=== PATIENT | female | born 1975 | race African-American/Black ===

== ENCOUNTER 2018-05-27 15:37 | Inpatient (IN) | payer SELFPAY ==
--- NOTE | 2018-05-27 16:07 | ER Document Report ---
ED General - General Chief Complaint: Hand Pain Stated Complaint: LEG/HAND PAIN, FEVER Time Seen by Provider: 05/27/18 15:57 Mode of Arrival: Ambulatory Information source: Patient Notes: Patient is a 42-year-old female who is morbidly obese with a BMI of 65.1.she presents to the ED today primarily complaining of bilateral hand pain located along her 5th and 4th fingers for the past few months. It worsened as she used the computer more often and while she slept on a chair at the hospital during her 's hospitalization, and is associated with numbness and tingling. She has no history of trauma to either hand. Additionally, she has a history of DVTs and now has pain in her right calf. The pain in her right calf is similar to the pain that she experienced previously with DVTs. It is associated with feelings of muscle tightness and cramping. She takes warfarin 6 mg every day, and has a stent in her right lower extremity. She has not had her INR checked since early March, as she is hoping to establish care with a new doctor in the area. She reports no dietary changes. She denies feeling short of breath. As noted, she has an extensive surgical and past medical history. Of note, she had a hysterectomy around 6 months ago for endometrial cancer. She is not on hormone replacement therapy. Patient is in no acute distress, she is breathing unlabored and is saturating 100% on room air, she ambulates per her normal for her body habitus. TRAVEL OUTSIDE OF THE [place] IN LAST 30 DAYS: No - HPI Onset: This morning - calf pain since this morning, hand pain for a few months Onset/Duration: Gradual - hand pain and calf pain Quality of pain: Achy - hand pain is achy with numbness/tingling, calf pain is crampy Severity: Mild Pain Level: 1 - both calf and hand pain are mild Associated symptoms: None Exacerbated by: Other - as noted in HPI Similar symptoms previously: No - as noted in HPI Recently seen / treated by doctor: No - as noted in HPI - Related Data Allergies/Adverse Reactions: doxycycline Allergy (Verified 05/27/18 21:33) sumatriptan [From Imitrex] Allergy (Verified 05/27/18 21:33) Past Medical History - General Information source: Patient - Social History Smoking Status: Never Smoker Frequency of alcohol use: Rare Drug Abuse: None Lives with: Family Family History: Reviewed & Not Pertinent - Medical History Medical History: Other - Past Medical History Cardiac Medical History: Reports: Hx DVT Neurological Medical History: Reports: Hx Migraine Other: pseudotumor cerebrii Endocrine Medical History: Reports: Hx Hypothyroidism - s/p partial thyroidectomy Renal/ Medical History: Reports: Other - endometrial cancer s/p total hysterectomy Malignancy Medical History: Reports: Other - as noted in history GI Medical History: Reports: Other - s/p partial colectomy and sleeve gastrectomy Past Surgical History: Reports: Hx Bowel Surgery, Hx Gastric Bypass Surgery, Hx Gynecologic Surgery, Hx Thyroid Surgery Review of Systems - Review of Systems Notes: Physical Exam: General: Alert, appears well. HEENT: Normocephalic. Atraumatic. PERRLA. Extraocular movements intact. Oropharynx clear. Neck: Supple. Non-tender. Respiratory: No respiratory distress. Clear and equal breath sounds bilaterally. Cardiovascular: Regular rate and rhythm. Abdominal: Normal Inspection. Soft, non-tender. No distension. Normal Bowel Sounds. Back: Non-tender. No deformity or step off. Extremities: Moves all four extremities. Upper extremities: Normal inspection. Non-tender. Normal color. Normal ROM. Normal temperature. Lower extremities: Normal inspection. Tenderness to R calf upon palpation. No edema. Normal color. Normal ROM. Normal temperature. Two approximately 2cm bruises noted on L inner thigh and R superior calf. Neurological: Cranial nerves II-XII grossly intact bilaterally. Strength 5/5 throughout. Sensation intact to light touch. Normal cognition. AAOx4. Normal speech. Psychological: Normal affect. Normal Mood. Skin: Warm. Dry. Normal color. Constitutional: Fever EENT: No symptoms reported Cardiovascular: No symptoms reported Respiratory: No symptoms reported Gastrointestinal: No symptoms reported Genitourinary: No symptoms reported Female Genitourinary: No symptoms reported Musculoskeletal: Muscle pain - R calf Skin: No symptoms reported Hematologic/Lymphatic: No symptoms reported Neurological/Psychological: No symptoms reported Physical Exam - Vital signs Vitals: Temp Pulse Resp BP Pulse Ox 100.0 F 120 H 26 H 145/86 H 100 05/27/18 15:44 05/27/18 15:44 05/27/18 15:44 05/27/18 15:44 05/27/18 15:44 Course - Re-evaluation Re-evalutation: 05/27/18 23:07 Patient presented to the ED for complaint of chronic pain to bilateral legs with a history of DVT, she also complained of some numbness to the fourth and fifth finger on both sides that is been present for several months. She states she also had a fever earlier today but no other symptoms. She states she became concerned because of the fever. Due to her symptoms a Doppler was studied as she had had a previous deep PT which was negative. She also had blood work drawn as she is on Coumadin CBC chemistry and UA were completed. I was evaluating her for any problems with her glucose for the numbness to the fingers. When the blood work and urine came back it was obvious she had a UTI. As her stay continued she developed a fever of 102. When she first arrived the pulse was 110 and by the time she had a fever over 102 her pulse was up to 120. IV fluids were started and she was given Tylenol. Lactic acid is CRP and sed rate were also ordered. I discussed the patient with Dr. Feliz Rocephin 2 g IV was ordered while we awaited the results of the labs. When the patient started becoming more short of breath and her pulse went up to 130 Dr. Feliz came and examined the patient and the patient was placed on a monitor and vancomycin was ordered IV. Dr. Griffin was consulted for a admission and the patient was admitted for UTI sepsis. He stated she should go to [facility]. - Vital Signs Vital signs: Temp Pulse Resp BP Pulse Ox 102.8 F H 122 H 38 H 159/99 H 98 05/27/18 22:05 05/27/18 22:05 05/27/18 22:05 05/27/18 22:05 05/27/18 22:05 - Laboratory Result Diagrams: 05/27/18 16:55 05/27/18 16:55 Laboratory results interpreted by me: 05/27/18 05/27/18 05/27/18 16:55 16:55 16:55 WBC 14.6 H Hgb 11.0 L Hct 34.8 L MCV 78 L MCH 24.4 L MCHC 31.5 L RDW 15.4 H Seg Neutrophils % 84.9 H Lymphocytes % 8.6 L Absolute Neutrophils 12.4 H ESR PT 23.3 H APTT 51.5 H Chloride 110 H Est GFR (Non-Af Amer) 57 L Glucose 116 H C-Reactive Protein Urine Protein Urine Blood Urine Urobilinogen Ur Leukocyte Esterase 05/27/18 05/27/18 05/27/18 16:55 16:55 17:15 WBC Hgb Hct MCV MCH MCHC RDW Seg Neutrophils % Lymphocytes % Absolute Neutrophils ESR 48 H PT APTT Chloride Est GFR (Non-Af Amer) Glucose C-Reactive Protein 155.5 H Urine Protein 100 H Urine Blood SMALL H Urine Urobilinogen 2.0 H Ur Leukocyte Esterase MODERATE H - Diagnostic Test Radiology reviewed: Image reviewed, Reports reviewed Discharge - Discharge Clinical Impression: Sepsis Qualifiers: Sepsis type: sepsis due to unspecified organism Qualified Code(s): A41.9 - Sepsis, unspecified organism UTI (urinary tract infection) Qualifiers: Urinary tract infection type: site unspecified Hematuria presence: without hematuria Qualified Code(s): N39.0 - Urinary tract infection, site not specified Disposition: ADMITTED INPATIENT Admitting Provider: [facility] Unit Admitted: [facility]
[2018-05-27] MEDS ORDERED: ACETAMINOPHEN 325 MG TABLET PO ONE ×2 (17:01→20:32)
[2018-05-27 17:10] LABS: ABSOLUTE EOSINOPHILS # (AUTO) 0.1 10^3/uL (0.0-0.6); ABSOLUTE LYMPHOCYTES (AUTO) 1.3 10^3/uL (0.5-4.7); ABSOLUTE MONOCYTES (AUTO) 0.9 10^3/uL (0.1-1.4); ABSOLUTE NEUT (AUTO) 12.4 10^3/uL (1.7-8.2); BASOPHILS % (AUTO) 0.2 % (0-2); EOSINOPHILS % (AUTO) 0.3 % (0-6); HEMATOCRIT 34.8 % (36.0-47.0); LYMPHOCYTES % (AUTO) 8.6 % (13-45); MEAN CORPUSCULAR HEMOGLOBIN 24.4 pg (27.0-33.4); MEAN CORPUSCULAR HGB CONC 31.5 g/dL (32.0-36.0); MEAN CORPUSCULAR VOLUME 78 fl (80-97); PLATELET COUNT 271 10^3/uL (150-450); RED BLOOD COUNT 4.49 10^6/uL (3.72-5.28); RED CELL DISTRIBUTION WIDTH 15.4 % (11.5-14.0); SEGMENTED NEUTROPHILS % (AUTO) 84.9 % (42-78); TOTAL CELLS COUNTED % (AUTO) 100 %; WHITE BLOOD COUNT 14.6 10^3/uL (4.0-10.5)
[2018-05-27 17:15] LABS: INTERNATIONAL RATION (INR) 1.96; PARTIAL THROMBOPLASTIN TIME 51.5 SEC (23.5-35.8); PROTHROMBIN TIME 23.3 SEC (11.4-15.4)
[2018-05-27 17:24] LABS: ALANINE AMINOTRANSFERASE 28 U/L (9-52); ALBUMIN 3.6 g/dL (3.5-5.0); ALKALINE PHOSPHATASE 76 U/L (38-126); ANION GAP 10 (5-19); ASPARTATE AMINO TRANSFERASE 26 U/L (14-36); BILIRUBIN,DIRECT 0.1 mg/dL (0.0-0.4); BILIRUBIN,TOTAL 0.5 mg/dL (0.2-1.3); BLOOD UREA NITROGEN 11 mg/dL (7-20); CALCIUM 9.2 mg/dL (8.4-10.2); CARBON DIOXIDE 23 mmol/L (22-30); CHLORIDE 110 mmol/L (98-107); GLUCOSE 116 mg/dL (75-110); POTASSIUM 4.3 mmol/L (3.6-5.0); SODIUM 143.4 mmol/L (137-145)
[2018-05-27 17:40] LABS: APPEARANCE,URINE CLOUDY; BILIRUBIN,URINE NEGATIVE (NEGATIVE); COLOR,URINE YELLOW; GLUCOSE, URINE NEGATIVE (NEGATIVE); KETONES,URINE NEGATIVE (NEGATIVE); LEUKOCYTE ESTERASE,URINE MODERATE (NEGATIVE); NITRITE,URINE NEGATIVE (NEGATIVE); PROTEIN,URINE 100 mg/dL (NEGATIVE); URINE SPECIFIC GRAVITY 1.033
[2018-05-27] MEDS ORDERED: CEFTRIAXONE 2 GM/D5W RTU 2 GM/50 ML RTUPB IV SCH (19:00)
[2018-05-27] MEDS: RINGERS SOLUTION,LACTATED 1,000 ML IV PRN ×2 (19:02→19:03)
[2018-05-27] MEDS ORDERED: CEFTRIAXONE SODIUM 2,000 MG in DEXTROSE 5%-WATER 100 ML IV SCH (19:30)
[2018-05-27] MEDS ORDERED: VANCOMYCIN HCL INJ 1000 MG VIAL IV ONE (20:52)
[2018-05-27] MEDS ORDERED: NORMAL SALINE 500 ML IV ONE (21:00)
[2018-05-27] MEDS ORDERED: NORMAL SALINE 1000 ML 1,000 ML IV ONE (21:06)
[2018-05-27] MEDS ORDERED: MAG HYDROX/AL HYDROX/SIMETH SUSP 30 ML UDCUP PO PRN (21:08)
[2018-05-27] MEDS ORDERED: VANCOMYCIN HCL 0 MG in DEXTROSE 5%-WATER 250 ML IV NR (21:15)
[2018-05-27] MEDS ORDERED: NORMAL SALINE 1000 ML 1,000 ML IV SCH (21:15)
[2018-05-27] MEDS ORDERED: MORPHINE SULFATE 10 MG/ML INJ IV ONE (21:23)
[2018-05-27] MEDS ORDERED: ONDANSETRON HCL INJ/PF 4 MG/2 ML SDV IV ONE (21:23)
--- NOTE | 2018-05-27 21:50 | RADIOLOGY REPORT (SQ) ---
PROCEDURE: XR CHEST 1 VIEW HISTORY: SEPSIS COMPARISON: None TECHNIQUE: The study was done on 05/27/2018 at 9:32 PM Single projection of the chest was done. FINDINGS: The lung larson are well inflated . There are no discrete airspace infiltrates, pneumothoraces or pleural effusions. The pulmonary vascularity is normal. The cardiomediastinal silhouette is unremarkable for patient's age and sex. IMPRESSION: There is no acute pleural-parenchymal process seen in the imaged lung larson. Location of Interpretation: Teleradiology
--- NOTE | 2018-05-27 21:53 | RADIOLOGY REPORT (SQ) ---
PROCEDURE: Ultrasound of the right lower extremity deep venous system CLINICAL HISTORY and INDICATION: Pain in the right leg COMPARISON: None. TECHNIQUE: Maldonado scale imaging with duplex interrogation of the right lower extremity venous system was performed and multiple static images were obtained. FINDINGS: Utilizing compression and augmentation, there is no deep venous thrombus in the right common femoral, superficial femoral or popliteal veins. The study is somewhat limited due to patient's body habitus The right profunda femoris, posterior tibial veins are patent and compressible. . The bilateral greater saphenous vein at the saphenofemoral junction is patent and compressible. There is no visualization of any subcutaneous fluid collections in either lower extremity. There is no visualization of any fluid collections in the right and left popliteal fossa. There is no evidence of reactive or pathological lymphadenopathy in the evaluated bilateral lower extremities. IMPRESSION: No deep venous thrombosis of the right lower extremity. Location of Interpretation: [id number]
[2018-05-27] MEDS: HEPARIN SOD (PORCINE) 5,000 UNIT/ML 1 ML SYRINGE SUBCUT SCH (23:08)
[2018-05-28] MEDS: ACETAMINOPHEN 325 MG TABLET PO PRN ×4 (00:39→21:46)
[2018-05-28 01:49] LABS: ARTERIAL BLOOD BASE EXCESS -5.7 mmol/L; ARTERIAL BLOOD H2CO3 0.84 mmol/L (1.05-1.35); ARTERIAL BLOOD HCO3 17.6 mmol/L (20-24); ARTERIAL BLOOD O2 SATURATION 94.1 % (94-98); ARTERIAL BLOOD PCO2 27.8 mmHg (35-45); ARTERIAL BLOOD PH 7.42 (7.35-7.45); ARTERIAL BLOOD PO2 67.2 mmHg (80-100); ARTERIAL BLOOD TOTAL CO2 18.5 mmol/L (21-25)
[2018-05-28 01:51] LABS: ARTERIAL BLOOD FIO2 ROOM AIR
[2018-05-28] MEDS ORDERED: KETOROLAC TROMETHAMINE INJ/PF 30 MG/1 ML SDV ONE (02:04)
[2018-05-28] MEDS ORDERED: KETOROLAC TROMETHAMINE INJ/PF 30 MG/1 ML SDV IV ONE (02:15)
--- NOTE | 2018-05-28 04:58 | RADIOLOGY REPORT (SQ) ---
CLINICAL HISTORY: sepsis c L pelvic pain HX recent hysterectomy(6 MONTHS AGO) COMPARISON: None. TECHNIQUE: CT ABDOMEN PELVIS WITH IV CONTRAST on 05/28/2018 12:00 AM [employer] This exam was performed according to our departmental dose-optimization program, which includes automated exposure control, adjustment of the mA and/or kV according to patient size and/or use of iterative reconstruction technique. FINDINGS: Lower lungs are clear. Abdomen: Liver is fatty in attenuation. There is no biliary dilatation. Cholecystectomy was performed. Gastric bypass was performed. The pancreas and spleen are normal in appearance. Adrenal glands and left kidney are unremarkable. There is a 7 mm mid pole right renal calculus. There is mild right perinephric stranding. Abdominal aorta is normal in course and caliber without aneurysm. There is no free air. There is no retroperitoneal adenopathy. Pelvis: There is no bowel obstruction. Urinary bladder is unremarkable. There is no free fluid. Hysterectomy was performed. Appendix is not well seen. IVC filter is in place. Skeleton: There are no acute osseous findings. No suspicious bony lesions. IMPRESSION: No definite acute osseous abnormalities. Right perinephric stranding with a central renal collecting system. Underlying pyelonephritis is not completely excluded. No obstructing ureteral lesion or stone.
[2018-05-28 05:23] LABS: ABSOLUTE BASOPHILS # (AUTO) 0.1 10^3/uL (0.0-0.2); ABSOLUTE MONOCYTES (AUTO) 1.3 10^3/uL (0.1-1.4); ABSOLUTE NEUT (AUTO) 11.4 10^3/uL (1.7-8.2); BASOPHILS % (AUTO) 0.8 % (0-2); HEMATOCRIT 33.2 % (36.0-47.0); HEMOGLOBIN 10.6 g/dL (12.0-15.5); LYMPHOCYTES % (AUTO) 7.2 % (13-45); MEAN CORPUSCULAR HEMOGLOBIN 24.5 pg (27.0-33.4); MEAN CORPUSCULAR HGB CONC 31.9 g/dL (32.0-36.0); MEAN CORPUSCULAR VOLUME 77 fl (80-97); MONOCYTES % (AUTO) 9.6 % (3-13); PLATELET COUNT 259 10^3/uL (150-450); RED BLOOD COUNT 4.32 10^6/uL (3.72-5.28); RED CELL DISTRIBUTION WIDTH 15.7 % (11.5-14.0); SEGMENTED NEUTROPHILS % (AUTO) 82.4 % (42-78); TOTAL CELLS COUNTED % (AUTO) 100 %; WHITE BLOOD COUNT 13.8 10^3/uL (4.0-10.5)
--- NOTE | 2018-05-28 05:27 | PDOC H&P ---
History of Present Illness Admission Date/PCP: 05/27/18 21:11 Patient complains of: Fever and right pelvic pain History of Present Illness: KOBE VELAZQUEZ is a 42 year old female with an extensive past medical history of super morbid obesity, cervical cancer status post total hysterectomy February 2018, gastric sleeve 2014, cholecystectomy, DVT with IVC filter, presenting with 2 days of right-sided pelvic pain. In the emergency room she is found to have pyuria, leukocytosis and sepsis. She started on empiric antibiotics and referred to the hospitalist for admission. Patient admits previous urinary tract infection 4 months ago, denies recent antibiotics. Patient is found with exceptional pelvic pain given recent history hysterectomy CT scan abdomen and pelvis was obtained revealing right-sided perinephric creatinine consistent with pyelonephritis without evidence of obstruction or hydronephrosis. Past Medical History Cardiac Medical History: Reports: DVT Pulmonary Medical History: Reports: Asthma Neurological Medical History: Reports: Migraine Endocrine Medical History: Reports: Hypothyroidism - s/p partial thyroidectomy Renal/ Medical History: Reports: Other - endometrial cancer s/p total hysterectomy Malignancy Medical History: Reports: Other - as noted in history GI Medical History: Reports: Gastroesophageal Reflux Disease, Other - s/p partial colectomy and sleeve gastrectomy Past Surgical History Past Surgical History: Reports: Cholecystectomy, Gastric Bypass Surgery, Hysterectomy Social History Information Source: Patient Lives with: Family Smoking Status: Never Smoker Frequency of Alcohol Use: Rare Hx Recreational Drug Use: No Drugs: None Hx Prescription Drug Abuse: No - Advance Directive Resuscitation Status: Full Code Family History Family History: Hypertension Parental Family History Reviewed: Yes Children Family History Reviewed: Yes Sibling(s) Family History Reviewed.: Yes Medication/Allergy Home Medications: Esomeprazole Mag Trihydrate [Nexium] 40 mg PO QAM 05/27/18 Ranitidine HCl [Zantac] 150 mg PO QHS 05/27/18 Topiramate [Topamax 100 Mg Tablet] 100 mg PO Q12 05/27/18 Warfarin Sodium [Coumadin] 6 mg PO DAILY 05/27/18 Allergies/Adverse Reactions: doxycycline Allergy (Verified 05/27/18 21:33) sumatriptan [From Imitrex] Allergy (Verified 05/27/18 21:33) Review of Systems Constitutional: ABSENT: chills, fever(s), headache(s), weight gain, weight loss Eyes: ABSENT: visual disturbances Ears: ABSENT: hearing changes Cardiovascular: ABSENT: chest pain, dyspnea on exertion, edema, orthropnea, palpitations Respiratory: ABSENT: cough, hemoptysis Gastrointestinal: ABSENT: abdominal pain, constipation, diarrhea, hematemesis, hematochezia, nausea, vomiting Genitourinary: ABSENT: dysuria, hematuria Musculoskeletal: ABSENT: joint swelling Integumentary: ABSENT: rash, wounds Neurological: ABSENT: abnormal gait, abnormal speech, confusion, dizziness, focal weakness, syncope Psychiatric: ABSENT: anxiety, depression, homidical ideation, suicidal ideation Endocrine: ABSENT: cold intolerance, heat intolerance, polydipsia, polyuria Hematologic/Lymphatic: ABSENT: easy bleeding, easy bruising Physical Exam Vital Signs: Temp Pulse Resp BP Pulse Ox 102.9 F H 139 H 52 H 129/95 H 96 05/28/18 03:08 05/28/18 03:08 05/28/18 03:08 05/28/18 03:08 05/28/18 03:08 Intake & Output 05/26/18 05/27/18 05/28/18 11:59 11:59 11:59 Intake Total 1999 Balance 1999 General appearance: PRESENT: cooperative, mild distress, morbidly obese, well- developed, well-nourished Head exam: PRESENT: atraumatic, normocephalic Eye exam: PRESENT: conjunctiva pink, EOMI, PERRLA. ABSENT: scleral icterus Ear exam: PRESENT: normal external ear exam Mouth exam: PRESENT: moist, tongue midline Neck exam: ABSENT: carotid bruit, JVD, lymphadenopathy, thyromegaly Respiratory exam: PRESENT: clear to auscultation rajeev. ABSENT: rales, rhonchi, wheezes Cardiovascular exam: PRESENT: RRR. ABSENT: diastolic murmur, rubs, systolic murmur Pulses: PRESENT: normal dorsalis pedis pul Vascular exam: PRESENT: normal capillary refill GI/Abdominal exam: PRESENT: normal bowel sounds, soft, tenderness - Pelvic pain on the right side. ABSENT: distended, guarding, mass, organolmegaly, rebound Rectal exam: PRESENT: deferred Extremities exam: PRESENT: full ROM. ABSENT: calf tenderness, clubbing, pedal edema Neurological exam: PRESENT: alert, awake, oriented to person, oriented to place , oriented to time, oriented to situation, CN II-XII grossly intact. ABSENT: motor sensory deficit Psychiatric exam: PRESENT: appropriate affect, normal mood. ABSENT: homicidal ideation, suicidal ideation Skin exam: PRESENT: dry, intact, warm. ABSENT: cyanosis, rash Results Laboratory Results: 05/28/18 01:40 Carbonic Acid 0.84 L HCO3/H2CO3 Ratio 20:1 ABG pH 7.42 ABG pCO2 27.8 L ABG pO2 67.2 L ABG HCO3 17.6 L ABG O2 Saturation 94.1 ABG Base Excess -5.7 FiO2 ROOM AIR Impressions: Venous Doppler Study 05/27/18 15:59 IMPRESSION: No deep venous thrombosis of the right lower extremity. Location of Interpretation: [id number] Chest X-Ray 05/27/18 21:18 IMPRESSION: There is no acute pleural-parenchymal process seen in the imaged lung larson. Location of Interpretation: Teleradiology Abdomen/Pelvis CT 05/28/18 00:00 IMPRESSION: No definite acute osseous abnormalities. Right perinephric stranding with a central renal collecting system. Underlying pyelonephritis is not completely excluded. No obstructing ureteral lesion or stone. Assessment & Plan - Diagnosis (1) Pyelonephritis Is this a current diagnosis for this admission?: Yes Plan: Without obstruction, empiric antibiotics, follow-up CBC blood and urine culture (2) Sepsis Qualifiers: Sepsis type: sepsis due to unspecified organism Qualified Code(s): A41.9 - Sepsis, unspecified organism Is this a current diagnosis for this admission?: Yes Plan: IV fluid challenge, pressors as needed (3) UTI (urinary tract infection) Qualifiers: Urinary tract infection type: site unspecified Hematuria presence: without hematuria Qualified Code(s): N39.0 - Urinary tract infection, site not specified Is this a current diagnosis for this admission?: Yes Plan: Secondary to #1, follow-up CBC, blood and urine culture - Time Time Spent: 50 to 70 Minutes - Inpatient Certification Medical Necessity: Need Close Monitoring Due to Risk of Patient Decompensation
[2018-05-28] MEDS: HEPARIN SOD (PORCINE) 5,000 UNIT/ML 1 ML SYRINGE SUBCUT SCH (05:33)
[2018-05-28 05:42] LABS: ANION GAP 10 (5-19); BLOOD UREA NITROGEN 9 mg/dL (7-20); CALCIUM 8.2 mg/dL (8.4-10.2); CARBON DIOXIDE 20 mmol/L (22-30); CHLORIDE 111 mmol/L (98-107); GLUCOSE 111 mg/dL (75-110); POTASSIUM 3.4 mmol/L (3.6-5.0); SODIUM 141.4 mmol/L (137-145)
[2018-05-28] MEDS: NORMAL SALINE 1000 ML 1,000 ML IV PRN ×3 (06:34→14:16)
[2018-05-28] MEDS: MORPHINE SULFATE 10 MG/ML INJ IV PRN ×4 (08:06→21:55)
[2018-05-28] MEDS ORDERED: POTASSIUM CHLORIDE 10 MEQ CAPSULE.ER PO ONE (08:45)
[2018-05-28] MEDS: DOCUSATE SODIUM 100 MG CAPSULE PO SCH ×2 (09:29→17:17)
[2018-05-28] MEDS ORDERED: VANCOMYCIN HCL 1,500 MG in DEXTROSE 5%-WATER 250 ML IV SCH (10:00)
[2018-05-28] MEDS ORDERED: CEFTRIAXONE 1 GM/D5W RTU 1 GM/50 ML RTUPB IV SCH (10:00)
[2018-05-28] MEDS ORDERED: (PENDING PHARMACY ID) (Warfarin Sodium [Coumadin] 6 MG) PO SCH (10:00)
[2018-05-28] MEDS: TOPIRAMATE 100 MG TABLET PO SCH ×2 (10:44→21:54)
[2018-05-28] MEDS ORDERED: LANSOPRAZOLE 30 MG TAB.RAP.DR PO ONE (11:15)
[2018-05-28] MEDS: PIPERACILLIN SODIUM/TAZOBACTAM 3.375 GM in NORMAL SALINE 100 ML IV SCH ×2 (11:18→17:23)
--- NOTE | 2018-05-28 13:34 | PDOC PROGRESS REPORT ---
Subjective Progress Note for:: 05/28/18 Subjective:: Ms. Snyder is a 42-year-old female with a past medical history of morbid obesity , history of cervical cancer with prior hysterectomy, prior cholecystectomy and gastric sleeve surgery, history of DVT with IVC filter and anticoagulated on Coumadin who presented with 2-day history of a right sided flank pain. Patient was noted to have acute pyelonephritis upon presentation. No acute event overnight. Patient does complain of right-sided flank pain but says this is slightly improved with the morphine. She does continue to have a fever with a temperature of 101.4 this morning. She denies nausea or vomiting. Reason For Visit: UTI,SEPSIS MORBID OBESITY Physical Exam Vital Signs: Temp Pulse Resp BP Pulse Ox 99.8 F 113 H 16 131/65 H 100 05/28/18 12:23 05/28/18 12:23 05/28/18 12:23 05/28/18 12:23 05/28/18 12:23 Intake & Output 05/27/18 05/28/18 05/29/18 06:59 06:59 06:59 Intake Total 3025 1329 Balance 3025 1329 Weight 409 lb 9.902 oz General appearance: PRESENT: mild distress - mild distress from right flank pain , well-developed, well-nourished Head exam: PRESENT: atraumatic, normocephalic Eye exam: PRESENT: conjunctiva pink, EOMI, PERRLA. ABSENT: scleral icterus Ear exam: PRESENT: normal external ear exam Mouth exam: PRESENT: moist, tongue midline Neck exam: ABSENT: carotid bruit, JVD, lymphadenopathy, thyromegaly Respiratory exam: PRESENT: clear to auscultation rajeev. ABSENT: rales, rhonchi, wheezes Cardiovascular exam: PRESENT: RRR. ABSENT: diastolic murmur, rubs, systolic murmur Vascular exam: PRESENT: normal capillary refill GI/Abdominal exam: PRESENT: normal bowel sounds, soft, tenderness - +CVA tenderness on the right. ABSENT: distended, guarding, mass, organolmegaly, rebound Rectal exam: PRESENT: deferred Neurological exam: PRESENT: alert, awake, oriented to person, oriented to place , oriented to time, oriented to situation, CN II-XII grossly intact. ABSENT: motor sensory deficit Results Laboratory Results: 05/28/18 04:12 05/28/18 04:12 05/28/18 05/28/18 05/28/18 01:40 04:12 04:12 WBC 13.8 H RBC 4.32 Hgb 10.6 L Hct 33.2 L MCV 77 L MCH 24.5 L MCHC 31.9 L RDW 15.7 H Plt Count 259 Seg Neutrophils % 82.4 H Lymphocytes % 7.2 L Monocytes % 9.6 Eosinophils % 0.0 Basophils % 0.8 Absolute Neutrophils 11.4 H Absolute Lymphocytes 1.0 Absolute Monocytes 1.3 Absolute Eosinophils 0.0 Absolute Basophils 0.1 Carbonic Acid 0.84 L HCO3/H2CO3 Ratio 20:1 ABG pH 7.42 ABG pCO2 27.8 L ABG pO2 67.2 L ABG HCO3 17.6 L ABG O2 Saturation 94.1 ABG Base Excess -5.7 FiO2 ROOM AIR Sodium 141.4 Potassium 3.4 L Chloride 111 H Carbon Dioxide 20 L Anion Gap 10 BUN 9 Creatinine 1.06 Est GFR ( Amer) > 60 Est GFR (Non-Af Amer) 57 L Glucose 111 H Calcium 8.2 L Impressions: Venous Doppler Study 05/27/18 15:59 IMPRESSION: No deep venous thrombosis of the right lower extremity. Location of Interpretation: [id number] Chest X-Ray 05/27/18 21:18 IMPRESSION: There is no acute pleural-parenchymal process seen in the imaged lung larson. Location of Interpretation: Teleradiology Abdomen/Pelvis CT 05/28/18 00:00 IMPRESSION: No definite acute osseous abnormalities. Right perinephric stranding with a central renal collecting system. Underlying pyelonephritis is not completely excluded. No obstructing ureteral lesion or stone. Assessment & Plan - Diagnosis (1) Sepsis Qualifiers: Sepsis type: sepsis due to unspecified organism Qualified Code(s): A41.9 - Sepsis, unspecified organism Is this a current diagnosis for this admission?: Yes Plan: Sepsis secondary to acute pyelonephritis. Patient did present with high fever, tachycardia and tachypnea. PT and APTT are also elevated. UA is consistent with UTI. CT result is suggestive of right sided pyelonephritis. Continue IV fluids. Switch vancomycin and rocephin to Zosyn for now. Urine and blood cultures pending. (2) Pyelonephritis Is this a current diagnosis for this admission?: Yes Plan: As per #1. (3) History of DVT (deep vein thrombosis) Is this a current diagnosis for this admission?: Yes Plan: Resume coumadin. History of IVC filter placement. - Time Time Spent with patient: 15-24 minutes
[2018-05-28] MEDS: KETOROLAC TROMETHAMINE INJ/PF 30 MG/1 ML SDV IV PRN (17:11)
[2018-05-28] MEDS ORDERED: CEFTRIAXONE SODIUM 1,000 MG in NORMAL SALINE 100 ML IV SCH (18:00)
[2018-05-28] MEDS ORDERED: RINGERS SOLUTION,LACTATED 1,000 ML IV ONE (18:45)
[2018-05-28] MEDS: FAMOTIDINE 20 MG TABLET PO SCH (21:46)
[2018-05-28] MEDS: WARFARIN SODIUM 3 MG TABLET PO SCH (21:54)
[2018-05-28] MEDS ORDERED: (PENDING PHARMACY ID) (Ranitidine Hcl [Zantac 150 Mg Tablet] 150 MG) PO SCH (22:00)
[2018-05-29] MEDS: PIPERACILLIN SODIUM/TAZOBACTAM 3.375 GM in NORMAL SALINE 100 ML IV SCH ×4 (00:52→18:19)
[2018-05-29] MEDS: NORMAL SALINE 1000 ML 1,000 ML IV PRN ×2 (01:45→10:46)
[2018-05-29] MEDS ORDERED: VANCOMYCIN HCL INJ 1000 MG VIAL IV PRN (04:13)
[2018-05-29] MEDS: MORPHINE SULFATE 10 MG/ML INJ IV PRN ×5 (04:25→22:06)
[2018-05-29] MEDS ORDERED: VANCOMYCIN HCL INJ 1000 MG VIAL ONE (04:27)
[2018-05-29 04:51] LABS: HEMATOCRIT 30.2 % (36.0-47.0); HEMOGLOBIN 9.7 g/dL (12.0-15.5); MEAN CORPUSCULAR HEMOGLOBIN 24.7 pg (27.0-33.4); MEAN CORPUSCULAR HGB CONC 32.2 g/dL (32.0-36.0); MEAN CORPUSCULAR VOLUME 77 fl (80-97); PLATELET COUNT 256 10^3/uL (150-450); RED BLOOD COUNT 3.93 10^6/uL (3.72-5.28); RED CELL DISTRIBUTION WIDTH 15.3 % (11.5-14.0); WHITE BLOOD COUNT 11.9 10^3/uL (4.0-10.5)
[2018-05-29 05:00] LABS: INTERNATIONAL RATION (INR) 1.88; PROTHROMBIN TIME 22.5 SEC (11.4-15.4)
[2018-05-29] MEDS ORDERED: VANCOMYCIN HCL 2,000 MG in DEXTROSE 5%-WATER 500 ML IV ONE (05:00)
[2018-05-29 05:06] LABS: ANION GAP 11 (5-19); BLOOD UREA NITROGEN 11 mg/dL (7-20); CALCIUM 8.2 mg/dL (8.4-10.2); CARBON DIOXIDE 22 mmol/L (22-30); CHLORIDE 111 mmol/L (98-107); GLUCOSE 118 mg/dL (75-110); SODIUM 143.7 mmol/L (137-145)
[2018-05-29 05:08] LABS: ABSOLUTE MONOCYTES # (MANUAL) 1.4 10^3/uL (0.1-1.4); ABSOLUTE NEUTROPHILS# (MANUAL) 9.5 10^3/uL (1.7-8.2); BAND NEUTROPHILS % (MANUAL) 1 % (3-5); BASOPHILS % (MANUAL) 0 % (0-2); EOSINOPHILS % (MANUAL) 0 % (0-6); LYMPHOCYTES % (MANUAL) 8 % (13-45); MONOCYTES % (MANUAL) 12 % (3-13); SEGMENTED NEUTROPHILS % (MAN) 79 % (42-78); TOTAL CELLS COUNTED 100
[2018-05-29 05:09] LABS: ANISOCYTOSIS SLIGHT; OVALOCYTES SLIGHT; PLATELET CLUMPS PRESENT; PLATELET COMMENT ADEQUATE; POIKILOCYTOSIS SLIGHT; TOXIC VACUOLATION PRESENT
[2018-05-29] MEDS: LANSOPRAZOLE 30 MG TAB.RAP.DR PO SCH (05:48)
[2018-05-29] MEDS: KETOROLAC TROMETHAMINE INJ/PF 30 MG/1 ML SDV IV PRN ×3 (05:55→19:48)
[2018-05-29] MEDS ORDERED: (PENDING PHARMACY ID) (Esomeprazole Mag Trihydrate [Nexium] 40 MG) PO SCH (08:00)
[2018-05-29] MEDS ORDERED: VANCOMYCIN HCL 0 MG in DEXTROSE 5%-WATER 250 ML IV NR (08:00)
[2018-05-29] MEDS: DOCUSATE SODIUM 100 MG CAPSULE PO SCH ×2 (09:31→18:07)
[2018-05-29] MEDS: TOPIRAMATE 100 MG TABLET PO SCH ×2 (09:32→22:03)
--- NOTE | 2018-05-29 12:09 | PDOC PROGRESS REPORT ---
Subjective Progress Note for:: 05/29/18 Subjective:: Ms. Snyder is a 42-year-old female with a past medical history of morbid obesity , history of cervical cancer with prior hysterectomy, prior cholecystectomy and gastric sleeve surgery, history of DVT with IVC filter and anticoagulated on Coumadin who presented with 2-day history of a right sided flank pain. Patient was noted to have acute pyelonephritis upon presentation. No acute event overnight. Her fever has improved but she remains febrile from 102-103 to 101 F this morning. She continues to have right sided flank pain but says this has significantly improved from yesterday. She denies nausea or vomiting. No chest pain or SOB. Reason For Visit: UTI,SEPSIS MORBID OBESITY Physical Exam Vital Signs: Temp Pulse Resp BP Pulse Ox 100.1 F 123 H 20 141/92 H 98 05/29/18 07:40 05/29/18 07:40 05/29/18 07:40 05/29/18 07:40 05/29/18 07:40 Pulse Oximeter Nocturnal Start: 05/28/18 16: 39 Freq: RTQ4 Status: Complete Document 05/29/18 04:00 SFL (Rec: 05/29/18 04:53 SFL [id number]) Nocturnal Pulse Oximetry Equipment Usage Equipment in Use Oxygen Delivery Method (includes room Room Air air) O2 Sat by Pulse Oximetry (92-100) 94 Continuous SpO2 Discontinued Yes Continuous SpO2 Machine # 8 Intake & Output 05/28/18 05/29/18 05/30/18 06:59 06:59 06:59 Intake Total 3025 4148 1000 Balance 3025 4148 1000 Weight 409 lb 9.902 oz 417 lb 12.415 oz General appearance: PRESENT: no acute distress, well-developed, well-nourished Head exam: PRESENT: atraumatic, normocephalic Eye exam: PRESENT: conjunctiva pink, EOMI, PERRLA. ABSENT: scleral icterus Ear exam: PRESENT: normal external ear exam Mouth exam: PRESENT: moist, tongue midline Neck exam: ABSENT: carotid bruit, JVD, lymphadenopathy, thyromegaly Respiratory exam: PRESENT: clear to auscultation rajeev. ABSENT: rales, rhonchi, wheezes Cardiovascular exam: PRESENT: RRR. ABSENT: diastolic murmur, rubs, systolic murmur Pulses: PRESENT: normal dorsalis pedis pul GI/Abdominal exam: PRESENT: normal bowel sounds, soft, tenderness - minimal right CVA tenderness, improved from yesterday. ABSENT: distended, guarding, mass, organolmegaly, rebound Rectal exam: PRESENT: deferred Neurological exam: PRESENT: alert, awake, oriented to person, oriented to place , oriented to time, oriented to situation, CN II-XII grossly intact. ABSENT: motor sensory deficit Results Laboratory Results: 05/29/18 04:04 05/29/18 04:04 05/28/18 05/29/18 05/29/18 17:00 04:04 04:04 WBC 11.9 H RBC 3.93 Hgb 9.7 L Hct 30.2 L MCV 77 L MCH 24.7 L MCHC 32.2 RDW 15.3 H Plt Count 256 Seg Neutrophils % Not Reportable Lymphocytes % Not Reportable Monocytes % Not Reportable Eosinophils % Not Reportable Basophils % Not Reportable Absolute Neutrophils Not Reportable Absolute Lymphocytes Not Reportable Absolute Monocytes Not Reportable Absolute Eosinophils Not Reportable Absolute Basophils Not Reportable Sodium 143.7 Potassium 4.0 Chloride 111 H Carbon Dioxide 22 Anion Gap 11 BUN 11 Creatinine 1.02 Est GFR ( Amer) > 60 Est GFR (Non-Af Amer) > 60 Glucose 118 H Lactic Acid 0.9 Calcium 8.2 L Impressions: Venous Doppler Study 05/27/18 15:59 IMPRESSION: No deep venous thrombosis of the right lower extremity. Location of Interpretation: [id number] Chest X-Ray 05/27/18 21:18 IMPRESSION: There is no acute pleural-parenchymal process seen in the imaged lung larson. Location of Interpretation: Teleradiology Abdomen/Pelvis CT 05/28/18 00:00 IMPRESSION: No definite acute osseous abnormalities. Right perinephric stranding with a central renal collecting system. Underlying pyelonephritis is not completely excluded. No obstructing ureteral lesion or stone. Assessment & Plan - Diagnosis (1) Sepsis Qualifiers: Sepsis type: sepsis due to unspecified organism Qualified Code(s): A41.9 - Sepsis, unspecified organism Is this a current diagnosis for this admission?: Yes Plan: Sepsis secondary to acute pyelonephritis. Patient did present with high fever, tachycardia and tachypnea. PT and APTT are also elevated. UA is consistent with UTI. CT result is suggestive of right sided pyelonephritis. Continue IV fluids. One bottle of blood culture is initially growing gram negative rods while the other is growing gram positive cocci. Vancomycin added on top of Zosyn. (2) Pyelonephritis Is this a current diagnosis for this admission?: Yes Plan: As per #1. (3) History of DVT (deep vein thrombosis) Is this a current diagnosis for this admission?: Yes Plan: Continue coumadin. History of IVC filter placement. - Time Time Spent with patient: 15-24 minutes
[2018-05-29] MEDS: VANCOMYCIN HCL 1,500 MG in DEXTROSE 5%-WATER 250 ML IV SCH ×2 (12:55→20:55)
[2018-05-29] MEDS: IPRATROPIUM/ALBUTEROL 0.5-2.5 MG/3 ML AMPUL NEB PRN (15:50)
[2018-05-29] MEDS: ACETAMINOPHEN 325 MG TABLET PO PRN ×2 (18:18→22:04)
[2018-05-29] MEDS: WARFARIN SODIUM 3 MG TABLET PO SCH (22:02)
[2018-05-29] MEDS: FAMOTIDINE 20 MG TABLET PO SCH (22:04)
[2018-05-30] MEDS: PIPERACILLIN SODIUM/TAZOBACTAM 3.375 GM in NORMAL SALINE 100 ML IV SCH ×4 (00:30→17:07)
[2018-05-30] MEDS: VANCOMYCIN HCL 1,500 MG in DEXTROSE 5%-WATER 250 ML IV SCH ×2 (03:19→12:05)
[2018-05-30] MEDS: MORPHINE SULFATE 10 MG/ML INJ IV PRN ×5 (03:19→20:50)
[2018-05-30] MEDS: KETOROLAC TROMETHAMINE INJ/PF 30 MG/1 ML SDV IV PRN ×3 (03:20→21:53)
[2018-05-30 04:48] LABS: ABSOLUTE EOSINOPHILS # (AUTO) 0.1 10^3/uL (0.0-0.6); ABSOLUTE LYMPHOCYTES (AUTO) 0.7 10^3/uL (0.5-4.7); ABSOLUTE MONOCYTES (AUTO) 1.2 10^3/uL (0.1-1.4); ABSOLUTE NEUT (AUTO) 4.4 10^3/uL (1.7-8.2); BASOPHILS % (AUTO) 0.4 % (0-2); EOSINOPHILS % (AUTO) 2.3 % (0-6); HEMOGLOBIN 8.5 g/dL (12.0-15.5); LYMPHOCYTES % (AUTO) 10.6 % (13-45); MEAN CORPUSCULAR HEMOGLOBIN 24.1 pg (27.0-33.4); MEAN CORPUSCULAR HGB CONC 31.5 g/dL (32.0-36.0); MEAN CORPUSCULAR VOLUME 77 fl (80-97); MONOCYTES % (AUTO) 19.2 % (3-13); PLATELET COUNT 246 10^3/uL (150-450); RED BLOOD COUNT 3.53 10^6/uL (3.72-5.28); RED CELL DISTRIBUTION WIDTH 15.7 % (11.5-14.0); SEGMENTED NEUTROPHILS % (AUTO) 67.5 % (42-78); TOTAL CELLS COUNTED % (AUTO) 100 %; WHITE BLOOD COUNT 6.5 10^3/uL (4.0-10.5)
[2018-05-30 05:26] LABS: ANION GAP 11 (5-19); BLOOD UREA NITROGEN 15 mg/dL (7-20); CALCIUM 7.8 mg/dL (8.4-10.2); CARBON DIOXIDE 19 mmol/L (22-30); CHLORIDE 112 mmol/L (98-107); GLUCOSE 119 mg/dL (75-110); POTASSIUM 3.7 mmol/L (3.6-5.0); SODIUM 142.1 mmol/L (137-145)
[2018-05-30] MEDS: LANSOPRAZOLE 30 MG TAB.RAP.DR PO SCH (05:45)
[2018-05-30] MEDS: ACETAMINOPHEN 325 MG TABLET PO PRN ×4 (06:16→21:53)
[2018-05-30] MEDS: NORMAL SALINE 1000 ML 1,000 ML IV PRN ×2 (08:44→21:57)
[2018-05-30] MEDS: DOCUSATE SODIUM 100 MG CAPSULE PO SCH ×2 (09:22→17:06)
[2018-05-30] MEDS: TOPIRAMATE 100 MG TABLET PO SCH ×2 (09:23→21:52)
[2018-05-30 09:29] LABS: PROTHROMBIN TIME 20.8 SEC (11.4-15.4)
--- NOTE | 2018-05-30 11:16 | PDOC PROGRESS REPORT ---
Subjective Progress Note for:: 05/30/18 Subjective:: Ms. Snyder is a 42-year-old female with a past medical history of morbid obesity , history of cervical cancer with prior hysterectomy, prior cholecystectomy and gastric sleeve surgery, history of DVT with IVC filter and anticoagulated on Coumadin who presented with 2-day history of a right sided flank pain. Patient was noted to have acute pyelonephritis upon presentation. No acute event overnight. She has been afebrile overnight. Her right flank pain continues to improve. She denies nausea or vomiting. No chest pain or SOB. Reason For Visit: UTI,SEPSIS MORBID OBESITY Physical Exam Vital Signs: Temp Pulse Resp BP Pulse Ox 98.7 F 94 16 141/95 H 95 05/30/18 07:53 05/30/18 08:42 05/30/18 08:42 05/30/18 07:53 05/30/18 08:42 Pulse Oximeter Nocturnal Start: 05/28/18 16: 39 Freq: RTQ4 Status: Complete Document 05/29/18 04:00 SFL (Rec: 05/29/18 04:53 SFL [id number]) Nocturnal Pulse Oximetry Equipment Usage Equipment in Use Oxygen Delivery Method (includes room Room Air air) O2 Sat by Pulse Oximetry (92-100) 94 Continuous SpO2 Discontinued Yes Continuous SpO2 Machine # 8 Intake & Output 05/29/18 05/30/18 05/31/18 06:59 06:59 06:59 Intake Total 4148 4388 Balance 4148 4388 Weight 417 lb 12.415 oz 426 lb 2.456 oz General appearance: PRESENT: no acute distress, well-developed, well-nourished Head exam: PRESENT: atraumatic, normocephalic Eye exam: PRESENT: conjunctiva pink, EOMI, PERRLA. ABSENT: scleral icterus Ear exam: PRESENT: normal external ear exam Mouth exam: PRESENT: moist, tongue midline Neck exam: ABSENT: carotid bruit, JVD, lymphadenopathy, thyromegaly Respiratory exam: PRESENT: clear to auscultation rajeev. ABSENT: rales, rhonchi, wheezes Cardiovascular exam: PRESENT: RRR. ABSENT: diastolic murmur, rubs, systolic murmur Pulses: PRESENT: normal dorsalis pedis pul GI/Abdominal exam: PRESENT: normal bowel sounds, soft. ABSENT: distended, guarding, mass, organolmegaly, rebound, tenderness Rectal exam: PRESENT: deferred Neurological exam: PRESENT: alert, awake, oriented to person, oriented to place , oriented to time, oriented to situation, CN II-XII grossly intact. ABSENT: motor sensory deficit Results Laboratory Results: 05/30/18 04:41 05/30/18 04:41 05/30/18 05/30/18 04:41 04:41 WBC 6.5 RBC 3.53 L Hgb 8.5 L Hct 27.0 L MCV 77 L MCH 24.1 L MCHC 31.5 L RDW 15.7 H Plt Count 246 Seg Neutrophils % 67.5 Lymphocytes % 10.6 L Monocytes % 19.2 H Eosinophils % 2.3 Basophils % 0.4 Absolute Neutrophils 4.4 Absolute Lymphocytes 0.7 Absolute Monocytes 1.2 Absolute Eosinophils 0.1 Absolute Basophils 0.0 Sodium 142.1 Potassium 3.7 Chloride 112 H Carbon Dioxide 19 L Anion Gap 11 BUN 15 Creatinine 1.30 H Est GFR ( Amer) 55 L Est GFR (Non-Af Amer) 45 L Glucose 119 H Calcium 7.8 L Impressions: Venous Doppler Study 05/27/18 15:59 IMPRESSION: No deep venous thrombosis of the right lower extremity. Location of Interpretation: [id number] Chest X-Ray 05/27/18 21:18 IMPRESSION: There is no acute pleural-parenchymal process seen in the imaged lung larson. Location of Interpretation: Teleradiology Abdomen/Pelvis CT 05/28/18 00:00 IMPRESSION: No definite acute osseous abnormalities. Right perinephric stranding with a central renal collecting system. Underlying pyelonephritis is not completely excluded. No obstructing ureteral lesion or stone. Assessment & Plan - Diagnosis (1) Sepsis Qualifiers: Sepsis type: sepsis due to unspecified organism Qualified Code(s): A41.9 - Sepsis, unspecified organism Is this a current diagnosis for this admission?: Yes Plan: Sepsis secondary to acute pyelonephritis. Patient did present with high fever, tachycardia and tachypnea. PT and APTT are also elevated. UA is consistent with UTI. CT result is suggestive of right sided pyelonephritis but no obstruction or stone. Continue IV fluids. One bottle of blood culture is growing gram negative rods while the other is growing gram positive cocci. Urine culture grew klebsiella and Proteus. Continue Vancomycin and Zosyn for now until final blood cultures are resulted. (2) Acute kidney injury Is this a current diagnosis for this admission?: Yes Plan: Likely from septic ATN. Creatinine went up to 1.3 from 1.02. Continue IV fluids and antibiotics for sepsis. (3) Pyelonephritis Is this a current diagnosis for this admission?: Yes Plan: As per #1. (4) History of DVT (deep vein thrombosis) Is this a current diagnosis for this admission?: Yes Plan: Continue coumadin. History of IVC filter placement. INR at 1.7. Increase coumadin to 7 mg. - Time Time Spent with patient: 15-24 minutes
[2018-05-30] MEDS ORDERED: WARFARIN SODIUM 3 MG TABLET PO SCH (12:00)
[2018-05-30 12:42] LABS: VANCOMYCIN,TROUGH 26.3 ug/mL (5.0-20.0)
[2018-05-30] MEDS: IPRATROPIUM/ALBUTEROL 0.5-2.5 MG/3 ML AMPUL NEB PRN (14:52)
[2018-05-30] MEDS: FAMOTIDINE 20 MG TABLET PO SCH (21:52)
[2018-05-30] MEDS ORDERED: WARFARIN SODIUM 2 MG TABLET PO SCH (22:00)
[2018-05-31] MEDS ORDERED: VANCOMYCIN HCL 1,500 MG in DEXTROSE 5%-WATER 250 ML IV SCH ×2
[2018-05-31] MEDS: PIPERACILLIN SODIUM/TAZOBACTAM 3.375 GM in NORMAL SALINE 100 ML IV SCH ×2 (00:07→06:05)
[2018-05-31] MEDS: MORPHINE SULFATE 10 MG/ML INJ IV PRN ×3 (01:00→10:18)
[2018-05-31] MEDS: ACETAMINOPHEN 325 MG TABLET PO PRN ×2 (03:55→10:18)
[2018-05-31] MEDS: KETOROLAC TROMETHAMINE INJ/PF 30 MG/1 ML SDV IV PRN (03:57)
[2018-05-31 05:23] LABS: PROTHROMBIN TIME 21.8 SEC (11.4-15.4)
[2018-05-31 05:39] LABS: ANION GAP 10 (5-19); BLOOD UREA NITROGEN 17 mg/dL (7-20); CALCIUM 8.1 mg/dL (8.4-10.2); CARBON DIOXIDE 19 mmol/L (22-30); CHLORIDE 114 mmol/L (98-107); GLUCOSE 98 mg/dL (75-110); SODIUM 143.1 mmol/L (137-145)
[2018-05-31] MEDS: LANSOPRAZOLE 30 MG TAB.RAP.DR PO SCH (06:04)
[2018-05-31 08:08] VITALS: BP 139/92
[2018-05-31] MEDS ORDERED: NORMAL SALINE 1000 ML 1,000 ML IV PRN (08:40)
[2018-05-31] MEDS: DOCUSATE SODIUM 100 MG CAPSULE PO SCH (09:03)
[2018-05-31] MEDS: TOPIRAMATE 100 MG TABLET PO SCH (09:03)
--- NOTE | 2018-05-31 12:08 | PDOC DISCHARGE SUMMARY ---
General - Admit/Disc Date/PCP Admission Date/Primary Care Provider: 05/27/18 21:11 Discharge Date: 05/31/18 - Discharge Diagnosis (1) Sepsis Is this a current diagnosis for this admission?: Yes (2) Acute kidney injury Is this a current diagnosis for this admission?: Yes (3) Pyelonephritis Is this a current diagnosis for this admission?: Yes (4) History of DVT (deep vein thrombosis) Is this a current diagnosis for this admission?: Yes - Additional Information Resuscitation Status: Full Code Discharge Diet: Cardiac Discharge Activity: Activity As Tolerated, Balance Activity w/Rest Prescriptions: Amox Tr/Potassium Clavulanate [Augmentin 875-125 mg Tablet] 1 tab PO BID 5 Days #10 tablet Hydrocodone/Acetaminophen [Hermon 5-325 mg Tablet] 1 tab PO Q6H PRN #14 tablet PRN Reason: For Pain Warfarin Sodium 7.5 mg PO DAILY #30 tablet Home Medications: Esomeprazole Mag Trihydrate [Nexium] 40 mg PO QAM 05/27/18 Ranitidine HCl [Zantac 150 mg Tablet] 150 mg PO QHS 05/27/18 Topiramate [Topamax 100 mg Tablet] 100 mg PO Q12 05/27/18 Acetaminophen [Tylenol 325 mg Tablet] 650 mg PO Q4HP PRN tablet 05/31/18 Amox Tr/Potassium Clavulanate [Augmentin 875-125 mg Tablet] 1 tab PO BID 5 Days #10 tablet 05/31/18 Hydrocodone/Acetaminophen [Hermon 5-325 mg Tablet] 1 tab PO Q6H PRN #14 tablet Warfarin Sodium 7.5 mg PO DAILY #30 tablet 05/31/18 History of Present Illness History of Present Illness: KOBE SNYDER is a 42 year old female with an extensive past medical history of super morbid obesity, cervical cancer status post total hysterectomy February 2018, gastric sleeve 2014, cholecystectomy, DVT with IVC filter, presenting with 2 days of right-sided pelvic pain. In the emergency room she is found to have pyuria, leukocytosis and sepsis. She started on empiric antibiotics and referred to the hospitalist for admission. Patient admits previous urinary tract infection 4 months ago, denies recent antibiotics. Patient is found with exceptional pelvic pain given recent history hysterectomy CT scan abdomen and pelvis was obtained revealing right-sided perinephric creatinine consistent with pyelonephritis without evidence of obstruction or hydronephrosis. Hospital Course Hospital Course: Ms. Snyder is a 42-year-old female with a past medical history of morbid obesity , history of cervical cancer with prior hysterectomy, prior cholecystectomy and gastric sleeve surgery, history of DVT with IVC filter and anticoagulated on Coumadin who presented with 2-day history of a right sided flank pain. Patient admitted for sepsis from acute pyelonephritis upon presentation with no obstruction, hydronephrosis or stone on CT. Patient was started on vancomycin and zosyn and was also given IV fluids. Her blood cultures grew Klebsiella and S. epidermidis, the latter likely a contmainant. Urine culture grew klebsiella and Proteus. She developed PEDRO likely from septic ATN. Her coumadin was increased from 6 mg to 7.5 mg daily as her INR was just close to being therapeutic with 6 mg. She will see her new PCP next week for a repeat INR and BMP. She clinically improved and her fever resolved. She says she still had mild flank pain but this has significantly improved. Pathogens were sensitive to Augmentin hence patient will be sent on Augmentin for 5 more days. Physical Exam Vital Signs: Temp Pulse Resp BP Pulse Ox 98.2 F 81 20 139/92 H 100 05/31/18 10:24 05/31/18 10:24 05/31/18 10:24 05/31/18 10:24 05/31/18 10:24 Pulse Oximeter Nocturnal Start: 05/28/18 16: 39 Freq: RTQ4 Status: Complete Document 05/29/18 04:00 [facility] (Rec: 05/29/18 04:53 [facility] [id number]) Nocturnal Pulse Oximetry Equipment Usage Equipment in Use Oxygen Delivery Method (includes room Room Air air) O2 Sat by Pulse Oximetry (92-100) 94 Continuous SpO2 Discontinued Yes Continuous SpO2 Machine # 8 Intake & Output 05/30/18 05/31/18 06/01/18 06:59 06:59 06:59 Intake Total 4388 2540 1000 Output Total 550 Balance 4388 1990 1000 Weight 426 lb 2.456 oz 431 lb 7.114 oz General appearance: PRESENT: no acute distress, well-developed, well-nourished Head exam: PRESENT: atraumatic, normocephalic Eye exam: PRESENT: conjunctiva pink, EOMI, PERRLA. ABSENT: scleral icterus Ear exam: PRESENT: normal external ear exam Mouth exam: PRESENT: moist, tongue midline Neck exam: ABSENT: carotid bruit, JVD, lymphadenopathy, thyromegaly Respiratory exam: PRESENT: clear to auscultation rajeev. ABSENT: rales, rhonchi, wheezes Cardiovascular exam: PRESENT: RRR. ABSENT: diastolic murmur, rubs, systolic murmur Pulses: PRESENT: normal dorsalis pedis pul GI/Abdominal exam: PRESENT: normal bowel sounds, soft. ABSENT: distended, guarding, mass, organolmegaly, rebound, tenderness Rectal exam: PRESENT: deferred Neurological exam: PRESENT: alert, awake, oriented to person, oriented to place , oriented to time, oriented to situation, CN II-XII grossly intact. ABSENT: motor sensory deficit Results Laboratory Results: 05/30/18 04:41 05/31/18 04:31 05/31/18 04:31 Sodium 143.1 Potassium 4.0 Chloride 114 H Carbon Dioxide 19 L Anion Gap 10 BUN 17 Creatinine 1.87 H Est GFR ( Amer) 36 L Est GFR (Non-Af Amer) 30 L Glucose 98 Calcium 8.1 L Impressions: Venous Doppler Study 05/27/18 15:59 IMPRESSION: No deep venous thrombosis of the right lower extremity. Location of Interpretation: [id number] Chest X-Ray 05/27/18 21:18 IMPRESSION: There is no acute pleural-parenchymal process seen in the imaged lung larson. Location of Interpretation: Teleradiology Abdomen/Pelvis CT 05/28/18 00:00 IMPRESSION: No definite acute osseous abnormalities. Right perinephric stranding with a central renal collecting system. Underlying pyelonephritis is not completely excluded. No obstructing ureteral lesion or stone. Qualifiers - * PATIENT BEING DISCHARGED WITH ANY OF THE FOLLOWING DIAGNOSIS: No
== END 2018-05-31 12:04 | disposition home or self-care (01) | DRG 871 ==
LOC: ER 15:37 → EH 21:11 → 3N 22:49 → 3W 05-30 04:15
PROVIDERS: ADMIT Internal Medicine; ATTEND Internal Medicine
DX: A41.9 Sepsis, unspecified organism (principal); N17.0 Acute kidney failure with tubular necrosis; Z68.44 Body mass index [BMI] 60.0-69.9, adult; N10 Acute pyelonephritis; J45.909 Unspecified asthma, uncomplicated; E89.0 Postprocedural hypothyroidism; B96.1 Klebsiella pneumoniae [K. pneumoniae] as the cause of diseases classified elsewhere; B96.4 Proteus (mirabilis) (morganii) as the cause of diseases classified elsewhere; Z86.718 Personal history of other venous thrombosis and embolism; E66.01 Morbid (severe) obesity due to excess calories; Z85.41 Personal history of malignant neoplasm of cervix uteri; Z98.84 Bariatric surgery status; Z90.710 Acquired absence of both cervix and uterus; Z95.828 Presence of other vascular implants and grafts; Z90.49 Acquired absence of other specified parts of digestive tract; Z79.01 Long term (current) use of anticoagulants; Z88.8 Allergy status to other drugs, medicaments and biological substances; Z82.49 Family history of ischemic heart disease and other diseases of the circulatory system; Z23 Encounter for immunization
CPT/HCPCS: 36415; 36600; 71045; 74177; 80048; 80053; 80202; 81001; 82803; 83605; 85025; 85610; 85652; 85730; 86140; 87040; 87045; 87077; 87086; 87088; 87186; 87205; 87493; 90686; 93971; 94640; 94762; 94799; 96361; 96365; 99285; J0696; J1644; J1885; J2270; J2405; J2543; J3370; J3490; J7030; J7060; J7120; J7620

== ENCOUNTER 2018-06-03 10:53 | Emergency (ER) | payer SELFPAY ==
--- NOTE | 2018-06-03 11:09 | ER Document Report ---
ED Medical Screen (RME) - General Chief Complaint: Abdominal Pain Stated Complaint: ABDOMINAL PAIN Time Seen by Provider: 06/03/18 11:06 Notes: 42 years old female who was admitted last week for urosepsis return back with abdominal discomfort right flank pain dysuria and swelling of both lower extremity. And also having on and off difficulty in breathing but no wheezing. Last night had fever. On examination morbidly obese. Lungs distant breath sounds, bilateral lower leg has 1+ pitting edema. TRAVEL OUTSIDE OF THE [place] IN LAST 30 DAYS: No - Related Data Allergies/Adverse Reactions: doxycycline Allergy (Verified 06/03/18 11:08) sumatriptan [From Imitrex] Allergy (Verified 06/03/18 11:08) Past Medical History - Social History Chew tobacco use (# tins/day): No Frequency of alcohol use: Occasional Drug Abuse: None - Past Medical History Cardiac Medical History: Reports: Hx DVT Pulmonary Medical History: Reports: Hx Asthma Neurological Medical History: Reports: Hx Migraine Endocrine Medical History: Reports: Hx Hypothyroidism - s/p partial thyroidectomy Renal/ Medical History: Denies: Hx Peritoneal Dialysis GI Medical History: Reports: Hx Gastroesophageal Reflux Disease Past Surgical History: Reports: Hx Bowel Surgery, Hx Cholecystectomy, Hx Gastric Bypass Surgery, Hx Gynecologic Surgery, Hx Hysterectomy, Hx Thyroid Surgery Physical Exam - Vital signs Vitals: Temp Pulse Resp BP Pulse Ox 98.2 F 82 20 170/98 H 99 06/03/18 10:57 06/03/18 10:57 06/03/18 10:57 06/03/18 10:57 06/03/18 10:57 Course - Vital Signs Vital signs: Temp Pulse Resp BP Pulse Ox 98.2 F 82 20 170/98 H 99 06/03/18 10:57 06/03/18 10:57 06/03/18 10:57 06/03/18 10:57 06/03/18 10:57
[2018-06-03 11:44] LABS: ABSOLUTE BASOPHILS # (AUTO) 0.1 10^3/uL (0.0-0.2); ABSOLUTE EOSINOPHILS # (AUTO) 0.1 10^3/uL (0.0-0.6); ABSOLUTE LYMPHOCYTES (AUTO) 1.4 10^3/uL (0.5-4.7); ABSOLUTE MONOCYTES (AUTO) 0.9 10^3/uL (0.1-1.4); ABSOLUTE NEUT (AUTO) 8.6 10^3/uL (1.7-8.2); BASOPHILS % (AUTO) 0.5 % (0-2); EOSINOPHILS % (AUTO) 0.7 % (0-6); HEMATOCRIT 27.9 % (36.0-47.0); HEMOGLOBIN 8.8 g/dL (12.0-15.5); LYMPHOCYTES % (AUTO) 12.6 % (13-45); MEAN CORPUSCULAR HGB CONC 31.4 g/dL (32.0-36.0); MEAN CORPUSCULAR VOLUME 77 fl (80-97); MONOCYTES % (AUTO) 7.9 % (3-13); PLATELET COUNT 445 10^3/uL (150-450); RED BLOOD COUNT 3.65 10^6/uL (3.72-5.28); RED CELL DISTRIBUTION WIDTH 16.1 % (11.5-14.0); SEGMENTED NEUTROPHILS % (AUTO) 78.3 % (42-78); TOTAL CELLS COUNTED % (AUTO) 100 %; WHITE BLOOD COUNT 10.9 10^3/uL (4.0-10.5)
[2018-06-03 11:52] LABS: APPEARANCE,URINE SLIGHTLY-CLOUDY; BILIRUBIN,URINE NEGATIVE (NEGATIVE); COLOR,URINE YELLOW; GLUCOSE, URINE NEGATIVE (NEGATIVE); KETONES,URINE NEGATIVE (NEGATIVE); LEUKOCYTE ESTERASE,URINE SMALL (NEGATIVE); NITRITE,URINE NEGATIVE (NEGATIVE); PROTEIN,URINE NEGATIVE (NEGATIVE); UROBILINOGEN,URINE NEGATIVE mg/dL (<2.0)
[2018-06-03 11:55] LABS: ALBUMIN 3.2 g/dL (3.5-5.0); ANION GAP 9 (5-19); CARBON DIOXIDE 25 mmol/L (22-30); CHLORIDE 113 mmol/L (98-107); GLUCOSE 94 mg/dL (75-110); POTASSIUM 3.5 mmol/L (3.6-5.0); SODIUM 147.4 mmol/L (137-145); TOTAL PROTEIN 6.4 g/dL (6.3-8.2)
[2018-06-03 11:56] LABS: ALANINE AMINOTRANSFERASE 17 U/L (9-52); ALKALINE PHOSPHATASE 67 U/L (38-126); ASPARTATE AMINO TRANSFERASE 15 U/L (14-36); BILIRUBIN,DIRECT 0.2 mg/dL (0.0-0.4); BILIRUBIN,TOTAL 0.2 mg/dL (0.2-1.3); BLOOD UREA NITROGEN 8 mg/dL (7-20); CALCIUM 8.5 mg/dL (8.4-10.2); CREATINE KINASE 35 U/L (30-135); LIPASE 42.3 U/L (23-300)
[2018-06-03 12:07] LABS: CREATINE KINASE MB 0.29 ng/mL (<4.55)
[2018-06-03 12:08] LABS: TROPONIN I < 0.012 ng/mL
[2018-06-03 12:10] LABS: INTERNATIONAL RATION (INR) 2.57; PROTHROMBIN TIME 28.8 SEC (11.4-15.4)
--- NOTE | 2018-06-03 12:36 | RADIOLOGY REPORT (SQ) ---
EXAM DESCRIPTION: CHEST 2 VIEWS COMPLETED DATE/TIME: 06/03/2018 12:20 pm REASON FOR STUDY: Shortness of breath, Hx DVT COMPARISON: 05/27/2018 EXAM PARAMETERS: NUMBER OF VIEWS: two views TECHNIQUE: Digital Frontal and Lateral radiographic views of the chest acquired. RADIATION DOSE: NA LIMITATIONS: none FINDINGS: LUNGS AND PLEURA: No opacities, masses or pneumothorax. No pleural effusion. MEDIASTINUM AND HILAR STRUCTURES: No masses or contour abnormalities. HEART AND VASCULAR STRUCTURES: Heart normal size. No evidence for failure. BONES: No acute findings. HARDWARE: None in the chest. OTHER: No other significant finding. IMPRESSION: NO ACUTE RADIOGRAPHIC FINDING IN THE CHEST. TECHNICAL DOCUMENTATION: JOB ID: [id number] [employer]- All Rights Reserved Reading location - IP/workstation name: [email or web address]
--- NOTE | 2018-06-03 12:42 | RADIOLOGY REPORT (SQ) ---
EXAM DESCRIPTION: ABDOMEN 2 VIEWS COMPLETED DATE/TIME: 06/03/2018 12:20 pm REASON FOR STUDY: Abdominal pain COMPARISON: None. NUMBER OF VIEWS: Two views. TECHNIQUE: Supine and erect/decubitus radiographic images of the abdomen acquired. LIMITATIONS: Study is limited due to the patient's body habitus. FINDINGS: FREE AIR: None. No abnormal gas collections. LUNG BASES: Clear. BOWEL GAS PATTERN: Nonobstructive pattern. No dilated loops or air fluid levels. CALCIFICATIONS: No suspicious calcifications. SOFT TISSUES: No gross mass or suggestion of organomegaly. HARDWARE: None in the abdomen. BONES: No acute fracture. No worrisome bone lesions. OTHER: No other significant finding. IMPRESSION: NO RADIOGRAPHIC EVIDENCE FOR ACUTE ABDOMINAL DISEASE. TECHNICAL DOCUMENTATION: JOB ID: [id number] [employer]- All Rights Reserved Reading location - IP/workstation name: [email or web address]
--- NOTE | 2018-06-03 14:28 | RADIOLOGY REPORT (SQ) ---
EXAM DESCRIPTION: CT ABD/PELVIS WITH IV ONLY COMPLETED DATE/TIME: 06/03/2018 2:13 pm REASON FOR STUDY: Abdominal pain, no BM times 5 days COMPARISON: None. TECHNIQUE: CT scan of the abdomen and pelvis performed using helical scanning technique with dynamic intravenous contrast injection. No oral contrast. Images reviewed with lung, soft tissue, and bone windows. Reconstructed coronal and sagittal MPR images reviewed. Delayed images for evaluation of the urinary system also acquired. All images stored on PACS. All CT scanners at this facility use dose modulation, iterative reconstruction, and/or weight based d osing when appropriate to reduce radiation dose to as low as reasonably achievable (ALARA). [facility]: Dose Right [facility]: CareDose [facility]: Dose Right [facility]: Teradose 4D [facility]: Scene[employer]ot CONTRAST TYPE AND DOSE: See separate report of the same date. RENAL FUNCTION: See separate report of the same date. RADIATION DOSE: . LIMITATIONS: Body habitus. FINDINGS: LOWER CHEST: See separate report of the CT of the chest. LIVER: Normal size. No masses. No dilated ducts. SPLEEN: Normal size. No focal lesions. PANCREAS: No masses. No significant calcifications. No adjacent inflammation or peripancreatic fluid collections. Pancreatic duct not dilated. GALLBLADDER: Surgically absent. ADRENAL GLANDS: No significant masses or asymmetry. RIGHT KIDNEY AND URETER: No solid masses. 5 mm stone in the UPJ. Stone measures 758 HU. Mild hyd ronephrosis. LEFT KIDNEY AND URETER: No solid masses. No significant calcifications. No hydronephrosis or hydr oureter. AORTA AND VESSELS: IVC filter. RETROPERITONEUM: No retroperitoneal adenopathy, hemorrhage or masses. BOWEL AND PERITONEAL CAVITY: No masses or inflammatory changes. No free fluid or peritoneal masses. APPENDIX: Not visualized. PELVIS: No mass. No free fluid. Normal bladder. ABDOMINAL WALL: Anterior abdominal wall hernia containing fat. BONES: No acute findings. OTHER: No other significant finding. IMPRESSION: 5 mm stone right UPJ. Mild hydronephrosis. TECHNICAL DOCUMENTATION: JOB ID: [id number] Quality ID # [id number]: Final reports with documentation of one or more dose reduction techniques (e.g., Au tomated exposure control, adjustment of the mA and/or kV according to patient size, use of iterative reconstruction technique) 2010 [employer]- All Rights Reserved Reading location - IP/workstation name: [email or web address]
--- NOTE | 2018-06-03 14:28 | RADIOLOGY REPORT (SQ) ---
EXAM DESCRIPTION: CTA CHEST COMPLETED DATE/TIME: 06/03/2018 2:13 pm REASON FOR STUDY: Hx DVT, on Coumadin, SOB COMPARISON: None. TECHNIQUE: CT scan of the chest performed using helical scanning technique with dynamic intravenous contrast injection. Images reviewed with lung, soft tissue and bone windows. Reconstructed coronal and sagittal MPR images reviewed. Additional 3 dimensional post-processing performed to develop Maximal Intensity Projection images ([place] P). All images stored on PACS. All CT scanners at this facility use dose modulation, iterative reconstruction, and/or weight based d osing when appropriate to reduce radiation dose to as low as reasonably achievable (ALARA). [facility]: Dose Right [facility]: CareDose [facility]: Dose Right [facility]: Teradose 4D [facility]: [employer] CONTRAST TYPE AND DOSE: Not recorded. Omnipaque 300- low osmolar. Contrast bolus optimized for the pulmonary arteries. Not diagnostic for the aorta. RENAL FUNCTION: BUN 8 creatinine 1.7 GFR 39 RADIATION DOSE: CT Rad equipment meets quality standard of care and radiation dose reduction techniq ues were employed. CTDIvol: 29.4 - 49.6 mGy. DLP: 5389 mGy-cm. . LIMITATIONS: None. FINDINGS: LUNGS AND PLEURA: No masses, infiltrates, or pneumothorax. No pleural effusions or pleura l calcifications. AORTA AND GREAT VESSELS: No aneurysm. Contrast bolus not optimized for the aorta. HEART: No pericardial effusion. No significant coronary artery calcifications. PULMONARY ARTERIES: No emboli visualized in the main pulmonary arteries or the segmental branches. HILAR AND MEDIASTINAL STRUCTURES: No identified masses or abnormal nodes. HARDWARE: None in the chest. UPPER ABDOMEN: See separate report of the CT of the abdomen. THYROID AND OTHER SOFT TISSUES: No masses. No adenopathy. BONES: No acute or significant finding. 3D MIPS: Confirm above findings. OTHER: No other significant finding. IMPRESSION: NORMAL CTA OF THE CHEST. NO PULMONARY EMBOLI. COMMENT: Quality ID # 436: Final reports with documentation of one or more dose reduction techniques (e.g., Automated exposure control, adjustment of the mA and/or kV according to patient size, use of iterative reconstruction technique) TECHNICAL DOCUMENTATION: JOB ID: [id number] [employer]- All Rights Reserved Reading location - IP/workstation name: [email or web address]
--- NOTE | 2018-06-03 15:53 | RADIOLOGY REPORT (SQ) ---
EXAM DESCRIPTION: VENOUS BILATERAL LOWER COMPLETED DATE/TIME: 06/03/2018 3:46 pm REASON FOR STUDY: Swelling both legs, on Coumadin, Hx of DVT, S OB COMPARISON: None. TECHNIQUE: Dynamic and static tadeo scale and color images acquired of both lower extremity venous sy stems. Selected spectral images acquired with additional compression and augmentation maneuvers. Imag es stored on PACS. LIMITATIONS: Study is limited secondary to body habitus. FINDINGS: RIGHT LEG COMMON FEMORAL AND FEMORAL: Normal phasicity, compression and augmentation. No visualized echogenic m aterial on tadeo scale. No defects on color images. POPLITEAL: Normal compression and augmentation. No visualized echogenic material on tadeo scale. No de fects on color images. CALF VESSELS: Normal compression and augmentation. No visualized echogenic material on tadeo scale. No defects on color image. GSV AND SSV: Normal compression. No visualized echogenic material on tadeo scale. No defects on color images. ANY DEEP VENOUS INSUFFICIENCY: Not evaluated. ANY EVIDENCE OF POPLITEAL CYST: No. OTHER: No other significant finding. LEFT LEG COMMON FEMORAL AND FEMORAL: Normal phasicity, compression and augmentation. No visualized echogenic m aterial on tadeo scale. No defects on color images. POPLITEAL: Normal compression and augmentation. No visualized echogenic material on tadeo scale. No de fects on color images. CALF VESSELS: Normal compression and augmentation. No visualized echogenic material on tadeo scale. No defects on color images. GSV AND SSV: Normal compression. No visualized echogenic material on tadeo scale. No defects on color images. ANY DEEP VENOUS INSUFFICIENCY: Not evaluated. ANY EVIDENCE POPLITEAL CYST: No. OTHER: No other significant finding. IMPRESSION: NO EVIDENCE DVT OR SVT IN EITHER LEG. TECHNICAL DOCUMENTATION: JOB ID: [id number] [employer]- All Rights Reserved Reading location - IP/workstation name: [email or web address]
[2018-06-03] MEDS ORDERED: CEFTRIAXONE INJ 1000 MG VIAL IV ONE (16:57)
[2018-06-03] MEDS ORDERED: HYDROMORPHONE HCL INJ/PF 2 MG/ML AMPULE IV ONE ×3 (17:04→21:04)
--- NOTE | 2018-06-03 17:16 | ER Document Report ---
ED General - General Chief Complaint: Abdominal Pain Stated Complaint: ABDOMINAL PAIN Time Seen by Provider: 06/03/18 11:06 Notes: Patient says that she has been experiencing pain in her lower abdomen, more on the right side, but also across the midline into the left lower quadrant for a couple of days. She is also having swelling of both of her legs. She feels short of breath. She says that she had a temp between 100 - 101 degrees yesterday. Does not have a cough. Had some chest pain yesterday but not today. Says she has not had a bowel movement for 5-6 days. Patient was admitted to this hospital and stayed for 5 days treating sepsis, UTI, and a kidney infection, being discharged home on Friday. She is currently on amoxicillin which she has been taking. Patient has a history of DVTs and is on Coumadin for anticoagulation. She is also had a gastric sleeve procedure and a partial colectomy for a benign tumor. History of hysterectomy and cholecystectomy. TRAVEL OUTSIDE OF THE [place] IN LAST 30 DAYS: No - Related Data Allergies/Adverse Reactions: doxycycline Allergy (Verified 06/03/18 11:08) sumatriptan [From Imitrex] Allergy (Verified 06/03/18 11:08) Past Medical History - Social History Smoking Status: Never Smoker Chew tobacco use (# tins/day): No Frequency of alcohol use: Occasional Drug Abuse: None Family History: Reviewed & Not Pertinent, Hypertension Patient has suicidal ideation: No Patient has homicidal ideation: No - Past Medical History Cardiac Medical History: Reports: Hx DVT - Currently on warfarin. Pulmonary Medical History: Reports: Hx Asthma EENT Medical History: Reports: Eyes - Disconjugate gaze, has been there most of her life and has normal vision Neurological Medical History: Reports: Hx Migraine Endocrine Medical History: Reports: Hx Hypothyroidism - s/p partial thyroidectomy GI Medical History: Reports: Hx Gastroesophageal Reflux Disease Past Surgical History: Reports: Hx Abdominal Surgery - gastric sleeve, Hx Bowel Surgery, Hx Cholecystectomy, Hx Gastric Bypass Surgery, Hx Gynecologic Surgery, Hx Hysterectomy, Hx Thyroid Surgery Review of Systems - Review of Systems Notes: REVIEW OF SYSTEMS: CONSTITUTIONAL : Fever yesterday.. EENT: Denies eye, ear, nose or mouth or throat pain or other symptoms. CARDIOVASCULAR: Had some chest pain yesterday. Swelling of both lower legs-- see HPI. RESPIRATORY: Denies cough, chest congestion, or shortness of breath. GASTROINTESTINAL: Denies abdominal pain or nausea, vomiting, or diarrhea. GENITOURINARY: Denies difficulty or painful urinating, urinary frequency, blood in urine. MUSCULOSKELETAL: Denies back or neck pain. Denies joint pain or swelling. SKIN: Denies rash or skin lesions. NEUROLOGICAL: Denies LOC or altered mental status. Denies headache. Denies sensory loss or motor deficits. ALL OTHER SYSTEMS REVIEWED AND NEGATIVE. Physical Exam - Vital signs Vitals: Temp Pulse Resp BP Pulse Ox 98.2 F 82 20 170/98 H 99 06/03/18 10:57 06/03/18 10:57 06/03/18 10:57 06/03/18 10:57 06/03/18 10:57 Interpretation: Normal, Hypertensive - Mild Notes: PHYSICAL EXAMINATION: GENERAL: Well-appearing, in no acute distress. Weight 182.7 kg. Slightly hypertensive but otherwise vital signs are normal. O2 sat 99%. HEAD: Atraumatic, normocephalic. EYES: Pupils equal round and reactive to light, extraocular movements intact. Disconjugate gaze. Patient says her vision is normal in both eyes. NECK: Normal range of motion, supple. LUNGS: Breath sounds clear and equal bilaterally. HEART: Regular rate and rhythm without murmurs. ABDOMEN: Soft, minimally tender diffusely without any localized tenderness. Definitely no guarding or rebound. No masses. Exam is difficult because of patient's girth. Rectal exam performed and yellow/brown stool on glove. No stool felt in the rectal vault. Stool Hemoccult negative. BACK: No tenderness throughout entire back. EXTREMITIES: Bilateral chronic appearing edema of both lower extremities with only trace pitting edema of either cabrera. Negative Homans bilaterally. NEUROLOGICAL: Normal speech, limited gait at bedside. Grossly normal sensory, motor, and reflex exams. Awake, alert, and oriented x3. Cranial nerves normal. PSYCH: Normal mood, normal affect. SKIN: Warm, dry, no rashes. Course - Re-evaluation Re-evalutation: 06/03/18 18:36 CT scan shows no evidence of pulmonary emboli. Abdominal CT does show a 5 mm stone in the right UPJ with moderate hydronephrosis. Review of patient's labs show a gradually trending higher creatinine level over the past week. Also, a gradually trending downward hemoglobin during the past week. She has not had any bloody stools or black stools. Rectal exam revealed yellow brown stool. Urine does not look like a significant infection at this time. I am concerned that patient is developing an obstructive uropathy secondary to the stone that is now in her proximal right ureter. Spoke to the hospitalist here who cannot take care of her here because we do not have urology. Spoke with Dr. Eduardo at [facility] who agreed to accept the patient in transfer but felt that her comorbidities merited a medicine admission. I then spoke with Dr. Perez, one of the medicine attendings at [facility] who agreed to accept the patient in transfer. - Vital Signs Vital signs: Temp Pulse Resp BP Pulse Ox 98.2 F 82 18 161/101 H 96 06/03/18 10:57 06/03/18 10:57 06/03/18 18:01 06/03/18 18:01 06/03/18 18:01 - Laboratory Result Diagrams: 06/03/18 11:25 06/03/18 11:25 Laboratory results interpreted by me: 06/03/18 06/03/18 06/03/18 11:25 11:25 11:25 WBC 10.9 H RBC 3.65 L Hgb 8.8 L Hct 27.9 L MCV 77 L MCH 24.0 L MCHC 31.4 L RDW 16.1 H Seg Neutrophils % 78.3 H Lymphocytes % 12.6 L Absolute Neutrophils 8.6 H PT Sodium 147.4 H Potassium 3.5 L Chloride 113 H Creatinine 1.74 H Est GFR ( Amer) 39 L Est GFR (Non-Af Amer) 32 L Albumin 3.2 L Urine Blood LARGE H Ur Leukocyte Esterase SMALL H 06/03/18 11:25 WBC RBC Hgb Hct MCV MCH MCHC RDW Seg Neutrophils % Lymphocytes % Absolute Neutrophils PT 28.8 H Sodium Potassium Chloride Creatinine Est GFR ( Amer) Est GFR (Non-Af Amer) Albumin Urine Blood Ur Leukocyte Esterase - Diagnostic Test Radiology reviewed: Image reviewed, Reports reviewed - 5 mm stone seen at the right UPJ junction with moderate hydronephrosis. Otherwise, CT of the abdomen and pelvis is unremarkable. Additionally, patient's CTA of the chest is negative for pulmonary emboli. - EKG Interpretation by Me EKG shows normal: Sinus rhythm Rate: Normal Rhythm: NSR Discharge - Discharge Clinical Impression: Right ureteral calculus, Hydronephrosis, Renal insufficiency, Anemia, History of DVT (deep vein thrombosis), Acute kidney injury Condition: Stable Disposition: [facility]
[2018-06-03 21:36] VITALS: BP 159/96
--- NOTE | 2018-06-04 08:56 | EKG REPORT ---
SEVERITY:- NORMAL ECG - SINUS RHYTHM : Confirmed by: Isela Flynn 04-Jun-2018 08:54:59
== END 2018-06-03 21:15 | disposition short-term general hospital (02) ==
LOC: ER 10:53
DX: N13.2 Hydronephrosis with renal and ureteral calculous obstruction (principal); N17.9 Acute kidney failure, unspecified; D64.9 Anemia, unspecified; R06.02 Shortness of breath; R10.817 Generalized abdominal tenderness; R19.4 Change in bowel habit; R60.0 Localized edema; J45.909 Unspecified asthma, uncomplicated; N15.9 Renal tubulo-interstitial disease, unspecified; I82.409 Acute embolism and thrombosis of unspecified deep veins of unspecified lower extremity; Z79.01 Long term (current) use of anticoagulants; Z98.84 Bariatric surgery status; Z90.49 Acquired absence of other specified parts of digestive tract; Z90.710 Acquired absence of both cervix and uterus; Z88.1 Allergy status to other antibiotic agents; Z88.6 Allergy status to analgesic agent
CPT/HCPCS: 93005; 96376; 99285; 96375; 96365; 36415; 82553; 82550; 83690; 85025; 85610; 82272; 81025; 80053; 81001; 84484; 93970; 74019; 71046; 71275; 74177; 93010; J1170; J0696

== ENCOUNTER 2018-06-16 18:02 | Emergency (ER) | payer SELFPAY ==
[2018-06-16] MEDS ORDERED: ACETAMINOPHEN 325 MG TABLET PO ONE (19:20)
[2018-06-16 21:36] LABS: AMORPHOUS SEDIMENT,URINE TRACE /HPF; APPEARANCE,URINE CLOUDY; BILIRUBIN,URINE NEGATIVE (NEGATIVE); COLOR,URINE YELLOW; GLUCOSE, URINE NEGATIVE (NEGATIVE); KETONES,URINE NEGATIVE (NEGATIVE); LEUKOCYTE ESTERASE,URINE LARGE (NEGATIVE); NITRITE,URINE NEGATIVE (NEGATIVE); PROTEIN,URINE >=500 mg/dL (NEGATIVE); URINE SPECIFIC GRAVITY 1.015; UROBILINOGEN,URINE NEGATIVE mg/dL (<2.0)
[2018-06-16] MEDS ORDERED: NORMAL SALINE 500 ML IV ONE (22:01)
--- NOTE | 2018-06-16 22:01 | ER Document Report ---
ED Medical Screen (RME) - General Chief Complaint: Flank Pain Stated Complaint: FEVER Time Seen by Provider: 06/16/18 21:58 Mode of Arrival: Wheelchair Information source: Patient Notes: 42-year-old female presents to ED for complaint of severe right flank pain. She has a stent placed about 2 weeks ago for kidney stones. She had a fever of 102 when she came into the emergency room. She was paced on Percocet when she had a stent placed. She states she took one this morning but did not take any after that because she was coming to the emergency room. She is on 04/22/2025 Percocets. She states the pain is severe at this time. Patient is crying while sitting in the wheelchair. Abdomen soft but very tender to palpation on the right bowel sounds are present. Patient was given 650 mg of Tylenol in the emergency room when she first came in. Patient temp is now 98.1 pulse is 125. I have greeted and performed a rapid initial assessment of this patient. A comprehensive ED assessment and evaluation of the patient, analysis of test results and completion of medical decision making process will be conducted by an additional ED providers. TRAVEL OUTSIDE OF THE [place] IN LAST 30 DAYS: No - Related Data Allergies/Adverse Reactions: doxycycline Allergy (Verified 06/03/18 11:08) sumatriptan [From Imitrex] Allergy (Verified 06/03/18 11:08) Past Medical History - Social History Frequency of alcohol use: None Drug Abuse: None - Past Medical History Cardiac Medical History: Reports: Hx DVT - Currently on warfarin. Pulmonary Medical History: Reports: Hx Asthma Neurological Medical History: Reports: Hx Migraine Endocrine Medical History: Reports: Hx Hypothyroidism - s/p partial thyroidectomy Renal/ Medical History: Denies: Hx Peritoneal Dialysis GI Medical History: Reports: Hx Gastroesophageal Reflux Disease Past Surgical History: Reports: Hx Abdominal Surgery - gastric sleeve, Hx Bowel Surgery, Hx Cholecystectomy, Hx Gastric Bypass Surgery, Hx Gynecologic Surgery, Hx Hysterectomy, Hx Thyroid Surgery Physical Exam - Vital signs Vitals: Temp Pulse Resp BP Pulse Ox 102.5 F H 146 H 14 134/99 H 97 06/16/18 18:21 06/16/18 18:21 06/16/18 18:21 06/16/18 18:21 06/16/18 18:21 Course - Vital Signs Vital signs: Temp Pulse Resp BP Pulse Ox 102.5 F H 146 H 14 134/99 H 97 06/16/18 18:21 06/16/18 18:21 06/16/18 18:21 06/16/18 18:21 06/16/18 18:21 - Laboratory Laboratory results interpreted by me: 06/16/18 21:22 Urine Protein >=500 H Urine Blood MODERATE H Ur Leukocyte Esterase LARGE H
[2018-06-16] MEDS ORDERED: MORPHINE SULFATE 10 MG/ML INJ IV ONE (22:02)
[2018-06-16 22:14] LABS: HEMATOCRIT 37.5 % (36.0-47.0); HEMOGLOBIN 11.5 g/dL (12.0-15.5); MEAN CORPUSCULAR HEMOGLOBIN 23.7 pg (27.0-33.4); MEAN CORPUSCULAR HGB CONC 30.8 g/dL (32.0-36.0); MEAN CORPUSCULAR VOLUME 77 fl (80-97); PLATELET COUNT 608 10^3/uL (150-450); RED BLOOD COUNT 4.87 10^6/uL (3.72-5.28); RED CELL DISTRIBUTION WIDTH 16.7 % (11.5-14.0); WHITE BLOOD COUNT 22.6 10^3/uL (4.0-10.5)
[2018-06-16 22:31] LABS: ALANINE AMINOTRANSFERASE 10 U/L (9-52); ALBUMIN 4.3 g/dL (3.5-5.0); ALKALINE PHOSPHATASE 64 U/L (38-126); ANION GAP 14 (5-19); ASPARTATE AMINO TRANSFERASE 43 U/L (14-36); BILIRUBIN,DIRECT 0.4 mg/dL (0.0-0.4); BILIRUBIN,TOTAL 0.7 mg/dL (0.2-1.3); BLOOD UREA NITROGEN 20 mg/dL (7-20); CALCIUM 9.4 mg/dL (8.4-10.2); CARBON DIOXIDE 24 mmol/L (22-30); CHLORIDE 108 mmol/L (98-107); GLUCOSE 148 mg/dL (75-110); LIPASE 39.9 U/L (23-300); POTASSIUM 3.6 mmol/L (3.6-5.0); SODIUM 145.6 mmol/L (137-145); TOTAL PROTEIN 8.7 g/dL (6.3-8.2)
[2018-06-16 22:32] LABS: ABSOLUTE LYMPHOCYTES# (MANUAL) 0.9 10^3/uL (0.5-4.7); ABSOLUTE MONOCYTES # (MANUAL) 1.1 10^3/uL (0.1-1.4); ABSOLUTE NEUTROPHILS# (MANUAL) 20.6 10^3/uL (1.7-8.2); BAND NEUTROPHILS % (MANUAL) 1 % (3-5); BASOPHILS % (MANUAL) 0 % (0-2); EOSINOPHILS % (MANUAL) 0 % (0-6); LYMPHOCYTES % (MANUAL) 4 % (13-45); METAMYELOCYTES % (MANUAL) 1 % (0); MONOCYTES % (MANUAL) 5 % (3-13); SEGMENTED NEUTROPHILS % (MAN) 89 % (42-78); TOTAL CELLS COUNTED 100
[2018-06-16 22:33] LABS: PLATELET COMMENT INCREASED
[2018-06-16 22:34] LABS: ANISOCYTOSIS SLIGHT
[2018-06-16 22:35] LABS: TOXIC VACUOLATION PRESENT
[2018-06-16] MEDS ORDERED: CEFEPIME 2 GM/D5W RTU 2 GM/50 ML RTUPB IV ONE (22:39)
[2018-06-16] MEDS ORDERED: ONDANSETRON HCL INJ/PF 4 MG/2 ML SDV IV ONE (22:40)
[2018-06-16] MEDS ORDERED: NORMAL SALINE 1000 ML 1,000 ML IV ONE (23:31)
--- NOTE | 2018-06-16 23:53 | RADIOLOGY REPORT (SQ) ---
PROCEDURE: CT OF THE ABDOMEN AND PELVIS WITHOUT INTRAVENOUS CONTRAST HISTORY: right flank pain Indication: Same as above Comparison: 06/03/2018 Technique: The study was done on 06/16/2018 at 11:[address] of the abdomen and pelvis was done without intravenous contrast. Images were obtained from the lung base to the level of the pubic symphysis in axial plane, followed by orthogonal sagittal and coronal reconstruction. Oral contrast was not given for the study. This exam was performed according to our departmental dose-optimization program, which includes automated exposure control, adjustment of the mA and/or KV according to the patient's size and/or use of iterative reconstruction technique. FINDINGS: Images through the lung bases do not show any focal infiltrates or pleural effusions. There is a small hiatal hernia and evidence of prior surgery in the proximal stomach The liver, pancreas, spleen and the bilateral adrenal glands appear unremarkable, given the limitation of lack of intravenous contrast. There is prior cholecystectomy. Note is again made of an IVC stent in place There is interval placement of a right-sided nephroureteral vesicle stent in anatomic location. The previously seen 5 mm calculus in the right renal pelvis appears to be pushed back into the lower pole of the right kidney on the current study. Residual right-sided hydroureteronephrosis is still present, most likely a result of prior episode of obstruction or vesicoureteral reflux due to presence of the right-sided stent. The left kidney and the left ureter are unremarkable The small bowel appears unremarkable, without any evidence of small bowel obstruction or bowel wall thickening. There is no CT evidence of pericecal inflammatory change or ileocecal mesenteric adenitis. The ileocecal junction appears unremarkable. The appendix appears to be surgically absent There is no CT evidence of acute colonic diverticulitis or colitis or large bowel obstruction. There is no pathological lymphadenopathy in the retroperitoneum or in the pelvic region. There is no evidence of free fluid or free air in the abdomen or the pelvic region. There is no clinically significant abdominal aortic aneurysm. There is no clinically significant inguinal or ventral hernia. Four surgical scarring is seen in the anterior midline lower abdominal/pelvic wall The visualized lumbar spine is unremarkable. The paravertebral soft tissues are unremarkable. The remainder of the pelvic structures are unremarkable. IMPRESSION: There is interval placement of a right-sided nephroureteral vesicle stent in anatomic location. The previously seen 5 mm calculus in the right renal pelvis appears to be pushed back into the lower pole of the right kidney on the current study. Residual right-sided hydroureteronephrosis is still present, most likely a result of prior episode of obstruction or vesicoureteral reflux due to presence of the right-sided stent.
[2018-06-17] MEDS ORDERED: NORMAL SALINE 1000 ML 1,000 ML IV ONE ×2 (00:32→01:21)
[2018-06-17] MEDS ORDERED: MORPHINE SULFATE 10 MG/ML INJ IV ONE (00:33)
[2018-06-17] MEDS ORDERED: GENTAMICIN SULFATE INJ 80 MG/2 ML VIAL IV ONE ×3 (00:34→07:30)
--- NOTE | 2018-06-17 01:42 | ER Document Report ---
ED General - General Chief Complaint: Flank Pain Stated Complaint: FEVER Time Seen by Provider: 06/16/18 21:58 Mode of Arrival: Wheelchair Information source: Patient Notes: This is a 42-year-old female with a history of morbid obesity (183 kg), asthma, DVT (on Coumadin) and kidney stones., hypothyroidism patient has a recent history of urosepsis which ultimately led to a right nephroureteral stent placement 2 weeks ago at [facility]. The patient states she was usual state of health until this morning when she developed right flank pain, fever, Rigor's. Past medical history: Morbid obesity Asthma DVT (Coumadin 7.5 mg daily) Endometrial cancer (status post hysterectomy) Kidney stones (status post right ureteral stent 2 weeks ago at [facility]) TRAVEL OUTSIDE OF THE [place] IN LAST 30 DAYS: No - HPI Onset: Just prior to arrival Onset/Duration: Sudden Quality of pain: Dull Severity: Moderate Pain Level: 3 Associated symptoms: Chills, Fever, Nausea, Other - Right flank pain Exacerbated by: Movement Relieved by: Denies Similar symptoms previously: Yes Recently seen / treated by doctor: Yes - Related Data Allergies/Adverse Reactions: doxycycline Allergy (Verified 06/03/18 11:08) sumatriptan [From Imitrex] Allergy (Verified 06/03/18 11:08) Past Medical History - General Information source: Patient - Social History Smoking Status: Never Smoker Cigarette use (# per day): No Chew tobacco use (# tins/day): No Frequency of alcohol use: None Drug Abuse: None Lives with: Spouse/Significant other Family History: Reviewed & Not Pertinent, Hypertension Patient has suicidal ideation: No Patient has homicidal ideation: No - Past Medical History Cardiac Medical History: Reports: Hx DVT - Currently on warfarin. Pulmonary Medical History: Reports: Hx Asthma Neurological Medical History: Reports: Hx Migraine Endocrine Medical History: Reports: Hx Hypothyroidism - s/p partial thyroidectomy Renal/ Medical History: Denies: Hx Peritoneal Dialysis GI Medical History: Reports: Hx Gastroesophageal Reflux Disease Past Surgical History: Reports: Hx Abdominal Surgery - gastric sleeve, Hx Bowel Surgery, Hx Cholecystectomy, Hx Gastric Bypass Surgery, Hx Gynecologic Surgery, Hx Hysterectomy, Hx Thyroid Surgery Review of Systems - Review of Systems Constitutional: Chills, Fever EENT: No symptoms reported Cardiovascular: Palpitations, Heart racing Respiratory: No symptoms reported Gastrointestinal: See HPI Genitourinary: See HPI Female Genitourinary: No symptoms reported Musculoskeletal: No symptoms reported Skin: No symptoms reported Hematologic/Lymphatic: No symptoms reported Neurological/Psychological: No symptoms reported Physical Exam - Vital signs Vitals: Temp Pulse Resp BP Pulse Ox 102.5 F H 146 H 14 134/99 H 97 06/16/18 18:21 06/16/18 18:21 06/16/18 18:21 06/16/18 18:21 06/16/18 18:21 Notes: Physical exam: GENERAL: 42-year-old female, she is alert and answering questions, complaining of right flank pain. She is febrile. She appears ill. HEAD: Atraumatic, normocephalic. EYES: Pupils equal round and reactive to light, extraocular movements intact, sclera anicteric, conjunctiva are normal. ENT: TMs normal, nares patent, oropharynx clear without exudates. Moist mucous membranes. NECK: Normal range of motion, supple without obvious mass or JVD. LUNGS: Breath sounds clear to auscultation bilaterally and equal. No wheezes rales or rhonchi. HEART: Tachycardia without murmurs, rubs or gallops. ABDOMEN: Soft, normoactive bowel sounds. Right flank tenderness. No pain over the right upper quadrant or right lower quadrant. No guarding, no rebound. No masses appreciated. EXTREMITIES: Normal range of motion, no pitting or edema. No clubbing or cyanosis. NEUROLOGICAL: Cranial nerves II through XII grossly intact. Normal speech, moving all extremities. PSYCH: Normal mood, normal affect. SKIN: Warm, Dry, normal turgor, no rashes or lesions noted. Course - Re-evaluation Re-evalutation: 06/17/18 02:52 Patient was treated with IV fluids ( on 4th Liter), IV cefepime and IV gentamicin. Patient has 2 peripheral lines. Adams is draining urine Lactic acid is 1.5 Recent cultures were checked which showed Klebsiella pneumonia in the blood and urine: Sensitive to cephalosporins. The urine culture also showed Proteus: Sensitive to cephalosporins. Hospitals Contacted: [facility] was contacted (this is where the patient had a recent stent) but they have no available beds and no wait list because of extreme census. [facility] has no weight beds due to extreme senses. [facility]: wait list 24 hours (spoke with Dr Morales/Dr Carmona). [facility]: On full divert. [facility]: On divert Jon[facility]: Spoke with Dr Neff () who reiterated that the treatment at this time is supportive given that the stent is in anatomic location. I spoke to Dr. Johnson (cow washer) who has accepted patient to the ICU. 06/17/18 03:06 06/17/18 03:16 Note: I have reassessed the patient multiple times in the last few hours. Currently: Blood pressure is 115/89 Pulse is 140 Respiratory rate is 30 (O2 sat 99% on 2L) Temperature is 103.7 (patient does not feel that hot to touch). Lungs show: Clear Heart exam shows: Tachycardia Peripheral Refill: Greater than 2 seconds Peripheral pulses: Good Skin exam: Clear Patient's urine output seems to have dropped: Opening up the fourth liter of fluid. Patient's neck cefepime and Gent is due at 6:30 AM. 06/17/18 04:29 Patient's mental status is actually improved: She is asking for ice chips. Urine output continues to remain low. Attempting to give fluids while avoiding ARDS. S suggest he is on her fifth liter (Ringer's lactate). Switching patient's fluids to Ringer's lactate: On fifth liter at 250 cc an hour IV hydrocortisone 50 mg IV thiamine 100 mg Current blood pressure is 117/90. Temperature 102.6. Heart rate is 134. O2 saturation is 99% on 2 L 06/17/18 04:33 06/17/18 04:55 - Vital Signs Vital signs: Temp Pulse Resp BP Pulse Ox 101.7 F H 125 H 38 H 118/81 99 06/17/18 04:10 06/16/18 22:00 06/17/18 04:15 06/17/18 04:15 06/17/18 04:15 06/17/18 01:47 06/17/18 04:20 - Laboratory Result Diagrams: 06/16/18 21:57 06/16/18 21:57 Laboratory results interpreted by me: 06/16/18 06/16/18 06/16/18 21:22 21:57 21:57 WBC 22.6 H Hgb 11.5 L MCV 77 L MCH 23.7 L MCHC 30.8 L RDW 16.7 H Plt Count 608 H Seg Neuts % (Manual) 89 H Band Neutrophils % 1 L Lymphocytes % (Manual) 4 L Metamyelocytes % 1 H Abs Neuts (Manual) 20.6 H PT Sodium 145.6 H Chloride 108 H Creatinine 1.56 H Est GFR ( Amer) 44 L Est GFR (Non-Af Amer) 37 L Glucose 148 H AST 43 H Total Protein 8.7 H Urine Protein >=500 H Urine Blood MODERATE H Ur Leukocyte Esterase LARGE H 06/16/18 21:57 WBC Hgb MCV MCH MCHC RDW Plt Count Seg Neuts % (Manual) Band Neutrophils % Lymphocytes % (Manual) Metamyelocytes % Abs Neuts (Manual) PT 27.0 H Sodium Chloride Creatinine Est GFR ( Amer) Est GFR (Non-Af Amer) Glucose AST Total Protein Urine Protein Urine Blood Ur Leukocyte Esterase - Diagnostic Test Radiology reviewed: Image reviewed, Reports reviewed - CT of the abdomen shows interval placement of the right-sided nephroureteral vesicular stent and on anatomic location. The 5 mm calculus in the right renal pelvis appears to be pushed back into the lower pole of the kidney. There is residual right-sided hydro-ureteral nephrosis. - EKG Interpretation by Mt Rate: Tachycardia - EKG shows sinus tachycardia with a ventricular rate of 127, no acute ST-T wave changes Critical Care Note - Critical Care Note Total time excluding time spent on procedures (mins): 120 Discharge - Discharge Clinical Impression: Sepsis Condition: Serious Disposition: Tertiary-Other
[2018-06-17 02:09] LABS: INTERNATIONAL RATION (INR) 2.37
[2018-06-17] MEDS ORDERED: HYDROMORPHONE HCL INJ/PF 2 MG/ML AMPULE IV ONE (02:09)
[2018-06-17] MEDS ORDERED: ACETAMINOPHEN 325 MG SUPP.RECT PR ONE (02:18)
[2018-06-17] MEDS ORDERED: KETOROLAC TROMETHAMINE INJ/PF 30 MG/1 ML SDV IV ONE (03:07)
[2018-06-17] MEDS ORDERED: KETOROLAC TROMETHAMINE INJ/PF 30 MG/1 ML SDV ONE (03:07)
[2018-06-17] MEDS ORDERED: THIAMINE HCL 100 MG in NORMAL SALINE 50 ML IV ONE (04:21)
[2018-06-17] MEDS ORDERED: HYDROCORTISONE SOD SUCCINATE INJ/PF 100 MG/2 ML SDV IV ONE (04:21)
[2018-06-17] MEDS ORDERED: RINGERS SOLUTION,LACTATED 1,000 ML IV ONE (04:29)
[2018-06-17] MEDS ORDERED: THIAMINE HCL INJ 200 MG/2 ML VIAL ONE (04:29)
[2018-06-17] MEDS ORDERED: CEFEPIME 2 GM/D5W RTU 2 GM/50 ML RTUPB IV ONE ×2 (06:30→07:30)
--- NOTE | 2018-06-17 07:36 | EKG REPORT ---
SEVERITY:- OTHERWISE NORMAL ECG - SINUS TACHYCARDIA : Confirmed by: Alexei Espinosa MD 17-Jun-2018 07:35:40
[2018-06-17 09:55] VITALS: BP 123/90
--- NOTE | 2018-06-17 10:18 | ER Document Report ---
Doctor's Note Notes: 06/17/18 10:17 Patient evaluated prior to transportation. Her blood pressure and heart rate had been improving. She is stable for transportation.
== END 2018-06-17 10:18 | disposition short-term general hospital (02) ==
LOC: ER 18:02
DX: R10.9 Unspecified abdominal pain (principal); R50.9 Fever, unspecified; E03.9 Hypothyroidism, unspecified; Z87.442 Personal history of urinary calculi; Z88.3 Allergy status to other anti-infective agents; Z86.718 Personal history of other venous thrombosis and embolism; Z79.01 Long term (current) use of anticoagulants; Z98.84 Bariatric surgery status
CPT/HCPCS: 93005; 96376; 99285; 96361; 51702; 96375; 96365; 96367; 36415; 87040; 83690; 84703; 85025; 85610; 87077; 80053; 81001; 87186; 83605; 76380; 93010; J3490; J1580; J1720; J1885; J2270 ×2; J1170; J3411; J2405; J7030 ×2; J7040; J7120; J0692 ×2

== ENCOUNTER 2018-10-18 11:24 | Emergency (ER) | payer SELFPAY ==
[2018-10-18] MEDS ORDERED: KETOROLAC TROMETHAMINE 60 MG/2 ML SDV IM ONE (11:37)
--- NOTE | 2018-10-18 11:39 | ER Document Report ---
ED Medical Screen (RME) - General Chief Complaint: Flank Pain Stated Complaint: BACK PAIN Time Seen by Provider: 10/18/18 11:37 Mode of Arrival: Wheelchair Information source: Patient TRAVEL OUTSIDE OF THE [place] IN LAST 30 DAYS: No - HPI Patient complains to provider of: R flank pain Onset: Other - pt with h/o kidney stones with intermittent R flank pain for the past couple of weeks. Worse today - Related Data Allergies/Adverse Reactions: doxycycline Allergy (Verified 06/17/18 07:37) sumatriptan [From Imitrex] Allergy (Verified 06/17/18 07:37) Past Medical History - Past Medical History Cardiac Medical History: Reports: Hx DVT - Currently on warfarin. Pulmonary Medical History: Reports: Hx Asthma Neurological Medical History: Reports: Hx Migraine Endocrine Medical History: Reports: Hx Hypothyroidism - s/p partial thyroidectomy Renal/ Medical History: Denies: Hx Peritoneal Dialysis GI Medical History: Reports: Hx Gastroesophageal Reflux Disease Past Surgical History: Reports: Hx Abdominal Surgery - gastric sleeve, Hx Bowel Surgery, Hx Cholecystectomy, Hx Gastric Bypass Surgery, Hx Gynecologic Surgery, Hx Hysterectomy, Hx Thyroid Surgery Physical Exam - Vital signs Vitals: Temp Pulse Resp BP Pulse Ox 98.4 F 91 17 155/110 H 98 10/18/18 11:32 10/18/18 11:32 10/18/18 11:32 10/18/18 11:32 10/18/18 11:32 Course - Vital Signs Vital signs: Temp Pulse Resp BP Pulse Ox 98.4 F 91 17 155/110 H 98 10/18/18 11:32 10/18/18 11:32 10/18/18 11:32 10/18/18 11:32 10/18/18 11:32
[2018-10-18 12:00] LABS: ABSOLUTE BASOPHILS # (AUTO) 0.1 10^3/uL (0.0-0.2); ABSOLUTE EOSINOPHILS # (AUTO) 0.2 10^3/uL (0.0-0.6); ABSOLUTE MONOCYTES (AUTO) 0.6 10^3/uL (0.1-1.4); ABSOLUTE NEUT (AUTO) 4.3 10^3/uL (1.7-8.2); BASOPHILS % (AUTO) 0.9 % (0-2); EOSINOPHILS % (AUTO) 3.2 % (0-6); HEMATOCRIT 30.7 % (36.0-47.0); HEMOGLOBIN 9.5 g/dL (12.0-15.5); LYMPHOCYTES % (AUTO) 28.4 % (13-45); MEAN CORPUSCULAR HEMOGLOBIN 22.6 pg (27.0-33.4); MEAN CORPUSCULAR HGB CONC 30.9 g/dL (32.0-36.0); MEAN CORPUSCULAR VOLUME 73 fl (80-97); MONOCYTES % (AUTO) 7.9 % (3-13); PLATELET COUNT 513 10^3/uL (150-450); RED CELL DISTRIBUTION WIDTH 16.4 % (11.5-14.0); SEGMENTED NEUTROPHILS % (AUTO) 59.6 % (42-78); TOTAL CELLS COUNTED % (AUTO) 100 %; WHITE BLOOD COUNT 7.2 10^3/uL (4.0-10.5)
[2018-10-18 12:14] LABS: APPEARANCE,URINE TURBID; BILIRUBIN,URINE NEGATIVE (NEGATIVE); GLUCOSE, URINE NEGATIVE (NEGATIVE); KETONES,URINE NEGATIVE (NEGATIVE); LEUKOCYTE ESTERASE,URINE LARGE (NEGATIVE); NITRITE,URINE POSITIVE (NEGATIVE); PROTEIN,URINE 100 mg/dL (NEGATIVE); UROBILINOGEN,URINE NEGATIVE mg/dL (<2.0)
[2018-10-18 12:15] LABS: ALANINE AMINOTRANSFERASE 23 U/L (9-52); ALBUMIN 3.5 g/dL (3.5-5.0); ALKALINE PHOSPHATASE 81 U/L (38-126); ASPARTATE AMINO TRANSFERASE 17 U/L (14-36); BILIRUBIN,DIRECT 0.2 mg/dL (0.0-0.4); BILIRUBIN,TOTAL 0.2 mg/dL (0.2-1.3); BLOOD UREA NITROGEN 17 mg/dL (7-20); CALCIUM 9.3 mg/dL (8.4-10.2); CARBON DIOXIDE 28 mmol/L (22-30); CHLORIDE 111 mmol/L (98-107); COLOR,URINE DARK YELLOW; GLUCOSE 104 mg/dL (75-110); POTASSIUM 3.7 mmol/L (3.6-5.0); SODIUM 143.4 mmol/L (137-145); TOTAL PROTEIN 7.2 g/dL (6.3-8.2)
[2018-10-18 12:23] LABS: ANION GAP 5 (5-19)
--- NOTE | 2018-10-18 13:18 | RADIOLOGY REPORT (SQ) ---
EXAM DESCRIPTION: CT ABD/PELVIS NO ORAL OR IV COMPLETED DATE/TIME: 10/18/2018 12:53 pm REASON FOR STUDY: R flank pain COMPARISON: CT angio chest 06/03/2018 CT stone survey 06/16/2018, 05/28/2018 TECHNIQUE: CT scan of the abdomen and pelvis performed without intravenous or oral contrast. Images reviewed with lung, soft tissue, and bone windows. Reconstructed coronal and sagittal MPR images revi ewed. All images stored on PACS. All CT scanners at this facility use dose modulation, iterative reconstruction, and/or weight based d osing when appropriate to reduce radiation dose to as low as reasonably achievable (ALARA). [facility]: Dose Right [facility]: CareDose [facility]: Dose Right [facility]: Teradose 4D [facility]: [employer] RADIATION DOSE: CT Rad equipment meets quality standard of care and radiation dose reduction techniq ues were employed. CTDIvol: 19.2 mGy. DLP: 1111 mGy-cm.mGy. LIMITATIONS: None. FINDINGS: There is a right-sided double-J ureteral stent in place, similar in appearance compared to CT exam 06/16/2018. Right-sided renal swelling and perinephric stranding seen on 06/16/2018 has res olved. Unchanged right lower pole intrarenal 6 to 7 mm stone. No right-sided renal cysts or masses. LOWER CHEST: Hiatal hernia. No acute infiltrates. NON-CONTRASTED LIVER, SPLEEN, ADRENALS: Evaluation limited by lack of IV contrast. No identified sign ificant masses. PANCREAS: No masses. No peripancreatic inflammatory changes. GALLBLADDER: Surgically absent RIGHT KIDNEY AND URETER: As above LEFT KIDNEY AND URETER: No suspicious masses. Assessment limited by lack of IV contrast. No signifi cant calcifications. No hydronephrosis or hydroureter. AORTA AND RETROPERITONEUM: No aneurysm. No retroperitoneal masses or adenopathy. IVC filter is in pl sh[place], inferior to the renal veins. BOWEL AND PERITONEAL CAVITY: No obvious masses or inflammatory changes. No free fluid. Old right hem icolectomy. Post gastric sleeve procedure. APPENDIX: Surgically absent PELVIS, BLADDER, AND ABDOMINAL WALL:Post hysterectomy. No pelvic free fluid or adenopathy. Bladder unremarkable aside from a right-sided double-J stent in place. Small midline subxiphoid ventral jahaira ia containing mesenteric fat on sagittal image 68. Old laparoscopic trocar tracts scars are present in the anterior abdominal without hernias in these areas BONES: No significant findings. OTHER: No other significant finding. IMPRESSION: Right-sided double-J ureteral stent in place, similar compared to CT 06/16/2018. Persistent right lower pole intrarenal nonobstructive 6 to 7 mm calculus. Cholecystectomy, hysterectomy, gastric sleeve procedure, inferior vena cava filter present. COMMENT: Quality ID # [id number]: Final reports with documentation of one or more dose reduction techniques (e.g., Automated exposure control, adjustment of the mA and/or kV according to patient size, use of iterative reconstruction technique) TECHNICAL DOCUMENTATION: JOB ID: [id number] [employer]- All Rights Reserved Reading location - IP/workstation name: [email or web address]
[2018-10-18] MEDS ORDERED: PHENAZOPYRIDINE HCL 200 MG TABLET PO ONE (15:36)
[2018-10-18] MEDS ORDERED: SULFAMETHOXAZOLE/TRIMETHOPRIM 800-160 MG TABLET PO ONE (15:47)
[2018-10-18 16:14] LABS: CREATINE KINASE MB < 0.22 ng/mL (<4.55); TROPONIN I < 0.012 ng/mL
--- NOTE | 2018-10-18 16:42 | RADIOLOGY REPORT (SQ) ---
EXAM DESCRIPTION: CHEST 2 VIEWS COMPLETED DATE/TIME: 10/18/2018 4:33 pm REASON FOR STUDY: chest pain COMPARISON: 06/03/2018. EXAM PARAMETERS: NUMBER OF VIEWS: two views TECHNIQUE: Digital Frontal and Lateral radiographic views of the chest acquired. RADIATION DOSE: NA LIMITATIONS: none FINDINGS: LUNGS AND PLEURA: No opacities, masses or pneumothorax. No pleural effusion. MEDIASTINUM AND HILAR STRUCTURES: No masses or contour abnormalities. HEART AND VASCULAR STRUCTURES: Heart normal size. No evidence for failure. BONES: No acute findings. HARDWARE: None in the chest. OTHER: No other significant finding. IMPRESSION: NO ACUTE RADIOGRAPHIC FINDING IN THE CHEST. TECHNICAL DOCUMENTATION: JOB ID: [id number] [employer]- All Rights Reserved Reading location - IP/workstation name: [email or web address]
[2018-10-18 17:37] VITALS: BP 154/107
--- NOTE | 2018-10-18 20:10 | EKG REPORT ---
SEVERITY:- NORMAL ECG - SINUS RHYTHM : Confirmed by: Fabiana Morris MD 18-Oct-2018 20:10:12
--- NOTE | 2018-10-18 22:14 | ER Document Report ---
Entered by RANCHO CORDOBA SCRIBE 10/18/18 1528 Acting as scribe for:TOYA TREVIÑO DO ED General - General Chief Complaint: Flank Pain Stated Complaint: BACK PAIN Time Seen by Provider: 10/18/18 11:37 Mode of Arrival: Wheelchair Notes: 42 year old female with previous septic kidney stones s/p ureteral stent placement >1 year ago that presents to the emergency department today with complaints of right sided flank and right sided abdominal pain with associated dysuria. Patient states that she has called her urologist regarding removing the stent but because she "has no insurance they will not see her". Patient states she has had increasing pain and hematuria for the last x2-3 weeks. Patient states she has had intermittent vomiting with the last time being two days ago. Patient also adds that she has noticed intermittent left sided chest pain for the last x1 week which increases with exertion. Patient denies any diarrhea or fevers. TRAVEL OUTSIDE OF THE [place] IN LAST 30 DAYS: No - Related Data Allergies/Adverse Reactions: doxycycline Allergy (Verified 06/17/18 07:37) sumatriptan [From Imitrex] Allergy (Verified 06/17/18 07:37) Past Medical History - General Information source: Patient - Social History Smoking Status: Never Smoker Cigarette use (# per day): No Frequency of alcohol use: None Drug Abuse: None Lives with: Family Family History: Reviewed & Not Pertinent, Hypertension Patient has suicidal ideation: No Patient has homicidal ideation: No - Past Medical History Cardiac Medical History: Reports: Hx DVT - Currently on warfarin. Pulmonary Medical History: Reports: Hx Asthma Neurological Medical History: Reports: Hx Migraine Endocrine Medical History: Reports: Hx Hypothyroidism - s/p partial thy roidectomy GI Medical History: Reports: Hx Gastroesophageal Reflux Disease Past Surgical History: Reports: Hx Abdominal Surgery - gastric sleeve, Hx Bowel Surgery, Hx Cholecystectomy, Hx Gastric Bypass Surgery, Hx Gynecologic Surgery, Hx Hysterectomy, Hx Thyroid Surgery Review of Systems - Review of Systems Constitutional: denies: Fever EENT: No symptoms reported Cardiovascular: No symptoms reported Respiratory: No symptoms reported Gastrointestinal: See HPI, Abdominal pain, Vomiting. denies: Diarrhea Genitourinary: See HPI, Dysuria, Flank pain, Hematuria, Pain Female Genitourinary: No symptoms reported Musculoskeletal: No symptoms reported Skin: No symptoms reported Hematologic/Lymphatic: No symptoms reported Neurological/Psychological: No symptoms reported -: Yes All other systems reviewed and negative Physical Exam - Vital signs Vitals: Temp Pulse Resp BP Pulse Ox 98.4 F 91 17 155/110 H 98 10/18/18 11:32 10/18/18 11:32 10/18/18 11:32 10/18/18 11:32 10/18/18 11:32 - Notes Notes: PHYSICAL EXAM GENERAL: Alert, interacts well. No acute distress. Morbidly obese. HEAD: Normocephalic, atraumatic. EYES: Pupils equal, round, and reactive to light. Left sided exotropia. ENT: Oral mucosa moist, tongue midline. NECK: Full range of motion. Supple. Trachea midline. LUNGS: Clear to auscultation bilaterally, no wheezes, rales, or rhonchi. No respiratory distress. HEART: Regular rate and rhythm. No murmurs, gallops, or rubs. ABDOMEN: Soft, mild right sided abdominal tenderness with palpation. Non- distended. Bowel sounds present in all 4 quadrants. No guarding, rigidity, or rebound. EXTREMITIES: Moves all 4 extremities spontaneously. BACK: No CVA tenderness to percussion. NEUROLOGICAL: Alert and oriented x3. Normal speech. PSYCH: Normal affect, normal mood. SKIN: Warm, dry, normal turgor. No rashes or lesions noted. Course - Re-evaluation Re-evalutation: 10/18/18 17:03 CBC shows anemia with a hemoglobin 9.5, she has no symptoms of anemia at this time, CMP unremarkable, no leukocytosis, cardiac enzymes negative, urinalysis shows large blood and positive nitrates, large leukocyte esterase, concerning for urinary tract infection, CT scan of the abdomen pelvis was performed looking for obstruction or infected stone, there is no evidence of ureteral stone, there is unchanged right lower pole intrarenal stone, the right sided some renal swelling and perinephric stranding seen in May 2018 it has resolved, no indication for acute surgical intervention from a urology standpoint at this time. Stent is in good position. EKG is nonischemic. Chest x-ray shows no acute process. Cardiac enzymes are negative. Patient will be treated with Bactrim for infection as well and is Pyridium for pain. Recommended to follow-up as an outpatient with primary care physician for her intermittent exertional chest pain has been going on for the past week, currently no evidence of acute coronary syndrome at this time. Discharged home. - Vital Signs Vital signs: Temp Pulse Resp BP Pulse Ox 98.4 F 91 20 159/106 H 100 10/18/18 11:32 10/18/18 11:32 10/18/18 14:13 10/18/18 14:13 10/18/18 14:13 - Laboratory Result Diagrams: 10/18/18 11:40 10/18/18 11:40 Laboratory results interpreted by me: 10/18/18 10/18/18 10/18/18 11:40 11:40 11:40 Hgb 9.5 L Hct 30.7 L MCV 73 L MCH 22.6 L MCHC 30.9 L RDW 16.4 H Plt Count 513 H Chloride 111 H Est GFR (Non-Af Amer) 51 L Urine Protein 100 H Urine Blood LARGE H Urine Nitrite POSITIVE H Ur Leukocyte Esterase LARGE H - EKG Interpretation by Me Additional EKG results interpreted by me: 10/18/18 17:04 EKG shows sinus rhythm rate 76, normal axis, normal intervals, no ST segment depressions, no T wave inversions, there is T wave flattening in V3 per my interpretation. Discharge - Discharge Clinical Impression: UTI (urinary tract infection) Qualifiers: Urinary tract infection type: acute cystitis Hematuria presence: with hematuria Qualified Code(s): N30.01 - Acute cystitis with hematuria Condition: Stable Disposition: HOME, SELF-CARE Additional Instructions: Urinary Tract Infection Your evaluation indicates that you have a urinary tract infection. This is due to germs growing in the bladder. This is a common problem. This infection usually responds quickly to antibiotics. Your antibiotic should be taken exactly as prescribed. Drink plenty of fluids -- three to four quarts a day. Occasionally, a bladder anesthetic will be prescribed to help stop the feeling of urgency until the antibiotic has a chance to clear the infection. This may cause your urine to be dark orange. This is Pyridium, also known as Azo. It is available [id number]. Please take 200 mg every 8 hours as needed Certain urine infections require a culture. If the doctor obtained a culture, the results will be back in two days. You should call to see if a change in treatment is needed. A repeat urinalysis after you finish treatment is often recommended. The physician will let you know if further testing is required. Call the doctor if you develop fever, chills, flank pain, or inability to urinate. You do need to call the urologist to put in your stent to see when and how they would like to have it removed. [facility] to discuss whether or not you are eligible for care there. Please follow-up with your primary care physician or the automation and controls instructor Dr. Fritz with regards to your intermittent exertional chest pain. Prescriptions: Sulfamethoxazole/Trimethoprim [Bactrim Ds Tablet] 1 each PO BID #14 tablet Referrals: REYNA FRITZ MD [ACTIVE STAFF] - Follow up as needed I personally performed the services described in the documentation, reviewed and edited the documentation which was dictated to the scribe in my presence, and it accurately records my words and actions.
== END 2018-10-18 17:38 | disposition home or self-care (01) ==
LOC: ER 11:24
DX: N30.01 Acute cystitis with hematuria (principal); N20.0 Calculus of kidney; Z96.0 Presence of urogenital implants; D64.9 Anemia, unspecified; R10.9 Unspecified abdominal pain; R11.10 Vomiting, unspecified; R07.9 Chest pain, unspecified; J45.909 Unspecified asthma, uncomplicated; E66.01 Morbid (severe) obesity due to excess calories; Z98.84 Bariatric surgery status; Z88.1 Allergy status to other antibiotic agents; Z88.3 Allergy status to other anti-infective agents
CPT/HCPCS: 93005; 99284; 96372; 36415; 87086; 82553; 82550; 85025; 81025; 87088; 80053; 81001; 84484; 87186; 71046; 74176; 93010; J1885; J3490

== ENCOUNTER 2018-10-29 13:38 | Emergency (ER) | payer SELFPAY ==
--- NOTE | 2018-10-29 14:28 | ER Document Report ---
ED Medical Screen (RME) - General Chief Complaint: Abdominal Pain Stated Complaint: ABDOMINAL PAIN Time Seen by Provider: 10/29/18 14:21 Mode of Arrival: Wheelchair Information source: Patient, [facility] Records Notes: Patient is a 42-year-old female who returns to the emergency room with continuing complaints of right-sided abdominal pain and flank pain. Patient was seen here last on October 18, 2018 with same complaint it was discovered that patient has a history of right-sided kidney stones and had a ureteral double-J catheter placement in May 2018 which still remains in place. Patient indicates that she is unable to contact the urologist because she does not have insurance and they have informed her she they cannot remove it. She continues with nausea but no vomiting severe painful dysuria with hesitancy and urgency. She denies any diarrhea or vomiting. She is unaware if she has had a fever or not. She states her pain is increasing especially in the vaginal area. TRAVEL OUTSIDE OF THE [place] IN LAST 30 DAYS: No - HPI Onset: Other - 2 months Onset/Duration: Persistent, Worse Quality of pain: Cramping, Pressure, Sharp, Stabbing Severity: Severe Pain Level: 4 Exacerbated by: Other - Urination - Related Data Allergies/Adverse Reactions: doxycycline Allergy (Verified 06/17/18 07:37) sumatriptan [From Imitrex] Allergy (Verified 06/17/18 07:37) Past Medical History - Past Medical History Cardiac Medical History: Reports: Hx DVT - Currently on warfarin. Pulmonary Medical History: Reports: Hx Asthma Neurological Medical History: Reports: Hx Migraine Endocrine Medical History: Reports: Hx Hypothyroidism - s/p partial thyroidectomy Renal/ Medical History: Denies: Hx Peritoneal Dialysis GI Medical History: Reports: Hx Gastroesophageal Reflux Disease Past Surgical History: Reports: Hx Abdominal Surgery - gastric sleeve, Hx Bowel Surgery, Hx Cholecystectomy, Hx Gastric Bypass Surgery, Hx Gynecologic Surgery, Hx Hysterectomy, Hx Thyroid Surgery Physical Exam - Vital signs Vitals: Temp Pulse Resp BP Pulse Ox 98.3 F 91 22 H 185/115 H 97 10/29/18 13:48 10/29/18 13:48 10/29/18 13:48 10/29/18 13:48 10/29/18 13:48 Interpretation: Hypertensive - Notes Notes: PHYSICAL EXAMINATION: GENERAL: Well-nourished well-developed morbidly obese female who appears uncomfortable on physical exam but no distress HEAD: Atraumatic, normocephalic. ENT: Nares patent, oropharynx clear without exudates. Moist mucous membranes. NECK: Normal range of motion, supple without lymphadenopathy LUNGS: Breath sounds clear to auscultation bilaterally and equal. No wheezes r ales or rhonchi. HEART: Regular rate and rhythm without murmurs ABDOMEN: Abdominal exam shows bowel sounds all 4 quads patient has moderate amount of tenderness in the right lower quadrant and suprapubic area to palpation. Female : deferred Musculoskeletal: Normal range of motion, no pitting or edema. No cyanosis. NEUROLOGICAL Normal speech, normal gait. Normal sensory, motor exams PSYCH: Normal mood, flat affect SKIN: Warm, Dry, normal turgor, no rashes or lesions noted. Course - Re-evaluation Re-evalutation: 10/29/18 14:26 I have greeted and performed a rapid initial assessment of this patient. A comprehensive ED assessment and evaluation of the patient, analysis of test results and completion of the medical decision making process will be conducted by additional ED providers. Dictation of this chart was performed using voice recognition software; therefore, there may be some unintended grammatical erro rs. - Vital Signs Vital signs: Temp Pulse Resp BP Pulse Ox 98.3 F 91 22 H 185/115 H 97 10/29/18 13:48 10/29/18 13:48 10/29/18 13:48 10/29/18 13:48 10/29/18 13:48
[2018-10-29] MEDS ORDERED: KETOROLAC TROMETHAMINE INJ/PF 30 MG/1 ML SDV IV ONE (14:29)
[2018-10-29] MEDS ORDERED: ONDANSETRON HCL INJ/PF 4 MG/2 ML SDV IV ONE (14:29)
[2018-10-29 15:45] LABS: ABSOLUTE EOSINOPHILS # (AUTO) 0.3 10^3/uL (0.0-0.6); ABSOLUTE LYMPHOCYTES (AUTO) 2.7 10^3/uL (0.5-4.7); ABSOLUTE MONOCYTES (AUTO) 0.5 10^3/uL (0.1-1.4); ABSOLUTE NEUT (AUTO) 4.8 10^3/uL (1.7-8.2); BASOPHILS % (AUTO) 0.5 % (0-2); EOSINOPHILS % (AUTO) 3.3 % (0-6); HEMATOCRIT 34.1 % (36.0-47.0); HEMOGLOBIN 10.3 g/dL (12.0-15.5); LYMPHOCYTES % (AUTO) 32.5 % (13-45); MEAN CORPUSCULAR HEMOGLOBIN 22.1 pg (27.0-33.4); MEAN CORPUSCULAR HGB CONC 30.3 g/dL (32.0-36.0); MEAN CORPUSCULAR VOLUME 73 fl (80-97); MONOCYTES % (AUTO) 5.9 % (3-13); PLATELET COUNT 447 10^3/uL (150-450); RED BLOOD COUNT 4.67 10^6/uL (3.72-5.28); RED CELL DISTRIBUTION WIDTH 16.3 % (11.5-14.0); SEGMENTED NEUTROPHILS % (AUTO) 57.8 % (42-78); TOTAL CELLS COUNTED % (AUTO) 100 %; WHITE BLOOD COUNT 8.4 10^3/uL (4.0-10.5)
[2018-10-29 15:47] LABS: APPEARANCE,URINE TURBID; BILIRUBIN,URINE NEGATIVE (NEGATIVE); COLOR,URINE AMBER; GLUCOSE, URINE NEGATIVE (NEGATIVE); KETONES,URINE NEGATIVE (NEGATIVE); LEUKOCYTE ESTERASE,URINE MODERATE (NEGATIVE); NITRITE,URINE NEGATIVE (NEGATIVE); PROTEIN,URINE 100 mg/dL (NEGATIVE); URINE SPECIFIC GRAVITY 1.028; UROBILINOGEN,URINE NEGATIVE mg/dL (<2.0)
[2018-10-29 16:04] LABS: ALANINE AMINOTRANSFERASE 16 U/L (9-52); ALBUMIN 4.2 g/dL (3.5-5.0); ALKALINE PHOSPHATASE 86 U/L (38-126); ANION GAP 9 (5-19); ASPARTATE AMINO TRANSFERASE 21 U/L (14-36); BILIRUBIN,DIRECT 0.3 mg/dL (0.0-0.4); BILIRUBIN,TOTAL 0.3 mg/dL (0.2-1.3); BLOOD UREA NITROGEN 19 mg/dL (7-20); CALCIUM 9.6 mg/dL (8.4-10.2); CARBON DIOXIDE 27 mmol/L (22-30); CHLORIDE 108 mmol/L (98-107); GLUCOSE 98 mg/dL (75-110); POTASSIUM 4.3 mmol/L (3.6-5.0); SODIUM 143.9 mmol/L (137-145); TOTAL PROTEIN 8.4 g/dL (6.3-8.2)
[2018-10-29] MEDS ORDERED: FENTANYL CITRATE INJ/PF 100 MCG/2 ML AMPUL IV ONE ×2 (17:39→20:42)
--- NOTE | 2018-10-29 17:41 | ER Document Report ---
ED General - General Chief Complaint: Abdominal Pain Stated Complaint: ABDOMINAL PAIN Time Seen by Provider: 10/29/18 14:21 Primary Care Provider: [facility] [Provider Group] - 11/02/18 Mode of Arrival: Wheelchair Notes: Patient is a 42-year-old female who presents to the emergency department with a chief complaint of dysuria and right abdominal pain. Her pain has been on and off, and she was seen here about 10 days ago in the emergency department and was given Bactrim. She states that it did get better, but has gotten worse over the past few days. She states that she took all her Bactrim. She admits to seeing some blood in her urine. Past medical history includes DVT, endometrial cancer, and asthma. TRAVEL OUTSIDE OF THE [place] IN LAST 30 DAYS: No - Related Data Allergies/Adverse Reactions: doxycycline Allergy (Verified 06/17/18 07:37) sumatriptan [From Imitrex] Allergy (Verified 06/17/18 07:37) Past Medical History - General Information source: Patient, [facility] Records - Social History Smoking Status: Never Smoker Chew tobacco use (# tins/day): No Frequency of alcohol use: None Drug Abuse: None Family History: Reviewed & Not Pertinent, Hypertension Patient has suicidal ideation: No Patient has homicidal ideation: No - Past Medical History Cardiac Medical History: Reports: Hx DVT - Currently on warfarin. Pulmonary Medical History: Reports: Hx Asthma Neurological Medical History: Reports: Hx Migraine Endocrine Medical History: Reports: Hx Hypothyroidism - s/p partial thyroidectomy Renal/ Medical History: Denies: Hx Peritoneal Dialysis GI Medical History: Reports: Hx Gastroesophageal Reflux Disease Past Surgical History: Reports: Hx Abdominal Surgery - gastric sleeve, Hx Bowel Surgery, Hx Cholecystectomy, Hx Gastric Bypass Surgery, Hx Gynecologic Surgery, Hx Hysterectomy, Hx Thyroid Surgery Review of Systems - Review of Systems Notes: REVIEW OF SYSTEMS: CONSTITUTIONAL : Denies recent illness. Denies recent unintentional weight loss. Denies fever, chills, or sweats. EENT: Denies eye, ear, throat, or mouth pain, discharge, or symptoms. Denies nasal or sinus congestion. CARDIOVASCULAR: Denies chest pain. RESPIRATORY: Denies shortness of breath, cough, congestion, difficulty breathing, or wheezing. GASTROINTESTINAL: Denies nausea, vomiting, and diarrhea. Denies abdominal pain. Denies constipation. GENITOURINARY: See HPI MUSCULOSKELETAL: Denies neck pain. Denies joint pain or swelling. SKIN: Denies rash, itchiness, or lesions HEMATOLOGIC : Denies easy bruising or bleeding. LYMPHATIC: Denies swollen, painful, enlarged glands. NEUROLOGICAL: Denies no numbness or tingling denies weakness. Denies headache. Denies altered mental status. Denies alteration in speech. PSYCHIATRIC: Denies stress, anxiety, alteration in sleep patterns, or depression. All other systems reviewed and negative. Physical Exam - Vital signs Vitals: Temp Pulse Resp BP Pulse Ox 98.0 F 85 16 172/90 H 100 10/29/18 13:46 10/29/18 13:46 10/29/18 13:46 10/29/18 13:46 10/29/18 13:46 - Notes Notes: PHYSICAL EXAMINATION: GENERAL: Obese, no acute distress. HEAD: Normocephalic, atraumatic. EYES: PERRL, conjunctiva normal, all extraocular movements intact, sclera nonicteric ENT: Moist mucous membranes. NECK: Supple, no noticeable swelling, redness, rash. Normal range of motion. LUNGS: Equal breath sounds bilaterally and clear to auscultation. No wheezes rales or rhonchi. CARDIOVASCULAR: S1-S2, regular rate, regular rhythm. Radial pulses 2+, normal. ABDOMEN: Normoactive bowel sounds. Soft, nontender, no guarding, no rebound tenderness, and no masses palpated. EXTREMITIES: Normal strength and range of motion, no pitting or edema. No cyanosis. NEUROLOGICAL: Moves all extremities upon command. Strength 5/5 in all extremities. PSYCH: Normal mood, normal affect. SKIN: Warm, dry. No rash, lesions, ulcerations noted. Normal skin turgor. BACK: CVA tenderness noted to right flank area. Course - Re-evaluation Re-evalutation: 10/29/18 17:43 Patient has a moderate amount of leukocytes in her. She also has a large amount of blood. I will send her for will be sent for a renal ultrasound to rule out any stone. Her chemistries are unremarkable. White blood cell count is normal. She has CVA tenderness noted on the right side. Patient states that she did not have any relief with the Toradol. She will be given fentanyl. 10/29/18 18:50 States that she feels better with the fentanyl. Awaiting renal ultrasound. 10/29/18 20:50 Ultrasound results shows nephrolithiasis. There is no hydronephrosis noted. Patient will be started on Flomax, Bactrim, and Toradol. I will refer the patient out to urology. The patient is in agreement with this plan. Follow-up precautions were given. Verbal discharge instructions were given to the patient. They verbalized understanding. They are stable for discharge. - Vital Signs Vital signs: Temp Pulse Resp BP Pulse Ox 97.9 F 100 16 169/99 H 98 10/29/18 20:30 10/29/18 20:30 10/29/18 20:30 10/29/18 20:30 10/29/18 20:30 - Laboratory Result Diagrams: 10/29/18 13:19 10/29/18 13:19 Laboratory results interpreted by me: 10/29/18 10/29/18 10/29/18 13:19 13:19 15:19 Hgb 10.3 L Hct 34.1 L MCV 73 L MCH 22.1 L MCHC 30.3 L RDW 16.3 H Chloride 108 H Est GFR ( Amer) 57 L Est GFR (Non-Af Amer) 47 L Total Protein 8.4 H Urine Protein 100 H Urine Blood LARGE H Ur Leukocyte Esterase MODERATE H Discharge - Discharge Clinical Impression: Renal stones UTI (urinary tract infection) Qualifiers: Urinary tract infection type: acute cystitis Hematuria presence: with hematuria Qualified Code(s): N30.01 - Acute cystitis with hematuria Condition: Stable Disposition: HOME, SELF-CARE Instructions: Trimethoprim-Sulfa ([facility]), Urinary Tract Infection ([facility]) Additional Instructions: You were seen today in the emergency department for flank pain and painful urination. You have a kidney stone. Please follow-up with urology in regards to this visit. Their information is below. You have been given antibiotics. Please finish all your antibiotics as prescribed. You have also been given Flomax, medication to help pass her kidney stone. You have also been given Toradol, medication to help with your pain. Please do not take ibuprofen when you are on Toradol. If you have worsening symptoms, please follow-up in the emergency department. Follow-up with primary care provider in regards to this visit. Prescriptions: Ketorolac Tromethamine [Toradol 10 mg Tablet] 10 mg PO Q6HP PRN #20 tablet PRN Reason: Sulfamethoxazole/Trimethoprim [Bactrim Ds Tablet] 1 each PO BID 7 Days #14 tablet Tamsulosin HCl [Flomax 0.4 mg Cap.sr] 0.4 mg PO DAILY #7 cap.sr.24h Referrals: [facility] [Provider Group] - 11/02/18
--- NOTE | 2018-10-29 20:33 | RADIOLOGY REPORT (SQ) ---
EXAM DESCRIPTION: US RETROPERITONEUM COMPLETED DATE/TME: 10/29/2018 17:37 CLINICAL HISTORY: 42 years, Female, abdominal/flank pain (right); bladder pain COMPARISON: None. TECHNIQUE: CT performed on 10/18/2018 LIMITATIONS: None. FINDINGS: Right kidney measures 8.6 cm in length. A linear focus of hyperechogenicity is noted about the lower pole of the right kidney measuring 0.8 x 0.8 cm in size. Left kidney measures 10.6 cm in length. There is no evidence of hydronephrosis. A stent is noted about the urinary bladder. IMPRESSION: No evidence of hydronephrosis. Right nephrolithiasis. copyright 2010 [employer]- All Rights Reserved
[2018-10-29] MEDS ORDERED: CEFTRIAXONE 1 GM/D5W RTU 1 GM/50 ML RTUPB IV ONE (22:00)
[2018-10-29 23:15] VITALS: BP 153/100
== END 2018-10-29 22:40 | disposition home or self-care (01) ==
LOC: ER 13:38
DX: N20.0 Calculus of kidney (principal); N30.01 Acute cystitis with hematuria; R10.9 Unspecified abdominal pain; R30.0 Dysuria; J45.909 Unspecified asthma, uncomplicated; Z86.718 Personal history of other venous thrombosis and embolism; Z79.01 Long term (current) use of anticoagulants
CPT/HCPCS: 96376; 99284; 96375; 96365; 36415; 87086; 83605; 85025; 80053; 81001; 76770; J3010; J1885; J2405; J0696

== ENCOUNTER 2018-12-10 12:26 | Emergency (ER) | payer SELFPAY ==
[2018-12-10] MEDS ORDERED: KETOROLAC TROMETHAMINE INJ/PF 30 MG/1 ML SDV IV ONE (12:59)
[2018-12-10] MEDS ORDERED: ONDANSETRON HCL INJ/PF 4 MG/2 ML SDV IV ONE (12:59)
--- NOTE | 2018-12-10 13:01 | ER Document Report ---
ED Medical Screen (RME) - General Chief Complaint: Flank Pain Stated Complaint: RIGHT SIDE PAIN, VAGINAL PAIN Time Seen by Provider: 12/10/18 12:57 Mode of Arrival: Wheelchair Information source: Patient Notes: Patient presents complaining of right lower abdominal pain and right flank pain daily since May of last year. Patient states the pain worsened over the past 3 days. Patient does report nausea and vomiting. Patient denies any fever. Patient states she does have a history of kidney stones and has a stent placed on the right side that she was supposed to have removed in June although the urologist would not see her as she did not have insurance. hx: DVT, anemia, renal stent, hysterectomy, gastric sleeve, IVC filter, cholecystectomy I have greeted and performed a rapid initial assessment of this patient. A comprehensive ED assessment and evaluation of the patient, analysis of test results and completion of the medical decision making process will be conducted by additional ED providers. TRAVEL OUTSIDE OF THE [place] IN LAST 30 DAYS: No - Related Data Allergies/Adverse Reactions: doxycycline Allergy (Verified 12/10/18 12:52) sumatriptan [From Imitrex] Allergy (Verified 12/10/18 12:52) Past Medical History - Past Medical History Cardiac Medical History: Reports: Hx DVT - Currently on warfarin. Pulmonary Medical History: Reports: Hx Asthma Neurological Medical History: Reports: Hx Migraine Endocrine Medical History: Reports: Hx Hypothyroidism - s/p partial thyroidectomy Renal/ Medical History: Denies: Hx Peritoneal Dialysis GI Medical History: Reports: Hx Gastroesophageal Reflux Disease Past Surgical History: Reports: Hx Abdominal Surgery - gastric sleeve, Hx Bowel Surgery, Hx Cholecystectomy, Hx Gastric Bypass Surgery, Hx Gynecologic Surgery, Hx Hysterectomy, Hx Thyroid Surgery Physical Exam - Vital signs Vitals: Temp Pulse Resp BP Pulse Ox 98.1 F 93 20 184/105 H 100 12/10/18 12:32 12/10/18 12:32 12/10/18 12:32 12/10/18 12:32 12/10/18 12:32 - Abdominal Inspection: Morbidly Obese Tenderness: Tender - Right lower quadrant Course - Vital Signs Vital signs: Temp Pulse Resp BP Pulse Ox 98.1 F 93 20 184/105 H 100 12/10/18 12:32 12/10/18 12:32 12/10/18 12:32 12/10/18 12:32 12/10/18 12:32
[2018-12-10 13:38] LABS: ABSOLUTE EOSINOPHILS # (AUTO) 0.3 10^3/uL (0.0-0.6); ABSOLUTE LYMPHOCYTES (AUTO) 2.4 10^3/uL (0.5-4.7); ABSOLUTE MONOCYTES (AUTO) 0.7 10^3/uL (0.1-1.4); BASOPHILS % (AUTO) 0.4 % (0-2); EOSINOPHILS % (AUTO) 3.6 % (0-6); HEMATOCRIT 29.8 % (36.0-47.0); HEMOGLOBIN 8.8 g/dL (12.0-15.5); LYMPHOCYTES % (AUTO) 28.1 % (13-45); MEAN CORPUSCULAR HGB CONC 29.7 g/dL (32.0-36.0); MEAN CORPUSCULAR VOLUME 71 fl (80-97); MONOCYTES % (AUTO) 8.4 % (3-13); PLATELET COUNT 551 10^3/uL (150-450); RED BLOOD COUNT 4.22 10^6/uL (3.72-5.28); RED CELL DISTRIBUTION WIDTH 17.3 % (11.5-14.0); SEGMENTED NEUTROPHILS % (AUTO) 59.5 % (42-78); TOTAL CELLS COUNTED % (AUTO) 100 %; WHITE BLOOD COUNT 8.4 10^3/uL (4.0-10.5)
[2018-12-10 13:56] LABS: AMORPHOUS SEDIMENT,URINE 1+ /HPF; APPEARANCE,URINE CLOUDY; BILIRUBIN,URINE NEGATIVE (NEGATIVE); COLOR,URINE AMBER; GLUCOSE, URINE NEGATIVE (NEGATIVE); KETONES,URINE NEGATIVE (NEGATIVE); LEUKOCYTE ESTERASE,URINE TRACE (NEGATIVE); NITRITE,URINE POSITIVE (NEGATIVE); PROTEIN,URINE 100 mg/dL (NEGATIVE); URINE SPECIFIC GRAVITY 1.026
[2018-12-10 14:08] LABS: ALANINE AMINOTRANSFERASE 14 U/L (9-52); ALKALINE PHOSPHATASE 85 U/L (38-126); ANION GAP 9 (5-19); ASPARTATE AMINO TRANSFERASE 29 U/L (14-36); BILIRUBIN,TOTAL 0.4 mg/dL (0.2-1.3); BLOOD UREA NITROGEN 19 mg/dL (7-20); CALCIUM 9.3 mg/dL (8.4-10.2); CARBON DIOXIDE 29 mmol/L (22-30); CHLORIDE 105 mmol/L (98-107); GLUCOSE 98 mg/dL (75-110); POTASSIUM 4.1 mmol/L (3.6-5.0); SODIUM 143.1 mmol/L (137-145)
--- NOTE | 2018-12-10 16:02 | RADIOLOGY REPORT (SQ) ---
EXAM DESCRIPTION: U/S RETROPERITON (RENAL/AORTA) COMPLETED DATE/TIME: 12/10/2018 3:50 pm REASON FOR STUDY: RLQ, r flank, hx stent/kid stones COMPARISON: 10/29/2018. TECHNIQUE: Dynamic and static grayscale images acquired of the kidneys and bladder and recorded on P ACS. Additional selected color Doppler and spectral images recorded. LIMITATIONS: None. FINDINGS: RIGHT KIDNEY: Normal size. Normal echogenicity. No solid or suspicious masses. No hydronep hrosis. 8 mm stone lower pole. LEFT KIDNEY: Normal size. Normal echogenicity. No solid or suspicious masses. No hydronephrosis. No calcifications. BLADDER: No masses. OTHER FINDINGS: No other significant finding. IMPRESSION: Nonobstructing stone right kidney. TECHNICAL DOCUMENTATION: JOB ID: [id number] [employer]- All Rights Reserved Reading location - IP/workstation name: [email or web address]
[2018-12-10] MEDS ORDERED: MORPHINE SULFATE 10 MG/ML INJ IV ONE (16:35)
[2018-12-10] MEDS ORDERED: CEFTRIAXONE INJ 1000 MG VIAL IV STA (18:36)
[2018-12-10] MEDS ORDERED: HYDROMORPHONE HCL INJ/PF 2 MG/ML AMPULE IV ONE (18:36)
--- NOTE | 2018-12-10 20:11 | ER Document Report ---
ED GI/ - General Chief Complaint: Flank Pain Stated Complaint: RIGHT SIDE PAIN, VAGINAL PAIN Time Seen by Provider: 12/10/18 12:57 Mode of Arrival: Wheelchair Notes: Patient is a 6-year-old female returns emergency room complaining of right-sided abdominal pain. Back in May 2018 patient had a large kidney stone was sent down to the hospital by EMS. There she had a ureteral stent placement [facility] on the right side. She is not sure of the correct name of the physician to put it in however she did get some better went back to see him to have it removed and according to patient he is refused to move it because she ran out of insurance. So it is been in place since May 2018. She has been to the ER multiple times where complaints of right-sided pain or urinary tract infections have caused her to come in and out a few times at least one time she had been septic. Patient states that she is having difficulty bearing the pain anymore and she knows she is got another urine tract infection. She denies any discharge vaginally. She denies nausea vomiting or diarrhea. TRAVEL OUTSIDE OF THE [place] IN LAST 30 DAYS: No - HPI Patient complains to provider of: Abdominal pain, Dysuria, Flank pain Onset: Other - Been going on since May 2018 off and on increased in intensity in the past 3 days. Severity at maximum: Severe Severity in ED: Severe Pain Level: 5 Location: Right flank, Suprapubic, Vaginal Vaginal bleeding (Compared to normal period): None LMP: Hysterectomy Sexual history: Active Associated symptoms: Dysuria, Urinary hesitancy, Urinary frequency, Urinary retention, Urinary urgency Exacerbated by: Denies Relieved by: Denies Similar symptoms previously: Yes Recently seen / treated by doctor: Yes - Related Data Allergies/Adverse Reactions: doxycycline Allergy (Verified 12/10/18 12:52) sumatriptan [From Imitrex] Allergy (Verified 12/10/18 12:52) Past Medical History - General Information source: Patient - Social History Smoking Status: Never Smoker Chew tobacco use (# tins/day): No Frequency of alcohol use: None Drug Abuse: None Family History: Reviewed & Not Pertinent, Hypertension Patient has suicidal ideation: No Patient has homicidal ideation: No - Past Medical History Cardiac Medical History: Reports: Hx DVT - Currently on warfarin. Pulmonary Medical History: Reports: Hx Asthma Neurological Medical History: Reports: Hx Migraine Endocrine Medical History: Reports: Hx Hypothyroidism - s/p partial thyroidectomy Renal/ Medical History: Denies: Hx Peritoneal Dialysis GI Medical History: Reports: Hx Gastroesophageal Reflux Disease Past Surgical History: Reports: Hx Abdominal Surgery - gastric sleeve, Hx Bowel Surgery, Hx Cholecystectomy, Hx Gastric Bypass Surgery, Hx Gynecologic Surgery, Hx Hysterectomy, Hx Thyroid Surgery Review of Systems - Review of Systems Constitutional: No symptoms reported EENT: No symptoms reported Cardiovascular: No symptoms reported Respiratory: No symptoms reported Gastrointestinal: See HPI, Abdominal pain Genitourinary: See HPI, Burning, Dysuria, Flank pain, Hematuria, Urgency, Retention Female Genitourinary: No symptoms reported Musculoskeletal: No symptoms reported Skin: No symptoms reported Hematologic/Lymphatic: No symptoms reported Neurological/Psychological: No symptoms reported -: Yes All other systems reviewed and negative Physical Exam - Vital signs Vitals: Temp Pulse Resp BP Pulse Ox 98.1 F 93 20 184/105 H 100 12/10/18 12:32 12/10/18 12:32 12/10/18 12:32 12/10/18 12:32 12/10/18 12:32 Interpretation: Hypertensive - Notes Notes: PHYSICAL EXAMINATION: GENERAL: Patient is a well-nourished well-developed morbidly obese 6-year-old female who is in moderate discomfort. Obvious pain is also noted. She is in no distress though at this time. HEAD: Atraumatic, normocephalic. EYES: Pupils equal round and reactive to light, extraocular movements intact, conjunctiva are normal. ENT: Nares patent, oropharynx clear without exudates. Moist mucous membranes. NECK: Normal range of motion, supple without lymphadenopathy LUNGS: Breath sounds clear to auscultation bilaterally and equal. No wheezes rales or rhonchi. HEART: Regular rate and rhythm without murmurs ABDOMEN: Examination patient's abdomen shows she has bowel sounds all 4 quads. She has moderate amount of suprapubic tenderness to palpation. She has no tenderness noted in the right lower left lower quadrants or right upper or left upper quadrants. She displays some moderate right-sided flank tenderness to percussion. Female : deferred Musculoskeletal: Normal range of motion, no pitting or edema. No cyanosis. NEUROLOGICAL: Normal speech, normal gait. Normal sensory, motor exams PSYCH: Normal mood, normal affect. SKIN: Warm, Dry, normal turgor, no rashes or lesions noted. Course - Re-evaluation Re-evalutation: 12/10/18 20:11 Patient has had an extended period of time in the emergency room today because we have had social services manager get involved as well. I have asked him the social labor relations representative for the ER [facility] Vald[facility] to intervene and she is come down and looked at the chart and she will be in contact with patient tomorrow. She has had similar presentation to this in the past and was able to resolve it by an outside intervention. She will contact patient personally tomorrow and hopefully arrange something for her. Meantime we will place patient on oral antibiotics with some Diflucan and little pain medication. She will need to follow-up with either [facility], [facility] or whoever the director of social media marketing gets her involved with. - Vital Signs Vital signs: Temp Pulse Resp BP Pulse Ox 98.1 F 93 20 184/105 H 100 12/10/18 12:32 12/10/18 12:32 12/10/18 12:32 12/10/18 12:32 12/10/18 12:32 - Laboratory Result Diagrams: 12/10/18 13:15 12/10/18 13:15 Laboratory results interpreted by me: 12/10/18 12/10/18 12/10/18 13:15 13:15 13:15 Hgb 8.8 L Hct 29.8 L MCV 71 L MCH 21.0 L MCHC 29.7 L RDW 17.3 H Plt Count 551 H Creatinine 1.28 H Est GFR ( Amer) 56 L Est GFR (Non-Af Amer) 46 L Urine Protein 100 H Urine Blood MODERATE H Urine Nitrite POSITIVE H Urine Urobilinogen 4.0 H Ur Leukocyte Esterase TRACE H Discharge - Discharge Clinical Impression: Urinary tract infection Qualifiers: Urinary tract infection type: site unspecified Hematuria presence: with hematuria Qualified Code(s): N39.0 - Urinary tract infection, site not specified; R31.9 - Hematuria, unspecified Condition: Stable Disposition: HOME, SELF-CARE Instructions: Cephalexin ([facility]), Urinary Anesthetic Agent ([facility]) Additional Instructions: As we discussed the director of social media marketing will contact you tomorrow after she is able to identify anyone to make be able to intervene in your case. In the meantime take the antibiotics as prescribed pain medication as prescribed and return to ER if you spike a fever you have increasing pain or discomfort. Prescriptions: Cephalexin Monohydrate [Keflex 500 mg Capsule] 500 mg PO Q6H 10 Days #40 capsule Fluconazole [Diflucan] 150 mg PO ONCE PRN #1 tablet PRN Reason: Oxycodone HCl/Acetaminophen [Percocet 5-325 mg Tablet] 1 - 2 tab PO Q4H PRN #15 tablet PRN Reason: Forms: Elevated Blood Pressure Referrals: [facility] [NO LOCAL MD] - Follow up as needed
[2018-12-10 20:33] VITALS: BP 140/81
== END 2018-12-10 20:33 | disposition home or self-care (01) ==
LOC: ER 12:26
DX: N39.0 Urinary tract infection, site not specified (principal); R31.9 Hematuria, unspecified; R10.9 Unspecified abdominal pain; R10.2 Pelvic and perineal pain; R30.0 Dysuria; R39.11 Hesitancy of micturition; R35.0 Frequency of micturition; R39.15 Urgency of urination; Z86.718 Personal history of other venous thrombosis and embolism; Z79.01 Long term (current) use of anticoagulants; J45.909 Unspecified asthma, uncomplicated
CPT/HCPCS: 99284; 96374; 96375; 36415; 87086; 85025; 80053; 81001; 76770; J1885; J2270; J1170; J0696; J2405

== ENCOUNTER 2018-12-15 14:54 | Emergency (ER) | payer SELFPAY ==
--- NOTE | 2018-12-15 15:50 | ER Document Report ---
ED Medical Screen (RME) - General Chief Complaint: Vaginal Pain Stated Complaint: VAGINAL PAIN, RIGHT SIDE PAIN Time Seen by Provider: 12/15/18 15:48 Mode of Arrival: Wheelchair Information source: Patient Notes: 43-year-old female presents to ED for complaint of severe vaginal pain. She states she was seen on 523 and told she had a UTI she has bladder stents in place. She states she has had some vaginal bleeding off and on had some spotting this morning that is gone now. She states she was started on cephalexin on the and has not had any relief from the pain since then. She states they give gave her Percocet to take that has not helped the pain. Patient is alert oriented respirations regular and unlabored speaking in full sentences but is weepy. I have greeted and performed a rapid initial assessment of this patient. A comprehensive ED assessment and evaluation of the patient, analysis of test results and completion of medical decision making process will be conducted by an additional ED providers. Dictation of this chart was performed using voice recognition software; therefore, there may be some unintended grammatical errors. TRAVEL OUTSIDE OF THE [place] IN LAST 30 DAYS: No - Related Data Allergies/Adverse Reactions: doxycycline Allergy (Verified 12/15/18 14:58) sumatriptan [From Imitrex] Allergy (Verified 12/15/18 14:58) Past Medical History - Past Medical History Cardiac Medical History: Reports: Hx DVT - Currently on warfarin. Pulmonary Medical History: Reports: Hx Asthma Neurological Medical History: Reports: Hx Migraine Endocrine Medical History: Reports: Hx Hypothyroidism - s/p partial thyroidectomy Renal/ Medical History: Denies: Hx Peritoneal Dialysis GI Medical History: Reports: Hx Gastroesophageal Reflux Disease Past Surgical History: Reports: Hx Abdominal Surgery - gastric sleeve, Hx Bowel Surgery, Hx Cholecystectomy, Hx Gastric Bypass Surgery, Hx Gynecologic Surgery, Hx Hysterectomy, Hx Thyroid Surgery Physical Exam - Vital signs Vitals: Temp Pulse Resp BP Pulse Ox 98.5 F 108 H 23 H 153/98 H 97 12/15/18 15:06 12/15/18 15:06 12/15/18 15:06 12/15/18 15:06 12/15/18 15:06 Course - Vital Signs Vital signs: Temp Pulse Resp BP Pulse Ox 98.5 F 108 H 23 H 153/98 H 97 12/15/18 15:06 12/15/18 15:06 12/15/18 15:06 12/15/18 15:06 12/15/18 15:06
[2018-12-15] MEDS ORDERED: HYDROMORPHONE HCL INJ/PF 2 MG/ML AMPULE IV ONE (16:48)
[2018-12-15] MEDS ORDERED: ONDANSETRON HCL INJ/PF 4 MG/2 ML SDV IV ONE (16:48)
--- NOTE | 2018-12-15 16:53 | ER Document Report ---
ED General - General Chief Complaint: Vaginal Pain Stated Complaint: VAGINAL PAIN, RIGHT SIDE PAIN Time Seen by Provider: 12/15/18 15:48 Mode of Arrival: Wheelchair Information source: Patient TRAVEL OUTSIDE OF THE [place] IN LAST 30 DAYS: No - HPI Patient complains to provider of: Vaginal pain Onset: Other - Chronic Onset/Duration: Constant Quality of pain: Sharp Severity: Severe Pain Level: 5 Associated symptoms: None Exacerbated by: Denies Relieved by: Denies Similar symptoms previously: No Recently seen / treated by doctor: No Notes: 43-year-old -French female coming in today with extreme pain in the vaginal area and right side. Patient has a history of a renal stent that was placed there sometime ago. According to the patient, the physician has refused to remove the stent. Patient has right flank and vaginal pain chronic since this was done. She was seen here 5 days ago for the same thing. States she had a sonogram that was negative. - Related Data Allergies/Adverse Reactions: doxycycline Allergy (Verified 12/15/18 14:58) sumatriptan [From Imitrex] Allergy (Verified 12/15/18 14:58) Past Medical History - General Information source: Patient - Social History Smoking Status: Never Smoker Family History: Reviewed & Not Pertinent, Hypertension Patient has suicidal ideation: No Patient has homicidal ideation: No - Past Medical History Cardiac Medical History: Reports: Hx DVT - Currently on warfarin. Pulmonary Medical History: Reports: Hx Asthma Neurological Medical History: Reports: Hx Migraine Endocrine Medical History: Reports: Hx Hypothyroidism - s/p partial thyroidectomy Renal/ Medical History: Denies: Hx Peritoneal Dialysis GI Medical History: Reports: Hx Gastroesophageal Reflux Disease Past Surgical History: Reports: Hx Abdominal Surgery - gastric sleeve, Hx Bowel Surgery, Hx Cholecystectomy, Hx Gastric Bypass Surgery, Hx Gynecologic Surgery, Hx Hysterectomy, Hx Thyroid Surgery Review of Systems - Review of Systems Notes: Constitutional: No fevers. No chills. EENT: No eye redness. No eye pain. No ear pain. No sore throat. Cardiovascular: No chest pain. No palpitations. Respiratory: No cough. No shortness of breath. No respiratory distress. Gastrointestinal: No abdominal pain. No nausea, vomiting, or diarrhea. Positive right flank pain Genitourinary: Positive vaginal pain Musculoskeletal: Atraumatic. No swelling. No deformities. Skin: No rash or lesions. Lymphatic: No swollen lymph nodes. Neurologic: No headache. No syncope. Psychiatric: No suicidal or homicidal ideation. Physical Exam - Vital signs Vitals: Temp Pulse Resp BP Pulse Ox 98.5 F 108 H 23 H 153/98 H 97 12/15/18 15:06 12/15/18 15:06 12/15/18 15:06 12/15/18 15:06 12/15/18 15:06 - Notes Notes: General: Well-developed, well-nourished. In no acute distress. Non-toxic appearing. Patient is in obvious amount of pain. Cardiac: Well-perfused. Regular rate and rhythm. No murmurs, rubs, or gallops. Pulmonary: No respiratory distress. No cyanosis. Bilateral lung larson are clear to auscultation. Abdominal: Non-distended. Non-rigid. Bowels sounds are present in all four quadrants. No guarding or rebound. HEENT: Head is atraumatic. Conjunctivae not reddened. No tearing. PERRL. EOMI. Orbits atraumatic. No periorbital swelling or erythema. Oropharynx is without erythema, swelling, or exudates. Neck: Supple. No adenopathy. No meningismus. Dermatologic: Warm with good turgor. No rash. Atraumatic. Chest: Atraumatic. No chest wall tenderness to palpation. Musculoskeletal: Moves all extremities well. No range of motion deficits. no muscular or joint tenderness. No paraspinal muscle tenderness. no midline spinal tenderness or step-off. Genitourinary: Examination deferred Neurologic: No gross neurologic deficits. Psychiatric: Normal mood. Course - Re-evaluation Re-evalutation: 12/15/18 18:41 Patient still having pain. The urinalysis looks slightly improved over previous visit. She is on Cipro which I think is an appropriate choice given the history of the stent. She has an appointment next with urology. We will keep her on the Cipro. Start her on Toradol and also stronger Percocet. - Vital Signs Vital signs: Temp Pulse Resp BP Pulse Ox 98.5 F 108 H 23 H 153/98 H 97 12/15/18 15:06 12/15/18 15:06 12/15/18 15:06 12/15/18 15:06 12/15/18 15:06 - Laboratory Result Diagrams: 12/15/18 16:49 12/15/18 16:49 Laboratory results interpreted by me: 12/15/18 12/15/18 12/15/18 16:49 16:49 17:33 Hgb 8.6 L Hct 28.5 L MCV 71 L MCH 21.3 L MCHC 30.1 L RDW 17.4 H Est GFR ( Amer) 59 L Est GFR (Non-Af Amer) 49 L Urine Protein 100 H Urine Blood LARGE H Urine Bilirubin SMALL H Urine Urobilinogen 2.0 H Ur Leukocyte Esterase LARGE H Discharge - Discharge Clinical Impression: Ureteral stent retained UTI (urinary tract infection) Qualifiers: Urinary tract infection type: site unspecified Hematuria presence: without hematuria Qualified Code(s): N39.0 - Urinary tract infection, site not specified Condition: Good Disposition: HOME, SELF-CARE Instructions: Urinary Tract Infection ([facility]) Additional Instructions: If your pain is continuing uncontrolled with the medications prescribed, he may return anytime to the ER. Continue Cipro as directed. Keep your appointment for next with the urologist. Call the office regularly to see if there are any cancellations. Prescriptions: Ketorolac Tromethamine [Toradol 10 mg Tablet] 10 mg PO Q6HP PRN #20 tablet PRN Reason: Oxycodone HCl/Acetaminophen [Percocet 10-325 Mg Tablet] 1 - 2 each PO Q6HP PRN #20 tablet PRN Reason: Referrals: urologist, your [Other] - 12/24/18
[2018-12-15 17:32] LABS: ABSOLUTE BASOPHILS # (AUTO) 0.1 10^3/uL (0.0-0.2); ABSOLUTE EOSINOPHILS # (AUTO) 0.3 10^3/uL (0.0-0.6); ABSOLUTE MONOCYTES (AUTO) 0.6 10^3/uL (0.1-1.4); ABSOLUTE NEUT (AUTO) 4.3 10^3/uL (1.7-8.2); BASOPHILS % (AUTO) 1.5 % (0-2); EOSINOPHILS % (AUTO) 4.3 % (0-6); HEMATOCRIT 28.5 % (36.0-47.0); HEMOGLOBIN 8.6 g/dL (12.0-15.5); MEAN CORPUSCULAR HEMOGLOBIN 21.3 pg (27.0-33.4); MEAN CORPUSCULAR HGB CONC 30.1 g/dL (32.0-36.0); MEAN CORPUSCULAR VOLUME 71 fl (80-97); MONOCYTES % (AUTO) 8.4 % (3-13); PLATELET COUNT 434 10^3/uL (150-450); RED BLOOD COUNT 4.02 10^6/uL (3.72-5.28); RED CELL DISTRIBUTION WIDTH 17.4 % (11.5-14.0); SEGMENTED NEUTROPHILS % (AUTO) 58.8 % (42-78); TOTAL CELLS COUNTED % (AUTO) 100 %; WHITE BLOOD COUNT 7.3 10^3/uL (4.0-10.5)
[2018-12-15 17:57] LABS: ALANINE AMINOTRANSFERASE 20 U/L (9-52); ALBUMIN 3.7 g/dL (3.5-5.0); ALKALINE PHOSPHATASE 82 U/L (38-126); ANION GAP 8 (5-19); ASPARTATE AMINO TRANSFERASE 23 U/L (14-36); BILIRUBIN,DIRECT 0.4 mg/dL (0.0-0.4); BILIRUBIN,TOTAL 0.4 mg/dL (0.2-1.3); BLOOD UREA NITROGEN 19 mg/dL (7-20); CALCIUM 8.9 mg/dL (8.4-10.2); CARBON DIOXIDE 30 mmol/L (22-30); CHLORIDE 107 mmol/L (98-107); GLUCOSE 102 mg/dL (75-110); POTASSIUM 4.2 mmol/L (3.6-5.0); SODIUM 144.9 mmol/L (137-145); TOTAL PROTEIN 7.5 g/dL (6.3-8.2)
[2018-12-15 18:07] LABS: APPEARANCE,URINE TURBID; BILIRUBIN,URINE SMALL (NEGATIVE); COLOR,URINE AMBER; GLUCOSE, URINE NEGATIVE (NEGATIVE); KETONES,URINE NEGATIVE (NEGATIVE); LEUKOCYTE ESTERASE,URINE LARGE (NEGATIVE); NITRITE,URINE NEGATIVE (NEGATIVE); PROTEIN,URINE 100 mg/dL (NEGATIVE); URINE SPECIFIC GRAVITY 1.029
[2018-12-15] MEDS ORDERED: KETOROLAC TROMETHAMINE INJ/PF 30 MG/1 ML SDV IV ONE (18:37)
[2018-12-15] MEDS ORDERED: CEFTRIAXONE 1 GM/D5W RTU 1 GM/50 ML RTUPB IV ONE (19:01)
[2018-12-15 20:14] VITALS: BP 128/83
== END 2018-12-15 20:11 | disposition home or self-care (01) ==
LOC: ER 14:54
DX: N39.0 Urinary tract infection, site not specified (principal); R10.2 Pelvic and perineal pain; Z86.718 Personal history of other venous thrombosis and embolism; Z79.02 Long term (current) use of antithrombotics/antiplatelets; Z90.49 Acquired absence of other specified parts of digestive tract; Z98.84 Bariatric surgery status; Z90.710 Acquired absence of both cervix and uterus
CPT/HCPCS: 99283; 96375; 96365; 36415; 84703; 85025; 80053; 81001; J1885; J1170; J2405; J0696

== ENCOUNTER 2018-12-26 13:59 | Emergency (ER) | payer SELFPAY ==
--- NOTE | 2018-12-26 15:04 | ER Document Report ---
ED Medical Screen (RME) - General Chief Complaint: Abdominal Pain Stated Complaint: ABDOMINAL PAIN Time Seen by Provider: 12/26/18 14:59 Notes: Patient is a morbidly obese 43-year-old female who continues to change her story while in the emergency room. Initially tells nursing staff that she saw urology yesterday for a stent that was placed for kidney stones. States they placed her on antibiotics and she "needs a procedure." Upon my examination of the patient she states she has not seen her urologist and she had a stent placed in June. States it has been in place since June and has been able to be removed due to her being uninsured. Patient states she has dysuria, generalized right flank pain radiating around to her right groin. Patient is eating crackers upon my arrival to the triage room, no apparent distress. GENERAL: Alert, interacts well. No acute distress. Obese ABDOMEN: Soft, non-tender. Non-distended. Bowel sounds present in all 4 quadrants. I have greeted and performed a rapid initial assessment of this patient. A comprehensive ED assessment and evaluation of the patient, analysis of test results and completion of the medical decision making process will be conducted by additional ED providers. This medical record was dictated with voice recognizing software. There may be grammatical, syntax errors that are unintended. TRAVEL OUTSIDE OF THE [place] IN LAST 30 DAYS: No - Related Data Allergies/Adverse Reactions: doxycycline Allergy (Verified 12/26/18 14:06) sumatriptan [From Imitrex] Allergy (Verified 12/26/18 14:06) Past Medical History - Social History Chew tobacco use (# tins/day): No Frequency of alcohol use: Occasional Drug Abuse: None - Past Medical History Cardiac Medical History: Reports: Hx DVT - Currently on warfarin. Pulmonary Medical History: Reports: Hx Asthma Neurological Medical History: Reports: Hx Migraine Endocrine Medical History: Reports: Hx Hypothyroidism - s/p partial thyroidectomy Renal/ Medical History: Denies: Hx Peritoneal Dialysis GI Medical History: Reports: Hx Gastroesophageal Reflux Disease Past Surgical History: Reports: Hx Abdominal Surgery - gastric sleeve, Hx Bowel Surgery, Hx Cholecystectomy, Hx Gastric Bypass Surgery, Hx Gynecologic Surgery, Hx Hysterectomy, Hx Thyroid Surgery Physical Exam - Vital signs Vitals: Temp Pulse Resp BP Pulse Ox 97.9 F 92 17 152/98 H 95 12/26/18 14:11 12/26/18 14:11 12/26/18 14:11 12/26/18 14:11 12/26/18 14:11 Course - Vital Signs Vital signs: Temp Pulse Resp BP Pulse Ox 97.9 F 92 17 152/98 H 95 12/26/18 14:11 12/26/18 14:11 12/26/18 14:11 12/26/18 14:11 12/26/18 14:11
[2018-12-26 16:06] LABS: ABSOLUTE BASOPHILS # (AUTO) 0.1 10^3/uL (0.0-0.2); ABSOLUTE EOSINOPHILS # (AUTO) 0.4 10^3/uL (0.0-0.6); ABSOLUTE LYMPHOCYTES (AUTO) 2.1 10^3/uL (0.5-4.7); ABSOLUTE MONOCYTES (AUTO) 0.7 10^3/uL (0.1-1.4); ABSOLUTE NEUT (AUTO) 5.7 10^3/uL (1.7-8.2); BASOPHILS % (AUTO) 0.8 % (0-2); EOSINOPHILS % (AUTO) 4.7 % (0-6); HEMATOCRIT 28.6 % (36.0-47.0); HEMOGLOBIN 8.6 g/dL (12.0-15.5); LYMPHOCYTES % (AUTO) 23.2 % (13-45); MEAN CORPUSCULAR HEMOGLOBIN 21.1 pg (27.0-33.4); MEAN CORPUSCULAR VOLUME 70 fl (80-97); MONOCYTES % (AUTO) 7.4 % (3-13); PLATELET COUNT 503 10^3/uL (150-450); RED BLOOD COUNT 4.07 10^6/uL (3.72-5.28); RED CELL DISTRIBUTION WIDTH 17.9 % (11.5-14.0); SEGMENTED NEUTROPHILS % (AUTO) 63.9 % (42-78); TOTAL CELLS COUNTED % (AUTO) 100 %; WHITE BLOOD COUNT 8.9 10^3/uL (4.0-10.5)
[2018-12-26 16:20] LABS: ALANINE AMINOTRANSFERASE 15 U/L (9-52); ALKALINE PHOSPHATASE 68 U/L (38-126); ANION GAP 10 (5-19); ASPARTATE AMINO TRANSFERASE 25 U/L (14-36); BILIRUBIN,DIRECT 0.5 mg/dL (0.0-0.4); BILIRUBIN,TOTAL 0.5 mg/dL (0.2-1.3); BLOOD UREA NITROGEN 18 mg/dL (7-20); CALCIUM 9.4 mg/dL (8.4-10.2); CARBON DIOXIDE 27 mmol/L (22-30); CHLORIDE 107 mmol/L (98-107); GLUCOSE 111 mg/dL (75-110); POTASSIUM 4.8 mmol/L (3.6-5.0); SODIUM 144.3 mmol/L (137-145); TOTAL PROTEIN 7.7 g/dL (6.3-8.2)
[2018-12-26 16:23] LABS: APPEARANCE,URINE TURBID; BILIRUBIN,URINE NEGATIVE (NEGATIVE); COLOR,URINE YELLOW; GLUCOSE, URINE NEGATIVE (NEGATIVE); KETONES,URINE NEGATIVE (NEGATIVE); LEUKOCYTE ESTERASE,URINE LARGE (NEGATIVE); NITRITE,URINE NEGATIVE (NEGATIVE); PROTEIN,URINE 100 mg/dL (NEGATIVE); URINE SPECIFIC GRAVITY 1.026; UROBILINOGEN,URINE NEGATIVE mg/dL (<2.0)
[2018-12-26] MEDS ORDERED: NORMAL SALINE 1000 ML 1,000 ML IV ONE (17:02)
[2018-12-26] MEDS ORDERED: CEFTRIAXONE 1 GM/D5W RTU 1 GM/50 ML RTUPB IV ONE (17:04)
--- NOTE | 2018-12-26 17:37 | ER Document Report ---
ED General - General Chief Complaint: Abdominal Pain Stated Complaint: ABDOMINAL PAIN Time Seen by Provider: 12/26/18 14:59 Notes: Patient is a 43-year-old female with history of kidney stones that presents to the emergency department for chief complaint of right flank pain. Patient reports that she is been having pain since for several months, but it got worse more recently, she is had dysuria, hematuria associated with this. She has a d ouble-J stent that was placed in May of last year, and states that she has not been able to follow-up with anybody to remove it, however she does have an appointment this upcoming with a urologist in the area to discuss removing it. She has felt low-grade fevers at home, denies any chills, has admits to having some nausea and vomiting associated with this. Denies having any chest pain, shortness of breath or difficulty breathing. She is currently taking Keflex, from her previous emergency department visit. Past Medical History: Recurrent UTIs, kidney stones Past Surgical History: Ureteral stent placement Social History: Denies tobacco, alcohol or drug use. Family History: Reviewed and noncontributory for presenting illness Allergies: Reviewed, see documented allergy list. REVIEW OF SYSTEMS: Other than noted above, the 12 point review of systems was reviewed with the p atient and were negative, all pertinent findings are included in the HPI. PHYSICAL EXAMINATION: Vital signs reviewed, nursing noted reviewed. GENERAL: Morbidly obese female, no acute distress but does appear comfortable HEAD: Atraumatic, normocephalic. EYES: Eyes appear normal, extraocular movements intact, sclera anicteric, conjunctiva are normal. ENT: nares patent, oropharynx clear without exudates. Moist mucous membranes. NECK: Normal range of motion, supple without lymphadenopathy LUNGS: Breath sounds clear to auscultation bilaterally and equal. No wheezes rales or rhonchi. HEART: Regular rate and rhythm without murmurs ABDOMEN: Soft, right CVA tenderness with palpation, normoactive bowel sounds. No rebound, guarding, or rigidity. No masses appreciated. EXTREMITIES: Nontender, good range of motion, no pitting or edema. NEUROLOGICAL: No focal neurological deficits. Moves all extremities spontaneously Motor and sensory grossly intact on exam. PSYCH: Normal mood, normal affect. SKIN: Warm, Dry, normal turgor, no rashes or lesions noted on exposed skin TRAVEL OUTSIDE OF THE [place] IN LAST 30 DAYS: No - Related Data Allergies/Adverse Reactions: doxycycline Allergy (Verified 12/26/18 14:06) sumatriptan [From Imitrex] Allergy (Verified 12/26/18 14:06) Past Medical History - Social History Smoking Status: Never Smoker Chew tobacco use (# tins/day): No Frequency of alcohol use: Occasional Drug Abuse: None Family History: Reviewed & Not Pertinent, Hypertension Patient has suicidal ideation: No Patient has homicidal ideation: No - Past Medical History Cardiac Medical History: Reports: Hx DVT - Currently on warfarin. Pulmonary Medical History: Reports: Hx Asthma Neurological Medical History: Reports: Hx Migraine Endocrine Medical History: Reports: Hx Hypothyroidism - s/p partial thyroidectomy Renal/ Medical History: Denies: Hx Peritoneal Dialysis GI Medical History: Reports: Hx Gastroesophageal Reflux Disease Past Surgical History: Reports: Hx Abdominal Surgery - gastric sleeve, Hx Bowel Surgery, Hx Cholecystectomy, Hx Gastric Bypass Surgery, Hx Gynecologic Surgery, Hx Hysterectomy, Hx Thyroid Surgery Physical Exam - Vital signs Vitals: Temp Pulse Resp BP Pulse Ox 97.9 F 92 17 152/98 H 95 12/26/18 14:11 12/26/18 14:11 12/26/18 14:11 12/26/18 14:11 12/26/18 14:11 Course - Re-evaluation Re-evalutation: Patient seen and examined vital signs reviewed. Laboratory data and/or imaging were ordered as appropriate for the patient's presenting symptoms and complaint, with consideration of any critical or life threatening conditions that may be associated with their obtained history and exam as noted above. Patient was treated with IV fluids, Zofran, morphine Results were reviewed when available and demonstrated negative CT imaging for stone, her UA was concerning for urinary tract infection and likely pyelonephritis based on her clinical presentation, her prior cultures were reviewed, and demonstrated Klebsiella pneumonia, that was resistant to ceftezole and, and likely therefore resistant to Keflex. The patient was re-evaluated and was stable and improved, patient was given a dose of IV Rocephin in the emergency department as well, and will be discharged home on p.o. ciprofloxacin and advised to follow-up with the urologist at her scheduled appointment. Evaluation was most consistent with pyelonephritis, right flank pain Results were discussed with the patient at this point, after careful consideration I feel that that patient can be discharged from the emergency department, the patient was educated treatments and reasons to return to the emergency department based on their presumed diagnosis as noted above, they were advised to followup with a primary care physician in 2-3 days. Patient was agreeable to plan of care. *Note is created using voice recognition software and may contain spelling, syntax or grammatical errors. Laboratory 12/26/18 12/26/18 12/26/18 15:42 15:42 15:42 WBC 8.9 RBC 4.07 Hgb 8.6 L Hct 28.6 L MCV 70 L MCH 21.1 L MCHC 30.0 L RDW 17.9 H Plt Count 503 H Seg Neutrophils % 63.9 Lymphocytes % 23.2 Monocytes % 7.4 Eosinophils % 4.7 Basophils % 0.8 Absolute Neutrophils 5.7 Absolute Lymphocytes 2.1 Absolute Monocytes 0.7 Absolute Eosinophils 0.4 Absolute Basophils 0.1 Sodium 144.3 Potassium 4.8 Chloride 107 Carbon Dioxide 27 Anion Gap 10 BUN 18 Creatinine 1.21 Est GFR ( Amer) 59 L Est GFR (Non-Af Amer) 49 L Glucose 111 H Calcium 9.4 Total Bilirubin 0.5 Direct Bilirubin 0.5 H Neonat Total Bilirubin Not Reportable Neonat Direct Bilirubin Not Reportable Neonat Indirect Bili Not Reportable AST 25 ALT 15 Alkaline Phosphatase 68 Total Protein 7.7 Albumin 4.0 Serum HCG, Qual Urine Color YELLOW Urine Appearance TURBID Urine pH 5.0 Ur Specific [place] 1.026 Urine Protein 100 H Urine Glucose (UA) NEGATIVE Urine Ketones NEGATIVE Urine Blood LARGE H Urine Nitrite NEGATIVE Urine Bilirubin NEGATIVE Urine Urobilinogen NEGATIVE Ur Leukocyte Esterase LARGE H Urine WBC (Auto) >182 Urine RBC (Auto) >182 Urine WBC Clumps MANY Urine Mucus (Auto) MOD Urine Ascorbic Acid NEGATIVE 12/26/18 15:42 WBC RBC Hgb Hct MCV MCH MCHC RDW Plt Count Seg Neutrophils % Lymphocytes % Monocytes % Eosinophils % Basophils % Absolute Neutrophils Absolute Lymphocytes Absolute Monocytes Absolute Eosinophils Absolute Basophils Sodium Potassium Chloride Carbon Dioxide Anion Gap BUN Creatinine Est GFR ( Amer) Est GFR (Non-Af Amer) Glucose Calcium Total Bilirubin Direct Bilirubin Neonat Total Bilirubin Neonat Direct Bilirubin Neonat Indirect Bili AST ALT Alkaline Phosphatase Total Protein Albumin Serum HCG, Qual NEGATIVE Urine Color Urine Appearance Urine pH Ur Specific [place] Urine Protein Urine Glucose (UA) Urine Ketones Urine Blood Urine Nitrite Urine Bilirubin Urine Urobilinogen Ur Leukocyte Esterase Urine WBC (Auto) Urine RBC (Auto) Urine WBC Clumps Urine Mucus (Auto) Urine Ascorbic Acid Abdomen/Pelvis CT 12/26/18 17:05 IMPRESSION: NO ACUTE FINDINGS. - Vital Signs Vital signs: Temp Pulse Resp BP Pulse Ox 98.6 F 109 H 18 157/114 H 97 12/26/18 19:37 12/26/18 19:37 12/26/18 19:37 12/26/18 19:37 12/26/18 19:37 - Laboratory Result Diagrams: 12/26/18 15:42 12/26/18 15:42 Laboratory results interpreted by me: 12/26/18 12/26/18 12/26/18 15:42 15:42 15:42 Hgb 8.6 L Hct 28.6 L MCV 70 L MCH 21.1 L MCHC 30.0 L RDW 17.9 H Plt Count 503 H Est GFR ( Amer) 59 L Est GFR (Non-Af Amer) 49 L Glucose 111 H Direct Bilirubin 0.5 H Urine Protein 100 H Urine Blood LARGE H Ur Leukocyte Esterase LARGE H Discharge - Discharge Clinical Impression: Pyelonephritis Condition: Stable Disposition: HOME, SELF-CARE Instructions: Ciprofloxacin ([facility]), Pyelonephritis ([facility]) Additional Instructions: Please follow-up with the urologist, with [facility] urology, phone number listed below, and please complete the entire course of antibiotics as prescribed. You may also take the Pyridium that has been prescribed to help with pain. [email or web address] [place] [address] Chris Gutierrez [place] Prescriptions: RX: Ciprofloxacin HCl [Cipro 500 mg Tablet] 500 mg PO BID #20 tablet Fluconazole [Diflucan] 150 mg PO ONCE PRN #1 tablet PRN Reason: yeast infection Phenazopyridine HCl [Pyridium 200 mg Tablet] 200 mg PO TID #15 tablet
[2018-12-26] MEDS ORDERED: MORPHINE SULFATE 10 MG/ML INJ IV ONE (17:47)
[2018-12-26] MEDS ORDERED: ONDANSETRON HCL INJ/PF 4 MG/2 ML SDV IV ONE (17:47)
--- NOTE | 2018-12-26 17:54 | RADIOLOGY REPORT (SQ) ---
EXAM DESCRIPTION: CT ABD/PELVIS NO ORAL OR IV COMPLETED DATE/TIME: 12/26/2018 5:26 pm REASON FOR STUDY: right flank pain COMPARISON: None. 10/18/2018 TECHNIQUE: CT scan of the abdomen and pelvis performed without intravenous or oral contrast. Images reviewed with lung, soft tissue, and bone windows. Reconstructed coronal and sagittal MPR images revi ewed. All images stored on PACS. All CT scanners at this facility use dose modulation, iterative reconstruction, and/or weight based d osing when appropriate to reduce radiation dose to as low as reasonably achievable (ALARA). [facility]: Dose Right [facility]: CareDose [facility]: Dose Right [facility]: Teradose 4D [facility]: [employer] RADIATION DOSE: CT Rad equipment meets quality standard of care and radiation dose reduction techniq ues were employed. CTDIvol: 19.2 mGy. DLP: 1111 mGy-cm.mGy. LIMITATIONS: None. FINDINGS: LOWER CHEST: No significant findings. No nodules or infiltrates. NON-CONTRASTED LIVER, SPLEEN, ADRENALS: Evaluation limited by lack of IV contrast. No identified sign ificant masses. PANCREAS: No masses. No peripancreatic inflammatory changes. GALLBLADDER: Surgically absent. RIGHT KIDNEY AND URETER: Right nephroureteral stent appears in stable position. No cysts identified. No solid masses. No calcified stones. No hydronephrosis or hydroureter. LEFT KIDNEY AND URETER: No cysts identified. No solid masses. No calcified stones. No hydronephrosis or hydroureter. AORTA AND RETROPERITONEUM: IVC filter. No aneurysm. No retroperitoneal masses or adenopathy. BOWEL AND PERITONEAL CAVITY: No obvious masses or inflammatory changes. No free fluid. APPENDIX: Normal. PELVIS, BLADDER, AND ABDOMINAL WALL:No abnormal masses. No free fluid. Unremarkable bladder. BONES: No acute findings. OTHER: No other significant finding. IMPRESSION: NO ACUTE FINDINGS. TECHNICAL DOCUMENTATION: JOB ID: [id number] [place]-72 Quality ID # [id number]: Final reports with documentation of one or more dose reduction techniques (e.g., Au tomated exposure control, adjustment of the mA and/or kV according to patient size, use of iterative reconstruction technique) 2010 [employer]- All Rights Reserved Reading location - IP/workstation name: [employer]
[2018-12-26] MEDS ORDERED: KETOROLAC TROMETHAMINE INJ/PF 30 MG/1 ML SDV IV ONE (18:25)
[2018-12-26 19:45] VITALS: BP 157/114
[2018-12-26] MEDS ORDERED: HYDROCODONE/ACETAMINOPHEN 5-325 MG (6 TAB/ER DISP) PO PRN (19:50)
== END 2018-12-26 19:59 | disposition home or self-care (01) ==
LOC: ER 13:59
DX: N12 Tubulo-interstitial nephritis, not specified as acute or chronic (principal); R10.9 Unspecified abdominal pain; R30.0 Dysuria; R31.9 Hematuria, unspecified; Z87.442 Personal history of urinary calculi; Z87.440 Personal history of urinary (tract) infections; Z86.718 Personal history of other venous thrombosis and embolism; Z79.01 Long term (current) use of anticoagulants; Z98.84 Bariatric surgery status; Z90.49 Acquired absence of other specified parts of digestive tract
CPT/HCPCS: 99284; 96361; 96375; 96365; 36415; 87086; 84703; 85025; 87088; 80053; 81001; 87186; 74176; J1885; J2270; J2405; J7030; J0696

== ENCOUNTER 2018-12-29 19:15 | Inpatient (IN) | payer SELFPAY ==
[2018-12-29] MEDS ORDERED: MORPHINE SULFATE 10 MG/ML INJ IV ONE ×2 (19:52→22:14)
[2018-12-29] MEDS ORDERED: NORMAL SALINE 1000 ML 1,000 ML IV ONE (19:52)
[2018-12-29] MEDS ORDERED: ONDANSETRON HCL INJ/PF 4 MG/2 ML SDV IV ONE (19:52)
--- NOTE | 2018-12-29 19:57 | ER Document Report ---
ED Medical Screen (RME) - General Chief Complaint: Vaginal Pain Stated Complaint: VAGINAL PAIN Time Seen by Provider: 12/29/18 19:46 TRAVEL OUTSIDE OF THE [place] IN LAST 30 DAYS: No - HPI Notes: 12/29/18 19:55 Patient is a 43-year-old female with a history of recurrent UTI and kidney stones with continued stent placement who presents complaining of continued urinary burning, urgency, hematuria, right-sided vaginal pain, right flank pain which she has had for a long period of time. Patient states that she does have an appointment on for evaluation with a urologist to have the stents removed. Patient states that she was called back because her urine culture grew VRE for IV antibiotic as she is allergic to doxycycline. Denies DUNN, fever, neck pain, URI, CP, SOB, or rash. I was on the phone with pharmacy for a long time and they suggest daptomycin. We will still need to consult ID through [facility] otherwise. I have treated and performed a rapid initial assessment of this patient. A comprehensive ED assessment and evaluation of the patient, analysis of test results and completion of medical decision making process will be conducted by additional ED providers. PHYSICAL EXAMINATION: GENERAL: Well-appearing, well-nourished and in no acute distress. A&Ox4. Answers questions appropriately. LUNGS: Breath sounds clear to auscultation bilaterally and equal. No wheezes rales or rhonchi. HEART: Regular rate and rhythm without murmurs, rubs, gallops. ABDOMEN: Soft, nondistended abdomen. No guarding, no rebound. Normal bowel sounds present. + right CVA tenderness. + lower abd tenderness (cannot elicit thorough abd exam w/o bed, however and pt morbidly obese). - Related Data Allergies/Adverse Reactions: doxycycline Allergy (Verified 12/29/18 19:25) sumatriptan [From Imitrex] Allergy (Verified 12/29/18 19:25) Past Medical History - Past Medical History Cardiac Medical History: Reports: Hx DVT - Currently on warfarin. Pulmonary Medical History: Reports: Hx Asthma Neurological Medical History: Reports: Hx Migraine Endocrine Medical History: Reports: Hx Hypothyroidism - s/p partial thyroidectomy Renal/ Medical History: Denies: Hx Peritoneal Dialysis GI Medical History: Reports: Hx Gastroesophageal Reflux Disease Past Surgical History: Reports: Hx Abdominal Surgery - gastric sleeve, Hx Bowel Surgery, Hx Cholecystectomy, Hx Gastric Bypass Surgery, Hx Gynecologic Surgery, Hx Hysterectomy, Hx Thyroid Surgery
[2018-12-29] MEDS ORDERED: DAPTOMYCIN INJ 500 MG VIAL IV ONE (20:08)
[2018-12-29 20:16] LABS: APPEARANCE,URINE CLOUDY; BILIRUBIN,URINE NEGATIVE (NEGATIVE); COLOR,URINE ORANGE; GLUCOSE, URINE NEGATIVE (NEGATIVE); KETONES,URINE NEGATIVE (NEGATIVE); LEUKOCYTE ESTERASE,URINE LARGE (NEGATIVE); NITRITE,URINE POSITIVE (NEGATIVE); PROTEIN,URINE 100 mg/dL (NEGATIVE); URINE SPECIFIC GRAVITY 1.023
[2018-12-29 20:21] LABS: ABSOLUTE BASOPHILS # (AUTO) 0.1 10^3/uL (0.0-0.2); ABSOLUTE EOSINOPHILS # (AUTO) 0.4 10^3/uL (0.0-0.6); ABSOLUTE MONOCYTES (AUTO) 0.7 10^3/uL (0.1-1.4); ABSOLUTE NEUT (AUTO) 4.3 10^3/uL (1.7-8.2); BASOPHILS % (AUTO) 1.4 % (0-2); EOSINOPHILS % (AUTO) 5.2 % (0-6); HEMATOCRIT 27.4 % (36.0-47.0); HEMOGLOBIN 8.3 g/dL (12.0-15.5); LYMPHOCYTES % (AUTO) 26.6 % (13-45); MEAN CORPUSCULAR HGB CONC 30.4 g/dL (32.0-36.0); MEAN CORPUSCULAR VOLUME 69 fl (80-97); MONOCYTES % (AUTO) 9.4 % (3-13); PLATELET COUNT 520 10^3/uL (150-450); RED BLOOD COUNT 3.96 10^6/uL (3.72-5.28); RED CELL DISTRIBUTION WIDTH 17.9 % (11.5-14.0); SEGMENTED NEUTROPHILS % (AUTO) 57.4 % (42-78); TOTAL CELLS COUNTED % (AUTO) 100 %; WHITE BLOOD COUNT 7.4 10^3/uL (4.0-10.5)
[2018-12-29 20:43] LABS: ALANINE AMINOTRANSFERASE 14 U/L (9-52); ALBUMIN 3.8 g/dL (3.5-5.0); ALKALINE PHOSPHATASE 62 U/L (38-126); ANION GAP 7 (5-19); ASPARTATE AMINO TRANSFERASE 21 U/L (14-36); BILIRUBIN,DIRECT 0.4 mg/dL (0.0-0.4); BILIRUBIN,TOTAL 0.4 mg/dL (0.2-1.3); BLOOD UREA NITROGEN 18 mg/dL (7-20); CALCIUM 9.4 mg/dL (8.4-10.2); CARBON DIOXIDE 29 mmol/L (22-30); CHLORIDE 108 mmol/L (98-107); GLUCOSE 109 mg/dL (75-110); POTASSIUM 4.7 mmol/L (3.6-5.0); SODIUM 144.4 mmol/L (137-145); TOTAL PROTEIN 6.9 g/dL (6.3-8.2)
--- NOTE | 2018-12-29 20:46 | RADIOLOGY REPORT (SQ) ---
EXAM DESCRIPTION: XR CHEST 1 VIEW COMPLETED DATE/TME: 12/29/2018 20:11 CLINICAL HISTORY: 43 years, Female, hypoxia COMPARISON: 10/18/2018. NUMBER OF VIEWS: 1 TECHNIQUE: Single frontal view of the chest was performed portably. LIMITATIONS: None. FINDINGS: Unremarkable cardiac and mediastinal silhouette. Heart size is normal. Lungs are clear without focal opacity, pneumothorax or pleural effusions. Slight elevation of the RIGHT hemidiaphragm. The visualized bones are within normal limits. IMPRESSION: No acute cardiopulmonary abnormalities. copyright 2010 [employer]- All Rights Reserved
[2018-12-29] MEDS ORDERED: DAPTOMYCIN 1,000 MG in NORMAL SALINE 50 ML IV ONE (22:00)
--- NOTE | 2018-12-29 22:16 | ER Document Report ---
ED GI/ - General Chief Complaint: Vaginal Pain Stated Complaint: VAGINAL PAIN Time Seen by Provider: 12/29/18 19:46 Mode of Arrival: Wheelchair Information source: Patient Notes: Patient states that she has a history of kidney stones and had a ureteral stent placed in May of last year. Patient states since then she has had persistent flank and lateral side pain. Patient states she is also had vaginal pain for the past month that has seemed to have worsened over the past week. Patient states that she did notice some bleeding but is uncertain if it came from her vagina or in her urine. Patient was recently seen here and diagnosed with a UTI and placed on antibiotics. Patient did have a urine culture performed and was advised yesterday that her urine grew out VRE and that she would need to come to the hospital for admission for antibiotic treatment. Patient states she did not come to the hospital yesterday as she had a urology appointment today. Patient went and saw her urologist today and was told that they would not remove her stent due to concern about her infection. Patient states that she has had nausea and vomiting x2 episodes today. No diarrhea, no fever. TRAVEL OUTSIDE OF THE [place] IN LAST 30 DAYS: No - HPI Patient complains to provider of: Abdominal pain, Flank pain, Vomiting Onset: Other - Several months, worse over the past week Timing/Duration: Worse Quality of pain: Sharp Pain Level: 4 Location: Right flank, Other - Right lateral side Menstrual period history: denies: Associated symptoms: Nausea, Vomiting. denies: Dysuria, Fever, Loss of appetite, Urinary hesitancy, Urinary frequency, Urinary retention, Vaginal discharge Exacerbated by: Denies Relieved by: Denies Similar symptoms previously: Yes Recently seen / treated by doctor: Yes - Related Data Allergies/Adverse Reactions: doxycycline Allergy (Verified 12/29/18 19:25) sumatriptan [From Imitrex] Allergy (Verified 12/29/18 19:25) Past Medical History - General Information source: Patient - Social History Smoking Status: Never Smoker Frequency of alcohol use: Occasional Drug Abuse: None Lives with: Family Family History: Reviewed & Not Pertinent, Hypertension Patient has suicidal ideation: No Patient has homicidal ideation: No - Past Medical History Cardiac Medical History: Reports: Hx DVT Pulmonary Medical History: Reports: Hx Asthma Neurological Medical History: Reports: Hx Migraine Endocrine Medical History: Reports: Hx Hypothyroidism - s/p partial thyroidectomy Renal/ Medical History: Denies: Hx Peritoneal Dialysis Malignancy Medical History: Reports: Other - Endometrial cancer GI Medical History: Reports: Hx Gastroesophageal Reflux Disease Past Surgical History: Reports: Hx Abdominal Surgery - gastric sleeve, Hx Bowel Surgery, Hx Cholecystectomy, Hx Gastric Bypass Surgery, Hx Gynecologic Surgery, Hx Hysterectomy, Hx Thyroid Surgery Review of Systems - Review of Systems Constitutional: Recent illness - UTI that grew out VRE. denies: Fever EENT: No symptoms reported Cardiovascular: No symptoms reported. denies: Chest pain Respiratory: No symptoms reported. denies: Cough, Short of breath Gastrointestinal: Abdominal pain, Nausea, Vomiting. denies: Diarrhea Genitourinary: Flank pain, Hematuria. denies: Dysuria Female Genitourinary: No symptoms reported. denies: Musculoskeletal: Back pain Skin: No symptoms reported Hematologic/Lymphatic: No symptoms reported Neurological/Psychological: No symptoms reported Physical Exam - Vital signs Vitals: Temp Pulse Resp BP Pulse Ox 98.6 F 95 20 158/116 H 88 L 12/29/18 19:43 12/29/18 19:43 12/29/18 19:43 12/29/18 19:43 12/29/18 19:43 - General General appearance: Alert In distress: Mild - HEENT Head: Normocephalic Eyes: Normal Nasal: Normal Mouth/Lips: Normal Neck: Normal, Supple. No: Lymphadenopathy - Respiratory Respiratory status: No respiratory distress Chest status: Nontender Breath sounds: Normal. No: Rales, Rhonchi, Stridor, Wheezing Chest palpation: Normal - Cardiovascular Rhythm: Regular Heart sounds: S1 appreciated, S2 appreciated - Abdominal Inspection: Morbidly Obese Distension: No distension Bowel sounds: Normal Tenderness: Tender - Suprapubic, right lateral side pain - Back Back: CVA tenderness - Right CVA - Extremities General upper extremity: Normal inspection, Normal strength General lower extremity: Normal inspection, Normal strength - Neurological Neuro grossly intact: Yes Cognition: Normal [place] Coma Scale Eye Opening: Spontaneous [place] Coma Scale Verbal: Oriented [place] Coma Scale Motor: Obeys Commands [place] Coma Scale Total: 15 - Psychological Associated symptoms: Normal affect, Normal mood - Skin Skin Temperature: Warm Skin Moisture: Dry Skin Color: Normal Course - Re-evaluation Re-evalutation: 12/30/18 00:41 Patient with UTI that is only susceptible to daptomycin and tetracycline. Patient is allergic to doxycycline. Patient with no leukocytosis, no ureteral stone noted on most recent CT of the abdomen and pelvis performed on 12/26/2018. Patient with normal renal function at this time. Consulted with Dr. Gong who agrees to accept patient for admission at this time. 12/30/18 02:07 Patient updated regarding plan of care at this time. Patient is agreeable with plan for admission. - Vital Signs Vital signs: Temp Pulse Resp BP Pulse Ox 97.7 F 95 16 147/96 H 96 12/30/18 00:41 12/30/18 00:41 12/30/18 00:41 12/30/18 00:41 12/30/18 00:41 - Laboratory Result Diagrams: 12/29/18 20:08 12/29/18 20:08 Laboratory results interpreted by me: 12/29/18 12/29/18 12/29/18 19:47 20:08 20:08 Hgb 8.3 L Hct 27.4 L MCV 69 L MCH 21.0 L MCHC 30.4 L RDW 17.9 H Plt Count 520 H Chloride 108 H Est GFR (Non-Af Amer) 54 L Urine Protein 100 H Urine Blood LARGE H Urine Nitrite POSITIVE H Urine Urobilinogen 4.0 H Ur Leukocyte Esterase LARGE H 12/30/18 00:41 Labs- Entire Visit 12/29/18 12/29/18 12/29/18 19:47 20:08 20:08 WBC 7.4 RBC 3.96 Hgb 8.3 L Hct 27.4 L MCV 69 L MCH 21.0 L MCHC 30.4 L RDW 17.9 H Plt Count 520 H Seg Neutrophils % 57.4 Lymphocytes % 26.6 Monocytes % 9.4 Eosinophils % 5.2 Basophils % 1.4 Absolute Neutrophils 4.3 Absolute Lymphocytes 2.0 Absolute Monocytes 0.7 Absolute Eosinophils 0.4 Absolute Basophils 0.1 Sodium 144.4 Potassium 4.7 Chloride 108 H Carbon Dioxide 29 Anion Gap 7 BUN 18 Creatinine 1.11 Est GFR ( Amer) > 60 Est GFR (Non-Af Amer) 54 L Glucose 109 Lactic Acid Calcium 9.4 Total Bilirubin 0.4 Direct Bilirubin 0.4 Neonat Total Bilirubin Not Reportable Neonat Direct Bilirubin Not Reportable Neonat Indirect Bili Not Reportable AST 21 ALT 14 Alkaline Phosphatase 62 Total Protein 6.9 Albumin 3.8 Urine Color ORANGE Urine Appearance CLOUDY Urine pH 6.0 Ur Specific [place] 1.023 Urine Protein 100 H Urine Glucose (UA) NEGATIVE Urine Ketones NEGATIVE Urine Blood LARGE H Urine Nitrite POSITIVE H Urine Bilirubin NEGATIVE Urine Urobilinogen 4.0 H Ur Leukocyte Esterase LARGE H Urine WBC (Auto) >182 Urine RBC (Auto) >182 Squamous Epi Cells Auto 2 Urine Mucus (Auto) RARE Urine Ascorbic Acid NEGATIVE 12/29/18 20:40 WBC RBC Hgb Hct MCV MCH MCHC RDW Plt Count Seg Neutrophils % Lymphocytes % Monocytes % Eosinophils % Basophils % Absolute Neutrophils Absolute Lymphocytes Absolute Monocytes Absolute Eosinophils Absolute Basophils Sodium Potassium Chloride Carbon Dioxide Anion Gap BUN Creatinine Est GFR ( Amer) Est GFR (Non-Af Amer) Glucose Lactic Acid 0.9 Calcium Total Bilirubin Direct Bilirubin Neonat Total Bilirubin Neonat Direct Bilirubin Neonat Indirect Bili AST ALT Alkaline Phosphatase Total Protein Albumin Urine Color Urine Appearance Urine pH Ur Specific [place] Urine Protein Urine Glucose (UA) Urine Ketones Urine Blood Urine Nitrite Urine Bilirubin Urine Urobilinogen Ur Leukocyte Esterase Urine WBC (Auto) Urine RBC (Auto) Squamous Epi Cells Auto Urine Mucus (Auto) Urine Ascorbic Acid Reviewed labs from patient's previous ER visits over the past 2 months. 12/30/18 00:42 - Diagnostic Test Radiology reviewed: Reports reviewed - from previous ED visit Discharge - Discharge Clinical Impression: Pyelonephritis UTI (urinary tract infection) Qualifiers: Urinary tract infection type: site unspecified Hematuria presence: with hematuria Qualified Code(s): N39.0 - Urinary tract infection, site not specified Condition: Stable Disposition: ADMITTED INPATIENT Admitting Provider: Farideh (Hospitalist) Unit Admitted: Medical Floor
[2018-12-30] MEDS ORDERED: HYDROMORPHONE HCL INJ/PF 2 MG/ML AMPULE IV ONE (00:05)
[2018-12-30 00:59] LABS: T.VAGINALIS (WET MOUNT) NO TRICHOMONAS SEEN; WBCS (WET MOUNT) NO WBCS SEEN; YEAST (WET MOUNT) NO YEAST SEEN
[2018-12-30 01:00] LABS: RBCS (WET MOUNT) NO RBCS SEEN
[2018-12-30 02:19] LABS: CHLAM PCR NOT DETECTED (NOT DETECT)
[2018-12-30] MEDS ORDERED: ZOLPIDEM TARTRATE 5 MG TABLET PO PRN (02:37)
[2018-12-30] MEDS ORDERED: MAGNESIUM HYDROXIDE SUSP 30 ML UDCUP PO PRN (02:37)
[2018-12-30] MEDS ORDERED: MAG HYDROX/AL HYDROX/SIMETH SUSP 30 ML UDCUP PO PRN (02:37)
[2018-12-30 03:46] LABS: URINE AMPHETAMINES SCREEN NEGATIVE; URINE BARBITURATES SCREEN NEGATIVE; URINE BENZODIAZEPINES SCREEN NEGATIVE; URINE COCAINE SCREEN NEGATIVE; URINE MARIJUANA (THC) SCREEN NEGATIVE; URINE METHADONE SCREEN NEGATIVE; URINE PHENCYCLIDINE SCREEN NEGATIVE
[2018-12-30] MEDS ORDERED: MORPHINE SULFATE 10 MG/ML INJ IV PRN ×2 (05:04→05:43)
[2018-12-30] MEDS ORDERED: HYDRALAZINE HCL INJ/PF 20 MG/1 ML SDV IV PRN (05:04)
[2018-12-30] MEDS ORDERED: HYDRALAZINE HCL INJ/PF 20 MG/1 ML SDV ONE (05:22)
--- NOTE | 2018-12-30 05:51 | PDOC H&P ---
History of Present Illness Admission Date/PCP: 12/30/18 01:14 No local PCP Patient complains of: Urinary tract infection due to VRE History of Present Illness: KOBE SNYDER is a 43 year old female who presented to the emergency room with a history of being informed by the culture nurse from the emergency room that her urine culture was positive for VRE and she was supposed to come in for further evaluation and treatment. Patient waited 1 day to come in as she was seen by her urologist who informed her that she needed to go to the hospital for antibiotic treatment and that they would not be taking her ureteral stent out until the infection had been treated. She admits persistent sharp right flank pain for the last 7 months with radiation to her right side and down into her pelvis and vagina. She describes the pain as severe at the present time, noting that it has worsened over the last 7 days and has been accompanied by nausea with 2 episodes of vomiting today. She admits prior similar episodes of pain related to previous kidney stones and urinary tract infections, but she denies prior urinary tract infection with VRE. She has not identified any aggravating or ameliorating factors for her urinary tract infection or right flank pain. In the emergency room she was found to have an essentially unremarkable evaluation with the exception of the recent urine culture which was positive for vancomycin-resistant Enterococcus faecium. The patient's VRE was sensitive only to daptomycin and doxycycline. Patient is allergic to doxycycline and therefore is been admitted to the hospital for initiation of intravenous daptomycin therapy. Past Medical History Cardiac Medical History: Reports: DVT Denies: Coronary Artery Disease, Hypertension Pulmonary Medical History: Reports: Asthma Denies: Chronic Obstructive Pulmonary Disease (COPD), Respiratory Failure EENT Medical History: Denies: Cataracts, Eyes - Corrective lenses, Ears - Hearing aids Neurological Medical History: Reports: Migraine Denies: Hemorrhagic CVA, Ischemic CVA, Multiple Sclerosis, Seizures Endocrine Medical History: Reports: Hypothyroidism - s/p partial thyroidectomy, Obesity Denies: Diabetes Mellitus Type 1, Diabetes Mellitus Type 2, Hyperthyroidism Renal/ Medical History: Reports: Nephrolithiasis, Other - Kidney infections Denies: Chronic Kidney Disease Malignancy Medical History: Reports: Other - Endometrial cancer GI Medical History: Reports: Gastroesophageal Reflux Disease Denies: Cirrhosis, Crohn's Disease, Hepatitis, Ulcerative Colitis Musculoskeltal Medical History: Denies: Arthritis, Gout Skin Medical History: Denies: Eczema, Psoriasis Psychiatric Medical History: Denies: Alcohol Dependency, Substance Abuse, Tobacco Dependency Traumatic Medical History: Reports: None Hematology: Denies: Anemia, Bleeding Tendencies Infectious Medical History: Reports: Vancomycin-Resistant Enterococci - First k nown time of infection is related to this admission as described in Past Surgical History Past Surgical History: Partial thyroidectomy Past Surgical History: Reports: Cholecystectomy, Gastric Bypass Surgery - Gastric sleeve, Hysterectomy, Thyroidectomy, Other - Removal of the benign bowel tumor Social History Information Source: Patient Lives with: Family Smoking Status: Never Smoker Frequency of Alcohol Use: Rare Hx Recreational Drug Use: No Drugs: None Hx Prescription Drug Abuse: No - Advance Directive Resuscitation Status: Full Code Surrogate healthcare decision maker:: Jose Snyder Family History Family History: CAD, Hypertension, Malignancy, Other - Lupus erythematosus. denies: DM Parental Family History Reviewed: Yes Children Family History Reviewed: No Sibling(s) Family History Reviewed.: Yes Medication/Allergy Home Medications: Esomeprazole Mag Trihydrate [Nexium] 40 mg PO QAM 05/27/18 Ranitidine HCl [Zantac 150 mg Tablet] 150 mg PO QHS 05/27/18 Topiramate [Topamax 100 mg Tablet] 100 mg PO Q12 05/27/18 Acetaminophen [Tylenol 325 mg Tablet] 650 mg PO Q4HP PRN tablet 05/31/18 Amox Tr/Potassium Clavulanate [Augmentin 875-125 mg Tablet] 1 tab PO BID 5 Days #10 tablet 05/31/18 Hydrocodone/Acetaminophen [[place] 5-325 mg Tablet] 1 tab PO Q6H PRN #14 tablet 05/31/18 Warfarin Sodium 7.5 mg PO DAILY #30 tablet 05/31/18 Trazodone HCl 50 mg PO DAILY 06/03/18 Sulfamethoxazole/Trimethoprim [Bactrim Ds Tablet] 1 each PO BID #14 tablet 10/18/18 Ketorolac Tromethamine [Toradol 10 mg Tablet] 10 mg PO Q6HP PRN #20 tablet 10/29/18 Sulfamethoxazole/Trimethoprim [Bactrim Ds Tablet] 1 each PO BID 7 Days #14 tablet 10/29/18 Tamsulosin HCl [Flomax 0.4 mg Cap.sr] 0.4 mg PO DAILY #7 cap.sr.24h 10/29/18 Cephalexin Monohydrate [Keflex 500 mg Capsule] 500 mg PO Q6H 10 Days #40 capsule 12/10/18 Fluconazole [Diflucan] 150 mg PO ONCE PRN #1 tablet 12/10/18 Oxycodone HCl/Acetaminophen [Percocet 5-325 mg Tablet] 1 - 2 tab PO Q4H PRN #15 tablet 12/10/18 Ketorolac Tromethamine [Toradol 10 mg Tablet] 10 mg PO Q6HP PRN #20 tablet 12/15/18 Oxycodone HCl/Acetaminophen [Percocet 10-325 Mg Tablet] 1 - 2 each PO Q6HP PRN #20 tablet 12/15/18 Ciprofloxacin HCl [Cipro 500 mg Tablet] 500 mg PO BID #20 tablet 12/26/18 Fluconazole [Diflucan] 150 mg PO ONCE PRN #1 tablet 12/26/18 Phenazopyridine HCl [Pyridium 200 mg Tablet] 200 mg PO TID #15 tablet 12/26/18 Allergies/Adverse Reactions: doxycycline Allergy (Verified 12/29/18 19:25) sumatriptan [From Imitrex] Allergy (Verified 12/29/18 19:25) Review of Systems Constitutional: ABSENT: chills, fever(s) Eyes: ABSENT: visual disturbances, other - Eye pain Ears: ABSENT: hearing changes, other - Ear pain Nose, Mouth, and Throat: ABSENT: mouth pain, sore throat Cardiovascular: ABSENT: chest pain, dyspnea on exertion, edema, orthropnea, palpitations Respiratory: ABSENT: cough, dyspnea Gastrointestinal: PRESENT: as per HPI, abdominal pain - Right flank pain radiating to the right lateral abdomen and then into the vagina, nausea, vomiting. ABSENT: constipation, diarrhea Genitourinary: PRESENT: as per HPI, other - Sharp pain radiating into her vagina. ABSENT: dysuria, hematuria Musculoskeletal: ABSENT: joint swelling, muscle weakness Integumentary: ABSENT: pruritus, rash Neurological: ABSENT: confusion, convulsions, focal weakness, memory loss, syncope Psychiatric: ABSENT: anxiety, depression Endocrine: ABSENT: cold intolerance, heat intolerance Hematologic/Lymphatic: ABSENT: easy bleeding, easy bruising Physical Exam Vital Signs: Temp Pulse Resp BP Pulse Ox 97.7 F 95 16 147/96 H 96 12/30/18 00:41 12/30/18 00:41 12/30/18 00:41 12/30/18 00:41 12/30/18 00:41 Intake & Output 12/28/18 12/29/18 12/30/18 23:59 23:59 23:59 Intake Total 1050 Balance 1050 Weight 175 kg General appearance: PRESENT: no acute distress, cooperative, morbidly obese Head exam: PRESENT: atraumatic, normocephalic Eye exam: ABSENT: conjunctival injection, scleral icterus Ear exam: PRESENT: normal external ear exam. ABSENT: bleeding, drainage Mouth exam: PRESENT: dry mucosa, neck supple Neck exam: ABSENT: thyromegaly, tracheal deviation Respiratory exam: PRESENT: clear to auscultation rajeev, symmetrical, unlabored Cardiovascular exam: PRESENT: RRR. ABSENT: clicks, gallop, rubs Pulses: PRESENT: normal radial pulses, normal dorsalis pedis pul Vascular exam: PRESENT: normal capillary refill. ABSENT: pallor GI/Abdominal exam: PRESENT: normal bowel sounds, soft, tenderness - Right flank tenderness on palpation from the right CVA region following the course of the right ureter through the flank and into the pelvis.. ABSENT: distended Rectal exam: PRESENT: deferred Extremities exam: ABSENT: joint swelling, pedal edema Musculoskeletal exam: ABSENT: deformity, dislocation Neurological exam: PRESENT: alert, oriented to person, oriented to place, oriented to time, oriented to situation, CN II-XII grossly intact. ABSENT: motor sensory deficit Psychiatric exam: PRESENT: appropriate affect, normal mood Skin exam: PRESENT: dry, intact, warm. ABSENT: jaundice, rash, urticaria Results Laboratory Results: 12/29/18 20:08 12/29/18 20:08 12/29/18 12/29/18 12/29/18 19:47 20:08 20:08 WBC 7.4 RBC 3.96 Hgb 8.3 L Hct 27.4 L MCV 69 L MCH 21.0 L MCHC 30.4 L RDW 17.9 H Plt Count 520 H Seg Neutrophils % 57.4 Lymphocytes % 26.6 Monocytes % 9.4 Eosinophils % 5.2 Basophils % 1.4 Absolute Neutrophils 4.3 Absolute Lymphocytes 2.0 Absolute Monocytes 0.7 Absolute Eosinophils 0.4 Absolute Basophils 0.1 Sodium 144.4 Potassium 4.7 Chloride 108 H Carbon Dioxide 29 Anion Gap 7 BUN 18 Creatinine 1.11 Est GFR ( Amer) > 60 Est GFR (Non-Af Amer) 54 L Glucose 109 Lactic Acid Calcium 9.4 Total Bilirubin 0.4 AST 21 ALT 14 Alkaline Phosphatase 62 Total Protein 6.9 Albumin 3.8 Urine Color ORANGE Urine Appearance CLOUDY Urine pH 6.0 Ur Specific [place] 1.023 Urine Protein 100 H Urine Glucose (UA) NEGATIVE Urine Ketones NEGATIVE Urine Blood LARGE H Urine Nitrite POSITIVE H Ur Leukocyte Esterase LARGE H Urine WBC (Auto) >182 Urine RBC (Auto) >182 12/29/18 20:40 WBC RBC Hgb Hct MCV MCH MCHC RDW Plt Count Seg Neutrophils % Lymphocytes % Monocytes % Eosinophils % Basophils % Absolute Neutrophils Absolute Lymphocytes Absolute Monocytes Absolute Eosinophils Absolute Basophils Sodium Potassium Chloride Carbon Dioxide Anion Gap BUN Creatinine Est GFR ( Amer) Est GFR (Non-Af Amer) Glucose Lactic Acid 0.9 Calcium Total Bilirubin AST ALT Alkaline Phosphatase Total Protein Albumin Urine Color Urine Appearance Urine pH Ur Specific [place] Urine Protein Urine Glucose (UA) Urine Ketones Urine Blood Urine Nitrite Ur Leukocyte Esterase Urine WBC (Auto) Urine RBC (Auto) Impressions: Chest X-Ray 12/29/18 20:11 IMPRESSION: No acute cardiopulmonary abnormalities. copyright 2011 [employer]- All Rights Reserved Assessment and Plan - Diagnosis (1) Urinary tract infection due to Enterococcus Is this a current diagnosis for this admission?: Yes Plan: Patient be started on daptomycin 6 mg/kg per 24 hours as a single dosage (approximately a 1000 mg IV daily). Daily CBC, magnesium levels and metabolic profiles will be obtained to follow the course of her disease. A PICC line may be needed if the course of therapy will need to be prolonged or completed on an outpatient basis. (2) Pyelonephritis of right kidney Is this a current diagnosis for this admission?: Yes Plan: Patient be treated with IV fluids and IV antibiotics as described above. She will have her pain treated with morphine sulfate 2 to 4 mg IV every 2 hours PRN basis via sliding scale. Daily lab work will be used to monitor the course of the patient's disease and the results of therapy. These laboratories will include a CBC and a basic metabolic profile on a daily basis. (3) Retained ureteral stent Is this a current diagnosis for this admission?: Yes Plan: The retained ureteral stent will need to be removed at some point during the patient's course prior to completion of antibiotic therapy as it would seem that a foreign body in the urinary tract would not allow for complete eradication of the VRE. (4) Right flank pain, chronic Is this a current diagnosis for this admission?: Yes Plan: Patient's chronic flank pain will be treated along with her acute flank pain as noted above in the discussion of pyelonephritis. - Time Time Spent with patient: 25-34 minutes Medications reviewed and adjusted accordingly: Yes Anticipated discharge: Home - Inpatient Certification Based on my medical assessment, after consideration of the patient's comorbidities, presenting symptoms, or acuity I expect that the services needed warrant INPATIENT care.: Yes I certify that my determination is in accordance with my understanding of Medicare's requirements for reasonable and necessary INPATIENT services [42 CFR 412.3e].: Yes Medical Necessity: Failure to Improve With Outpatient Therapy, Significant Comorbidiites Make Outpatient Treatment Too Risky, Need Close Monitoring Due to Risk of Patient Decompensation, Need for Pain Control, Need for IV Antibiotics, Need for Surgery - Removal of the right ureteral stent, Risk of Complication if Not Cared For in Hospital
[2018-12-30] MEDS: MORPHINE SULFATE 10 MG/ML INJ IV PRN ×6 (05:56→23:17)
[2018-12-30] MEDS ORDERED: DAPTOMYCIN INJ 500 MG VIAL IV SCH (06:00)
[2018-12-30] MEDS: ONDANSETRON HCL INJ/PF 4 MG/2 ML SDV IV PRN (08:16)
[2018-12-30] MEDS: DOCUSATE SODIUM 100 MG CAPSULE PO SCH ×2 (09:35→17:50)
[2018-12-30] MEDS: FAMOTIDINE 20 MG TABLET PO SCH ×2 (09:35→23:18)
[2018-12-30] MEDS: TAMSULOSIN HCL 0.4 MG CAP.SR.24H PO SCH (09:40)
[2018-12-30] MEDS: TOPIRAMATE 100 MG TABLET PO SCH ×2 (09:40→23:18)
[2018-12-30] MEDS ORDERED: LINEZOLID 600 MG/300 ML RTUPB IV SCH (10:00)
[2018-12-30 10:13] LABS: INTERNATIONAL RATION (INR) 1.23; PROTHROMBIN TIME 16.1 SEC (11.4-15.4)
[2018-12-30 10:15] LABS: D-DIMER 0.35 ug/mL (0.00-0.50)
[2018-12-30] MEDS ORDERED: NORMAL SALINE 1000 ML 1,000 ML IV ONE (10:30)
--- NOTE | 2018-12-30 10:30 | PDOC PROGRESS REPORT ---
Subjective Progress Note for:: 12/30/18 Subjective:: 43 y.o. F with PMH DVT (noncompliant with Coumadin due to lack of insurance), asthma, migraines, hypothyroidism s/p partial thyroidectomy, nephrolithiasis, endometrial cancer. She presented to [facility] with VRE UTI. The patient has been seen in the ED multiple times since for UTI-like symptoms. Of note, the patient had a double-J stent placed in May 2018 by a Urologist, but she has not been able to follow up with anyone to remove it due to her lack of in surance. The patient reports she has contacted the Urologist to have the stent removed but he/she "refuses" due to her lack of insurance. Since September, the patient's previous urine cultures (+) klebsiella, treated with courses of Keflex and Cipro, but her symptoms continue to resurface. She has been to the ED 4 times in the last 3 weeks alone. The patient was admitted to a Medical floor on IV daptomycin. Today at approx. 0845 the patient complained to nursing staff of L sided chest pain. The patient reports it as a sharp pain and she endorses associated shortness of breath. EKG shows sinus tachycardia, no infarction or ischemia. Her constellation of symptoms could be related to early sepsis vs. PE. Will continue IV daptomycin since previous culture was resistant to linezolid, PCN, vancomycin, ampicillin, levaquin and Macrobid. Check stat lactate level. Will send urine for repeat culture. Plan for STAT coags and d-dimer. Patient is high risk for PE with her history of multiple DVTs and she has been without coumadin x 1 month. If d-dimer (+)positive will CTA chest. Finally, will send patient to a monitored bed. Currently planning on transferring to MED[facility]TELE. Reason For Visit: URINARY TRACT INFECTION DUE TO VRE Physical Exam Vital Signs: Temp Pulse Resp BP Pulse Ox 97.8 F 126 H 20 133/68 H 100 12/30/18 07:36 12/30/18 09:07 12/30/18 08:53 12/30/18 09:07 12/30/18 09:07 Intake & Output 12/29/18 12/30/18 12/31/18 06:59 06:59 06:59 Intake Total 1050 Balance 1050 Weight 177 kg General appearance: PRESENT: morbidly obese Head exam: PRESENT: atraumatic Eye exam: PRESENT: conjunctiva pink, PERRLA Mouth exam: PRESENT: moist, tongue midline Neck exam: PRESENT: full ROM Respiratory exam: PRESENT: clear to auscultation rajeev, symmetrical, unlabored Cardiovascular exam: PRESENT: tachycardia Pulses: PRESENT: normal radial pulses Vascular exam: PRESENT: normal capillary refill GI/Abdominal exam: PRESENT: soft. ABSENT: distended, tenderness Rectal exam: PRESENT: deferred Extremities exam: PRESENT: full ROM Musculoskeletal exam: PRESENT: ambulatory, full ROM, normal inspection Neurological exam: PRESENT: alert, altered, awake, oriented to place, oriented to time, oriented to situation Psychiatric exam: PRESENT: appropriate affect Skin exam: PRESENT: dry, intact, normal color Results Laboratory Results: 12/29/18 20:08 12/29/18 20:08 12/29/18 12/29/18 12/29/18 19:47 20:08 20:08 WBC 7.4 RBC 3.96 Hgb 8.3 L Hct 27.4 L MCV 69 L MCH 21.0 L MCHC 30.4 L RDW 17.9 H Plt Count 520 H Seg Neutrophils % 57.4 Lymphocytes % 26.6 Monocytes % 9.4 Eosinophils % 5.2 Basophils % 1.4 Absolute Neutrophils 4.3 Absolute Lymphocytes 2.0 Absolute Monocytes 0.7 Absolute Eosinophils 0.4 Absolute Basophils 0.1 Sodium 144.4 Potassium 4.7 Chloride 108 H Carbon Dioxide 29 Anion Gap 7 BUN 18 Creatinine 1.11 Est GFR ( Amer) > 60 Est GFR (Non-Af Amer) 54 L Glucose 109 Lactic Acid Calcium 9.4 Total Bilirubin 0.4 AST 21 ALT 14 Alkaline Phosphatase 62 Total Protein 6.9 Albumin 3.8 Urine Color ORANGE Urine Appearance CLOUDY Urine pH 6.0 Ur Specific [place] 1.023 Urine Protein 100 H Urine Glucose (UA) NEGATIVE Urine Ketones NEGATIVE Urine Blood LARGE H Urine Nitrite POSITIVE H Ur Leukocyte Esterase LARGE H Urine WBC (Auto) >182 Urine RBC (Auto) >182 12/29/18 20:40 WBC RBC Hgb Hct MCV MCH MCHC RDW Plt Count Seg Neutrophils % Lymphocytes % Monocytes % Eosinophils % Basophils % Absolute Neutrophils Absolute Lymphocytes Absolute Monocytes Absolute Eosinophils Absolute Basophils Sodium Potassium Chloride Carbon Dioxide Anion Gap BUN Creatinine Est GFR ( Amer) Est GFR (Non-Af Amer) Glucose Lactic Acid 0.9 Calcium Total Bilirubin AST ALT Alkaline Phosphatase Total Protein Albumin Urine Color Urine Appearance Urine pH Ur Specific [place] Urine Protein Urine Glucose (UA) Urine Ketones Urine Blood Urine Nitrite Ur Leukocyte Esterase Urine WBC (Auto) Urine RBC (Auto) Impressions: Chest X-Ray 12/29/18 20:11 IMPRESSION: No acute cardiopulmonary abnormalities. copyright 2010 [employer]- All Rights Reserved Status: Imported from PACS Assessment and Plan - Diagnosis (1) Retained ureteral stent Is this a current diagnosis for this admission?: Yes Plan: Double J stent placed in for renal calculi Unable to get removed due to lack of insurance Patient will require stent removal - consider transfer to tertiary facility if clinical picture does not improve (2) Urinary tract infection due to Enterococcus Is this a current diagnosis for this admission?: Yes Plan: History of frequent UTIs Previous urine culture (+) klebsiella, now (+) VRE Resistant to linezolid, PCN, vancomycin, ampicillin, levaquin and Macrobid Daptomycin initiated in ED, will continue Contact isolation precautions Consult MARCELOD[facility] ID (3) Morbid obesity with BMI of 60.0-69.9, adult Is this a current diagnosis for this admission?: Yes Plan: Dietary weight management at this time (4) Hypertension Qualifiers: Hypertension type: essential hypertension Qualified Code(s): I10 - Essential (primary) hypertension Is this a current diagnosis for this admission?: Yes Plan: SBP uncontrolled Will start scheduled CCB PRN hydralazine IV for SBP > 170 (5) History of DVT (deep vein thrombosis) Is this a current diagnosis for this admission?: Yes Plan: History of DVT x 2 Previously on coumadin but has been without it for 1 month Will check baseline coags today [employer] resumed patient on Xarelto 10 mg PO QHS - Time Time Spent with patient: 15-24 minutes Medications reviewed and adjusted accordingly: Yes Anticipated discharge: Home Within: Other - when medically stable - Inpatient Certification Based on my medical assessment, after consideration of the patient's comorbidities, presenting symptoms, or acuity I expect that the services needed warrant INPATIENT care.: Yes I certify that my determination is in accordance with my understanding of Medicare's requirements for reasonable and necessary INPATIENT services [42 CFR 412.3e].: Yes Medical Necessity: Need For Continuous Telemetry Monitoring, Need for IV Antibiotics, Risk of Complication if Not Cared For in Hospital - Plan Summary Plan Summary: STAT LACTATE LEVEL, D-DIME AND COAGS. IF D-DIMER ELEVATED WILL CTA CHEST. IF D- DIMER NEGATIVE, THIS IS POSSIBLE EARLY SEPSIS AND WILL CONSIDER BROADENING ABX COVERAGE.
[2018-12-30] MEDS: NORMAL SALINE 1000 ML 1,000 ML IV PRN ×2 (12:07→23:17)
--- NOTE | 2018-12-30 15:42 | EKG REPORT ---
SEVERITY:- ABNORMAL ECG - SINUS TACHYCARDIA NONSPECIFIC ST-T CHANGES LATERAL LEADS : Confirmed by: Alexei Espinosa MD 30-Dec-2018 15:41:15
--- NOTE | 2018-12-30 16:12 | Progress Note ---
Provider Note Provider Note: ID Telephone Consult Note Asked to review patient's chart by pharmacy. Pt not seen or examined. Reviewed VS, labs, provider notes. Pt is a 43 year old woman who has PMH/PSH including morbid obesity, DVT s/p IVC filter placement, kidney stones and ureteral stent on the right. Flank pain radiates to her groin/vagina, has worsened over the past week, and is accompanied by nausea and vomiting. She presented to the hospital at the behest of her urologist for antibiotic treatment of a urinary tract infection with VRE. She is afebrile. R flank tenderness was noted on exam. She had no leukocytosis or fever. She has a reactive thrombocytosis. SCr is 1.11. She has a tetracycline allergy reported. Impression Pt appears to have renal colic. Per notes, she is suspected of having either a complicated UTI with VRE or asymptomatic bacteriuria with VRE for which she has been instructed to pursue treatment prior to stent exchange. If there is an impending urologic procedure with bleeding anticipated, asymptomatic bacteriuria should be treated. Recommendations Agree with daptomycin IV at current dose. Unfortunately based on susceptibilities there is no better option for treatment. Complicated UTI treatment duration varies fairly widely depending on agent used and rapidity of response. Typically in the range of 7-14 days; suggest aiming for 10 days. Check CPK in a week. If CPK increases ~5x ULN with symptoms or >10x ULN with no symptoms, daptomycin would need to be stopped at 7 days. Meño Forte MD [facility] Infectious Diseases pager [phone]
[2018-12-30] MEDS: RIVAROXABAN 10 MG TABLET PO SCH (16:42)
[2018-12-30] MEDS ORDERED: PHENAZOPYRIDINE HCL 100 MG TABLET PO ONE (16:48)
[2018-12-30] MEDS ORDERED: PHENAZOPYRIDINE HCL 100 MG TABLET PO SCH (17:00)
[2018-12-30] MEDS ORDERED: IBUPROFEN 800 MG TABLET ONE (17:54)
[2018-12-30] MEDS ORDERED: DAPTOMYCIN 1,000 MG in NORMAL SALINE 50 ML IV SCH (22:00)
[2018-12-30] MEDS: DAPTOMYCIN 1,000 MG in NORMAL SALINE 50 ML IV SCH (23:17)
[2018-12-30] MEDS: TRAZODONE HCL 50 MG TABLET PO SCH (23:18)
[2018-12-30] MEDS: PHENAZOPYRIDINE HCL 200 MG TABLET PO SCH (23:18)
[2018-12-31] MEDS: MORPHINE SULFATE 10 MG/ML INJ IV PRN ×6 (02:12→22:03)
[2018-12-31] MEDS: ONDANSETRON HCL INJ/PF 4 MG/2 ML SDV IV PRN ×2 (02:12→08:55)
[2018-12-31] MEDS: PHENAZOPYRIDINE HCL 200 MG TABLET PO SCH ×3 (06:01→22:04)
[2018-12-31 06:07] LABS: ANION GAP 7 (5-19); BLOOD UREA NITROGEN 13 mg/dL (7-20); CALCIUM 9.5 mg/dL (8.4-10.2); CARBON DIOXIDE 26 mmol/L (22-30); CHLORIDE 112 mmol/L (98-107); CHOLESTEROL 123.74 mg/dL (0-200); GLUCOSE 111 mg/dL (75-110); POTASSIUM 4.5 mmol/L (3.6-5.0); SODIUM 144.7 mmol/L (137-145); TRIGLYCERIDES 79 mg/dL (<150)
[2018-12-31 06:10] LABS: ABSOLUTE BASOPHILS # (AUTO) 0.1 10^3/uL (0.0-0.2); ABSOLUTE EOSINOPHILS # (AUTO) 0.4 10^3/uL (0.0-0.6); ABSOLUTE LYMPHOCYTES (AUTO) 2.3 10^3/uL (0.5-4.7); ABSOLUTE MONOCYTES (AUTO) 0.7 10^3/uL (0.1-1.4); ABSOLUTE NEUT (AUTO) 4.3 10^3/uL (1.7-8.2); BASOPHILS % (AUTO) 0.8 % (0-2); EOSINOPHILS % (AUTO) 5.5 % (0-6); HEMATOCRIT 27.8 % (36.0-47.0); HEMOGLOBIN 8.2 g/dL (12.0-15.5); MEAN CORPUSCULAR HEMOGLOBIN 20.8 pg (27.0-33.4); MEAN CORPUSCULAR HGB CONC 29.7 g/dL (32.0-36.0); MEAN CORPUSCULAR VOLUME 70 fl (80-97); MONOCYTES % (AUTO) 9.6 % (3-13); PLATELET COUNT 529 10^3/uL (150-450); RED BLOOD COUNT 3.95 10^6/uL (3.72-5.28); RED CELL DISTRIBUTION WIDTH 18.1 % (11.5-14.0); SEGMENTED NEUTROPHILS % (AUTO) 55.1 % (42-78); TOTAL CELLS COUNTED % (AUTO) 100 %; WHITE BLOOD COUNT 7.8 10^3/uL (4.0-10.5)
[2018-12-31 06:18] LABS: DIRECT LDL 59 mg/dL (<100)
[2018-12-31 08:19] LABS: ANISOCYTOSIS 1+; HYPOCHROMASIA 1+; OVALOCYTES SLIGHT; PLATELET CLUMPS PRESENT; POIKILOCYTOSIS SLIGHT; POLYCHROMASIA SLIGHT; TARGET CELLS SLIGHT; TEAR DROP CELLS SLIGHT
[2018-12-31 08:21] LABS: PLATELET COMMENT INCREASED
[2018-12-31] MEDS: FAMOTIDINE 20 MG TABLET PO SCH ×2 (10:21→22:04)
[2018-12-31] MEDS: TAMSULOSIN HCL 0.4 MG CAP.SR.24H PO SCH (10:21)
[2018-12-31] MEDS: DOCUSATE SODIUM 100 MG CAPSULE PO SCH ×2 (10:21→17:24)
[2018-12-31] MEDS: TOPIRAMATE 100 MG TABLET PO SCH ×2 (10:22→22:04)
--- NOTE | 2018-12-31 16:46 | PDOC PROGRESS REPORT ---
Subjective Progress Note for:: 12/31/18 Subjective:: 43 y.o. F with PMH DVT (noncompliant with Coumadin due to lack of insurance), asthma, migraines, hypothyroidism s/p partial thyroidectomy, nephrolithiasis, endometrial cancer. She presented to [facility] with VRE UTI. Of note, the patient had a double-J stent placed in May 2018 by a Urologist, but she has not been able to follow up with anyone to remove it due to her lack of insurance. The patient was seen this morning on rounds. She is sitting up in bed. She reports that she feels much better today when compared to yesterday. Physical exam is relatively benign except R flank and RLQ tenderness. Following IVF resuscitation, the patient's HR is now<100 BPM. The patient remains on IV daptomycin. Repeat urine culture is pending. The patient will remain at [facility] for IV antibiotics to treat her VRE UTI. Reason For Visit: URINARY TRACT INFECTION DUE TO VRE Physical Exam Vital Signs: Temp Pulse Resp BP Pulse Ox 98.1 F 64 18 137/71 H 100 12/31/18 12:00 12/31/18 14:00 12/31/18 12:00 12/31/18 12:00 12/31/18 12:00 Intake & Output 12/30/18 12/31/18 01/01/19 06:59 06:59 06:59 Intake Total 1050 2490 Balance 1050 2490 Weight 177 kg 178 kg General appearance: PRESENT: no acute distress, obese Head exam: PRESENT: atraumatic, normocephalic Eye exam: PRESENT: conjunctiva pink, EOMI, PERRLA. ABSENT: scleral icterus Ear exam: PRESENT: normal external ear exam Mouth exam: PRESENT: moist, tongue midline Teeth exam: PRESENT: poor dentation Neck exam: PRESENT: full ROM. ABSENT: carotid bruit, JVD, lymphadenopathy, thyromegaly Respiratory exam: PRESENT: clear to auscultation rajeev, symmetrical, unlabored. ABSENT: rales, rhonchi, wheezes Cardiovascular exam: PRESENT: RRR. ABSENT: diastolic murmur, rubs, systolic murmur Pulses: PRESENT: normal radial pulses, normal dorsalis pedis pul Vascular exam: PRESENT: normal capillary refill GI/Abdominal exam: PRESENT: normal bowel sounds, soft, tenderness - RLQ and R flank - patient reports the pain radiates to her vagina. ABSENT: distended, guarding, mass, organolmegaly, rebound Rectal exam: PRESENT: deferred Extremities exam: PRESENT: full ROM. ABSENT: calf tenderness, clubbing, pedal edema Neurological exam: PRESENT: alert, awake, oriented to person, oriented to place, oriented to time, oriented to situation Psychiatric exam: PRESENT: appropriate affect, normal mood Skin exam: PRESENT: dry, intact, warm. ABSENT: cyanosis, rash Results Laboratory Results: 12/31/18 05:23 12/31/18 05:23 12/31/18 12/31/18 12/31/18 05:23 05:23 05:23 WBC 7.8 RBC 3.95 Hgb 8.2 L Hct 27.8 L MCV 70 L MCH 20.8 L MCHC 29.7 L RDW 18.1 H Plt Count 529 H Seg Neutrophils % 55.1 Lymphocytes % 29.0 Monocytes % 9.6 Eosinophils % 5.5 Basophils % 0.8 Absolute Neutrophils 4.3 Absolute Lymphocytes 2.3 Absolute Monocytes 0.7 Absolute Eosinophils 0.4 Absolute Basophils 0.1 Sodium 144.7 Potassium 4.5 Chloride 112 H Carbon Dioxide 26 Anion Gap 7 BUN 13 Creatinine 1.11 Est GFR ( Amer) > 60 Est GFR (Non-Af Amer) 54 L Glucose 111 H Calcium 9.5 Magnesium 1.9 Triglycerides 79 Cholesterol 123.74 LDL Cholesterol Direct 59 VLDL Cholesterol 16.0 HDL Cholesterol 44 TSH 1.07 Impressions: Chest X-Ray 12/29/18 20:11 IMPRESSION: No acute cardiopulmonary abnormalities. copyright 2010 [email or web address]- All Rights Reserved Status: Imported from PACS Assessment and Plan - Diagnosis (1) Retained ureteral stent Is this a current diagnosis for this admission?: Yes Plan: Double J stent placed at [facility] in for renal calculi Unable to get removed due to lack of insurance, [facility] urology "refused to remove it" Patient referred to [facility], scheduled to see Dr. Mccartney Patient will require stent removal. Will discuss patient's case with Dr. Mccartney at [facility] on Friday (2) Urinary tract infection due to Enterococcus Is this a current diagnosis for this admission?: Yes Plan: History of frequent UTIs Previous urine culture (+) klebsiella, now (+) VRE Resistant to linezolid, PCN, vancomycin, ampicillin, levaquin and Macrobid Daptomycin initiated in ED, will continue Contact isolation precautions Consulted Dr. Reanna DEE recommends 10 days of IV antibiotics. Patient will require CK check in 7 days. (3) Morbid obesity with BMI of 60.0-69.9, adult Is this a current diagnosis for this admission?: Yes Plan: Dietary weight management at this time (4) Hypertension Qualifiers: Hypertension type: essential hypertension Qualified Code(s): I10 - Essential (primary) hypertension Is this a current diagnosis for this admission?: Yes Plan: SBP controlled today Patient reports she cannot take Lopressor. States she thinks that medication is what caused her chest pain and tachycardia yesterday. Patient reports her BP has been relatively well controlled since losing approx. 100lbs following gastric bypass surgery PRN hydralazine IV for SBP > 170 (5) History of DVT (deep vein thrombosis) Is this a current diagnosis for this admission?: Yes Plan: History of DVT x 2 Previously on coumadin but has been without it for 1 month Continue Xarelto 10 mg PO QHS - Time Time Spent with patient: 15-24 minutes Medications reviewed and adjusted accordingly: Yes Within: within 36 hours, within 72 hours - Inpatient Certification Based on my medical assessment, after consideration of the patient's comorbidities, presenting symptoms, or acuity I expect that the services needed warrant INPATIENT care.: Yes I certify that my determination is in accordance with my understanding of Medicare's requirements for reasonable and necessary INPATIENT services [42 CFR 412.3e].: Yes Medical Necessity: Need for IV Antibiotics, Risk of Complication if Not Cared For in Hospital - Plan Summary Plan Summary: PATIENT WILL REQUIRE 10 DAYS OF ANTIBIOTICS IV. ATTEMPTING TO GET IN TOUCH WITH FINANCIAL COUNSELOR TO SEE IF PATIENT BOO QUALIFY FOR EDY CARE. IF NOT, SHE MAY BE A CANDIDATE FOR OUTPATIENT IV ANTIBIOTIC INFUSIONS
[2018-12-31] MEDS: RIVAROXABAN 10 MG TABLET PO SCH (17:24)
[2018-12-31] MEDS: IBUPROFEN 800 MG TABLET PO PRN (17:24)
[2018-12-31] MEDS: NORMAL SALINE 1000 ML 1,000 ML IV PRN (22:03)
[2018-12-31] MEDS: DAPTOMYCIN 1,000 MG in NORMAL SALINE 50 ML IV SCH (22:04)
[2018-12-31] MEDS: TRAZODONE HCL 50 MG TABLET PO SCH (22:04)
[2019-01-01] MEDS: MORPHINE SULFATE 10 MG/ML INJ IV PRN ×6 (03:02→21:15)
[2019-01-01] MEDS: IBUPROFEN 800 MG TABLET PO PRN ×2 (03:05→17:51)
[2019-01-01] MEDS: PHENAZOPYRIDINE HCL 200 MG TABLET PO SCH ×3 (05:59→21:12)
[2019-01-01 06:45] LABS: ABSOLUTE BASOPHILS # (AUTO) 0.1 10^3/uL (0.0-0.2); ABSOLUTE EOSINOPHILS # (AUTO) 0.4 10^3/uL (0.0-0.6); ABSOLUTE LYMPHOCYTES (AUTO) 1.7 10^3/uL (0.5-4.7); ABSOLUTE MONOCYTES (AUTO) 0.7 10^3/uL (0.1-1.4); ABSOLUTE NEUT (AUTO) 4.1 10^3/uL (1.7-8.2); BASOPHILS % (AUTO) 0.9 % (0-2); EOSINOPHILS % (AUTO) 5.1 % (0-6); HEMATOCRIT 24.7 % (36.0-47.0); LYMPHOCYTES % (AUTO) 24.1 % (13-45); MEAN CORPUSCULAR HEMOGLOBIN 20.8 pg (27.0-33.4); MEAN CORPUSCULAR HGB CONC 29.6 g/dL (32.0-36.0); MEAN CORPUSCULAR VOLUME 71 fl (80-97); MONOCYTES % (AUTO) 10.3 % (3-13); PLATELET COUNT 468 10^3/uL (150-450); RED BLOOD COUNT 3.51 10^6/uL (3.72-5.28); RED CELL DISTRIBUTION WIDTH 18.1 % (11.5-14.0); SEGMENTED NEUTROPHILS % (AUTO) 59.6 % (42-78); TOTAL CELLS COUNTED % (AUTO) 100 %; WHITE BLOOD COUNT 6.9 10^3/uL (4.0-10.5)
[2019-01-01 06:57] LABS: HEMOGLOBIN 7.3 g/dL (12.0-15.5)
[2019-01-01 07:11] LABS: ANION GAP 5 (5-19); BLOOD UREA NITROGEN 14 mg/dL (7-20); CALCIUM 8.7 mg/dL (8.4-10.2); CARBON DIOXIDE 24 mmol/L (22-30); CHLORIDE 114 mmol/L (98-107); GLUCOSE 108 mg/dL (75-110); POTASSIUM 4.2 mmol/L (3.6-5.0); SODIUM 142.9 mmol/L (137-145)
[2019-01-01] MEDS ORDERED: NORMAL SALINE 250 ML IV PRN ×2 (08:20)
[2019-01-01 08:42] LABS: RETICULOCYTE COUNT (AUTO) 1.96 % (0.66-2.85)
[2019-01-01 08:46] LABS: IRON(TIBC) 22.7 ug/dL (37-170)
[2019-01-01] MEDS: ONDANSETRON HCL INJ/PF 4 MG/2 ML SDV IV PRN ×2 (08:54→23:21)
[2019-01-01 09:21] LABS: FERRITIN 6.75 ng/mL (6.2-137.0)
[2019-01-01] MEDS: FAMOTIDINE 20 MG TABLET PO SCH ×2 (09:33→21:11)
[2019-01-01] MEDS: DOCUSATE SODIUM 100 MG CAPSULE PO SCH ×2 (09:33→17:51)
[2019-01-01] MEDS: TAMSULOSIN HCL 0.4 MG CAP.SR.24H PO SCH ×2 (09:33→17:51)
[2019-01-01] MEDS: TOPIRAMATE 100 MG TABLET PO SCH ×2 (09:33→21:12)
[2019-01-01 09:52] LABS: FOLATE 8.02 ng/mL (>2.76)
--- NOTE | 2019-01-01 15:03 | RADIOLOGY REPORT (SQ) ---
EXAM DESCRIPTION: CT ABD/PELVIS WITH IV ONLY COMPLETED DATE/TIME: 01/01/2019 2:48 pm REASON FOR STUDY: R flank pain radiating-->vagina. Hx ureteral stent COMPARISON: 12/26/2018 TECHNIQUE: CT scan of the abdomen and pelvis performed using helical scanning technique with dynamic intravenous contrast injection. No oral contrast. Images reviewed with lung, soft tissue, and bone windows. Reconstructed coronal and sagittal MPR images reviewed. Delayed images for evaluation of the urinary system also acquired. All images stored on PACS. All CT scanners at this facility use dose modulation, iterative reconstruction, and/or weight based d osing when appropriate to reduce radiation dose to as low as reasonably achievable (ALARA). [facility]: Dose Right [facility]: CareDose [facility]: Dose Right [facility]: Teradose 4D [facility]: [employer] [facility] CONTRAST TYPE AND DOSE: contrast/concentration: Isovue 350.00 mg/ml; Total Contrast Delivered: 100.0 ml; Total Saline Delivered: 66.0 ml RENAL FUNCTION: BUN 14, creatinine 1.19 RADIATION DOSE: CT Rad equipment meets quality standard of care and radiation dose reduction techniq ues were employed. CTDIvol: 26.7 - 31.4 mGy. DLP: 3206 mGy-cm.. LIMITATIONS: None. FINDINGS: LOWER CHEST: No significant findings. No nodules or infiltrates. LIVER: Normal size. No masses. No dilated ducts. SPLEEN: Normal size. No focal lesions. PANCREAS: No masses. No significant calcifications. No adjacent inflammation or peripancreatic fluid collections. Pancreatic duct not dilated. GALLBLADDER: Surgically absent. ADRENAL GLANDS: No significant masses or asymmetry. RIGHT KIDNEY AND URETER: No solid masses. No significant calcifications. No hydronephrosis or hyd roureter. Double-J ureteral stent is in place and is in satisfactory position. LEFT KIDNEY AND URETER: No solid masses. No significant calcifications. No hydronephrosis or hydr oureter. AORTA AND VESSELS: No aneurysm. No dissection. Renal arteries, SMA, celiac without stenosis. IVC олег ter is in place. RETROPERITONEUM: No retroperitoneal adenopathy, hemorrhage or masses. BOWEL AND PERITONEAL CAVITY: Scattered diverticuli. No acute diverticulitis. APPENDIX: Normal. PELVIS: No mass. No free fluid. Normal bladder. ABDOMINAL WALL: No masses. No hernias. BONES: No significant or acute findings. OTHER: No other significant finding. IMPRESSION: Right-sided double-J ureteral stent is in place is in satisfactory position. No hydrone phrosis. No acute findings in the abdomen or pelvis to explain the patient's right lower quadrant pa in. TECHNICAL DOCUMENTATION: JOB ID: [id number] Quality ID # [id number]: Final reports with documentation of one or more dose reduction techniques (e.g., Au tomated exposure control, adjustment of the mA and/or kV according to patient size, use of iterative reconstruction technique) 2010 [employer]- All Rights Reserved Reading location - IP/workstation name: [email or web address]
[2019-01-01 19:08] LABS: ABSOLUTE BASOPHILS # (AUTO) 0.1 10^3/uL (0.0-0.2); ABSOLUTE EOSINOPHILS # (AUTO) 0.3 10^3/uL (0.0-0.6); ABSOLUTE LYMPHOCYTES (AUTO) 1.6 10^3/uL (0.5-4.7); ABSOLUTE MONOCYTES (AUTO) 0.8 10^3/uL (0.1-1.4); ABSOLUTE NEUT (AUTO) 6.2 10^3/uL (1.7-8.2); BASOPHILS % (AUTO) 0.8 % (0-2); EOSINOPHILS % (AUTO) 3.9 % (0-6); HEMATOCRIT 27.5 % (36.0-47.0); HEMOGLOBIN 8.2 g/dL (12.0-15.5); LYMPHOCYTES % (AUTO) 17.5 % (13-45); MEAN CORPUSCULAR HEMOGLOBIN 21.4 pg (27.0-33.4); MEAN CORPUSCULAR HGB CONC 29.8 g/dL (32.0-36.0); MEAN CORPUSCULAR VOLUME 72 fl (80-97); MONOCYTES % (AUTO) 8.5 % (3-13); PLATELET COUNT 501 10^3/uL (150-450); RED BLOOD COUNT 3.83 10^6/uL (3.72-5.28); SEGMENTED NEUTROPHILS % (AUTO) 69.3 % (42-78); TOTAL CELLS COUNTED % (AUTO) 100 %
[2019-01-01] MEDS: DAPTOMYCIN 1,000 MG in NORMAL SALINE 50 ML IV SCH (21:11)
[2019-01-01] MEDS: TRAZODONE HCL 50 MG TABLET PO SCH (21:12)
--- NOTE | 2019-01-01 22:56 | PDOC PROGRESS REPORT ---
Subjective Progress Note for:: 01/01/19 Subjective:: 43 y.o. F with PMH DVT (noncompliant with Coumadin due to lack of insurance), asthma, migraines, hypothyroidism s/p partial thyroidectomy, nephrolithiasis, endometrial cancer. She presented to [facility] with VRE UTI. Of note, the patient had a double-J stent placed in May 2018 by a Urologist, but she has not been able to follow up with anyone to remove it due to her lack of insurance. The patient was seen this morning on rounds. She is resting in bed. She rep orts she still has abdominal pain in the RLQ but it has improved, overall. Physical exam is relatively benign except mild R flank and RLQ tenderness. Patient states this pain radiates to her vagina. The patient remains on IV daptomycin. Repeat urine culture is pending. The patient will remain at [facility] for IV antibiotics to treat her VRE UTI. Per ID recommendations, the patient will require 10 days of IV daptomycin. Discharge planing is aware, attempting to make arrangements for outpatient infusions. Reason For Visit: URINARY TRACT INFECTION DUE TO VRE Physical Exam Vital Signs: Temp Pulse Resp BP Pulse Ox 98.4 F 104 H 17 149/92 H 96 01/01/19 20:00 01/01/19 20:00 01/01/19 20:00 01/01/19 20:00 01/01/19 20:00 Intake & Output 12/31/18 01/01/19 01/02/19 06:59 06:59 06:59 Intake Total 2490 1050 300 Balance 2490 1050 300 Weight 178 kg 179.5 kg General appearance: PRESENT: no acute distress, morbidly obese Head exam: PRESENT: atraumatic, normocephalic Eye exam: PRESENT: conjunctiva pink, EOMI, PERRLA. ABSENT: scleral icterus Ear exam: PRESENT: normal external ear exam Mouth exam: PRESENT: moist, tongue midline Neck exam: ABSENT: carotid bruit, JVD, lymphadenopathy, thyromegaly Respiratory exam: PRESENT: clear to auscultation rajeev, symmetrical, unlabored. ABSENT: rales, rhonchi, wheezes Cardiovascular exam: PRESENT: RRR. ABSENT: diastolic murmur, rubs, systolic murmur Pulses: PRESENT: normal radial pulses, normal dorsalis pedis pul Vascular exam: PRESENT: normal capillary refill GI/Abdominal exam: PRESENT: normal bowel sounds, soft, tenderness - r flank radiating to rlq. +ttp. ABSENT: distended, guarding, mass, organolmegaly, rebound Rectal exam: PRESENT: deferred Extremities exam: PRESENT: full ROM. ABSENT: calf tenderness, clubbing, pedal edema Musculoskeletal exam: PRESENT: ambulatory, full ROM, normal inspection Neurological exam: PRESENT: alert, awake, oriented to person, oriented to place, oriented to time, oriented to situation Psychiatric exam: PRESENT: appropriate affect, normal mood Skin exam: PRESENT: dry, intact, warm. ABSENT: cyanosis, rash Results Laboratory Results: 01/01/19 19:00 01/01/19 06:26 01/01/19 01/01/19 01/01/19 06:26 06:26 06:26 WBC 6.9 RBC 3.51 L Hgb 7.3 L Hct 24.7 L MCV 71 L MCH 20.8 L MCHC 29.6 L RDW 18.1 H Plt Count 468 H Seg Neutrophils % 59.6 Lymphocytes % 24.1 Monocytes % 10.3 Eosinophils % 5.1 Basophils % 0.9 Absolute Neutrophils 4.1 Absolute Lymphocytes 1.7 Absolute Monocytes 0.7 Absolute Eosinophils 0.4 Absolute Basophils 0.1 Retic Count (auto) 1.96 Absolute Retic 0.070 Sodium 142.9 Potassium 4.2 Chloride 114 H Carbon Dioxide 24 Anion Gap 5 BUN 14 Creatinine 1.19 Est GFR ( Amer) > 60 Est GFR (Non-Af Amer) 50 L Glucose 108 Calcium 8.7 Magnesium 1.8 Iron TIBC % Saturation Ferritin Vitamin B12 Folate Blood Type Antibody Screen 01/01/19 01/01/19 01/01/19 06:26 08:39 19:00 WBC 9.0 RBC 3.83 Hgb 8.2 L Hct 27.5 L MCV 72 L MCH 21.4 L MCHC 29.8 L RDW 19.0 H Plt Count 501 H Seg Neutrophils % 69.3 Lymphocytes % 17.5 Monocytes % 8.5 Eosinophils % 3.9 Basophils % 0.8 Absolute Neutrophils 6.2 Absolute Lymphocytes 1.6 Absolute Monocytes 0.8 Absolute Eosinophils 0.3 Absolute Basophils 0.1 Retic Count (auto) Absolute Retic Sodium Potassium Chloride Carbon Dioxide Anion Gap BUN Creatinine Est GFR ( Amer) Est GFR (Non-Af Amer) Glucose Calcium Magnesium Iron 22.7 L TIBC 320 % Saturation 7 Ferritin 6.75 Vitamin B12 278.0 Folate 8.02 Blood Type O POSITIVE Antibody Screen NEGATIVE 12/30/18 15:25 Clean Catch Midstream Urine Culture - Final C.albicans/C.dubliniensis Impressions: Chest X-Ray 12/29/18 20:11 IMPRESSION: No acute cardiopulmonary abnormalities. copyright 2010 [employer]- All Rights Reserved Abdomen/Pelvis CT 01/01/19 11:38 IMPRESSION: Right-sided double-J ureteral stent is in place is in satisfactory position. No hydronephrosis. No acute findings in the abdomen or pelvis to explain the patient's right lower quadrant pain. Status: Imported from PACS Assessment and Plan - Diagnosis (1) Retained ureteral stent Is this a current diagnosis for this admission?: Yes Plan: Double J stent placed at [facility] in for renal calculi Unable to get removed due to lack of insurance, [facility] urology "refused to remove it" [facility], scheduled to see Dr. Mccartney Patient will require stent removal. Will discuss patient's case with Dr[facility] Mcc[facility] on Friday (2) Urinary tract infection due to Enterococcus Is this a current diagnosis for this admission?: Yes Plan: History of frequent UTIs Previous urine culture (+) klebsiella, now (+) VRE Resistant to linezolid, PCN, vancomycin, ampicillin, levaquin and Macrobid Daptomycin initiated in ED, will continue Contact isolation precautions Repeat urine culture pending Consulted [facility] ID, Dr. Forte recommends 10 days of IV antibiotics. Patient will require CK check in 7 days. (3) Morbid obesity with BMI of 60.0-69.9, adult Is this a current diagnosis for this admission?: Yes Plan: Dietary weight management at this time (4) Hypertension Qualifiers: Hypertension type: essential hypertension Qualified Code(s): I10 - Essential (primary) hypertension Is this a current diagnosis for this admission?: Yes Plan: SBP controlled today Patient reports she cannot take Lopressor. States she thinks that medication is what caused her chest pain and tachycardia yesterday. Patient reports her BP has been relatively well controlled since losing approx. 100lbs following gastric bypass surgery PRN hydralazine IV for SBP > 170 (5) History of DVT (deep vein thrombosis) Is this a current diagnosis for this admission?: Yes Plan: History of DVT x 2 Previously on coumadin but has been without it for 1 month Continue Xarelto 10 mg PO QHS Xarelto currently on hold due to anemis - Time Time Spent with patient: 15-24 minutes Medications reviewed and adjusted accordingly: Yes Anticipated discharge: Home Within: Other - when medically stable - Inpatient Certification Based on my medical assessment, after consideration of the patient's comorbidities, presenting symptoms, or acuity I expect that the services needed warrant INPATIENT care.: Yes I certify that my determination is in accordance with my understanding of Medicare's requirements for reasonable and necessary INPATIENT services [42 CFR 412.3e].: Yes Medical Necessity: Need For IV Fluids, Need for IV Antibiotics, Risk of Complication if Not Cared For in Hospital
[2019-01-01] MEDS: SENNOSIDES/DOCUSATE 8.6-50 MG 1 EACH TABLET PO SCH (23:16)
[2019-01-01] MEDS: POLYETHYLENE GLYCOL 3350 POWDER 17 GM/1 PACKET PO SCH (23:16)
[2019-01-02] MEDS: MORPHINE SULFATE 10 MG/ML INJ IV PRN ×5 (00:19→20:53)
[2019-01-02 04:52] LABS: ABSOLUTE BASOPHILS # (AUTO) 0.1 10^3/uL (0.0-0.2); ABSOLUTE EOSINOPHILS # (AUTO) 0.4 10^3/uL (0.0-0.6); ABSOLUTE MONOCYTES (AUTO) 0.8 10^3/uL (0.1-1.4); ABSOLUTE NEUT (AUTO) 5.5 10^3/uL (1.7-8.2); BASOPHILS % (AUTO) 0.8 % (0-2); EOSINOPHILS % (AUTO) 4.8 % (0-6); HEMATOCRIT 27.1 % (36.0-47.0); HEMOGLOBIN 8.2 g/dL (12.0-15.5); MEAN CORPUSCULAR HEMOGLOBIN 21.7 pg (27.0-33.4); MEAN CORPUSCULAR HGB CONC 30.3 g/dL (32.0-36.0); MEAN CORPUSCULAR VOLUME 72 fl (80-97); MONOCYTES % (AUTO) 9.3 % (3-13); PLATELET COUNT 363 10^3/uL (150-450); RED BLOOD COUNT 3.78 10^6/uL (3.72-5.28); RED CELL DISTRIBUTION WIDTH 18.6 % (11.5-14.0); SEGMENTED NEUTROPHILS % (AUTO) 62.1 % (42-78); TOTAL CELLS COUNTED % (AUTO) 100 %; WHITE BLOOD COUNT 8.8 10^3/uL (4.0-10.5)
[2019-01-02 05:17] LABS: ANION GAP 7 (5-19); BLOOD UREA NITROGEN 15 mg/dL (7-20); CALCIUM 9.2 mg/dL (8.4-10.2); CARBON DIOXIDE 24 mmol/L (22-30); CHLORIDE 112 mmol/L (98-107); GLUCOSE 117 mg/dL (75-110); POTASSIUM 4.3 mmol/L (3.6-5.0); SODIUM 142.5 mmol/L (137-145)
[2019-01-02] MEDS: PHENAZOPYRIDINE HCL 200 MG TABLET PO SCH ×3 (05:40→21:50)
[2019-01-02] MEDS: ONDANSETRON HCL INJ/PF 4 MG/2 ML SDV IV PRN ×2 (05:46→20:53)
[2019-01-02] MEDS: POLYETHYLENE GLYCOL 3350 POWDER 17 GM/1 PACKET PO SCH (09:44)
[2019-01-02] MEDS: TAMSULOSIN HCL 0.4 MG CAP.SR.24H PO SCH ×2 (09:45→17:19)
[2019-01-02] MEDS: SENNOSIDES/DOCUSATE 8.6-50 MG 1 EACH TABLET PO SCH ×2 (09:45→17:20)
[2019-01-02] MEDS: FAMOTIDINE 20 MG TABLET PO SCH ×2 (09:45→21:50)
[2019-01-02] MEDS: TOPIRAMATE 100 MG TABLET PO SCH ×2 (09:46→21:50)
[2019-01-02] MEDS: IBUPROFEN 800 MG TABLET PO PRN ×2 (14:45→20:53)
[2019-01-02] MEDS: DAPTOMYCIN 1,000 MG in NORMAL SALINE 50 ML IV SCH (21:50)
[2019-01-02] MEDS: TRAZODONE HCL 50 MG TABLET PO SCH (21:50)
--- NOTE | 2019-01-02 22:42 | PDOC PROGRESS REPORT ---
Subjective Progress Note for:: 01/02/19 Subjective:: 43 y.o. F with PMH DVT (noncompliant with Coumadin due to lack of insurance), asthma, migraines, hypothyroidism s/p partial thyroidectomy, nephrolithiasis, endometrial cancer. She presented to [facility] with VRE UTI. Of note, the patient had a double-J stent placed in May 2018 by a Urologist, but she has not been able to follow up with anyone to remove it due to her lack of insurance. The patient was seen this morning on rounds. She is resting in bed. She rep orts she still has abdominal pain in the RLQ and complains of significant dysuria. The patient remains on IV daptomycin. Repeat urine culture is pending. I discussed the patient's case with Dr. Gage of [facility]. He stated there was nothing more that could be done at this time. As soon as the patient completes her IV antibiotics, she should follow up with Urology as an outpatient. The patient will remain at [facility] for IV antibiotics to treat her VRE UTI. Per ID recommendations, the patient will require 10 days of IV daptomycin. Discharge planing is aware, attempting to make arrangements for outpatient infusions. Reason For Visit: URINARY TRACT INFECTION DUE TO VRE Physical Exam Vital Signs: Temp Pulse Resp BP Pulse Ox 97.9 F 106 H 23 H 144/83 H 96 01/02/19 17:46 01/02/19 20:00 01/02/19 20:00 01/02/19 20:00 01/02/19 20:00 Intake & Output 01/01/19 01/02/19 01/03/19 06:59 06:59 06:59 Intake Total 1050 1991 600 Output Total 150 Balance 1050 1841 600 Weight 179.5 kg 180.8 kg General appearance: PRESENT: no acute distress, morbidly obese Head exam: PRESENT: atraumatic, normocephalic Eye exam: PRESENT: conjunctiva pink, EOMI, PERRLA. ABSENT: scleral icterus Ear exam: PRESENT: normal external ear exam Mouth exam: PRESENT: moist, tongue midline Teeth exam: PRESENT: poor dentation Neck exam: ABSENT: carotid bruit, JVD, lymphadenopathy, thyromegaly Respiratory exam: PRESENT: clear to auscultation rajeev, symmetrical, unlabored. ABSENT: rales, rhonchi, wheezes Cardiovascular exam: PRESENT: RRR. ABSENT: diastolic murmur, rubs, systolic murmur Pulses: PRESENT: normal radial pulses, normal dorsalis pedis pul Vascular exam: PRESENT: normal capillary refill GI/Abdominal exam: PRESENT: normal bowel sounds, soft, tenderness - RLQ. ABSENT: distended, guarding, mass, organolmegaly, rebound Rectal exam: PRESENT: deferred Extremities exam: PRESENT: full ROM. ABSENT: calf tenderness, clubbing, pedal edema Musculoskeletal exam: PRESENT: ambulatory, full ROM Neurological exam: PRESENT: alert, awake, oriented to person, oriented to place, oriented to time, oriented to situation Psychiatric exam: PRESENT: appropriate affect, normal mood Skin exam: PRESENT: dry, intact, warm. ABSENT: cyanosis, rash Results Laboratory Results: 01/02/19 03:58 01/02/19 03:58 01/02/19 01/02/19 03:58 03:58 WBC 8.8 RBC 3.78 Hgb 8.2 L Hct 27.1 L MCV 72 L MCH 21.7 L MCHC 30.3 L RDW 18.6 H Plt Count 363 Seg Neutrophils % 62.1 Lymphocytes % 23.0 Monocytes % 9.3 Eosinophils % 4.8 Basophils % 0.8 Absolute Neutrophils 5.5 Absolute Lymphocytes 2.0 Absolute Monocytes 0.8 Absolute Eosinophils 0.4 Absolute Basophils 0.1 Sodium 142.5 Potassium 4.3 Chloride 112 H Carbon Dioxide 24 Anion Gap 7 BUN 15 Creatinine 1.16 Est GFR ( Amer) > 60 Est GFR (Non-Af Amer) 51 L Glucose 117 H Calcium 9.2 Magnesium 2.0 Impressions: Chest X-Ray 12/29/18 20:11 IMPRESSION: No acute cardiopulmonary abnormalities. copyright 2010 [employer]- All Rights Reserved Abdomen/Pelvis CT 01/01/19 11:38 IMPRESSION: Right-sided double-J ureteral stent is in place is in satisfactory position. No hydronephrosis. No acute findings in the abdomen or pelvis to explain the patient's right lower quadrant pain. Status: Imported from PACS Assessment and Plan - Diagnosis (1) Retained ureteral stent Is this a current diagnosis for this admission?: Yes Plan: Double J stent placed at [facility] in for renal calculi Unable to get removed due to lack of insurance, [facility] urology "refused to remove it" Patient referred to [facility], scheduled to see Dr. Mccartney Patient will require stent removal. Discussed the patient's case with Dr. Gage at [facility] today, he states that the patient will "always be in pain" until the stent is removed. He recommended antibiotics, pyridium and NSAIDS - which the patiet is already receiving. Plan for discharge this Friday and [facility] She will follow up with [facility] as an outpatient. (2) Urinary tract infection due to Enterococcus Is this a current diagnosis for this admission?: Yes Plan: History of frequent UTIs Previous urine culture (+) klebsiella, now (+) VRE Resistant to linezolid, PCN, vancomycin, ampicillin, levaquin and Macrobid Daptomycin initiated in ED, will continue Contact isolation precautions Repeat urine culture pending Consulted [facility] ID, Dr. Forte recommends 10 days of IV antibiotics. Patient will require CK check in 7 days. (3) Morbid obesity with BMI of 60.0-69.9, adult Is this a current diagnosis for this admission?: Yes Plan: Dietary weight management at this time (4) Hypertension Qualifiers: Hypertension type: essential hypertension Qualified Code(s): I10 - Essential (primary) hypertension Is this a current diagnosis for this admission?: Yes Plan: SBP controlled today Patient reports she cannot take Lopressor. States she thinks that medication is what caused her chest pain and tachycardia the other day Patient reports her BP has been relatively well controlled since losing approx. 100lbs following gastric bypass surgery PRN hydralazine IV for SBP > 170 (5) History of DVT (deep vein thrombosis) Is this a current diagnosis for this admission?: Yes Plan: History of DVT x 2 Previously on coumadin but has been without it for 1 month Continue Xarelto 10 mg PO QHS Xarelto currently on hold due to anemia - Time Time Spent with patient: 15-24 minutes Medications reviewed and adjusted accordingly: Yes Anticipated discharge: Home Within: within 48 hours - Inpatient Certification Based on my medical assessment, after consideration of the patient's comorbidities, presenting symptoms, or acuity I expect that the services needed warrant INPATIENT care.: Yes I certify that my determination is in accordance with my understanding of Medicare's requirements for reasonable and necessary INPATIENT services [42 CFR 412.3e].: Yes Medical Necessity: Need for IV Antibiotics, Risk of Complication if Not Cared For in Hospital
[2019-01-03] MEDS: MORPHINE SULFATE 10 MG/ML INJ IV PRN ×6 (02:05→21:45)
[2019-01-03] MEDS: ONDANSETRON HCL INJ/PF 4 MG/2 ML SDV IV PRN ×5 (02:05→18:21)
[2019-01-03] MEDS: IBUPROFEN 800 MG TABLET PO PRN ×3 (03:09→17:49)
[2019-01-03 04:51] LABS: HEMATOCRIT 25.8 % (36.0-47.0); MEAN CORPUSCULAR HEMOGLOBIN 21.4 pg (27.0-33.4); MEAN CORPUSCULAR HGB CONC 30.1 g/dL (32.0-36.0); MEAN CORPUSCULAR VOLUME 71 fl (80-97); PLATELET COUNT 490 10^3/uL (150-450); RED BLOOD COUNT 3.63 10^6/uL (3.72-5.28); RED CELL DISTRIBUTION WIDTH 19.1 % (11.5-14.0); WHITE BLOOD COUNT 7.3 10^3/uL (4.0-10.5)
[2019-01-03 04:54] LABS: HEMOGLOBIN 7.8 g/dL (12.0-15.5)
[2019-01-03 05:19] LABS: ALANINE AMINOTRANSFERASE 13 U/L (9-52); ALBUMIN 3.2 g/dL (3.5-5.0); ALKALINE PHOSPHATASE 57 U/L (38-126); ANION GAP 7 (5-19); ASPARTATE AMINO TRANSFERASE 14 U/L (14-36); BILIRUBIN,DIRECT 0.1 mg/dL (0.0-0.4); BILIRUBIN,TOTAL 0.2 mg/dL (0.2-1.3); BLOOD UREA NITROGEN 15 mg/dL (7-20); CARBON DIOXIDE 24 mmol/L (22-30); CHLORIDE 111 mmol/L (98-107); GLUCOSE 128 mg/dL (75-110); PHOSPHORUS 4.3 mg/dL (2.5-4.5); POTASSIUM 4.1 mmol/L (3.6-5.0); SODIUM 141.8 mmol/L (137-145); TOTAL PROTEIN 6.2 g/dL (6.3-8.2)
[2019-01-03] MEDS: PHENAZOPYRIDINE HCL 200 MG TABLET PO SCH ×3 (05:55→21:46)
[2019-01-03] MEDS ORDERED: NORMAL SALINE 250 ML IV PRN ×2 (07:35)
[2019-01-03] MEDS: POLYETHYLENE GLYCOL 3350 POWDER 17 GM/1 PACKET PO SCH (08:38)
[2019-01-03] MEDS: SENNOSIDES/DOCUSATE 8.6-50 MG 1 EACH TABLET PO SCH ×2 (08:38→17:49)
[2019-01-03] MEDS: FAMOTIDINE 20 MG TABLET PO SCH ×2 (09:36→21:48)
[2019-01-03] MEDS: TOPIRAMATE 100 MG TABLET PO SCH ×2 (09:36→21:47)
[2019-01-03] MEDS: TAMSULOSIN HCL 0.4 MG CAP.SR.24H PO SCH ×2 (09:37→17:48)
[2019-01-03] MEDS ORDERED: FERROUS SULFATE 325 MG TABLET PO SCH (10:00)
[2019-01-03] MEDS ORDERED: LISINOPRIL 10 MG TABLET PO SCH (10:00)
[2019-01-03] MEDS ORDERED: LACTULOSE SYRUP 20 GM/30 ML UDCUP PO PRN (12:38)
--- NOTE | 2019-01-03 15:04 | PDOC PROGRESS REPORT ---
Subjective Progress Note for:: 01/03/19 Subjective:: 43 y.o. F with PMH DVT (noncompliant with Coumadin due to lack of insurance), asthma, migraines, hypothyroidism s/p partial thyroidectomy, nephrolithiasis, endometrial cancer. [facility] VRE UTI. Of note, the patient had a double-J stent placed in May 2018 by a Urologist, but she has not been able to follow up with anyone to remove it due to her lack of insurance. The patient was seen this morning on rounds. Her Hgb dropped again today, down to 7.8. Plan for another transfusion of 1U PRBC. Anemia panel reveals low iron levels. Will start patient on PO Ferrous Sulfate supplements. Consider iron infusion if Hgb does not respond. The patient remains on IV daptomycin. Repeat urine culture shows C. albicans. The patient endorses constipation, states she has not had a bowel movement in 5 days. She is currently receiving daily MiraLAX and 2 tabs twice daily senna. Will offer scheduled milk of magnesia and PRN lactulose. The patient will remain [facility] for IV antibiotics to treat her VRE UTI. Per ID recommendations, the patient will require 10 days of IV daptomycin. Discharge planing is aware, attempting to make arrangements for outpatient infusions. Reason For Visit: URINARY TRACT INFECTION DUE TO VRE Physical Exam Vital Signs: Temp Pulse Resp BP Pulse Ox 98.2 F 96 20 140/78 H 96 01/03/19 12:42 01/03/19 14:00 01/03/19 12:42 01/03/19 12:42 01/03/19 12:42 Intake & Output 01/02/19 01/03/19 01/04/19 06:59 06:59 06:59 Intake Total 1990 Output Total 150 Balance 1840 1929 660 Weight 180.8 kg General appearance: PRESENT: no acute distress, obese Head exam: PRESENT: atraumatic, normocephalic Eye exam: PRESENT: conjunctiva pink, EOMI, PERRLA. ABSENT: scleral icterus Ear exam: PRESENT: normal external ear exam Mouth exam: PRESENT: moist, tongue midline Teeth exam: PRESENT: poor dentation Neck exam: ABSENT: carotid bruit, JVD, lymphadenopathy, thyromegaly Respiratory exam: PRESENT: clear to auscultation rajeev, symmetrical, unlabored. ABSENT: rales, rhonchi, wheezes Cardiovascular exam: PRESENT: RRR. ABSENT: diastolic murmur, rubs, systolic murmur Pulses: PRESENT: normal radial pulses, normal dorsalis pedis pul Vascular exam: PRESENT: normal capillary refill GI/Abdominal exam: PRESENT: normal bowel sounds, soft, tenderness - RLQ. ABSENT: distended, guarding, mass, organolmegaly, rebound Rectal exam: PRESENT: deferred Extremities exam: PRESENT: full ROM. ABSENT: calf tenderness, clubbing, pedal edema Musculoskeletal exam: PRESENT: full ROM Neurological exam: PRESENT: alert, awake, oriented to person, oriented to place, oriented to time, oriented to situation Psychiatric exam: PRESENT: appropriate affect, normal mood Skin exam: PRESENT: dry, intact, warm. ABSENT: cyanosis, rash Results Laboratory Results: 01/03/19 04:24 01/03/19 04:24 01/01/19 01/03/19 01/03/19 08:39 04:24 04:24 WBC 7.3 RBC 3.63 L Hgb 7.8 L Hct 25.8 L MCV 71 L MCH 21.4 L MCHC 30.1 L RDW 19.1 H Plt Count 490 H Sodium 141.8 Potassium 4.1 Chloride 111 H Carbon Dioxide 24 Anion Gap 7 BUN 15 Creatinine 1.14 Est GFR ( Amer) > 60 Est GFR (Non-Af Amer) 53 L Glucose 128 H Calcium 9.0 Phosphorus 4.3 Magnesium 2.0 Total Bilirubin 0.2 AST 14 ALT 13 Alkaline Phosphatase 57 Total Protein 6.2 L Albumin 3.2 L Blood Type O POSITIVE Antibody Screen NEGATIVE Impressions: Chest X-Ray 12/29/18 20:11 IMPRESSION: No acute cardiopulmonary abnormalities. copyright 2010 [employer]- All Rights Reserved Abdomen/Pelvis CT 01/01/19 11:38 IMPRESSION: Right-sided double-J ureteral stent is in place is in satisfactory position. No hydronephrosis. No acute findings in the abdomen or pelvis to explain the patient's right lower quadrant pain. Status: Imported from PACS Assessment and Plan - Diagnosis (1) Retained ureteral stent Is this a current diagnosis for this admission?: Yes Plan: Double J stent placed at [facility] in for renal calculi Unable to get removed due to lack of insurance, [facility] "refused to remove it" Patient referred to [facility], scheduled to see Dr. Mccartney Patient will require stent removal. Discussed the patient's case with Dr. Gage at [facility] today, he states that the patient will "always be in pain" until the stent is removed. He recommended antibiotics, pyridium and NSAIDS - which the patiet is already receiving. Plan to send the patient home with outpatient antibiotics. She will follow up with [facility] as an outpatient. (2) Urinary tract infection due to Enterococcus Is this a current diagnosis for this admission?: Yes Plan: History of frequent UTIs Previous urine culture (+) klebsiella, now (+) VRE Resistant to linezolid, PCN, vancomycin, ampicillin, levaquin and Macrobid Daptomycin initiated in ED, will continue Contact isolation precautions Repeat urine culture pending Consulted [facility], Dr. Forte recommends 10 days of IV antibiotics (final treatment January 08). Discussed with [facility] yesterday, they state there is not much else to do other than antibiotics, pyridium, Flomax and NSAIDS. They will follow up with the patient once she has completed her antibiotic treatment. (3) Morbid obesity with BMI of 60.0-69.9, adult Is this a current diagnosis for this admission?: Yes Plan: Dietary weight management at this time (4) Hypertension Qualifiers: Hypertension type: essential hypertension Qualified Code(s): I10 - Essential (primary) hypertension Is this a current diagnosis for this admission?: Yes Plan: SBP controlled today Patient reports she cannot take Lopressor. States she thinks that medication is what caused her chest pain and tachycardia the other day Patient reports her BP has been relatively well controlled since losing approx. 100lbs following gastric bypass surgery Continue lisinopril 10 mg daily PRN hydralazine IV for SBP > 170 (5) History of DVT (deep vein thrombosis) Is this a current diagnosis for this admission?: Yes Plan: History of DVT x 2 Previously on coumadin but has been without it for 1 month Continue Xarelto 10 mg PO QHS Xarelto currently on hold due to anemia - Time Time Spent with patient: 15-24 minutes Medications reviewed and adjusted accordingly: Yes Anticipated discharge: Home Within: within 24 hours, within 48 hours - Inpatient Certification Based on my medical assessment, after consideration of the patient's comorbidities, presenting symptoms, or acuity I expect that the services needed warrant INPATIENT care.: Yes I certify that my determination is in accordance with my understanding of Medicare's requirements for reasonable and necessary INPATIENT services [42 CFR 412.3e].: Yes Medical Necessity: Need for IV Antibiotics, Risk of Complication if Not Cared For in Hospital
[2019-01-03 15:14] LABS: ABSOLUTE BASOPHILS # (AUTO) 0.1 10^3/uL (0.0-0.2); ABSOLUTE EOSINOPHILS # (AUTO) 0.4 10^3/uL (0.0-0.6); ABSOLUTE LYMPHOCYTES (AUTO) 1.6 10^3/uL (0.5-4.7); ABSOLUTE MONOCYTES (AUTO) 0.9 10^3/uL (0.1-1.4); ABSOLUTE NEUT (AUTO) 5.6 10^3/uL (1.7-8.2); BASOPHILS % (AUTO) 0.6 % (0-2); EOSINOPHILS % (AUTO) 4.5 % (0-6); HEMATOCRIT 31.1 % (36.0-47.0); HEMOGLOBIN 9.6 g/dL (12.0-15.5); LYMPHOCYTES % (AUTO) 18.8 % (13-45); MEAN CORPUSCULAR HEMOGLOBIN 22.3 pg (27.0-33.4); MEAN CORPUSCULAR HGB CONC 30.8 g/dL (32.0-36.0); MEAN CORPUSCULAR VOLUME 72 fl (80-97); MONOCYTES % (AUTO) 10.1 % (3-13); PLATELET COUNT 555 10^3/uL (150-450); TOTAL CELLS COUNTED % (AUTO) 100 %; WHITE BLOOD COUNT 8.5 10^3/uL (4.0-10.5)
[2019-01-03] MEDS: DAPTOMYCIN 1,000 MG in NORMAL SALINE 50 ML IV SCH (21:45)
[2019-01-03] MEDS: TRAZODONE HCL 50 MG TABLET PO SCH (21:46)
[2019-01-04] MEDS: MORPHINE SULFATE 10 MG/ML INJ IV PRN ×6 (01:45→20:52)
[2019-01-04] MEDS: IBUPROFEN 800 MG TABLET PO PRN ×2 (01:47→20:58)
[2019-01-04] MEDS: PHENAZOPYRIDINE HCL 200 MG TABLET PO SCH ×3 (05:52→21:58)
[2019-01-04] MEDS: MAGNESIUM HYDROXIDE SUSP 30 ML UDCUP PO SCH ×2 (09:42→11:46)
[2019-01-04] MEDS: POLYETHYLENE GLYCOL 3350 POWDER 17 GM/1 PACKET PO SCH (09:42)
[2019-01-04] MEDS: SENNOSIDES/DOCUSATE 8.6-50 MG 1 EACH TABLET PO SCH ×2 (09:43→18:26)
[2019-01-04] MEDS: TOPIRAMATE 100 MG TABLET PO SCH ×2 (09:43→21:58)
[2019-01-04] MEDS: LISINOPRIL 10 MG TABLET PO SCH ×2 (09:43→21:58)
[2019-01-04] MEDS: TAMSULOSIN HCL 0.4 MG CAP.SR.24H PO SCH ×2 (09:43→18:26)
[2019-01-04] MEDS: FAMOTIDINE 20 MG TABLET PO SCH ×2 (09:44→21:58)
[2019-01-04] MEDS ORDERED: IRON DEXTRAN COMPLEX 25 MG in NORMAL SALINE 100 ML IV ONE (10:00)
[2019-01-04] MEDS: ONDANSETRON HCL INJ/PF 4 MG/2 ML SDV IV PRN ×2 (10:31→14:45)
[2019-01-04 10:44] LABS: HEMATOCRIT 33.1 % (36.0-47.0); HEMOGLOBIN 9.9 g/dL (12.0-15.5); MEAN CORPUSCULAR HEMOGLOBIN 22.1 pg (27.0-33.4); MEAN CORPUSCULAR VOLUME 74 fl (80-97); PLATELET COUNT 584 10^3/uL (150-450)
[2019-01-04] MEDS ORDERED: IRON DEXTRAN COMPLEX 300 MG in NORMAL SALINE 500 ML IV ONE (11:00)
[2019-01-04 11:26] LABS: ALANINE AMINOTRANSFERASE 11 U/L (9-52); ALBUMIN 3.8 g/dL (3.5-5.0); ALKALINE PHOSPHATASE 67 U/L (38-126); ANION GAP 11 (5-19); ASPARTATE AMINO TRANSFERASE 18 U/L (14-36); BILIRUBIN,TOTAL 0.3 mg/dL (0.2-1.3); BLOOD UREA NITROGEN 12 mg/dL (7-20); CALCIUM 9.3 mg/dL (8.4-10.2); CARBON DIOXIDE 24 mmol/L (22-30); CHLORIDE 110 mmol/L (98-107); GLUCOSE 148 mg/dL (75-110); PHOSPHORUS 4.1 mg/dL (2.5-4.5); POTASSIUM 4.3 mmol/L (3.6-5.0); SODIUM 144.7 mmol/L (137-145); TOTAL PROTEIN 7.3 g/dL (6.3-8.2)
--- NOTE | 2019-01-04 16:46 | PDOC PROGRESS REPORT ---
Subjective Progress Note for:: 01/04/19 Subjective:: 43 y.o. F with PMH DVT (noncompliant with Coumadin due to lack of insurance), asthma, migraines, hypothyroidism s/p partial thyroidectomy, nephrolithiasis, endometrial cancer. She presented to [facility] with VRE UTI. Of note, the patient had a double-J stent placed in May 2018 by a Urologist, but she has not been able to follow up with anyone to remove it due to her lack of insurance. The patient was seen this morning on rounds. Plan for iron infusion today for iron deficiency anemia. The patient remains on IV daptomycin. The patient will remain at [facility] for IV antibiotics to treat her VRE UTI. Per ID recommendations, the patient will require 10 days of IV daptomycin. Discharge planing is aware, attempting to make arrangements for outpatient infusions. Plan for PICC line placement tomorrow then patient may be d/c'd home. Reason For Visit: URINARY TRACT INFECTION DUE TO VRE Physical Exam Vital Signs: Temp Pulse Resp BP Pulse Ox 98 F 102 H 18 147/94 H 97 01/04/19 14:40 01/04/19 14:40 01/04/19 14:40 01/04/19 14:40 01/04/19 14:40 Intake & Output 01/03/19 01/04/19 01/05/19 06:59 06:59 06:59 Intake Total 1929 1829 Balance 1929 1829 Weight 181.2 kg General appearance: PRESENT: no acute distress, morbidly obese Head exam: PRESENT: atraumatic, normocephalic Eye exam: PRESENT: conjunctiva pink, EOMI, PERRLA. ABSENT: scleral icterus Ear exam: PRESENT: normal external ear exam Mouth exam: PRESENT: moist, tongue midline Neck exam: PRESENT: full ROM. ABSENT: carotid bruit, JVD, lymphadenopathy, thyromegaly Respiratory exam: PRESENT: clear to auscultation rajeev, symmetrical, unlabored. ABSENT: rales, rhonchi, wheezes Cardiovascular exam: PRESENT: RRR. ABSENT: diastolic murmur, rubs, systolic murmur Pulses: PRESENT: normal radial pulses, normal dorsalis pedis pul Vascular exam: PRESENT: normal capillary refill GI/Abdominal exam: PRESENT: normal bowel sounds, soft, tenderness - RUQ. ABSENT: distended, guarding, mass, organolmegaly, rebound Rectal exam: PRESENT: deferred Extremities exam: PRESENT: full ROM. ABSENT: calf tenderness, clubbing, pedal edema Musculoskeletal exam: PRESENT: full ROM Neurological exam: PRESENT: alert, awake, oriented to person, oriented to place, oriented to time, oriented to situation Psychiatric exam: PRESENT: appropriate affect, normal mood Skin exam: PRESENT: dry, intact, warm. ABSENT: cyanosis, rash Results Laboratory Results: 01/04/19 10:26 01/04/19 10:26 01/04/19 01/04/19 10:26 10:26 WBC 9.0 RBC 4.50 Hgb 9.9 L Hct 33.1 L MCV 74 L MCH 22.1 L MCHC 30.0 L RDW 20.0 H Plt Count 584 H Sodium 144.7 Potassium 4.3 Chloride 110 H Carbon Dioxide 24 Anion Gap 11 BUN 12 Creatinine 1.21 Est GFR ( Amer) 59 L Est GFR (Non-Af Amer) 49 L Glucose 148 H Calcium 9.3 Phosphorus 4.1 Magnesium 2.0 Total Bilirubin 0.3 AST 18 ALT 11 Alkaline Phosphatase 67 Total Protein 7.3 Albumin 3.8 12/29/18 22:25 Blood Blood Culture - Final NO GROWTH IN 5 DAYS 12/29/18 20:40 Blood Blood Culture - Final NO GROWTH IN 5 DAYS 01/04/19 10:26 Creatine Kinase 42 Impressions: Chest X-Ray 12/29/18 20:11 IMPRESSION: No acute cardiopulmonary abnormalities. copyright 2010 [employer]- All Rights Reserved Abdomen/Pelvis CT 01/01/19 11:38 IMPRESSION: Right-sided double-J ureteral stent is in place is in satisfactory position. No hydronephrosis. No acute findings in the abdomen or pelvis to explain the patient's right lower quadrant pain. Status: Imported from PACS Assessment and Plan - Diagnosis (1) Retained ureteral stent Is this a current diagnosis for this admission?: Yes Plan: Double J stent placed at [facility] in for renal calculi Unable to get removed due to lack of insurance, [facility] urology "refused to remove it" Patient referred to [facility], scheduled to see Dr. Mccartney Patient will require stent removal. Discussed the patient's case with Dr. Gage at [facility], he states that the patient will "always be in pain" until the stent is removed. He recommended antibiotics, pyridium and NSAIDS - which the patient is already receiving. Plan to send the patient home with outpatient antibiotics. She will follow up with [facility] as an outpatient. (2) Urinary tract infection due to Enterococcus Is this a current diagnosis for this admission?: Yes Plan: History of frequent UTIs Previous urine culture (+) klebsiella, now (+) VRE Resistant to linezolid, PCN, vancomycin, ampicillin, levaquin and Macrobid Daptomycin initiated in ED, will continue Contact isolation precautions Repeat urine culture pending Consulted [facility], Dr. Fotre recommends 10 days of IV antibiotics (final treatment January 08). Discussed with [facility], they state there is not much else to do other than antibiotics, pyridium, Flomax and NSAIDS. They will follow up with the patient once she has completed her antibiotic treatment to make plans for stent removal. (3) Morbid obesity with BMI of 60.0-69.9, adult Is this a current diagnosis for this admission?: Yes Plan: Dietary weight management at this time (4) Hypertension Qualifiers: Hypertension type: essential hypertension Qualified Code(s): I10 - Essential (primary) hypertension Is this a current diagnosis for this admission?: Yes Plan: SBP controlled today Patient reports she cannot take Lopressor. States she thinks that medication is what caused her chest pain and tachycardia the other day Patient reports her BP has been relatively well controlled since losing approx. 100lbs following gastric bypass surgery Continue lisinopril 10 mg daily PRN hydralazine IV for SBP > 170 (5) History of DVT (deep vein thrombosis) Is this a current diagnosis for this admission?: Yes Plan: History of DVT x 2 Previously on coumadin but has been without it for 1 month Restarted on Xarelto 10 mg PO QHS during this hospitalization - Time Time Spent with patient: 15-24 minutes Medications reviewed and adjusted accordingly: Yes Anticipated discharge: Home Within: within 24 hours - Inpatient Certification Based on my medical assessment, after consideration of the patient's comorbidities, presenting symptoms, or acuity I expect that the services needed warrant INPATIENT care.: Yes I certify that my determination is in accordance with my understanding of Medicare's requirements for reasonable and necessary INPATIENT services [42 CFR 412.3e].: Yes Medical Necessity: Need For Continuous Telemetry Monitoring, Need for IV Antibiotics, Risk of Complication if Not Cared For in Hospital - Plan Summary Plan Summary: PLAN FOR PICC LINE PLACEMENT TOMORROW AM. THE PATIENT WILL BE ELIGIBLE FOR D/C HOME TOMORROW AFTERNOON. DISCHARGE PLANNING IS AWARE.
[2019-01-04] MEDS: DAPTOMYCIN 1,000 MG in NORMAL SALINE 50 ML IV SCH (21:58)
[2019-01-04] MEDS: TRAZODONE HCL 50 MG TABLET PO SCH (22:07)
[2019-01-05] MEDS: MORPHINE SULFATE 10 MG/ML INJ IV PRN ×4 (03:31→17:21)
[2019-01-05 05:07] LABS: HEMATOCRIT 28.1 % (36.0-47.0); HEMOGLOBIN 8.4 g/dL (12.0-15.5); MEAN CORPUSCULAR HEMOGLOBIN 21.9 pg (27.0-33.4); MEAN CORPUSCULAR VOLUME 73 fl (80-97); PLATELET COUNT 370 10^3/uL (150-450); RED BLOOD COUNT 3.84 10^6/uL (3.72-5.28); WHITE BLOOD COUNT 8.4 10^3/uL (4.0-10.5)
[2019-01-05 05:09] LABS: INTERNATIONAL RATION (INR) 1.19; PROTHROMBIN TIME 15.7 SEC (11.4-15.4)
[2019-01-05] MEDS: PHENAZOPYRIDINE HCL 200 MG TABLET PO SCH ×2 (05:15→13:09)
[2019-01-05 05:18] LABS: ALANINE AMINOTRANSFERASE 14 U/L (9-52); ALBUMIN 3.1 g/dL (3.5-5.0); ALKALINE PHOSPHATASE 58 U/L (38-126); ANION GAP 7 (5-19); ASPARTATE AMINO TRANSFERASE 15 U/L (14-36); BILIRUBIN,DIRECT 0.1 mg/dL (0.0-0.4); BILIRUBIN,TOTAL 0.3 mg/dL (0.2-1.3); BLOOD UREA NITROGEN 13 mg/dL (7-20); CALCIUM 8.8 mg/dL (8.4-10.2); CARBON DIOXIDE 25 mmol/L (22-30); CHLORIDE 111 mmol/L (98-107); GLUCOSE 96 mg/dL (75-110); PHOSPHORUS 3.6 mg/dL (2.5-4.5); POTASSIUM 4.2 mmol/L (3.6-5.0); SODIUM 142.9 mmol/L (137-145); TOTAL PROTEIN 6.2 g/dL (6.3-8.2)
[2019-01-05] MEDS: FAMOTIDINE 20 MG TABLET PO SCH (09:20)
[2019-01-05] MEDS: ONDANSETRON HCL INJ/PF 4 MG/2 ML SDV IV PRN ×2 (09:25→17:21)
[2019-01-05] MEDS: TOPIRAMATE 100 MG TABLET PO SCH (09:28)
[2019-01-05] MEDS: TAMSULOSIN HCL 0.4 MG CAP.SR.24H PO SCH ×2 (09:28→17:21)
[2019-01-05] MEDS: LISINOPRIL 10 MG TABLET PO SCH (09:38)
[2019-01-05] MEDS: SENNOSIDES/DOCUSATE 8.6-50 MG 1 EACH TABLET PO SCH ×2 (09:38→17:12)
[2019-01-05] MEDS: MAGNESIUM HYDROXIDE SUSP 30 ML UDCUP PO SCH (09:38)
[2019-01-05] MEDS: POLYETHYLENE GLYCOL 3350 POWDER 17 GM/1 PACKET PO SCH (10:14)
--- NOTE | 2019-01-05 12:53 | RADIOLOGY REPORT (SQ) ---
EXAM DESCRIPTION: PICC INSERTION; U/S GUIDE FOR VASCULAR ACCESS; FLUORO/CV PLACEMENT COMPLETED DATE/TIME: 01/05/2019 12:23 pm REASON FOR STUDY: Long-term antibiotics; IV ACCESS; IV ABX COMPARISON: None. FLUOROSCOPY TIME: 4 minutes 27 seconds 2 images saved to PACS. TECHNIQUE: Fluoroscopic and ultrasound guided PICC placement. LIMITATIONS: None. PROCEDURE: After written consent and assessment were obtained, the patient was brought into the fluo roscopy room and placed supine on the table. Ultrasound evaluation of potential access sites were per formed. After successfully identifying a patent left basilic vein, the left arm was prepped and drape d in a sterile fashion along with the ultrasound probe. The entry site was anesthetized with 1% lidoc arjun. A 21 gauge 7 cm needle was advanced through the skin and into the basilic vein under live ultra sound guidance. An ultrasound image was saved to PACS confirming access site. A .018 guide wire was then inserted through the needle and into the venous system. The needle was then removed and an 11 b lade scalpel was used to make a 1cm skin incision. A 5 fr peel-away sheath was advanced over the wir e and into the venous system. A measurement was then made using the existing wire and live fluoroscop ic guidance. The wire was then removed and trimmed. The PICC was advanced through the peel-away sheat h and into the venous system. The peel-away sheath was removed and the catheter was adhered to the pa tients arm with a stat lock. The catheter was then aspirated and flushed and a sterile bandage was pl aced over the access site. A fluoroscopic spot image was saved to PACS confirming the catheter tip w ithin the superior vena cava. IMPRESSION: SUCCESSFUL PLACEMENT OF A 5 FR DUAL LUMEN 47 CM PICC IN THE LEFT BASILIC VEIN. COMMENT: Patient medication list reviewed: Yes- Quality ID# 130:Eligible professional attests to doc umenting in the medical record they obtained, updated, or reviewed the patient's current medications. . Quality ID 145: Final reports for procedures using fluoroscopy that document radiation exposure sammy jan, or exposure time and number of fluorographic images (if radiation exposure indices are not avail able) Quality ID #76: The patient was prepped and draped using maximum sterile barrier technique including cap, mask, sterile gown, sterile gloves, a large sterile sheet, hand hygiene, and 2% Chlorhexidine fo r cutaneous antisepsis. When ultrasound is used, sterile ultrasound techniques are followed requiring sterile gel and sterile probes. TECHNICAL DOCUMENTATION: JOB ID: [id number] [employer]- All Rights Reserved rev-12/05 Reading location - IP/workstation name: [email or web address]
[2019-01-05] MEDS: IBUPROFEN 800 MG TABLET PO PRN (14:43)
[2019-01-05] MEDS ORDERED: DAPTOMYCIN 1,000 MG in NORMAL SALINE 50 ML IV ONE (15:00)
[2019-01-05 16:41] VITALS: BP 142/58
--- NOTE | 2019-01-05 18:03 | PDOC DISCHARGE SUMMARY ---
General - Admit/Disc Date/PCP Admission Date/Primary Care Provider: 12/30/18 01:14 Discharge Date: 01/05/19 - Additional Information Resuscitation Status: Full Code Discharge Diet: As Tolerated Discharge Activity: Activity As Tolerated, Balance Activity w/Rest Home Medications: Esomeprazole Mag Trihydrate [Nexium] 40 mg PO QAM 05/27/18 Ranitidine HCl [Zantac 150 mg Tablet] 150 mg PO QHS 05/27/18 Ciprofloxacin HCl [Cipro] 500 mg PO BID [facility] FILLED 12/26 FOR 10 DAYS 12/30/18 Oxycodone HCl/Acetaminophen [Percocet 5-325 mg Tablet] 1 tab PO Q6HP PRN MDD FILLED 12/24 FOR 5 DAY SUPPLY 12/30/18 Phenazopyridine HCl [Pyridium 200 mg Tablet] 200 mg PO PC MDD FILLED 12/26 FOR 5 DAY SUPPLY 12/30/18 History of Present Illness History of Present Illness: KOBE VELAZQUEZ is a 43 year old female who presented to the emergency room with a history of being informed by the culture nurse from the emergency room that her urine culture was positive for VRE and she was supposed to come in for further evaluation and treatment. Patient waited 1 day to come in as she was seen by her urologist who informed her that she needed to go to the hospital for antibiotic treatment and that they would not be taking her ureteral stent out until the infection had been treated. She admits persistent sharp right flank pain for the last 7 months with radiation to her right side and down into her pelvis and vagina. She describes the pain as severe at the present time, noting that it has worsened over the last 7 days and has been accompanied by nausea with 2 episodes of vomiting today. She admits prior similar episodes of pain related to previous kidney stones and urinary tract infections, but she denies prior urinary tract infection with VRE. She has not identified any aggravating or ameliorating factors for her urinary tract infection or right flank pain. In the emergency room she was found to have an essentially unremarkable evaluation with the exception of the recent urine culture which was positive for vancomycin-resistant Enterococcus faecium. The patient's VRE was sensitive only to daptomycin and doxycycline. Patient is allergic to doxycycline and therefore is been admitted to the hospital for initiation of intravenous daptomycin therapy. Hospital Course Hospital Course: KOBE VELAZQUEZ is a 43 year old female who presented to the emergency room wi th a history of being informed by the culture nurse from the emergency room that her urine culture was positive for VRE and she was supposed to come in for further evaluation and treatment. Patient waited 1 day to come in as she was seen by her urologist who informed her that she needed to go to the hospital for antibiotic treatment and that they would not be taking her ureteral stent out until the infection had been treated. She admits persistent sharp right flank pain for the last 7 months with radiation to her right side and down into her pelvis and vagina. She describes the pain as severe at the present time, noting that it has worsened over the last 7 days and has been accompanied by nausea with 2 episodes of vomiting today. She admits prior similar episodes of pain related to previous kidney stones and urinary tract infections, but she denies prior urinary tract infection with VRE. She has not identified any aggravating or ameliorating factors for her urinary tract infection or right flank pain. In the emergency room she was found to have an essentially unremarkable evaluation with the exception of the recent urine culture which was positive for vancomycin-resistant Enterococcus faecium. The patient's VRE was sensitive only to daptomycin and doxycycline. Patient is allergic to doxycycline and therefore is been admitted to the hospital for initiation of intravenous daptomycin therapy. 01/05/2019: This is a 43 years old black female patient admitted for urine cu lture positive for VRE. Patient has been started on daptomycin and has been on it for the last 7 days. As recommended by infectious disease specialist Dr. Meño trotter, and will complete 10-day course of daptomycin. This morning PICC line placed and patient will get additional 3 days more so of daptomycin. Physical Exam Vital Signs: Temp Pulse Resp BP Pulse Ox 98.0 F 98 17 142/58 H 96 01/05/19 15:36 01/05/19 15:36 01/05/19 15:36 01/05/19 15:36 01/05/19 15:36 Intake & Output 01/04/19 01/05/19 01/06/19 06:59 06:59 06:59 Intake Total 1830 2450 1232 Balance 1830 2450 1232 Weight 181.2 kg 180.2 kg General appearance: PRESENT: no acute distress, morbidly obese Eye exam: PRESENT: conjunctiva pink Neck exam: ABSENT: carotid bruit, JVD, lymphadenopathy, thyromegaly Respiratory exam: PRESENT: clear to auscultation rajeev. ABSENT: rales, rhonchi, wheezes Neurological exam: PRESENT: alert, awake, oriented to person, oriented to place, oriented to time, oriented to situation Results Laboratory Results: 01/05/19 03:38 01/05/19 03:38 01/05/19 01/05/19 03:38 03:38 WBC 8.4 RBC 3.84 Hgb 8.4 L Hct 28.1 L MCV 73 L MCH 21.9 L MCHC 30.0 L RDW 20.0 H Plt Count 370 Sodium 142.9 Potassium 4.2 Chloride 111 H Carbon Dioxide 25 Anion Gap 7 BUN 13 Creatinine 1.14 Est GFR ( Amer) > 60 Est GFR (Non-Af Amer) 53 L Glucose 96 Calcium 8.8 Phosphorus 3.6 Magnesium 1.9 Total Bilirubin 0.3 AST 15 ALT 14 Alkaline Phosphatase 58 Total Protein 6.2 L Albumin 3.1 L 01/04/19 10:26 Creatine Kinase 42 Impressions: Chest X-Ray 12/29/18 20:11 IMPRESSION: No acute cardiopulmonary abnormalities. copyright 2011 [employer]- All Rights Reserved Abdomen/Pelvis CT 01/01/19 11:38 IMPRESSION: Right-sided double-J ureteral stent is in place is in satisfactory position. No hydronephrosis. No acute findings in the abdomen or pelvis to explain the patient's right lower quadrant pain. Guidance Fluoroscopy 01/05/19 00:00 IMPRESSION: SUCCESSFUL PLACEMENT OF A 5 FR DUAL LUMEN 47 CM PICC IN THE LEFT BASILIC VEIN. Interventional Vascular Procedure 01/05/19 00:00 IMPRESSION: SUCCESSFUL PLACEMENT OF A 5 FR DUAL LUMEN 47 CM PICC IN THE LEFT BASILIC VEIN. PICC Line Insertion 01/05/19 06:00 IMPRESSION: SUCCESSFUL PLACEMENT OF A 5 FR DUAL LUMEN 47 CM PICC IN THE LEFT BASILIC VEIN. Qualifiers - * PATIENT BEING DISCHARGED WITH ANY OF THE FOLLOWING DIAGNOSIS: No Acute Heart Failure - Is this a Heart Failure Patient?: No LVEF < 40%?: No- if no continue to question #3 3. Anticoagulant therapy for permanect/persistent/paraoxysmal Afib or Aflutter: N/A Follow-up Appointment scheduled within 7 days?: Yes
== END 2019-01-05 18:30 | disposition home or self-care (01) | DRG 690 ==
LOC: ER 19:15 → EH 12-30 01:14 → 2N 12-30 04:18 → 4N 12-30 10:52
PROVIDERS: ADMIT Emergency Medicine; ATTEND Emergency Medicine
PROC: 30233N1 Transfusion of Nonautologous Red Blood Cells into Peripheral Vein, Percutaneous Approach (ICD-10-PCS; principal; 2019-01-01)
PROC: 30233N1 Transfusion of Nonautologous Red Blood Cells into Peripheral Vein, Percutaneous Approach (ICD-10-PCS; 2019-01-03)
PROC: 02HV33Z Insertion of Infusion Device into Superior Vena Cava, Percutaneous Approach (ICD-10-PCS; 2019-01-05)
PROC: B518ZZA Fluoroscopy of Superior Vena Cava, Guidance (ICD-10-PCS; 2019-01-05)
PROC: B548ZZA Ultrasonography of Superior Vena Cava, Guidance (ICD-10-PCS; 2019-01-05)
DX: N39.0 Urinary tract infection, site not specified (principal); Z68.44 Body mass index [BMI] 60.0-69.9, adult; B95.2 Enterococcus as the cause of diseases classified elsewhere; Z16.21 Resistance to vancomycin; D50.9 Iron deficiency anemia, unspecified; N12 Tubulo-interstitial nephritis, not specified as acute or chronic; K21.9 Gastro-esophageal reflux disease without esophagitis; Z96.0 Presence of urogenital implants; I10 Essential (primary) hypertension; E03.9 Hypothyroidism, unspecified; R10.2 Pelvic and perineal pain; E66.01 Morbid (severe) obesity due to excess calories; Z86.718 Personal history of other venous thrombosis and embolism; Z79.2 Long term (current) use of antibiotics; Z79.01 Long term (current) use of anticoagulants; Z79.899 Other long term (current) drug therapy; Z91.14 Patient's other noncompliance with medication regimen; Z59.8 Other problems related to housing and economic circumstances
CPT/HCPCS: 36415; 36430; 36569; 71045; 74177; 76937; 77001; 80048; 80053; 80061; 80307; 81001; 82550; 82607; 82728; 82746; 83036; 83540; 83550; 83605; 83735; 84100; 84443; 85025; 85027; 85045; 85379; 85610; 86850; 86900; 86901; 86920; 87040; 87086; 87210; 87491; 87591; 93005; 93010; 96361; 96374; 96375; 96376; 99284; C1769; J0360; J0878; J1170; J1642; J1750; J2270; J2405; J3490; J7030; J7040; J7050; P9016

== ENCOUNTER 2019-01-10 00:01 | Emergency (ER) | payer SELFPAY ==
[2019-01-10 01:49] LABS: ABSOLUTE BASOPHILS # (AUTO) 0.1 10^3/uL (0.0-0.2); ABSOLUTE EOSINOPHILS # (AUTO) 0.4 10^3/uL (0.0-0.6); ABSOLUTE LYMPHOCYTES (AUTO) 1.7 10^3/uL (0.5-4.7); ABSOLUTE MONOCYTES (AUTO) 0.8 10^3/uL (0.1-1.4); ABSOLUTE NEUT (AUTO) 6.5 10^3/uL (1.7-8.2); APPEARANCE,URINE CLOUDY; BASOPHILS % (AUTO) 1.1 % (0-2); BILIRUBIN,URINE NEGATIVE (NEGATIVE); COLOR,URINE DARK YELLOW; EOSINOPHILS % (AUTO) 4.3 % (0-6); GLUCOSE, URINE NEGATIVE (NEGATIVE); HEMATOCRIT 31.8 % (36.0-47.0); HEMOGLOBIN 9.8 g/dL (12.0-15.5); KETONES,URINE NEGATIVE (NEGATIVE); LEUKOCYTE ESTERASE,URINE MODERATE (NEGATIVE); LYMPHOCYTES % (AUTO) 18.4 % (13-45); MEAN CORPUSCULAR HEMOGLOBIN 22.3 pg (27.0-33.4); MEAN CORPUSCULAR HGB CONC 30.8 g/dL (32.0-36.0); MEAN CORPUSCULAR VOLUME 72 fl (80-97); MONOCYTES % (AUTO) 8.3 % (3-13); NITRITE,URINE POSITIVE (NEGATIVE); PLATELET COUNT 520 10^3/uL (150-450); PROTEIN,URINE 100 mg/dL (NEGATIVE); RED BLOOD COUNT 4.39 10^6/uL (3.72-5.28); SEGMENTED NEUTROPHILS % (AUTO) 67.9 % (42-78); TOTAL CELLS COUNTED % (AUTO) 100 %; URINE SPECIFIC GRAVITY 1.029; WHITE BLOOD COUNT 9.5 10^3/uL (4.0-10.5)
[2019-01-10] MEDS ORDERED: FENTANYL CITRATE INJ/PF 100 MCG/2 ML AMPUL IV PRN (01:55)
[2019-01-10] MEDS ORDERED: KETOROLAC TROMETHAMINE INJ/PF 30 MG/1 ML SDV IV ONE (01:55)
[2019-01-10] MEDS ORDERED: NORMAL SALINE 1000 ML 1,000 ML IV ONE (01:56)
[2019-01-10 01:58] LABS: ALANINE AMINOTRANSFERASE 18 U/L (9-52); ALBUMIN 3.9 g/dL (3.5-5.0); ALKALINE PHOSPHATASE 73 U/L (38-126); ANION GAP 8 (5-19); ASPARTATE AMINO TRANSFERASE 17 U/L (14-36); BILIRUBIN,DIRECT 0.3 mg/dL (0.0-0.4); BILIRUBIN,TOTAL 0.4 mg/dL (0.2-1.3); BLOOD UREA NITROGEN 19 mg/dL (7-20); CALCIUM 9.3 mg/dL (8.4-10.2); CARBON DIOXIDE 25 mmol/L (22-30); CHLORIDE 112 mmol/L (98-107); GLUCOSE 105 mg/dL (75-110); POTASSIUM 4.3 mmol/L (3.6-5.0); SODIUM 145.4 mmol/L (137-145); TOTAL PROTEIN 7.4 g/dL (6.3-8.2)
--- NOTE | 2019-01-10 02:35 | RADIOLOGY REPORT (SQ) ---
CLINICAL HISTORY: flank pain COMPARISON: January 01, 2019. TECHNIQUE: CT ABDOMEN PELVIS WITHOUT IV CONTRAST on 01/10/2019 1:14 AM CDT This exam was performed according to our departmental dose-optimization program, which includes automated exposure control, adjustment of the mA and/or kV according to patient size and/or use of iterative reconstruction technique. FINDINGS: Lower lungs are clear. Abdomen: The liver is normal in appearance. There is no biliary dilatation. Cholecystectomy was performed. There are postoperative changes of the upper stomach. The pancreas and spleen are normal in appearance. Adrenal glands and left kidney are normal. There is a lower pole right renal calculus measuring 5 mm. There is a right ureteral stent in place. Abdominal aorta is normal in course and caliber without aneurysm. There is no free air. There is no retroperitoneal adenopathy. Pelvis: There is left colonic diverticulosis. Urinary bladder is unremarkable. There is no free fluid. Hysterectomy was performed. Appendix is not seen. Skeleton: There are no acute osseous findings. No suspicious bony lesions. IMPRESSION: Right ureteral stent in place along with right nephrolithiasis. No definite hydronephrosis.
[2019-01-10] MEDS ORDERED: HYDROCODONE/ACETAMINOPHEN 5-325 MG (6 TAB/ER DISP) PO PRN (03:16)
--- NOTE | 2019-01-10 03:19 | ER Document Report ---
ED General - General Chief Complaint: Pelvic Pain Stated Complaint: VAGINAL AND RIGHT SIDE PAIN Time Seen by Provider: 01/10/19 01:12 Notes: Patient is a 43-year-old female with past medical history of kidney stones, had a right ureteral stent placed in May 2018 and apparently the urologist to place it has refused to remove the stent secondary to patient's lack of insurance. The patient states that since that time she has had a severe, throbbing, constant pain in the right flank radiating down to her right lower abdomen and into her vagina. States that the pain is worsened anytime she urinates. Nothing improves her pain. She states that the pain is debilitating. Has taken naproxen with no significant relief. Recently hospitalized for VRE likely associated to the retained stent by her report. She has not had fever or constitutional symptoms. Nothing is new or different regarding her symptoms today that prompted a repeat visit to the emergency department except the patient states that her pain is uncontrolled and she is seeking pain relief. TRAVEL OUTSIDE OF THE [place] IN LAST 30 DAYS: No - Related Data Allergies/Adverse Reactions: doxycycline Allergy (Verified 12/29/18 19:25) sumatriptan [From Imitrex] Allergy (Verified 12/29/18 19:25) Past Medical History - General Information source: Patient - Social History Smoking Status: Never Smoker Frequency of alcohol use: None Drug Abuse: None Lives with: Spouse/Significant other Family History: CAD, Hypertension, Malignancy, Other - Lupus erythematosus. denies: DM Patient has suicidal ideation: No Patient has homicidal ideation: No - Past Medical History Cardiac Medical History: Reports: Hx DVT, Hx Hypertension Denies: Hx Coronary Artery Disease, Hx Heart Attack Pulmonary Medical History: Reports: Hx Asthma, Hx Pneumonia Denies: Hx Bronchitis, Hx COPD, Hx Respiratory Failure Neurological Medical History: Reports: Hx Migraine. Denies: Hx Cerebrovascular Accident, Hx Seizures Endocrine Medical History: Reports: Hx Hypothyroidism - s/p partial thyroidectomy. Denies: Hx Diabetes Mellitus Type 1, Hx Diabetes Mellitus Type 2, Hx Hyperthyroidism Renal/ Medical History: Denies: Hx Peritoneal Dialysis GI Medical History: Reports: Hx Gastroesophageal Reflux Disease. 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 Denies: Hx Hepatitis Past Surgical History: Reports: Hx Abdominal Surgery - gastric sleeve, Hx Bowel Surgery, Hx Cholecystectomy, Hx Gastric Bypass Surgery - Gastric sleeve, Hx Gynecologic Surgery, Hx Hysterectomy, Hx Thyroid Surgery, Other - Removal of the benign bowel tumor - Immunizations Hx Diphtheria, Pertussis, Tetanus Vaccination: Yes Hx Pneumococcal Vaccination: 10/05/18 Review of Systems - Review of Systems Notes: Constitutional: Negative for fever. HENT: Negative for sore throat. Eyes: Negative for visual changes. Cardiovascular: Negative for chest pain. Respiratory: Negative for shortness of breath. Gastrointestinal: Positive for right flank pain, nausea Genitourinary: Positive for dysuria. Musculoskeletal: Negative for back pain. Skin: Negative for rash. Neurological: Negative for headaches, weakness or numbness. 10 point ROS negative except as marked above and in HPI. Physical Exam - Vital signs Vitals: Temp Pulse Resp BP Pulse Ox 98.7 F 89 22 H 163/104 H 95 01/10/19 00:38 01/10/19 00:38 01/10/19 00:38 01/10/19 00:38 01/10/19 00:38 Interpretation: Hypertensive Notes: PHYSICAL EXAMINATION: GENERAL: Appears uncomfortable but no acute distress HEAD: Atraumatic, normocephalic. EYES: Pupils equal round and reactive to light, extraocular movements intact, sclera anicteric, conjunctiva are normal. ENT: nares patent, oropharynx clear without exudates. Moist mucous membranes. NECK: Normal range of motion, supple without lymphadenopathy LUNGS: Breath sounds clear to auscultation bilaterally and equal. No wheezes rales or rhonchi. HEART: Regular rate and rhythm without murmurs ABDOMEN: Soft, nontender, normoactive bowel sounds. No guarding, no rebound. No masses appreciated. EXTREMITIES: Normal range of motion, no pitting or edema. No cyanosis. NEUROLOGICAL: No focal neurological deficits. Moves all extremities spontaneously and on command. PSYCH: Normal mood, normal affect. SKIN: Warm, Dry, normal turgor, no rashes or lesions noted. Course - Re-evaluation Re-evalutation: 01/10/19 03:17 Patient presents with worsening of her chronic right flank pain radiating into her right lower abdomen. This is been ongoing for over 6 months and the patient has had a right ureteral stent placed for greater than 6 months and apparently the urologist to place it at [facility] has refused to remove it secondary to the patient not having insurance. On exam the patient has no focal abdominal tenderness no rebound or guarding. Vitals are within normal limits. Pain control obtained after receiving ketorolac and a small dose of fentanyl. CT does show stent in the right ureter, no other acute findings. No evidence of hydronephrosis. Urinalysis is chronically filled with blood and white blood cells, just discharged in the hospital after being treated for VRE. At this ti me will discharge with return precautions and follow-up recommendations. Verbal discharge instructions given a the bedside and opportunity for questions given. Medication warnings reviewed. Patient is in agreement with this plan and has verbalized understanding of return precautions and the need for urology follow- up tomorrow. - Vital Signs Vital signs: Temp Pulse Resp BP Pulse Ox 98.7 F 89 22 H 163/104 H 95 01/10/19 00:38 01/10/19 00:38 01/10/19 00:38 01/10/19 00:38 01/10/19 00:38 - Laboratory Result Diagrams: 01/10/19 01:28 01/10/19 01:28 Laboratory results interpreted by me: 01/10/19 01/10/19 01/10/19 01:28 01:28 01:28 Hgb 9.8 L Hct 31.8 L MCV 72 L MCH 22.3 L MCHC 30.8 L RDW 22.0 H Plt Count 520 H Sodium 145.4 H Chloride 112 H Creatinine 1.37 H Est GFR ( Amer) 51 L Est GFR (Non-Af Amer) 42 L Urine Protein 100 H Urine Blood LARGE H Urine Nitrite POSITIVE H Urine Urobilinogen 4.0 H Ur Leukocyte Esterase MODERATE H - Diagnostic Test Radiology reviewed: Image reviewed, Reports reviewed Discharge - Discharge Clinical Impression: Morbid obesity with BMI of 60.0-69.9, adult, Right flank pain, chronic, Retained ureteral stent Condition: Good Disposition: HOME, SELF-CARE Additional Instructions: Your labs today are unchanged from previous and your CT scan continues to show a retained stent in the right kidney but no other findings. Her current pain is likely related to the underlying stent. You need to have the stent removed and hopefully this will be completed on Friday. Return if you develop a fever of greater than 100.4 F, worsening pain, persistent vomiting, pass out, or have any other symptoms that are worrisome to you.
[2019-01-10 03:43] VITALS: BP 157/93
== END 2019-01-10 03:47 | disposition home or self-care (01) ==
LOC: ER 00:01
DX: R10.2 Pelvic and perineal pain (principal); Z87.442 Personal history of urinary calculi; E66.01 Morbid (severe) obesity due to excess calories; Z68.44 Body mass index [BMI] 60.0-69.9, adult; G89.29 Other chronic pain; I10 Essential (primary) hypertension; E03.9 Hypothyroidism, unspecified; Z98.84 Bariatric surgery status; Z86.718 Personal history of other venous thrombosis and embolism
CPT/HCPCS: 99284; 96374; 96375; 36415; 85025; 80053; 81001; 74176; J3010; J1885; J7030

== ENCOUNTER 2019-03-20 10:33 | Emergency (ER) | payer SELFPAY ==
--- NOTE | 2019-03-20 10:45 | ER Document Report ---
ED Medical Screen (RME) - General Chief Complaint: Abdominal Pain Stated Complaint: ABDOMINAL PAIN Time Seen by Provider: 03/20/19 10:37 Mode of Arrival: Wheelchair Information source: Patient Notes: Patient presents with a history of kidney stones with right lower quadrant pain that radiates around to right lower back area off and on for the past month. Patient feels the pain has started to worsen. Patient reports low-grade fever of 100.2 at home. No nausea or vomiting. Patient has had a history of kidney stones, endometrial cancer, DVT and asthma. Patient has a history of renal st enting, total hysterectomy and cholecystectomy. I have greeted and performed a rapid initial assessment of this patient. A comprehensive ED assessment and evaluation of the patient, analysis of test results and completion of the medical decision making process will be conducted by additional ED providers. TRAVEL OUTSIDE OF THE [place] IN LAST 30 DAYS: No - Related Data Allergies/Adverse Reactions: doxycycline Allergy (Verified 03/20/19 10:34) sumatriptan [From Imitrex] Allergy (Verified 03/20/19 10:34) Past Medical History - Past Medical History Cardiac Medical History: Reports: Hx DVT, Hx Hypertension Denies: Hx Coronary Artery Disease, Hx Heart Attack Pulmonary Medical History: Reports: Hx Asthma, Hx Pneumonia Denies: Hx Bronchitis, Hx COPD, Hx Respiratory Failure Neurological Medical History: Reports: Hx Migraine. Denies: Hx Cerebrovascular Accident, Hx Seizures Endocrine Medical History: Reports: Hx Hypothyroidism - s/p partial thyroidectomy. Denies: Hx Diabetes Mellitus Type 1, Hx Diabetes Mellitus Type 2, Hx Hyperthyroidism Renal/ Medical History: Denies: Hx Peritoneal Dialysis GI Medical History: Reports: Hx Gastroesophageal Reflux Disease. 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 Denies: Hx Hepatitis Past Surgical History: Reports: Hx Abdominal Surgery - gastric sleeve, Hx Bowel Surgery, Hx Cholecystectomy, Hx Gastric Bypass Surgery - Gastric sleeve, Hx Gynecologic Surgery, Hx Hysterectomy, Hx Thyroid Surgery, Other - Removal of the benign bowel tumor - Immunizations Hx Diphtheria, Pertussis, Tetanus Vaccination: Yes History of Influenza Vaccine for 04/2017 - 09/2017 Season: Yes Physical Exam - Abdominal Inspection: Morbidly Obese Tenderness: Tender - Right lower pelvic
[2019-03-20] MEDS ORDERED: FENTANYL CITRATE INJ/PF 100 MCG/2 ML AMPUL IV ONE (11:08)
[2019-03-20] MEDS ORDERED: NORMAL SALINE 1000 ML 1,000 ML IV ONE (11:08)
[2019-03-20] MEDS ORDERED: ONDANSETRON HCL INJ/PF 4 MG/2 ML SDV ONE (11:10)
--- NOTE | 2019-03-20 11:20 | ER Document Report ---
ED GI/ - General Chief Complaint: Abdominal Pain Stated Complaint: ABDOMINAL PAIN Time Seen by Provider: 03/20/19 10:37 Primary Care Provider: [facility] [Provider Group] - Follow up in 1 week TEQUILA SHRESTHA MD [ACTIVE STAFF] - Follow up in 1 week Mode of Arrival: Wheelchair Notes: Patient is a 43-year-old female with a past medical history of renal calculi who presents to the emergency department with a chief complaint of right flank pain and right lower quadrant pain. She states that around 3:00 in the morning she started to feel her symptoms. She took some Tylenol PM, but had little relief. She also reports a temperature of 100.2 this morning. She states that she has had on and off pain, but this morning it got worse. She had a renal stent placed a number of years ago and on January 11 she had a renal stent removed by [facility]. Patient states that she felt nauseous. She has had a past surgical history of a cholecystectomy and total hysterectomy. She reports to [facility] on . Denies any dysuria. She is currently on Nexium and Zantac. Patient has history of DVTs. Patient's last bowel movement was yesterday and she states it was normal. Denies any diarrhea. TRAVEL OUTSIDE OF THE [place] IN LAST 30 DAYS: No - Related Data Allergies/Adverse Reactions: doxycycline Allergy (Verified 03/20/19 10:34) sumatriptan [From Imitrex] Allergy (Verified 03/20/19 10:34) Past Medical History - General Information source: Patient - Social History Smoking Status: Never Smoker Frequency of alcohol use: Social Drug Abuse: None Family History: CAD, Hypertension, Malignancy, Other - Lupus erythematosus. denies: DM Patient has suicidal ideation: No Patient has homicidal ideation: No - Past Medical History Cardiac Medical History: Reports: Hx DVT, Hx Hypertension Denies: Hx Coronary Artery Disease, Hx Heart Attack Pulmonary Medical History: Reports: Hx Asthma, Hx Pneumonia Denies: Hx Bronchitis, Hx COPD, Hx Respiratory Failure Neurological Medical History: Reports: Hx Migraine. Denies: Hx Cerebrovascular Accident, Hx Seizures Endocrine Medical History: Reports: Hx Hypothyroidism - s/p partial thyroidectomy. Denies: Hx Diabetes Mellitus Type 1, Hx Diabetes Mellitus Type 2, Hx Hyperthyroidism Renal/ Medical History: Denies: Hx Peritoneal Dialysis GI Medical History: Reports: Hx Gastroesophageal Reflux Disease. 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 Denies: Hx Hepatitis Past Surgical History: Reports: Hx Abdominal Surgery - gastric sleeve, Hx Bowel Surgery, Hx Cholecystectomy, Hx Gastric Bypass Surgery - Gastric sleeve, Hx Gynecologic Surgery, Hx Hysterectomy, Hx Thyroid Surgery, Other - Removal of the benign bowel tumor - Immunizations Hx Diphtheria, Pertussis, Tetanus Vaccination: Yes Hx Pneumococcal Vaccination: 10/05/18 Review of Systems - Review of Systems Notes: REVIEW OF SYSTEMS: CONSTITUTIONAL : Denies recent illness. Denies recent unintentional weight loss. Denies fever, chills, or sweats. EENT: Denies eye, ear, throat, or mouth pain, discharge, or symptoms. Denies nasal or sinus congestion. CARDIOVASCULAR: Denies chest pain. RESPIRATORY: Denies shortness of breath, cough, congestion, difficulty breathing, or wheezing. GASTROINTESTINAL: See HPI. GENITOURINARY: See HPI. MUSCULOSKELETAL: Denies neck and back pain. Denies joint pain or swelling. SKIN: Denies rash, itchiness, or lesions HEMATOLOGIC : Denies easy bruising or bleeding. LYMPHATIC: Denies swollen, painful, enlarged glands. NEUROLOGICAL: Denies no numbness or tingling denies weakness. Denies headache. Denies altered mental status. Denies alteration in speech. PSYCHIATRIC: Denies stress, anxiety, alteration in sleep patterns, or depression. All other systems reviewed and negative. Physical Exam - Vital signs Vitals: Temp Pulse Resp BP Pulse Ox 98.4 F 92 20 182/106 H 95 03/20/19 10:39 03/20/19 10:39 03/20/19 10:39 03/20/19 10:39 03/20/19 10:39 - Notes Notes: PHYSICAL EXAMINATION: GENERAL: Morbidly obese, mild distress. HEAD: Normocephalic, atraumatic. EYES: PERRL, conjunctiva normal, all extraocular movements intact, sclera nonicteric ENT: Moist mucous membranes. NECK: Supple, no noticeable swelling, redness, rash. Normal range of motion. LUNGS: Equal breath sounds bilaterally and clear to auscultation. No wheezes rales or rhonchi. CARDIOVASCULAR: S1-S2, regular rate, regular rhythm. Radial pulses 2+, normal. ABDOMEN: Normoactive bowel sounds. Soft, moderately tender right lower abdomen, and no masses palpated. EXTREMITIES: Normal strength and range of motion, no pitting or edema. No cyanosis. NEUROLOGICAL: Moves all extremities upon command. Strength 5/5 in all extremities. PSYCH: Normal mood, normal affect. SKIN: Warm, dry. No rash, lesions, ulcerations noted. Normal skin turgor. BACK: Mild CVA tenderness, but patient states percussion helps the pain. Course - Re-evaluation Re-evalutation: 03/20/19 11:41 Due to patient's history of renal calculi, patient will be sent for a CT of the abdomen and pelvis. Basic labs were sent via triage. 03/20/19 13:40 Patient is chronically anemic and her hemoglobin is actually better than her previous visit on January 10 of this year. Hemoglobin today is 11.1 with a hematocrit of 45.4. Platelet count is stable. No leukocytosis noted. Chemistries are all normal. Very low suspicion for PID. 03/20/19 14:19 Patient's appendix is surgically absent, along with her gallbladder, but the radiologist read. She has a nonobstructive right nephrolithiasis. Patient does have some diverticulosis. An IVC filter is in place. She also has chronic phleboliths. She has a small midline fat hernia, but no bowel hernia. Patien t's hematology shows mild anemia with a hemoglobin of 11.1 and hematocrit of 35.4. No leukocytosis noted. Patient's chemistries are normal. Urine shows a small amount of leukocytes and 41 WBCs. I will treat her with Rocephin here in the emergency department and send her home with Keflex. A urine culture will be sent. Patient will be started on Keflex. Patient is not septic at this time. - Vital Signs Vital signs: Temp Pulse Resp BP Pulse Ox 98.2 F 91 18 153/91 H 97 03/20/19 15:19 03/20/19 15:19 03/20/19 15:19 03/20/19 15:19 03/20/19 15:19 - Laboratory Result Diagrams: 03/20/19 11:00 03/20/19 11:00 Laboratory results interpreted by me: 03/20/19 03/20/19 03/20/19 11:00 11:00 11:15 Hgb 11.1 L Hct 35.4 L MCV 76 L MCH 23.8 L MCHC 31.4 L RDW 19.3 H Chloride 108 H Est GFR (MDRD) Non-Af 50 L Ur Leukocyte Esterase SMALL H Discharge - Discharge Clinical Impression: Right flank pain, chronic, Right kidney stone, Diverticulosis Urinary tract infection Qualifiers: Urinary tract infection type: acute cystitis Hematuria presence: without hematuria Qualified Code(s): N30.00 - Acute cystitis without hematuria Condition: Stable Disposition: HOME, SELF-CARE Instructions: Urinary Tract Infection ([facility]) Additional Instructions: You are seen today in the emergency department for right sided back pain and right lower abdominal pain. The pain that you are experiencing is from a urinary tract infection. You are being placed on antibiotics. Please take all your antibiotics as prescribed. Your urine was also sent for culture. Please follow-up with urology. You also have diverticulosis noted on your CAT scan. Usually diverticulosis does not cause any problems. Please follow-up with gastroenterology in regards to this. If you have worsening symptoms after being on your antibiotics for 3 to 4 days, please return to the emergency department. Prescriptions: Ketorolac Tromethamine [Toradol 10 mg Tablet] 10 mg PO Q6HP PRN #20 tablet PRN Reason: Cephalexin [Keflex] 500 mg PO BID #14 capsule Referrals: TEQUILA SHRESTHA MD [ACTIVE STAFF] - Follow up in 1 week [facility] [Provider Group] - Follow up in 1 week
[2019-03-20 11:26] LABS: ABSOLUTE EOSINOPHILS # (AUTO) 0.2 10^3/uL (0.0-0.6); ABSOLUTE LYMPHOCYTES (AUTO) 1.7 10^3/uL (0.5-4.7); ABSOLUTE MONOCYTES (AUTO) 0.5 10^3/uL (0.1-1.4); ABSOLUTE NEUT (AUTO) 3.3 10^3/uL (1.7-8.2); BASOPHILS % (AUTO) 0.7 % (0-2); EOSINOPHILS % (AUTO) 3.2 % (0-6); HEMATOCRIT 35.4 % (36.0-47.0); HEMOGLOBIN 11.1 g/dL (12.0-15.5); LYMPHOCYTES % (AUTO) 30.7 % (13-45); MEAN CORPUSCULAR HEMOGLOBIN 23.8 pg (27.0-33.4); MEAN CORPUSCULAR HGB CONC 31.4 g/dL (32.0-36.0); MEAN CORPUSCULAR VOLUME 76 fl (80-97); MONOCYTES % (AUTO) 8.1 % (3-13); PLATELET COUNT 330 10^3/uL (150-450); RED BLOOD COUNT 4.67 10^6/uL (3.72-5.28); RED CELL DISTRIBUTION WIDTH 19.3 % (11.5-14.0); SEGMENTED NEUTROPHILS % (AUTO) 57.3 % (42-78); TOTAL CELLS COUNTED % (AUTO) 100 %; WHITE BLOOD COUNT 5.7 10^3/uL (4.0-10.5)
[2019-03-20 11:42] LABS: ALBUMIN 4.1 g/dL (3.5-5.0); ALKALINE PHOSPHATASE 85 U/L (38-126); ANION GAP 8 (5-19); ASPARTATE AMINO TRANSFERASE 23 U/L (14-36); BILIRUBIN,DIRECT 0.3 mg/dL (0.0-0.4); BILIRUBIN,TOTAL 0.3 mg/dL (0.2-1.3); BLOOD UREA NITROGEN 17 mg/dL (7-20); CALCIUM 9.5 mg/dL (8.4-10.2); CARBON DIOXIDE 26 mmol/L (22-30); CHLORIDE 108 mmol/L (98-107); GLUCOSE 105 mg/dL (75-110); POTASSIUM 4.3 mmol/L (3.6-5.0); TOTAL PROTEIN 7.5 g/dL (6.3-8.2)
[2019-03-20 11:58] LABS: APPEARANCE,URINE SLIGHTLY-CLOUDY; BILIRUBIN,URINE NEGATIVE (NEGATIVE); COLOR,URINE YELLOW; GLUCOSE, URINE NEGATIVE (NEGATIVE); KETONES,URINE NEGATIVE (NEGATIVE); LEUKOCYTE ESTERASE,URINE SMALL (NEGATIVE); NITRITE,URINE NEGATIVE (NEGATIVE); PROTEIN,URINE NEGATIVE (NEGATIVE); URINE SPECIFIC GRAVITY 1.025; UROBILINOGEN,URINE NEGATIVE mg/dL (<2.0)
--- NOTE | 2019-03-20 12:01 | RADIOLOGY REPORT (SQ) ---
EXAM DESCRIPTION: CT ABD/PELVIS NO ORAL OR IV COMPLETED DATE/TIME: 03/20/2019 11:47 am REASON FOR STUDY: right back pain/RLQ pain COMPARISON: 01/10/2019 TECHNIQUE: CT scan of the abdomen and pelvis performed without intravenous or oral contrast. Images reviewed with lung, soft tissue, and bone windows. Reconstructed coronal and sagittal MPR images revi ewed. All images stored on PACS. All CT scanners at this facility use dose modulation, iterative reconstruction, and/or weight based d osing when appropriate to reduce radiation dose to as low as reasonably achievable (ALARA). [facility]: Dose Right [facility]: CareDose [facility]: Dose Right [facility]: Teradose 4D [facility]: Smart [employer] RADIATION DOSE: CT Rad equipment meets quality standard of care and radiation dose reduction techniq ues were employed. CTDIvol: 21.1 mGy. DLP: 1124 mGy-cm.mGy. LIMITATIONS: None. FINDINGS: LOWER CHEST: No significant findings. No nodules or infiltrates. NON-CONTRASTED LIVER, SPLEEN, ADRENALS: Evaluation limited by lack of IV contrast. No identified sign ificant masses. PANCREAS: No masses. No peripancreatic inflammatory changes. GALLBLADDER: Surgically absent. RIGHT KIDNEY AND URETER: Nonobstructive lower pole nephrolithiasis. LEFT KIDNEY AND URETER: No solid masses. No significant calcification. No hydronephrosis or hydrouret er. AORTA AND RETROPERITONEUM: Normal caliber aorta. IVC filter in place. No retroperitoneal edema or m ass. BOWEL AND PERITONEAL CAVITY: Diverticulosis in the colon. No active diverticulitis or evidence of clarence wel obstruction or ascites or abnormal gas. APPENDIX: Surgically absent. PELVIS, BLADDER, AND ABDOMINAL WALL:Bladder decompressed but normal. Calcifications in the pelvis lo ok chronic, phleboliths. Mild supraumbilical fat containing midline hernia with laxity otherwise. N o bowel containing hernia. BONES: No significant findings. OTHER: No other significant finding. IMPRESSION: 1. Nonobstructive right nephrolithiasis. 2. No acute or suspicious abdominopelvic abnormality. TECHNICAL DOCUMENTATION: JOB ID: [id number] Quality ID # [id number]: Final reports with documentation of one or more dose reduction techniques (e.g., Au tomated exposure control, adjustment of the mA and/or kV according to patient size, use of iterative reconstruction technique) 2010 [employer]- All Rights Reserved Reading location - IP/workstation name: [email or web address]
[2019-03-20] MEDS ORDERED: CEFTRIAXONE INJ 1000 MG VIAL IV ONE (12:57)
[2019-03-20] MEDS ORDERED: KETOROLAC TROMETHAMINE INJ/PF 30 MG/1 ML SDV IV ONE (12:58)
[2019-03-20] MEDS ORDERED: MORPHINE SULFATE 10 MG/ML INJ IV ONE (15:10)
[2019-03-20 15:30] VITALS: BP 153/91
[2019-03-20 15:50] LABS: CHLAM PCR NOT DETECTED (NOT DETECT)
== END 2019-03-20 15:31 | disposition home or self-care (01) ==
LOC: ER 10:33
DX: K57.90 Diverticulosis of intestine, part unspecified, without perforation or abscess without bleeding (principal); N30.00 Acute cystitis without hematuria; N20.0 Calculus of kidney; R10.9 Unspecified abdominal pain; R10.31 Right lower quadrant pain; R50.9 Fever, unspecified; Z79.899 Other long term (current) drug therapy; I10 Essential (primary) hypertension; J45.909 Unspecified asthma, uncomplicated
CPT/HCPCS: 99284; 96361; 96375; 96365; 36415; 87086; 85025; 80053; 81001; 87491; 87591; 74176; J3010; J1885; J2270; J0696; J7030

== ENCOUNTER 2019-04-23 16:03 | Emergency (ER) | payer BC ==
[2019-04-23] MEDS ORDERED: OXYCODONE-ACETAMINOPHEN 5-325 MG TABLET PO ONE (16:49)
--- NOTE | 2019-04-23 16:52 | ER Document Report ---
ED Medical Screen (RME) - General Stated Complaint: LEFT KNEE PAIN, LEG SWELLING Time Seen by Provider: 04/23/19 16:44 Mode of Arrival: Ambulatory Information source: Patient Notes: Patient is a 43-year-old female presenting to the emergency department chief complaint of left lower extremity pain and swelling. Patient reports pain in the calf area as well as the left knee. 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 Patient also reports she has an IVC filter in place. Patient denies any chest pain or shortness of breath but does report that she has been having recurrent vomiting over the last few days. Exam: No unilateral leg swelling noted. Tenderness with minimal palpation to the left calf and left anterior knee. Abdomen soft and nontender. I have greeted and performed a rapid initial assessment of this patient. A comprehensive ED assessment and evaluation of the patient, analysis of test results and completion of the medical decision making process will be conducted by additional ED providers. I have specifically instructed the patient or family members with the patient to immediately return to any nursing staff should anything change in the patient's condition or with their chief complaint. This medical record was dictated with voice recognizing software. There may be grammatical, syntax errors that are unintended. TRAVEL OUTSIDE OF THE [place] IN LAST 30 DAYS: No - Related Data Allergies/Adverse Reactions: doxycycline Allergy (Verified 03/20/19 10:34) sumatriptan [From Imitrex] Allergy (Verified 03/20/19 10:34) Past Medical History - Past Medical History Cardiac Medical History: Reports: Hx DVT, Hx Hypertension Denies: Hx Coronary Artery Disease, Hx Heart Attack Pulmonary Medical History: Reports: Hx Asthma, Hx Pneumonia Denies: Hx Bronchitis, Hx COPD, Hx Respiratory Failure Neurological Medical History: Reports: Hx Migraine. Denies: Hx Cerebrovascular Accident, Hx Seizures Endocrine Medical History: Reports: Hx Hypothyroidism - s/p partial thyroidectomy. Denies: Hx Diabetes Mellitus Type 1, Hx Diabetes Mellitus Type 2, Hx Hyperthyroidism Renal/ Medical History: Reports: Hx Kidney Stones. Denies: Hx Peritoneal Dialysis GI Medical History: Reports: Hx Gastroesophageal Reflux Disease. 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 Denies: Hx Hepatitis Past Surgical History: Reports: Hx Abdominal Surgery - gastric sleeve, Hx Bowel Surgery, Hx Cholecystectomy, Hx Gastric Bypass Surgery - Gastric sleeve, Hx Gynecologic Surgery, Hx Hysterectomy, Hx Thyroid Surgery, Other - Removal of the benign bowel tumor - Immunizations Hx Diphtheria, Pertussis, Tetanus Vaccination: Yes Physical Exam - Vital signs Vitals: Temp Pulse Resp BP Pulse Ox 98.5 F 85 18 156/96 H 97 04/23/19 16:09 04/23/19 16:09 04/23/19 16:09 04/23/19 16:09 04/23/19 16:09 Course - Vital Signs Vital signs: Temp Pulse Resp BP Pulse Ox 98.5 F 85 18 156/96 H 97 04/23/19 16:09 04/23/19 16:09 04/23/19 16:09 04/23/19 16:09 04/23/19 16:09
[2019-04-23 17:30] LABS: ABSOLUTE EOSINOPHILS # (AUTO) 0.2 10^3/uL (0.0-0.6); ABSOLUTE LYMPHOCYTES (AUTO) 2.1 10^3/uL (0.5-4.7); BASOPHILS % (AUTO) 0.7 % (0-2); MEAN CORPUSCULAR HGB CONC 31.1 g/dL (32.0-36.0); RED BLOOD COUNT 4.75 10^6/uL (3.72-5.28); TOTAL CELLS COUNTED % (AUTO) 100 %
[2019-04-23 17:36] LABS: ABSOLUTE MONOCYTES (AUTO) 0.5 10^3/uL (0.1-1.4); ABSOLUTE NEUT (AUTO) 3.1 10^3/uL (1.7-8.2); EOSINOPHILS % (AUTO) 3.2 % (0-6); HEMATOCRIT 35.8 % (36.0-47.0); HEMOGLOBIN 11.1 g/dL (12.0-15.5); LYMPHOCYTES % (AUTO) 35.8 % (13-45); MEAN CORPUSCULAR HEMOGLOBIN 23.5 pg (27.0-33.4); MEAN CORPUSCULAR VOLUME 76 fl (80-97); MONOCYTES % (AUTO) 8.4 % (3-13); PLATELET COUNT 321 10^3/uL (150-450); RED CELL DISTRIBUTION WIDTH 17.1 % (11.5-14.0); SEGMENTED NEUTROPHILS % (AUTO) 51.9 % (42-78); WHITE BLOOD COUNT 5.9 10^3/uL (4.0-10.5)
--- NOTE | 2019-04-23 17:43 | RADIOLOGY REPORT (SQ) ---
EXAM DESCRIPTION: KNEE LEFT 4 VIEW COMPLETED DATE/TIME: 04/23/2019 5:28 pm REASON FOR STUDY: Left knee pain COMPARISON: None. NUMBER OF VIEWS: Four views. TECHNIQUE: AP, lateral, and both oblique radiographic images acquired of the left knee. LIMITATIONS: None. FINDINGS: MINERALIZATION: Normal. BONES: No acute fracture or dislocation. No worrisome bone lesions. JOINT: High-grade patellofemoral, medial and lateral compartment joint space narrowing and osteophyte formation. SOFT TISSUES: No soft tissue swelling. No radio-opaque foreign body. OTHER: No other significant finding. IMPRESSION: Osteoarthritis. No acute fracture. TECHNICAL DOCUMENTATION: JOB ID: [id number] [employer]- All Rights Reserved Reading location - IP/workstation name: [email or web address]
[2019-04-23 17:46] LABS: ALBUMIN 3.8 g/dL (3.5-5.0); ALKALINE PHOSPHATASE 88 U/L (38-126); ANION GAP 9 (5-19); ASPARTATE AMINO TRANSFERASE 20 U/L (14-36); BILIRUBIN,DIRECT 0.2 mg/dL (0.0-0.4); BILIRUBIN,TOTAL 0.2 mg/dL (0.2-1.3); BLOOD UREA NITROGEN 16 mg/dL (7-20); CALCIUM 9.5 mg/dL (8.4-10.2); CARBON DIOXIDE 29 mmol/L (22-30); CHLORIDE 104 mmol/L (98-107); GLUCOSE 92 mg/dL (75-110); TOTAL PROTEIN 7.3 g/dL (6.3-8.2)
[2019-04-23 17:55] LABS: INTERNATIONAL RATION (INR) 1.21; PROTHROMBIN TIME 15.4 SEC (11.4-15.4)
[2019-04-23 17:56] LABS: PARTIAL THROMBOPLASTIN TIME 32.8 SEC (23.5-35.8)
--- NOTE | 2019-04-23 22:12 | RADIOLOGY REPORT (SQ) ---
US LOWER EXTREMITY VEINS EXAM DATE: 04/23/2019 4:48 PM CDT HISTORY: Leg pain and swelling. COMPARISON: None. TECHNIQUE: Grayscale, color Doppler, and spectral Doppler images of the left lower extremity were performed. FINDINGS: The common femoral, proximal and mid superficial femoral and popliteal veins are patent and compressible. Normal augmentation and color Doppler blood flow in the aforementioned veins. The visualized calf veins are also patent. IMPRESSION: No evidence of deep venous thrombosis in the left lower extremity.
[2019-04-23] MEDS ORDERED: MORPHINE SULFATE 10 MG/ML INJ IV ONE (22:37)
--- NOTE | 2019-04-24 00:18 | ER Document Report ---
ED Extremity Problem, Lower - General Chief Complaint: Leg Pain Stated Complaint: LEFT KNEE PAIN, LEG SWELLING Time Seen by Provider: 04/23/19 16:44 Mode of Arrival: Ambulatory TRAVEL OUTSIDE OF THE [place] IN LAST 30 DAYS: No - HPI Other injuries: This is a 43-year-old female who presents today with a complaint of left knee pain patient states that her knee has been hurting all day today. She denies any trauma. Pain is worse with weightbearing. Pain shoots down to her left l eg. She denies any cardiopulmonary symptoms. She describes her symptoms as moderate. - Related Data Allergies/Adverse Reactions: doxycycline Allergy (Verified 03/20/19 10:34) sumatriptan [From Imitrex] Allergy (Verified 03/20/19 10:34) Past Medical History - General Information source: Patient - Social History Smoking Status: Never Smoker Frequency of alcohol use: Rare Drug Abuse: None Family History: CAD, Hypertension, Malignancy, Other - Lupus erythematosus. den ies: DM Patient has suicidal ideation: No Patient has homicidal ideation: No - Past Medical History Cardiac Medical History: Reports: Hx DVT, Hx Hypertension Denies: Hx Coronary Artery Disease, Hx Heart Attack Pulmonary Medical History: Reports: Hx Asthma, Hx Pneumonia Denies: Hx Bronchitis, Hx COPD, Hx Respiratory Failure Neurological Medical History: Reports: Hx Migraine. Denies: Hx Cerebrovascular Accident, Hx Seizures Endocrine Medical History: Reports: Hx Hypothyroidism - s/p partial thyroidectomy. Denies: Hx Diabetes Mellitus Type 1, Hx Diabetes Mellitus Type 2, Hx Hyperthyroidism Renal/ Medical History: Reports: Hx Kidney Stones. Denies: Hx Peritoneal Dialysis GI Medical History: Reports: Hx Gastroesophageal Reflux Disease. 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 Denies: Hx Hepatitis Past Surgical History: Reports: Hx Abdominal Surgery - gastric sleeve, Hx Bowel Surgery, Hx Cholecystectomy, Hx Gastric Bypass Surgery - Gastric sleeve, Hx Gynecologic Surgery, Hx Hysterectomy, Hx Thyroid Surgery, Other - Removal of the benign bowel tumor - Immunizations Hx Diphtheria, Pertussis, Tetanus Vaccination: Yes Hx Pneumococcal Vaccination: 10/05/18 Review of Systems - Review of Systems Cardiovascular: denies: Chest pain, Palpitations, Heart racing Respiratory: denies: Cough Gastrointestinal: denies: Abdominal pain, Diarrhea, Nausea Musculoskeletal: Other - Left knee pain and left leg pain. -: Yes All other systems reviewed and negative Physical Exam - Vital signs Vitals: Temp Pulse Resp BP Pulse Ox 98.5 F 85 18 156/96 H 97 04/23/19 16:09 04/23/19 16:09 04/23/19 16:09 04/23/19 16:09 04/23/19 16:09 - General General appearance: Appears well, Alert Notes: Morbidly obese - Respiratory Respiratory status: No respiratory distress Chest status: Nontender Breath sounds: Normal Chest palpation: Normal - Cardiovascular Rhythm: Regular Heart sounds: Normal auscultation Murmur: No - Abdominal Inspection: Normal Distension: No distension Bowel sounds: Normal Tenderness: Nontender Organomegaly: No organomegaly - Extremities General upper extremity: Normal inspection Knee: Tender - There is tenderness of the left knee. There is full range of motion of the knee. No ligamentous laxity. No warmth or erythema. Normal distal neurovascular exam of the left lower extremity. No calf tenderness. - Psychological Associated symptoms: Normal affect, Normal mood - Skin Skin Temperature: Warm Skin Moisture: Dry Skin Color: Normal Course - Re-evaluation Re-evalutation: 04/24/19 00:21 Differential diagnosis includes osteoarthritis versus DVT versus occult fracture. 0015 She reevaluated. Patient is doing well. X-rays and ultrasound reviewed and discussed with patient. She is stable for discharge. Follow-up discussed. - Vital Signs Vital signs: Temp Pulse Resp BP Pulse Ox 98.5 F 85 18 156/96 H 97 04/23/19 16:09 04/23/19 16:09 04/23/19 16:09 04/23/19 16:09 04/23/19 16:09 - Laboratory Result Diagrams: 04/23/19 17:15 04/23/19 17:15 Laboratory results interpreted by me: 04/23/19 04/23/19 17:15 17:15 Hgb 11.1 L Hct 35.8 L MCV 76 L MCH 23.5 L MCHC 31.1 L RDW 17.1 H Est GFR (MDRD) Non-Af 55 L Discharge - Discharge Clinical Impression: Left leg pain Osteoarthritis of left knee Qualifiers: Osteoarthritis type: unspecified Qualified Code(s): M17.12 - Unilateral primary osteoarthritis, left knee Condition: Stable Disposition: HOME, SELF-CARE Instructions: Osteoarthritis ([facility]), Leg Pain Nonspecific ([facility]) Prescriptions: Naproxen 500 mg PO BID PRN #14 tablet PRN Reason: Oxycodone HCl/Acetaminophen [Percocet 5-325 mg Tablet] 1 tab PO ASDIR PRN #15 tab PRN Reason: Referrals: KRISTIN BOBO DO [ACTIVE STAFF] - Follow up as needed
[2019-04-24] MEDS ORDERED: MORPHINE SULFATE 10 MG/ML INJ IM ONE (00:25)
[2019-04-24 00:58] VITALS: BP 154/90
== END 2019-04-24 00:56 | disposition home or self-care (01) ==
LOC: ER 16:03
DX: M17.12 Unilateral primary osteoarthritis, left knee (principal); M79.605 Pain in left leg; M25.562 Pain in left knee; M79.89 Other specified soft tissue disorders; I10 Essential (primary) hypertension; J45.909 Unspecified asthma, uncomplicated; E11.9 Type 2 diabetes mellitus without complications
CPT/HCPCS: 99284; 96372; 36415; 83690; 85025; 85610; 85730; 80053; 93971; 73564; J2270

== ENCOUNTER 2019-06-29 16:04 | Emergency (ER) | payer BC ==
[2019-06-29] MEDS ORDERED: PREDNISONE 20 MG TABLET PO ONE (17:09)
[2019-06-29] MEDS ORDERED: DIPHENHYDRAMINE HCL 50 MG CAPSULE PO ONE (17:09)
[2019-06-29] MEDS ORDERED: FAMOTIDINE 20 MG TABLET PO ONE (17:09)
--- NOTE | 2019-06-29 17:09 | ER Document Report ---
ED Skin Rash/Insect Bite/Abscs - General Chief Complaint: Rash Stated Complaint: RASH,BURNING,ITCHING Time Seen by Provider: 06/29/19 16:58 Primary Care Provider: CHRISTY HERNANDEZ MD [COMMUNITY BASED STAFF] - Follow up as needed Mode of Arrival: Ambulatory Information source: Patient Notes: 43-year-old female presented to ED for hives to the abdomen back legs face. She states she has had them for about a week. She called her primary care doctor and he told her to come to the emergency room to be examined. Her primary care did start her on Eliquis recently. I going to stop the Eliquis tonight give the patient Lovenox tonight. She has given herself Lovenox in the past. We will also give her prednisone Pepcid and Benadryl tonight and send her home with a pr escription for prednisone and Pepcid. TRAVEL OUTSIDE OF THE [place] IN LAST 30 DAYS: No - HPI Patient complains to provider of: Skin rash/lesion Onset: Last week Onset/Duration: Gradual, Worse Quality of pain: Burning Severity: Moderate Pain Level: 2 Skin Character: Urticarial Quality of rash: Itchy, Burning Identify cause: Yes - eliquis Exacerbated by: Denies Relieved by: Denies Similar symptoms previously: No Recently seen / treated by doctor: Yes - Related Data Allergies/Adverse Reactions: apixaban [From Eliquis] Allergy (Verified 06/29/19 18:22) doxycycline Allergy (Verified 03/20/19 10:34) sumatriptan [From Imitrex] Allergy (Verified 03/20/19 10:34) Past Medical History - General Information source: Patient - Social History Smoking Status: Never Smoker Frequency of alcohol use: None Drug Abuse: None Lives with: Family Family History: CAD, Hypertension, Malignancy, Other - Lupus erythematosus. denies: DM - Past Medical History Cardiac Medical History: Reports: Hx DVT, Hx Hypertension Pulmonary Medical History: Reports: Hx Asthma, Hx Pneumonia EENT Medical History: Reports: None Neurological Medical History: Reports: Hx Migraine Endocrine Medical History: Reports: Hx Hypothyroidism - s/p partial thyroidectomy Renal/ Medical History: Reports: Hx Kidney Stones Malignancy Medical History: Reports: None GI Medical History: Reports: Hx Gastroesophageal Reflux Disease Musculoskeletal Medical History: Reports None Skin Medical History: Reports None Psychiatric Medical History: Reports: None Traumatic Medical History: Reports: None Infectious Medical History: 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 is related to this admission as described in Past Surgical History: Reports: Hx Abdominal Surgery - gastric sleeve, Hx Bowel Surgery, Hx Cholecystectomy, Hx Gastric Bypass Surgery - Gastric sleeve, Hx Gynecologic Surgery, Hx Hysterectomy, Hx Thyroid Surgery, Other - Removal of the benign bowel tumor - Immunizations Hx Diphtheria, Pertussis, Tetanus Vaccination: Yes Hx Pneumococcal Vaccination: 10/05/18 Review of Systems - Review of Systems Constitutional: No symptoms reported EENT: No symptoms reported Cardiovascular: No symptoms reported Respiratory: No symptoms reported Gastrointestinal: No symptoms reported Genitourinary: No symptoms reported Female Genitourinary: No symptoms reported Musculoskeletal: No symptoms reported Skin: No symptoms reported Hematologic/Lymphatic: No symptoms reported Neurological/Psychological: No symptoms reported -: Yes All other systems reviewed and negative Physical Exam - Vital signs Vitals: Temp Pulse Resp BP Pulse Ox 98.4 F 92 20 148/99 H 98 06/29/19 16:30 06/29/19 16:30 06/29/19 16:30 06/29/19 16:30 06/29/19 16:30 Interpretation: Normal - General General appearance: Appears well, Alert - HEENT Head: Normocephalic, Atraumatic Eyes: Normal Pupils: PERRL - Respiratory Respiratory status: No respiratory distress Chest status: Nontender Breath sounds: Normal Chest palpation: Normal - Cardiovascular Rhythm: Regular Heart sounds: Normal auscultation Murmur: No - Abdominal Inspection: Normal Distension: No distension Bowel sounds: Normal Tenderness: Nontender Organomegaly: No organomegaly - Back Back: Normal, Nontender - Extremities General upper extremity: Normal inspection, Nontender, Normal color, Normal ROM, Normal temperature General lower extremity: Normal inspection, Nontender, Normal color, Normal ROM, Normal temperature, Normal weight bearing. No: Bonnie's sign - Neurological Neuro grossly intact: Yes Cognition: Normal Orientation: AAOx4 Judy Coma Scale Eye Opening: Spontaneous Judy Coma Scale Verbal: Oriented [place] Coma Scale Motor: Obeys Commands [place] Coma Scale Total: 15 Speech: Normal Motor strength normal: LUE, RUE, LLE, RLE Sensory: Normal - Psychological Associated symptoms: Normal affect, Normal mood - Skin Skin Temperature: Warm Skin Moisture: Dry Skin Color: Normal Location of irregularity: Generalized Character of irregularity: Urticarial Course - Re-evaluation Re-evalutation: 06/29/19 18:44 Discussed patient signs symptoms and her history. It was recommended that I give Lovenox tonight and send her home with 5 days doses until she can follow-up with her primary care doctor. I have written a prescription for Lovenox for 5 days. Patient will be discharged home with prescriptions for prednisone Pepcid Lovenox and Keflex. She also had a UTI we did a urine for the Lovenox protocol. Patient did not describe any symptoms of this UTI. It has been sent for culture also. Patient has verbalized understanding that she needs to follow-up with a primary care doctor tomorrow. - Vital Signs Vital signs: Temp Pulse Resp BP Pulse Ox 98.4 F 92 20 148/99 H 98 06/29/19 16:58 06/29/19 16:30 06/29/19 16:58 06/29/19 16:30 06/29/19 16:58 - Laboratory Laboratory results interpreted by me: 06/29/19 06/29/19 17:24 17:25 PT 16.1 H Urine Protein 30 H Urine Blood LARGE H Urine Urobilinogen 2.0 H Ur Leukocyte Esterase MODERATE H Discharge - Discharge Clinical Impression: Allergic urticaria UTI (urinary tract infection) Qualifiers: Urinary tract infection type: site unspecified Hematuria presence: with hematuria Qualified Code(s): N39.0 - Urinary tract infection, site not specified; R31.9 - Hematuria, unspecified Condition: Stable Disposition: HOME, SELF-CARE Additional Instructions: ACUTE ALLERGIC REACTION: Your symptoms are due to an allergic reaction. Allergy can cause hives, swelling of the hands, feet, and face, hoarseness, and difficulty swallowing or breathing. It may be due to exposure to medication, animal dander, foods, infection, or insect bites. Medication is a common cause, even when prior use of this same medication caused no problems. Acute treatment may include adrenalin and antihistamines. Usually, the specific allergic agent can't be identified unless repeated episodes occur. Home treatment includes the following: (1) Stop any suspicious medications. This will be discussed with you. (2) Oral antihistamines for the next four to five days. Example, diphenhydramine (Benadryl) every four hours. (3) You may also use cimetidine (Tagamet), ranitidine (Zantac), or famotidine (Pepcid) every four hours if diphenhydramine is not controlling itching and hives. (4) Avoid aspirin until the hives completely disappear. (5) Avoid hot baths or showers until the hives are completely gone. Call the doctor if faintness, difficulty swallowing, tightness in the chest, or wheezing occurs. URINARY TRACT INFECTION: Your evaluation indicates that you have a urinary tract infection. This is due to germs growing in the bladder. This is a common problem. This infection usually responds quickly to antibiotics. Your antibiotic should be taken exactly as prescribed. Drink plenty of fluids -- three to four quarts a day. Occasionally, a bladder anesthetic will be prescribed to help stop the feeling of urgency until the antibiotic has a chance to clear the infection. This may cause your urine to be dark orange. Certain urine infections require a culture. If the doctor obtained a culture, the results will be back in two days. You should call to see if a change in treatment is needed. A repeat urinalysis after you finish treatment is often recommended. The physician will let you know if further testing is required. Call the doctor if you develop fever, chills, flank pain, inability to urinate, or blood in the urine. CEPHALEXIN: The antibiotic you've been prescribed is a member of the cephalosporin class. This type of antibiotic covers a wide variety of infections, including those of the skin, lungs, and urinary tract. It's useful for staph infections. This antibiotic is slightly similar to the penicillin family. In rare cases, a person who is allergic to penicillin will also be allergic to this medication. If you have had a severe allergic reaction to penicillin, and have not taken this antibiotic since that time, notify your doctor. Antibiotics which cover many germs ("broad spectrum" antibiotics) are more likely to cause diarrhea or "yeast" infections. Women prone to vaginal yeast problems may suffer an attack after taking this antibiotic. In infants, oral thrush (white spots "stuck" on the cheek) or yeast diaper rash may result. See your doctor if these problems occur. Call at once if you develop itching, hives, shortness of breath, or lightheadedness. STEROID MEDICATION: You have been given a medicine of the cortisone/steroid class. This medication is used to control inflammation or allergy. It is usually only given for a short period of time, until the acute process subsides. There are usually no side effects from short-term use of cortisone-like medications. Some persons feel an increased sense of well-being and are not sleepy at bedtime. Long-term use of cortisone medications is best avoided, unless required for a severe condition. If your condition does not remit, or relapses after the course of corticosteroid medication, you should consult your physician. ACID-SUPPRESSING MEDICATION: You have a prescription for medicine which reduces the stomach's secretion of acid. Examples include Zantac, Tagament, and Pepcid. These drugs are often used to allow healing of ulcers or esophagitis. They may be needed to prevent recurrence of ulcers in some patients, or to prevent damage from acid reflux in the esophagus. Take all medication as prescribed, even after the pain is gone. Regular antacids may be added as needed if you have symptoms while taking this medicine. These medications sometimes are prescribed for allergic reactions because they have anti-histaminic effects and relieve the rash and itching of the reaction. There are usually no side effects from this medication. But, in rare cases and particularly in the elderly, serious problems can occur. Contact your doctor if there is fever, rash, hallucinations, confusion, or unusual bruising. Contact your doctor at once if you develop lightheadedness, black or bloody stool, or bloody vomitus. ANTIHISTAMINES: An antihistamine has been given and/or prescribed to control your symptoms. Antihistamines are used for many reasons, including itching, watering eyes, runny nose, allergic swelling, hives, and insect stings. Antihistamines may cause drowsiness, especially with the first dose. Do not operate machinery or drive while under the effects of the medication. Other common side effects include dry mouth and eyes. In older persons, antihistamines can occasionally cause urinary retention, constipation, and trouble focusing the eyes. Do not combine the medication with alcohol, or with any other medication without talking to your doctor. USE OF DIPHENHYDRAMINE: The use of diphenhydramine (Benadryl) has been recommended to control allergic symptoms. The 25 mg strength is available over- the-counter, as well as the elixir. This antihistamine is used for many symptoms. It's useful for itching, watering eyes and nose, allergic swelling, hives, and insect stings. The medication can be repeated four times daily. Age Elixir (12.5 mg/tsp) 25 mg pill 2-3 yr 1/2 tsp 4-8 yr 1 tsp 9-14 yr 2 tsp one tab adult 1-2 tabs Antihistamines may cause drowsiness, especially with the first dose. Do not operate machinery or drive while under the effects of the medication. Do not combine the medication with alcohol, or with any other medication without talking to your doctor. Due to the allergic reaction to the Eliquis you have been changed to Lovenox. You state you have had Lovenox in the past. You need to give you an injection of 40 mg daily until you follow-up with your primary care doctor and a right new prescriptions. I am giving you a prescription for 4 days worth. Please follow- up with your primary care doctor promptly. FOLLOW-UP CARE: If you have been referred to a physician for follow-up care, call the physicians office for an appointment as you were instructed or within the next two days. If you experience worsening or a significant change in your symptoms, notify the physician immediately or return to the Emergency Department at any time for re-evaluation. Prescriptions: Prednisone [Deltasone 20 mg Tablet] 3 tab PO DAILY 5 Days tablet Cephalexin Monohydrate [Keflex 500 mg Capsule] 500 mg PO Q6H 5 Days capsule Enoxaparin Sodium [Lovenox Inj 40 Mg/0.4 Ml Disp.Syrin] 40 mg SUBCUT DAILY #5 disp.syrin Famotidine [Pepcid 20 mg Tablet] 20 mg PO BID #12 tablet Forms: Elevated Blood Pressure Referrals: CHRISTY HERNANDEZ MD [COMMUNITY BASED STAFF] - Follow up as needed
[2019-06-29] MEDS ORDERED: ENOXAPARIN SODIUM INJ 40 MG/0.4 ML DISP.SYRIN SUBCUT SCH (17:30)
[2019-06-29 18:09] LABS: INTERNATIONAL RATION (INR) 1.28; PARTIAL THROMBOPLASTIN TIME 33.2 SEC (23.5-35.8); PROTHROMBIN TIME 16.1 SEC (11.4-15.4)
[2019-06-29 18:29] LABS: APPEARANCE,URINE CLOUDY; BILIRUBIN,URINE NEGATIVE (NEGATIVE); CALCIUM OXALATE CRYSTALS,URINE RARE /HPF; COLOR,URINE YELLOW; GLUCOSE, URINE NEGATIVE (NEGATIVE); KETONES,URINE NEGATIVE (NEGATIVE); LEUKOCYTE ESTERASE,URINE MODERATE (NEGATIVE); NITRITE,URINE NEGATIVE (NEGATIVE); PROTEIN,URINE 30 mg/dL (NEGATIVE); URINE SPECIFIC GRAVITY 1.024
[2019-06-29] MEDS ORDERED: CEPHALEXIN 500 MG CAPSULE PO ONE (18:44)
[2019-06-29 18:50] VITALS: BP 155/106
== END 2019-06-29 18:54 | disposition home or self-care (01) ==
LOC: ER 16:04
DX: N39.0 Urinary tract infection, site not specified (principal); L50.9 Urticaria, unspecified; R21 Rash and other nonspecific skin eruption; Z79.01 Long term (current) use of anticoagulants; I10 Essential (primary) hypertension; J45.909 Unspecified asthma, uncomplicated
CPT/HCPCS: 99283; 96372; 36415; 85610; 85730; 81001; J1650; J7512

== ENCOUNTER → 2019-07-01 | Outpatient (CLI) | payer BC ==
[2019-07-01 11:14] LABS: ABSOLUTE BASOPHILS # (AUTO) 0.1 10^3/uL (0.0-0.2); ABSOLUTE LYMPHOCYTES (AUTO) 1.2 10^3/uL (0.5-4.7); ABSOLUTE MONOCYTES (AUTO) 0.3 10^3/uL (0.1-1.4); ABSOLUTE NEUT (AUTO) 5.9 10^3/uL (1.7-8.2); BASOPHILS % (AUTO) 0.7 % (0-2); EOSINOPHILS % (AUTO) 0.4 % (0-6); LYMPHOCYTES % (AUTO) 15.6 % (13-45); MEAN CORPUSCULAR HEMOGLOBIN 24.5 pg (27.0-33.4); MEAN CORPUSCULAR HGB CONC 31.5 g/dL (32.0-36.0); MEAN CORPUSCULAR VOLUME 78 fl (80-97); MONOCYTES % (AUTO) 3.7 % (3-13); PLATELET COUNT 367 10^3/uL (150-450); RED CELL DISTRIBUTION WIDTH 19.3 % (11.5-14.0); SEGMENTED NEUTROPHILS % (AUTO) 79.6 % (42-78); TOTAL CELLS COUNTED % (AUTO) 100 %; WHITE BLOOD COUNT 7.5 10^3/uL (4.0-10.5)
[2019-07-01 11:44] LABS: ALBUMIN 3.9 g/dL (3.5-5.0); ALKALINE PHOSPHATASE 83 U/L (38-126); ANION GAP 13 (5-19); ASPARTATE AMINO TRANSFERASE 17 U/L (14-36); BILIRUBIN,DIRECT 0.1 mg/dL (0.0-0.4); BILIRUBIN,TOTAL 0.3 mg/dL (0.2-1.3); BLOOD UREA NITROGEN 17 mg/dL (7-20); CALCIUM 9.4 mg/dL (8.4-10.2); CARBON DIOXIDE 23 mmol/L (22-30); CHLORIDE 110 mmol/L (98-107); CHOLESTEROL 162.87 mg/dL (0-200); GLUCOSE 111 mg/dL (75-110); POTASSIUM 4.1 mmol/L (3.6-5.0); TOTAL PROTEIN 7.5 g/dL (6.3-8.2); TRIGLYCERIDES 85 mg/dL (<150)
[2019-07-01 11:55] LABS: DIRECT LDL 80 mg/dL (<100)
== END ==
LOC: LAB 10:48
PROVIDERS: ATTEND Pathology Anatomic Pathology & Clinical Pathology
DX: I82.401 Acute embolism and thrombosis of unspecified deep veins of right lower extremity (principal); M19.90 Unspecified osteoarthritis, unspecified site; E66.01 Morbid (severe) obesity due to excess calories
CPT/HCPCS: 36415; 80053; 80061; 84443; 85025

== ENCOUNTER 2019-08-04 14:04 | Emergency (ER) | payer BC ==
[2019-08-04] MEDS ORDERED: IPRATROPIUM/ALBUTEROL 0.5-2.5 MG/3 ML AMPUL NEB ONE (14:51)
--- NOTE | 2019-08-04 14:53 | ER Document Report ---
ED Medical Screen (RME) - General Stated Complaint: RESPIRATORY DISTRESS Time Seen by Provider: 08/04/19 14:44 Primary Care Provider: SIN HERNANDEZ MD [Primary Care Provider] - Follow up as needed Notes: Patient is a 43-year-old female with a past history of asthma when she was a child who presents emergency department with difficulty breathing. She has had difficulty breathing for the past days. 3 days ago she was seen in urgent care and she was given prednisone, Tessalon Perles, and an inhaler. She states that she is not any better. She admits to some chills, but denies any fever. Exam: Diminished breath sounds throughout. I have greeted and performed a rapid initial assessment of this patient. A comprehensive ED assessment and evaluation of the patient, analysis of test results and completion of medical decision making process will be conducted by an additional ED providers. TRAVEL OUTSIDE OF THE [place] IN LAST 30 DAYS: No - Related Data Allergies/Adverse Reactions: apixaban [From Eliquis] Allergy (Verified 08/04/19 14:44) doxycycline Allergy (Verified 08/04/19 14:44) sumatriptan [From Imitrex] Allergy (Verified 08/04/19 14:44) Past Medical History - Past Medical History Cardiac Medical History: Reports: Hx DVT, Hx Hypertension Denies: Hx Coronary Artery Disease, Hx Heart Attack Pulmonary Medical History: Reports: Hx Asthma, Hx Pneumonia Denies: Hx Bronchitis, Hx COPD, Hx Respiratory Failure Neurological Medical History: Reports: Hx Migraine. Denies: Hx Cerebrovascular Accident, Hx Seizures Endocrine Medical History: Reports: Hx Hypothyroidism - s/p partial thyroidectomy. Denies: Hx Diabetes Mellitus Type 1, Hx Diabetes Mellitus Type 2, Hx Hyperthyroidism Renal/ Medical History: Reports: Hx Kidney Stones. Denies: Hx Peritoneal Dialysis GI Medical History: Reports: Hx Gastroesophageal Reflux Disease. 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 Denies: Hx Hepatitis Past Surgical History: Reports: Hx Abdominal Surgery - gastric sleeve, Hx Bowel Surgery, Hx Cholecystectomy, Hx Gastric Bypass Surgery - Gastric sleeve, Hx Gynecologic Surgery, Hx Hysterectomy, Hx Thyroid Surgery, Other - Removal of the benign bowel tumor - Immunizations Hx Diphtheria, Pertussis, Tetanus Vaccination: Yes Physical Exam - Vital signs Vitals: Temp Pulse Resp BP Pulse Ox 98.5 F 91 20 158/103 H 100 08/04/19 14:40 08/04/19 14:40 08/04/19 14:40 08/04/19 14:40 08/04/19 14:40 Course - Vital Signs Vital signs: Temp Pulse Resp BP Pulse Ox 98.5 F 91 20 158/103 H 100 08/04/19 14:40 08/04/19 14:40 08/04/19 14:40 08/04/19 14:40 08/04/19 14:40 Doctor's Discharge - Discharge Referrals: SIN HERNANDEZ MD [Primary Care Provider] - Follow up as needed
[2019-08-04 15:47] LABS: VENOUS BLOOD BASE EXCESS -3.3 mmol/L; VENOUS BLOOD HCO3 23.8 mmol/L (20-32); VENOUS BLOOD PCO2 51.6 mmHg (35-63); VENOUS BLOOD PH 7.28 (7.30-7.42)
[2019-08-04 15:51] LABS: ABSOLUTE BASOPHILS # (AUTO) 0.1 10^3/uL (0.0-0.2); ABSOLUTE LYMPHOCYTES (AUTO) 2.2 10^3/uL (0.5-4.7); ABSOLUTE MONOCYTES (AUTO) 0.6 10^3/uL (0.1-1.4); ABSOLUTE NEUT (AUTO) 6.8 10^3/uL (1.7-8.2); BASOPHILS % (AUTO) 0.5 % (0-2); EOSINOPHILS % (AUTO) 0.2 % (0-6); HEMATOCRIT 37.9 % (36.0-47.0); HEMOGLOBIN 11.8 g/dL (12.0-15.5); LYMPHOCYTES % (AUTO) 22.6 % (13-45); MEAN CORPUSCULAR HEMOGLOBIN 24.5 pg (27.0-33.4); MEAN CORPUSCULAR HGB CONC 31.3 g/dL (32.0-36.0); MEAN CORPUSCULAR VOLUME 78 fl (80-97); MONOCYTES % (AUTO) 6.5 % (3-13); PLATELET COUNT 394 10^3/uL (150-450); RED BLOOD COUNT 4.84 10^6/uL (3.72-5.28); RED CELL DISTRIBUTION WIDTH 16.9 % (11.5-14.0); SEGMENTED NEUTROPHILS % (AUTO) 70.2 % (42-78); TOTAL CELLS COUNTED % (AUTO) 100 %; WHITE BLOOD COUNT 9.7 10^3/uL (4.0-10.5)
[2019-08-04 16:08] LABS: ALBUMIN 4.2 g/dL (3.5-5.0); ALKALINE PHOSPHATASE 91 U/L (38-126); ANION GAP 9 (5-19); ASPARTATE AMINO TRANSFERASE 16 U/L (14-36); BILIRUBIN,DIRECT 0.2 mg/dL (0.0-0.4); BILIRUBIN,TOTAL 0.2 mg/dL (0.2-1.3); BLOOD UREA NITROGEN 21 mg/dL (7-20); CALCIUM 9.4 mg/dL (8.4-10.2); CARBON DIOXIDE 24 mmol/L (22-30); CHLORIDE 111 mmol/L (98-107); GLUCOSE 120 mg/dL (75-110); POTASSIUM 4.2 mmol/L (3.6-5.0); TOTAL PROTEIN 7.9 g/dL (6.3-8.2)
[2019-08-04 16:24] LABS: A TYPE INFLUENZA AG NEGATIVE (NEGATIVE); B INFLUENZA AG NEGATIVE (NEGATIVE)
--- NOTE | 2019-08-04 16:24 | RADIOLOGY REPORT (SQ) ---
EXAM DESCRIPTION: CHEST SINGLE VIEW COMPLETED DATE/TIME: 08/04/2019 4:16 pm REASON FOR STUDY: cough COMPARISON: PA view of the chest from 12/29/2018. EXAM PARAMETERS: NUMBER OF VIEWS: One view. TECHNIQUE: An AP view of the chest was obtained. RADIATION DOSE: NA LIMITATIONS: None. FINDINGS: LUNGS AND PLEURA: No consolidation, pleural effusion or pneumothorax. MEDIASTINUM AND HILAR STRUCTURES: No mediastinal or hilar contour abnormality. HEART AND VASCULAR STRUCTURES: The cardiac silhouette and pulmonary vasculature are within normal mejias its. BONES: No acute findings. HARDWARE: None in the chest. OTHER: No other finding. IMPRESSION: No acute cardiopulmonary process. TECHNICAL DOCUMENTATION: JOB ID: [id number] [employer]- All Rights Reserved Reading location - IP/workstation name: [email or web address]
[2019-08-04] MEDS ORDERED: ALBUTEROL SULFATE 0.083% NEB 2.5 MG/3 ML AMPUL NEB ONE (18:29)
--- NOTE | 2019-08-04 20:17 | ER Document Report ---
ED Respiratory Problem - General Chief Complaint: Respiratory Distress Stated Complaint: RESPIRATORY DISTRESS Time Seen by Provider: 08/04/19 14:44 Primary Care Provider: SIN HERNANDEZ MD [Primary Care Provider] - Follow up as needed TRAVEL OUTSIDE OF THE [place].S[place] IN LAST 30 DAYS: No - HPI Onset: Other - 2 days ago Quality of pain: No pain Severity: Moderate Short of Breath: Moderate Cough: Nonproductive Notes: 43 year old female is here with complaints of mold exposure and cough that is nonproductive. Also raspy throat since Friday (3 days ago) and feels like it is due to exposure to mold. No fever. No chest pain. No leg pain or sts. - Related Data Allergies/Adverse Reactions: apixaban [From Eliquis] Allergy (Verified 08/04/19 14:44) doxycycline Allergy (Verified 08/04/19 14:44) sumatriptan [From Imitrex] Allergy (Verified 08/04/19 14:44) Home Medications: TESSALON PERLES, XARELTO, ASTHMA, GERD AND MORE. Past Medical History - Social History Smoking Status: Never Smoker Chew tobacco use (# tins/day): No Frequency of alcohol use: Occasional Drug Abuse: None Family History: CAD, Hypertension, Malignancy, Other - Lupus erythematosus. denies: DM Patient has suicidal ideation: No Patient has homicidal ideation: No - Past Medical History Cardiac Medical History: Reports: Hx DVT, Hx Hypertension Denies: Hx Coronary Artery Disease, Hx Heart Attack Pulmonary Medical History: Reports: Hx Asthma, Hx Pneumonia Denies: Hx Bronchitis, Hx COPD, Hx Respiratory Failure Neurological Medical History: Reports: Hx Migraine. Denies: Hx Cerebrovascular Accident, Hx Seizures Endocrine Medical History: Reports: Hx Hypothyroidism - s/p partial thyroidectomy. Denies: Hx Diabetes Mellitus Type 1, Hx Diabetes Mellitus Type 2, Hx Hyperthyroidism Renal/ Medical History: Reports: Hx Kidney Stones. Denies: Hx Peritoneal Dialysis GI Medical History: Reports: Hx Gastroesophageal Reflux Disease. 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 Denies: Hx Hepatitis Past Surgical History: Reports: Hx Abdominal Surgery - gastric sleeve, Hx Bowel Surgery, Hx Cholecystectomy, Hx Gastric Bypass Surgery - Gastric sleeve, Hx Gynecologic Surgery, Hx Hysterectomy, Hx Thyroid Surgery, Other - Removal of the benign bowel tumor - Immunizations Hx Diphtheria, Pertussis, Tetanus Vaccination: Yes Hx Pneumococcal Vaccination: 10/05/18 Review of Systems - Review of Systems Constitutional: No symptoms reported EENT: No symptoms reported Cardiovascular: No symptoms reported Respiratory: See HPI, Cough Gastrointestinal: No symptoms reported Genitourinary: No symptoms reported Female Genitourinary: No symptoms reported Musculoskeletal: No symptoms reported Skin: No symptoms reported Hematologic/Lymphatic: No symptoms reported Neurological/Psychological: No symptoms reported Physical Exam - Vital signs Vitals: Temp Pulse Resp BP Pulse Ox 98.5 F 91 20 158/103 H 100 08/04/19 14:38 08/04/19 14:38 08/04/19 14:38 08/04/19 14:38 08/04/19 14:38 Interpretation: Normal - General General appearance: Appears well, Alert - HEENT Head: Normocephalic, Atraumatic Eyes: Normal Pupils: PERRL - Respiratory Respiratory status: No respiratory distress Chest status: Nontender Breath sounds: Normal Chest palpation: Normal - Cardiovascular Rhythm: Regular Heart sounds: Normal auscultation Murmur: No - Abdominal Inspection: Normal Distension: No distension Bowel sounds: Normal Tenderness: Nontender Organomegaly: No organomegaly - Back Back: Normal, Nontender - Extremities General upper extremity: Normal inspection, Nontender, Normal color, Normal ROM, Normal temperature General lower extremity: Normal inspection, Nontender, Normal color, Normal ROM, Normal temperature, Normal weight bearing. No: Bonnie's sign - Neurological Neuro grossly intact: Yes Cognition: Normal Orientation: AAOx4 [place] Coma Scale Eye Opening: Spontaneous [place] Coma Scale Verbal: Oriented [place] Coma Scale Motor: Obeys Commands Judy Coma Scale Total: 15 Speech: Normal Motor strength normal: LUE, RUE, LLE, RLE Sensory: Normal - Psychological Associated symptoms: Normal affect, Normal mood - Skin Skin Temperature: Warm Skin Moisture: Dry Skin Color: Normal Course - Re-evaluation Re-evalutation: 08/04/19 20:14 MDM 43 year old feels as if she has developed resp illness after mold exposure. She feels better here after neb treatment. Further she has a follow up with her pcp tomorrow. She previously - about 2 years ago - had a DVT and currently takes eloquis. She has not missed any doses and has no leg pain like previously with leg clots and has no chest pain. - Vital Signs Vital signs: Temp Pulse Resp BP Pulse Ox 98.5 F 86 16 171/100 H 99 08/04/19 20:22 08/04/19 20:22 08/04/19 20:22 08/04/19 20:22 08/04/19 20:22 - Laboratory Result Diagrams: 08/04/19 15:35 08/04/19 15:35 Laboratory results interpreted by me: 08/04/19 08/04/19 08/04/19 15:35 15:35 15:35 Hgb 11.8 L MCV 78 L MCH 24.5 L MCHC 31.3 L RDW 16.9 H VBG pH 7.28 L Chloride 111 H BUN 21 H Est GFR ( Amer) 59 L Est GFR (MDRD) Non-Af 49 L Glucose 120 H - Diagnostic Test Radiology reviewed: Reports reviewed Discharge - Discharge Clinical Impression: Cough Asthma exacerbation Qualifiers: Asthma severity: moderate Asthma persistence: persistent Qualified Code(s): J45.41 - Moderate persistent asthma with (acute) exacerbation Condition: Good Disposition: HOME, SELF-CARE Instructions: Asthma ([facility]), Cough Suppressant & Expectorant Medications Additional Instructions: Keep your follow up with your doctor tomorrow. Rest. Take your medicine as directed. Please return here for any problems or any concerns. Prescriptions: Cephalexin Monohydrate [Keflex 500 mg Capsule] 500 mg PO TID #30 capsule Methylprednisolone [Medrol Dosepack (4 mg/Tab) 21 Tab/Dosepak] 4 mg PO ASDIR PRN #1 tab.ds.pk PRN Reason: Referrals: SIN HERNANDEZ MD [Primary Care Provider] - Follow up as needed
[2019-08-04 20:27] VITALS: BP 171/100
[2019-08-04] MEDS ORDERED: ACETAMINOPHEN 325 MG TABLET PO ONE (20:31)
--- NOTE | 2019-08-05 01:00 | EKG REPORT ---
SEVERITY:- NORMAL ECG - SINUS RHYTHM : Confirmed by: Fabiana Morris MD 05-Aug-2019 00:59:32
== END 2019-08-04 20:43 | disposition home or self-care (01) ==
LOC: ER 14:04
DX: J45.41 Moderate persistent asthma with (acute) exacerbation (principal); R05 Cough; E03.9 Hypothyroidism, unspecified; Z88.3 Allergy status to other anti-infective agents; Z79.01 Long term (current) use of anticoagulants; Z86.718 Personal history of other venous thrombosis and embolism; Z87.442 Personal history of urinary calculi; Z90.49 Acquired absence of other specified parts of digestive tract; Z98.84 Bariatric surgery status
CPT/HCPCS: 93005; 94640 ×2; 99285; 36415; 87070; 87880; 85025; 80053; 82803; 87804; 71045; 93010; J7620

== ENCOUNTER → 2019-08-26 | Outpatient (CLI) | payer BC ==
[2019-08-26 09:30] LABS: ABSOLUTE BASOPHILS # (AUTO) 0.1 10^3/uL (0.0-0.2); ABSOLUTE EOSINOPHILS # (AUTO) 0.2 10^3/uL (0.0-0.6); ABSOLUTE LYMPHOCYTES (AUTO) 1.7 10^3/uL (0.5-4.7); ABSOLUTE MONOCYTES (AUTO) 0.4 10^3/uL (0.1-1.4); ABSOLUTE NEUT (AUTO) 2.8 10^3/uL (1.7-8.2); EOSINOPHILS % (AUTO) 3.3 % (0-6); HEMATOCRIT 35.2 % (36.0-47.0); HEMOGLOBIN 11.1 g/dL (12.0-15.5); LYMPHOCYTES % (AUTO) 33.6 % (13-45); MEAN CORPUSCULAR HEMOGLOBIN 24.1 pg (27.0-33.4); MEAN CORPUSCULAR HGB CONC 31.4 g/dL (32.0-36.0); MEAN CORPUSCULAR VOLUME 77 fl (80-97); MONOCYTES % (AUTO) 7.9 % (3-13); PLATELET COUNT 373 10^3/uL (150-450); RED BLOOD COUNT 4.58 10^6/uL (3.72-5.28); RED CELL DISTRIBUTION WIDTH 16.7 % (11.5-14.0); SEGMENTED NEUTROPHILS % (AUTO) 54.2 % (42-78); TOTAL CELLS COUNTED % (AUTO) 100 %; WHITE BLOOD COUNT 5.2 10^3/uL (4.0-10.5)
--- NOTE | 2019-08-26 12:05 | RADIOLOGY REPORT (SQ) ---
EXAM DESCRIPTION: U/S ABDOMEN LIMITED W/O DOP COMPLETED DATE/TIME: 08/26/2019 9:13 am REASON FOR STUDY: UNSPEC ABDOMINAL PAIN R10.9 UNSPECIFIED ABDOMINAL PAIN COMPARISON: CT abdomen pelvis 01/01/2019, 01/10/2019, 03/20/2019 TECHNIQUE: Dynamic and static grayscale images acquired of the abdomen and recorded on PACS. Additio nal selected color Doppler and spectral images recorded. LIMITATIONS: Body habitus, midline bowel gas FINDINGS: PANCREAS: Not well seen LIVER: Difficult to penetrate with the ultrasound energy from fatty infiltration. No gross masses. No biliary ductal dilatation LIVER VASCULATURE: Normal directional flow of the main portal vein and hepatic veins. GALLBLADDER: Surgically absent ULTRASOUND-DETECTED KEARNS'S SIGN: Not applicable INTRAHEPATIC DUCTS AND COMMON DUCT: CBD and intrahepatic ducts normal caliber. No filling defects. INFERIOR VENA CAVA: Not well seen due to fatty liver AORTA: No aneurysm. RIGHT KIDNEY: 8 cm in length with a 1.4 cm right lower pole intrarenal nonobstructing shadowing ston e. PERITONEAL AND RIGHT PLEURAL SPACE: No ascites or effusions. OTHER: No other significant findings. IMPRESSION: Post cholecystectomy Fatty liver 14 mm right lower pole intrarenal nonobstructive kidney stone TECHNICAL DOCUMENTATION: JOB ID: [id number] [employer]- All Rights Reserved Reading location - IP/workstation name: [email or web address]
== END ==
LOC: RAD 08:22
PROVIDERS: ATTEND Family Medicine Geriatric Medicine
DX: R10.9 Unspecified abdominal pain (principal); D64.9 Anemia, unspecified; R73.9 Hyperglycemia, unspecified; Z79.899 Other long term (current) drug therapy
CPT/HCPCS: 36415; 76705; 82947; 82950; 83036; 84443; 85025

== ENCOUNTER → 2019-09-27 | Outpatient (CLI) | payer BC ==
[2019-09-27 16:28] LABS: A TYPE INFLUENZA AG NEGATIVE (NEGATIVE); B INFLUENZA AG NEGATIVE (NEGATIVE)
--- NOTE | 2019-09-27 16:50 | RADIOLOGY REPORT (SQ) ---
EXAM DESCRIPTION: CHEST PA/LATERAL COMPLETED DATE/TIME: 09/27/2019 4:21 pm REASON FOR STUDY: COUGH COMPARISON: 08/04/2019 EXAM PARAMETERS: NUMBER OF VIEWS: two views TECHNIQUE: Digital Frontal and Lateral radiographic views of the chest acquired. RADIATION DOSE: NA LIMITATIONS: none FINDINGS: LUNGS AND PLEURA: No opacities, masses or pneumothorax. No pleural effusion. MEDIASTINUM AND HILAR STRUCTURES: No masses or contour abnormalities. HEART AND VASCULAR STRUCTURES: Heart normal size. No evidence for failure. BONES: No acute findings. HARDWARE: None in the chest. OTHER: Obesity. IMPRESSION: No focal airspace disease or other evidence of acute intrathoracic process. TECHNICAL DOCUMENTATION: JOB ID: [id number] 2010 [employer]- All Rights Reserved Reading location - IP/workstation name: [email or web address]
== END ==
LOC: OD 15:43
PROVIDERS: ATTEND Family Medicine Geriatric Medicine
DX: J06.9 Acute upper respiratory infection, unspecified (principal); J02.9 Acute pharyngitis, unspecified; R05 Cough
CPT/HCPCS: 71046; 87070; 87804; 87880

== ENCOUNTER → 2019-12-02 | Outpatient (CLI) | payer BC ==
--- NOTE | 2019-12-02 09:36 | RADIOLOGY REPORT (SQ) ---
EXAM DESCRIPTION: CHEST 2 VIEWS IMAGES COMPLETED DATE/TIME: 12/02/2019 8:36 am REASON FOR STUDY: MORBID OBESITY (E66.01) COMPARISON: None. TECHNIQUE: Frontal and lateral radiographic views of the chest acquired. NUMBER OF VIEWS: Two view. LIMITATIONS: None. FINDINGS: LUNGS AND PLEURA: No opacities, masses or pneumothorax. No pleural effusion. MEDIASTINUM AND HILAR STRUCTURES: No masses or contour abnormalities. HEART AND VASCULAR STRUCTURES: Heart normal size. No evidence for failure. BONES: No acute findings. HARDWARE: None in the chest. OTHER: No other significant finding. IMPRESSION: NO SIGNIFICANT RADIOGRAPHIC FINDING IN THE CHEST. TECHNICAL DOCUMENTATION: JOB ID: [id number] 2010 [employer] All Rights Reserved Reading location - IP/workstation name: [email or web address]
--- NOTE | 2019-12-02 12:22 | RADIOLOGY REPORT (SQ) ---
EXAM DESCRIPTION: U/S ABDOMEN LIMITED W/O DOP IMAGES COMPLETED DATE/TIME: 12/02/2019 9:28 am REASON FOR STUDY: MORBID OBESITY (E66.01) E66.01 MORBID (SEVERE) OBESITY DUE TO EXCESS CALORIES COMPARISON: 08/28/2019 TECHNIQUE: Dynamic and static grayscale images acquired of the abdomen and recorded on PACS. Additio nal selected color Doppler and spectral images recorded. LIMITATIONS: The examination is limited due to the patient's body habitus and overlying bowel gas. FINDINGS: PANCREAS: The head is of normal echogenicity. The body and tail are obscured by overlyin g bowel gas. LIVER: Fatty liver. The liver measures 20.5 cm in length, hepatomegaly. LIVER VASCULATURE: Normal directional flow of the main portal vein and hepatic veins. GALLBLADDER: Prior cholecystectomy. ULTRASOUND-DETECTED KEARNS'S SIGN: Negative. INTRAHEPATIC DUCTS AND COMMON DUCT: CBD measures 5.9 mm in diameter, normal size. The intrahepatic ducts normal caliber. No filling defects. INFERIOR VENA CAVA: Normal flow. AORTA: The proximal and mid segments are patent. The distal segment is obscured by overlying bowel gas. RIGHT KIDNEY: The right kidney measures 8.7 cm in length, normal size. Normal echogenicity. Stable appearance to the nonobstructing calculus in the lower pole of the kidney. PERITONEAL AND RIGHT PLEURAL SPACE: No ascites or effusions. OTHER: No other significant findings. IMPRESSION: 1. The examination is limited due to the patient's body habitus and overlying bowel gas . The head and body of the pancreas and the distal segment of the abdominal aorta are obscured by ov erlying bowel gas. 2. Stable appearance to the nonobstructing calculus in the lower pole of the right kidney. 3. Fatty liver. Hepatomegaly. TECHNICAL DOCUMENTATION: JOB ID: [id number] 2010 [employer]- All Rights Reserved Reading location - IP/workstation name: [email or web address]
== END ==
LOC: RAD 08:11
PROVIDERS: ATTEND Surgery
DX: E66.01 Morbid (severe) obesity due to excess calories (principal); N20.0 Calculus of kidney; K76.0 Fatty (change of) liver, not elsewhere classified; R16.0 Hepatomegaly, not elsewhere classified
CPT/HCPCS: 71046; 76705

== ENCOUNTER 2020-03-14 14:33 | Emergency (ER) | payer BC ==
[2020-03-14] MEDS ORDERED: DIPHENHYDRAMINE HCL 50 MG/ML VIAL IV ONE (15:31)
[2020-03-14] MEDS ORDERED: PROCHLORPERAZINE EDISYLATE INJ 10 MG/2 ML VIAL IV ONE (15:31)
[2020-03-14] MEDS ORDERED: KETOROLAC TROMETHAMINE INJ/PF 30 MG/1 ML SDV IV ONE (15:31)
[2020-03-14] MEDS ORDERED: NORMAL SALINE 1000 ML 1,000 ML IV ONE (15:32)
--- NOTE | 2020-03-14 15:36 | ER Document Report ---
ED General - General Chief Complaint: Headache Stated Complaint: HEADACHE,NAUSEA,LIGHTHEADED Primary Care Provider: CHRISTY HERNANDEZ MD [Primary Care Provider] - Follow up as needed Notes: Patient is a 44-year-old -[place] female with a history of pseudotumor cerebri and morbid obesity who presents to the emergency department the chief complaint of headache. She states this started about 3 weeks ago. She states that is largely persisted over the 3-week span. She states she is tried Tylenol and ibuprofen at home as well as cold rags on the head. She states they helped to some degree but the headache never fully goes away. She states the headache was gradual in onset. Affects the top of the head at the area just anterior to the crown and involves the bilateral occiput and proximal neck. Denies any radiation of pain. States is an underlying ache. She was seeing neurology previously and was started on topiramate. She states she moved to [place] did not reestablish with a neurologist but has since moved back here. She was seeing someone in [place] but has not seen them since. She states in the past and has not been unusual for her to require lumbar puncture to relieve the pressure and headache. She denies any fever, chills or night sweats. No chest pain or shortness of breath. No recent travel or known sick contacts. No other coryza. TRAVEL OUTSIDE OF THE [place] IN LAST 30 DAYS: No - Related Data Allergies/Adverse Reactions: apixaban [From Eliquis] Allergy (Verified 03/14/20 15:11) doxycycline Allergy (Verified 03/14/20 15:11) sumatriptan [From Imitrex] Allergy (Verified 03/14/20 15:11) Home Medications: nexium, toprimat, xarrelto Past Medical History - Social History Smoking Status: Never Smoker Family History: CAD, Hypertension, Malignancy, Other - Past Medical History Cardiac Medical History: Reports: Hx DVT, Hx Hypertension Denies: Hx Coronary Artery Disease, Hx Heart Attack Pulmonary Medical History: Reports: Hx Asthma, Hx Pneumonia Denies: Hx Bronchitis, Hx COPD, Hx Respiratory Failure Neurological Medical History: Reports: Hx Migraine. Denies: Hx Cerebrovascular Accident, Hx Seizures Endocrine Medical History: Reports: Hx Hypothyroidism - s/p partial thyroidectomy. Denies: Hx Diabetes Mellitus Type 1, Hx Diabetes Mellitus Type 2, Hx Hyperthyroidism Renal/ Medical History: Reports: Hx Kidney Stones. Denies: Hx Peritoneal Dialysis GI Medical History: Reports: Hx Gastroesophageal Reflux Disease. 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 Denies: Hx Hepatitis Past Surgical History: Reports: Hx Abdominal Surgery - gastric sleeve, Hx Bowel Surgery, Hx Cholecystectomy, Hx Gastric Bypass Surgery - Gastric sleeve, Hx Gynecologic Surgery, Hx Hysterectomy, Hx Thyroid Surgery, Other - Removal of the benign bowel tumor - Immunizations Hx Diphtheria, Pertussis, Tetanus Vaccination: Yes Hx Pneumococcal Vaccination: 10/05/18 Review of Systems - Review of Systems Constitutional: denies: Fever EENT: Other - Photophobia Cardiovascular: denies: Chest pain Respiratory: denies: Short of breath Gastrointestinal: denies: Abdominal pain Genitourinary: denies: Pain Female Genitourinary: denies: Vaginal discharge Musculoskeletal: denies: Back pain Skin: denies: Change in color Hematologic/Lymphatic: denies: Easy bruising Neurological/Psychological: Headaches Physical Exam - Vital signs Vitals: Temp Pulse Resp BP Pulse Ox 98.6 F 95 18 155/93 H 98 03/14/20 14:56 03/14/20 14:56 03/14/20 14:56 03/14/20 14:56 03/14/20 14:56 - General General appearance: Appears well, Alert In distress: None - HEENT Head: Normocephalic, Atraumatic, Tenderness - Tender to palpation to the occiput and top of the scalp Eyes: Other - Exotropia noted Conjunctiva: Normal Extraocular movements intact: Yes Eyelashes: Normal Pupils: PERRL Ears: Normal External canal: Normal Tympanic membrane: Normal Nasal: Normal Mouth/Lips: Normal Mucous membranes: Normal Pharynx: Normal Neck: Normal, Supple. No: Brudzinski, Kernig's, Meningismus - Respiratory Respiratory status: No respiratory distress Chest status: Nontender Breath sounds: Normal Chest palpation: Normal - Cardiovascular Rhythm: Regular Heart sounds: Normal auscultation - Neurological Neuro grossly intact: Yes Cognition: Normal Orientation: AAOx4 [place] Coma Scale Eye Opening: Spontaneous Judy Coma Scale Verbal: Oriented Judy Coma Scale Motor: Obeys Commands Judy Coma Scale Total: 15 Speech: Normal Cranial nerves: Normal Cerebellar coordination: Normal Motor strength normal: LUE, RUE, LLE, RLE Additional motor exam normals: Equal nutritional services cook. No: Pronator drift, Weakness Sensory: Normal - Psychological Associated symptoms: Normal affect, Normal mood - Skin Skin Temperature: Warm Skin Moisture: Dry Skin Color: Normal Course - Re-evaluation Re-evalutation: 03/14/20 17:03 Reevaluation of the patient at this time. We have started to set up for lumbar puncture to drain CSF to relieve pressure. She states that the medication administration we gave her has completely resolved the headache. She does not wish to undergo LP at this time. She was in the past supposed to be set up for a AERIAL GUNNER shunt. She will be referred back to neurology to reestablish her care and for possible consideration of placement of a AERIAL GUNNER shunt. At this point she could not tolerate a slit-lamp exam upon arrival so I was unable to assess for any papilledema or loss of venous pulsations. Given her history, physical and presentation strongly suspect this is in relation to the intracranial hypertension/pseudotumor cerebri that she has at baseline. However given that she is currently without headache, completely resolved and declining LP feel is appropriate for discharge and outpatient follow-up. I counseled her regarding the importance of follow-up and advised she return here or any ER immediately with any new, persistent or worsening symptoms. She verbalized understood and agreed. - Vital Signs Vital signs: Temp Pulse Resp BP Pulse Ox 98.6 F 95 18 155/93 H 98 03/14/20 14:56 03/14/20 14:56 03/14/20 14:56 03/14/20 14:56 03/14/20 14:56 Discharge - Discharge Clinical Impression: History of idiopathic intracranial hypertension Headache Qualifiers: Headache type: unspecified Headache chronicity pattern: unspecified pattern Intractability: not intractable Qualified Code(s): R51 - Headache Condition: Stable Disposition: HOME, SELF-CARE Instructions: Headache ([facility]) Additional Instructions: Please follow-up with the neurologist as soon as possible for continued care management. Please return here or any ER immediately with any new, persistent or worsening symptoms. Referrals: CHRISTY HERNANDEZ MD [Primary Care Provider] - Follow up as needed JUNAID LEYVA MD [NO LOCAL MD] - Follow up as needed
[2020-03-14] MEDS ORDERED: LIDOCAINE 1% INJ-PF (10 MG/ML) 30 ML SDV INJ ONE (16:47)
[2020-03-14] MEDS ORDERED: MIDAZOLAM 2 MG/2 ML INJ IV ONE (16:48)
[2020-03-14 17:26] VITALS: BP 145/105
== END 2020-03-14 17:36 | disposition home or self-care (01) ==
LOC: ER 14:33
DX: R51 Headache (principal); R11.0 Nausea; R42 Dizziness and giddiness; E66.01 Morbid (severe) obesity due to excess calories; Z88.8 Allergy status to other drugs, medicaments and biological substances; Z79.899 Other long term (current) drug therapy; I10 Essential (primary) hypertension; J45.909 Unspecified asthma, uncomplicated
CPT/HCPCS: 99284; 96361; 96374; 96375; J1200; J1885; J0780; J7030

== ENCOUNTER 2020-05-28 16:58 | Emergency (ER) | payer BC ==
--- NOTE | 2020-05-28 17:44 | ER Document Report ---
ED Medical Screen (RME) - General Stated Complaint: SIDE,BACK PAIN Time Seen by Provider: 05/28/20 17:28 Primary Care Provider: CHRISTY HERNANDEZ MD [Primary Care Provider] - Follow up as needed TRAVEL OUTSIDE OF THE [place] IN LAST 30 DAYS: No - HPI Notes: Patient is a 44 y/o female with a hx of right kidney stent and DVTs who presents with right-sided abdominal pain that radiates to her right flank. She states her pain began two weeks ago but worsened last night. She also reports left- sided chest pain that came on yesterday and lasted for about an hour. She denies shortness of breath, dysuria, nausea, vomiting, diarrhea, hematuria and fever. Patient currently takes Xarelto. - Related Data Allergies/Adverse Reactions: apixaban [From Eliquis] Allergy (Verified 03/14/20 15:11) doxycycline Allergy (Verified 03/14/20 15:11) sumatriptan [From Imitrex] Allergy (Verified 03/14/20 15:11) Past Medical History - Past Medical History Cardiac Medical History: Reports: Hx DVT, Hx Hypertension Denies: Hx Coronary Artery Disease, Hx Heart Attack Pulmonary Medical History: Reports: Hx Asthma, Hx Pneumonia Denies: Hx Bronchitis, Hx COPD, Hx Respiratory Failure Neurological Medical History: Reports: Hx Migraine. Denies: Hx Cerebrovascular Accident, Hx Seizures Endocrine Medical History: Reports: Hx Hypothyroidism - s/p partial thyroidectomy. Denies: Hx Diabetes Mellitus Type 1, Hx Diabetes Mellitus Type 2, Hx Hyperthyroidism Renal/ Medical History: Reports: Hx Kidney Stones. Denies: Hx Peritoneal Dialysis GI Medical History: Reports: Hx Gastroesophageal Reflux Disease. 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 Denies: Hx Hepatitis Past Surgical History: Reports: Hx Abdominal Surgery - gastric sleeve, Hx Bowel Surgery, Hx Cholecystectomy, Hx Gastric Bypass Surgery - Gastric sleeve, Hx Gynecologic Surgery, Hx Hysterectomy, Hx Thyroid Surgery, Other - Removal of the benign bowel tumor - Immunizations Hx Diphtheria, Pertussis, Tetanus Vaccination: Yes Physical Exam - Vital signs Vitals: Temp Pulse Resp BP Pulse Ox 98.8 F 89 18 149/87 H 100 05/28/20 17:09 05/28/20 17:09 05/28/20 17:05/28/20 17:05/28/20 17:09 - Respiratory Respiratory status: No respiratory distress Breath sounds: Normal - Cardiovascular Rhythm: Regular Heart sounds: Normal auscultation - Abdominal Inspection: Obese Bowel sounds: Normal Tenderness: Tender - Right side, Other - No CVA tenderness Course - Re-evaluation Re-evalutation: I have greeted and performed a rapid initial assessment of this patient. A comprehensive ED assessment and evaluation of the patient, analysis of test results and completion of medical decision making process will be conducted by an additional ED providers. - Vital Signs Vital signs: Temp Pulse Resp BP Pulse Ox 98.8 F 89 18 149/87 H 100 05/28/20 17:09 05/28/20 17:09 05/28/20 17:05/28/20 17:09 05/28/20 17:09 Doctor's Discharge - Discharge Referrals: CHRISTY HERNANDEZ MD [Primary Care Provider] - Follow up as needed
--- NOTE | 2020-05-28 18:11 | EKG REPORT ---
SEVERITY:- ABNORMAL ECG - SINUS OR ECTOPIC ATRIAL RHYTHM BORDERLINE LEFT AXIS DEVIATION NONSPECIFIC T ABNORMALITIES, LATERAL LEADS : Confirmed by: Reyes Gonzalez MD 28-May-2020 18:10:42
[2020-05-28] MEDS ORDERED: MORPHINE SULFATE 10 MG/ML INJ IV ONE (18:33)
[2020-05-28] MEDS ORDERED: NORMAL SALINE 1000 ML 1,000 ML IV ONE (18:33)
[2020-05-28] MEDS ORDERED: ONDANSETRON HCL INJ/PF 4 MG/2 ML SDV IV ONE (18:33)
[2020-05-28 18:34] LABS: APPEARANCE,URINE CLOUDY; BILIRUBIN,URINE NEGATIVE (NEGATIVE); CALCIUM OXALATE CRYSTALS,URINE RARE /HPF; COLOR,URINE YELLOW; GLUCOSE, URINE NEGATIVE (NEGATIVE); KETONES,URINE NEGATIVE (NEGATIVE); LEUKOCYTE ESTERASE,URINE MODERATE (NEGATIVE); NITRITE,URINE NEGATIVE (NEGATIVE); PROTEIN,URINE 30 mg/dL (NEGATIVE); URINE SPECIFIC GRAVITY 1.024
[2020-05-28] MEDS ORDERED: CEFTRIAXONE INJ 1000 MG VIAL IV ONE (18:39)
--- NOTE | 2020-05-28 18:41 | RADIOLOGY REPORT (SQ) ---
EXAM DESCRIPTION: CT ABD/PELVIS NO ORAL OR IV IMAGES COMPLETED DATE/TIME: 05/28/2020 6:10 pm REASON FOR STUDY: abdominal pain COMPARISON: CT abdomen and pelvis 03/20/2019, 01/10/2019 TECHNIQUE: CT scan of the abdomen and pelvis performed without intravenous or oral contrast. Images reviewed with lung, soft tissue, and bone windows. Reconstructed coronal and sagittal MPR images revi ewed. All images stored on PACS. All CT scanners at this facility use dose modulation, iterative reconstruction, and/or weight based d osing when appropriate to reduce radiation dose to as low as reasonably achievable (ALARA). [facility]: Dose Right [facility]: CareDose [facility]: Dose Right [facility]: Teradose 4D [facility]: [employer] RADIATION DOSE: CT Rad equipment meets quality standard of care and radiation dose reduction techniq ues were employed. CTDIvol: 27.2 mGy. DLP: 1674 mGy-cm.mGy. LIMITATIONS: None. FINDINGS: LOWER CHEST: No consolidation or pleural effusion. There is a small hiatal hernia. NON-CONTRASTED LIVER, SPLEEN, ADRENALS: Evaluation limited by lack of IV contrast. No identified sign ificant masses. The liver is enlarged measuring 21.9 cm in craniocaudal diameter. PANCREAS: No peripancreatic inflammatory changes. GALLBLADDER: Surgically absent. RIGHT KIDNEY AND URETER: Assessment for masses limited by lack of IV contrast. There is an 8 mm (52 3 Hounsfield units) nonobstructing calculus at the right kidney. No hydronephrosis or hydroureter. LEFT KIDNEY AND URETER: Assessment for masses limited by lack of IV contrast. No significant calcif ications. No hydronephrosis or hydroureter. AORTA AND RETROPERITONEUM: No abdominal aortic aneurysm. No retroperitoneal masses or hemorrhage. Th ere is an infrarenal IVC filter with the struts extending outside of the vessel lumen. BOWEL AND PERITONEAL CAVITY: Postsurgical changes are noted at the stomach. No dilated bowel loops o r inflammatory changes. No free fluid. There is colonic diverticulosis with no CT evidence for acute diverticulitis. APPENDIX: Surgically absent. PELVIS, BLADDER, AND ABDOMINAL WALL:No pelvic mass. No free fluid. Bladder decompressed. Postsurgica l changes are noted at the anterior abdominal wall. There is a small ventral hernia with a small bow el loop protruding into the hernia defect. Small areas of increased density within the anterior abdo graham wall, may be secondary to subcutaneous injection administration. BONES: Degenerative changes at the spine. IMPRESSION: 1. Nonobstructing right nephrolithiasis. No hydronephrosis. 2. Small ventral hernia with a small bowel loop protruding into the hernia defect. No evidence for bowel obstruction. 3. Small hiatal hernia. 4. Colonic diverticulosis. 5. Hepatomegaly. 6. IVC filter with the struts extending outside of the vessel lumen. COMMENT: Quality ID # [id number]: Final reports with documentation of one or more dose reduction techniques (e.g., Automated exposure control, adjustment of the mA and/or kV according to patient size, use of iterative reconstruction technique) TECHNICAL DOCUMENTATION: JOB ID: [id number] 2010 [employer]- All Rights Reserved Reading location - IP/workstation name: [email or web address]
--- NOTE | 2020-05-28 18:59 | RADIOLOGY REPORT (SQ) ---
EXAM DESCRIPTION: CHEST SINGLE VIEW IMAGES COMPLETED DATE/TIME: 05/28/2020 6:14 pm REASON FOR STUDY: abdominal pain COMPARISON: Chest x-ray 12/02/2019, 09/27/2019. EXAM PARAMETERS: NUMBER OF VIEWS: One view. TECHNIQUE: Single frontal radiographic view of the chest acquired. RADIATION DOSE: NA LIMITATIONS: None. FINDINGS: LUNGS AND PLEURA: No consolidation, pneumothorax or pleural effusion. MEDIASTINUM AND HILAR STRUCTURES: No masses. Contour normal. HEART AND VASCULAR STRUCTURES: Heart normal in size. Normal vasculature. BONES: No acute findings. HARDWARE: None in the chest. IMPRESSION: No acute radiographic finding in the chest. TECHNICAL DOCUMENTATION: JOB ID: [id number] 2010 [employer]- All Rights Reserved Reading location - IP/workstation name: [email or web address]
[2020-05-28 19:20] LABS: ABSOLUTE EOSINOPHILS # (AUTO) 0.1 10^3/uL (0.0-0.6); ABSOLUTE LYMPHOCYTES (AUTO) 2.6 10^3/uL (0.5-4.7); ABSOLUTE MONOCYTES (AUTO) 0.6 10^3/uL (0.1-1.4); ABSOLUTE NEUT (AUTO) 4.7 10^3/uL (1.7-8.2); BASOPHILS % (AUTO) 0.5 % (0-2); EOSINOPHILS % (AUTO) 1.7 % (0-6); HEMATOCRIT 31.7 % (36.0-47.0); HEMOGLOBIN 10.1 g/dL (12.0-15.5); LYMPHOCYTES % (AUTO) 32.4 % (13-45); MEAN CORPUSCULAR HEMOGLOBIN 24.7 pg (27.0-33.4); MEAN CORPUSCULAR HGB CONC 31.9 g/dL (32.0-36.0); MEAN CORPUSCULAR VOLUME 78 fl (80-97); MONOCYTES % (AUTO) 7.8 % (3-13); PLATELET COUNT 281 10^3/uL (150-450); RED BLOOD COUNT 4.09 10^6/uL (3.72-5.28); SEGMENTED NEUTROPHILS % (AUTO) 57.6 % (42-78); TOTAL CELLS COUNTED % (AUTO) 100 %; WHITE BLOOD COUNT 8.1 10^3/uL (4.0-10.5)
[2020-05-28 19:44] LABS: ALBUMIN 3.6 g/dL (3.5-5.0); ALKALINE PHOSPHATASE 80 U/L (38-126); ANION GAP 6 (5-19); ASPARTATE AMINO TRANSFERASE 21 U/L (14-36); BILIRUBIN,DIRECT 0.1 mg/dL (0.0-0.4); BILIRUBIN,TOTAL 0.2 mg/dL (0.2-1.3); BLOOD UREA NITROGEN 14 mg/dL (7-20); CALCIUM 9.1 mg/dL (8.4-10.2); CARBON DIOXIDE 26 mmol/L (22-30); CHLORIDE 110 mmol/L (98-107); GLUCOSE 98 mg/dL (75-110); TOTAL PROTEIN 6.4 g/dL (6.3-8.2)
[2020-05-28] MEDS ORDERED: HYDROMORPHONE HCL INJ/PF 2 MG/ML AMPULE IV ONE (20:18)
--- NOTE | 2020-05-28 20:19 | ER Document Report ---
ED GI/ - General TRAVEL OUTSIDE OF THE [place] IN LAST 30 DAYS: No <DIVYA RODRIGUEZ - Last Filed: 05/28/20 20:24> <ADELA TIDWELL - Last Filed: 05/28/20 20:55> - General Chief Complaint: Flank Pain Stated Complaint: SIDE,BACK PAIN Time Seen by Provider: 05/28/20 17:28 Primary Care Provider: CHRISTY HERNANDEZ MD [Primary Care Provider] - Follow up as needed Notes: Patient is a 44-year-old female who presents to the emergency department with a chief complaint of right-sided abdominal pain and flank pain that started roughly about 3 weeks ago. Patient states that the pain goes from her abdomen to her flank area and down to her groin area. Patient has history of blood clots and is currently on Xarelto. Patient states that she feels nauseous. States that she is having normal bowel movements. (DIVYA RODRIGUEZ) - Related Data Allergies/Adverse Reactions: apixaban [From Eliquis] Allergy (Verified 03/14/20 15:11) doxycycline Allergy (Verified 03/14/20 15:11) sumatriptan [From Imitrex] Allergy (Verified 03/14/20 15:11) Past Medical History - Social History Smoking Status: Unknown if Ever Smoked Family History: CAD, Hypertension, Malignancy, Other - Past Medical History Cardiac Medical History: Reports: Hx DVT, Hx Hypertension Denies: Hx Coronary Artery Disease, Hx Heart Attack Pulmonary Medical History: Reports: Hx Asthma, Hx Pneumonia Denies: Hx Bronchitis, Hx COPD, Hx Respiratory Failure Neurological Medical History: Reports: Hx Migraine. Denies: Hx Cerebrovascular Accident, Hx Seizures Endocrine Medical History: Reports: Hx Hypothyroidism - s/p partial thyroidectomy. Denies: Hx Diabetes Mellitus Type 1, Hx Diabetes Mellitus Type 2, Hx Hyperthyroidism Renal/ Medical History: Reports: Hx Kidney Stones. Denies: Hx Peritoneal Dialysis GI Medical History: Reports: Hx Gastroesophageal Reflux Disease. 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 Denies: Hx Hepatitis Past Surgical History: Reports: Hx Abdominal Surgery - gastric sleeve, Hx Bowel Surgery, Hx Cholecystectomy, Hx Gastric Bypass Surgery - Gastric sleeve, Hx Gynecologic Surgery, Hx Hysterectomy, Hx Thyroid Surgery, Other - Removal of the benign bowel tumor - Immunizations Hx Diphtheria, Pertussis, Tetanus Vaccination: Yes Hx Pneumococcal Vaccination: 10/05/18 <DIVYA RODRIGUEZ - Last Filed: 05/28/20 20:24> Review of Systems <DIVYA RODRIGUEZ - Last Filed: 05/28/20 20:24> - Review of Systems Notes: REVIEW OF SYSTEMS: CONSTITUTIONAL : Denies recent illness. Denies recent unintentional weight loss. Denies fever, chills, or sweats. EENT: Denies eye, ear, throat, or mouth pain, discharge, or symptoms. Denies nasal or sinus congestion. CARDIOVASCULAR: Denies chest pain. RESPIRATORY: Denies shortness of breath, cough, congestion, difficulty breath ing, or wheezing. GASTROINTESTINAL: See HPI. GENITOURINARY: See HPI. MUSCULOSKELETAL: Denies neck and back pain. Denies joint pain or swelling. SKIN: Denies rash, itchiness, or lesions HEMATOLOGIC : Denies easy bruising or bleeding. LYMPHATIC: Denies swollen, painful, enlarged glands. NEUROLOGICAL: Denies no numbness or tingling denies weakness. Denies headache. Denies altered mental status. Denies alteration in speech. PSYCHIATRIC: Denies stress, anxiety, alteration in sleep patterns, or depression. All other systems reviewed and negative. (DIVYA RODRIGUEZ) Physical Exam <DIVYA RODRIGUEZ - Last Filed: 05/28/20 20:24> - Vital signs Vitals: Temp Pulse Resp BP Pulse Ox 98.8 F 89 18 149/87 H 100 05/28/20 17:09 05/28/20 17:09 05/28/20 17:09 05/28/20 17:09 05/28/20 17:09 - Notes Notes: PHYSICAL EXAMINATION: GENERAL: Appears obese, no acute distress. HEAD: Normocephalic, atraumatic. EYES: PERRL, conjunctiva normal, all extraocular movements intact, sclera nonicteric ENT: Moist mucous membranes. NECK: Supple, no noticeable swelling, redness, rash. Normal range of motion. LUNGS: Equal breath sounds bilaterally and clear to auscultation. No wheezes rales or rhonchi. CARDIOVASCULAR: S1-S2, regular rate, regular rhythm. Radial pulses 2+, normal. ABDOMEN: Normoactive bowel sounds. Soft, right lateral abdomen, no guarding, no rebound tenderness, and no masses palpated. EXTREMITIES: Normal strength and range of motion, no pitting or edema. No cyanosis. NEUROLOGICAL: Moves all extremities upon command. Strength 5/5 in all extremities. PSYCH: Normal mood, normal affect. SKIN: Warm, dry. No rash, lesions, ulcerations noted. Normal skin turgor. BACK: Right CVA tendernss. (DIVYA RODRIGUEZ) Course - Laboratory Result Diagrams: 05/28/20 19:04 05/28/20 19:04 <DIVYA RODRIGUEZ - Last Filed: 05/28/20 20:24> - Laboratory Result Diagrams: 05/28/20 19:04 05/28/20 19:04 - Diagnostic Test Radiology reviewed: Image reviewed, Reports reviewed <ADELA TIDWELL - Last Filed: 05/28/20 20:55> - Re-evaluation Re-evalutation: 05/28/20 20:22 Hematology shows a hemoglobin of 10.1. This is the patient's normal. Chemistries are unremarkable. Lipase is normal. hCG is negative. Troponin is negative. Patient has a moderate amount of leukocytes and large amount of blood in her urine. Patient was started on Rocephin. CT shows the IVC filter with stents extending outside the vessel lumen. Discussed this with Dr. Garcia, who recommends that we speak with the radiologist. Patient also has a ventral hernia, which she already knows about. Patient also has diverticulosis. No diverticulitis noted. (DIVYA RODRIGUEZ) 05/28/20 20:53 I assumed care of the patient from nurse practitioner Divya Rodriguez. There was a reading on her CT scan for her IVC after having a stretch coming out of the vessel lumen. I called the radiologist Dr. Reyes Chaudhary and we discussed the finding. He did have a comparison and he states that this is stable and a very common finding. He states I do not need to do anything further for investigation of it. Divya and I rounded on this patient and she definitely has a pyelonephritis. We will send a urine culture and also start the patient on 10-day course of Cipro. She does not appear to be septic from this. It is of note that she has had VRE in her urine before and has required PICC line with IV fluids. At that time she was septic. Hopeful that with the urine culture the Cipro will give her good coverage. However I have told her that we will call her if Cipro is not a good match or we need to try another therapy. Will send home with pain medicine, antiemetics, antibiotics, Diflucan to prevent yeast. Patient agrees with the plan. I have urged her to return if any worsening symptoms at all. (ADELA TIDWELL) - Vital Signs Vital signs: Temp Pulse Resp BP Pulse Ox 98.8 F 89 18 149/87 H 100 05/28/20 17:09 05/28/20 17:09 05/28/20 17:09 05/28/20 17:09 05/28/20 17:09 - Laboratory Laboratory results interpreted by me: 05/28/20 05/28/20 05/28/20 17:45 19:04 19:04 Hgb 10.1 L Hct 31.7 L MCV 78 L MCH 24.7 L MCHC 31.9 L RDW 16.0 H Chloride 110 H Urine Protein 30 H Urine Blood LARGE H Urine Urobilinogen 2.0 H Ur Leukocyte Esterase MODERATE H Discharge <DIVYA RODRIGUEZ - Last Filed: 05/28/20 20:24> <ADELA TIDWELL - Last Filed: 05/28/20 20:55> - Discharge Clinical Impression: Pyelonephritis, Right flank pain Abdominal pain Qualifiers: Abdominal location: unspecified location Qualified Code(s): R10.9 - Unspecified abdominal pain Condition: Stable Disposition: HOME, SELF-CARE Instructions: Pyelonephritis ([facility]) Additional Instructions: Complete all antibiotics without fail. Return if worsening symptoms such as intractable vomiting, intractable pain, worsening symptoms. We have sent your urine for culture. We will call you if your antibiotic is not a good fit for that urine. Push fluids. Follow-up with your primary care physician tomorrow. Prescriptions: Ciprofloxacin HCl [Cipro 500 mg Tablet] 500 mg PO BID #20 tablet Fluconazole [Diflucan] 150 mg PO ONCE PRN #1 tablet PRN Reason: Hydrocodone/Acetaminophen [Marlin 5-325 mg Tablet] 1 tab PO Q6H #6 tablet Promethazine HCl [Phenergan 25 mg Tablet] 1 - 2 tab PO Q6H PRN #15 tablet PRN Reason: Referrals: CHRISTY HERNANDEZ MD [Primary Care Provider] - Follow up tomorrow
[2020-05-28] MEDS ORDERED: HYDROCODONE/ACETAMINOPHEN 5-325 MG (6 TAB/ER DISP) PO PRN ×2 (20:47→21:10)
[2020-05-28 21:19] VITALS: BP 129/66
== END 2020-05-28 21:19 | disposition home or self-care (01) ==
LOC: ER 16:58
DX: N12 Tubulo-interstitial nephritis, not specified as acute or chronic (principal); R10.9 Unspecified abdominal pain; Z79.899 Other long term (current) drug therapy; I10 Essential (primary) hypertension; J45.909 Unspecified asthma, uncomplicated
CPT/HCPCS: 93005; 99285; 96361; 96375; 96365; 36415; 87086; 83690; 84703; 85025; 80053; 81001; 84484; 71045; 74176; 93010; J2270; J1170; J0696; J2405; J7030

== ENCOUNTER 2020-07-02 22:52 | Emergency (ER) | payer BC ==
[2020-07-02] MEDS ORDERED: NORMAL SALINE IV ONE (23:00)
[2020-07-02] MEDS ORDERED: FENTANYL CITRATE INJ/PF 100 MCG/2 ML AMPUL IV ONE (23:09)
[2020-07-02] MEDS ORDERED: ONDANSETRON HCL INJ/PF 4 MG/2 ML SDV IV ONE (23:10)
--- NOTE | 2020-07-02 23:12 | ER Document Report ---
ED General - General Chief Complaint: Abdominal Pain Stated Complaint: CHEST PAIN Time Seen by Provider: 07/02/20 23:02 Primary Care Provider: CHRISTY HERNANDEZ MD [COMMUNITY BASED STAFF] - Follow up as needed Notes: Patient is a 44-year-old female who comes emergency department for chief complaint of suddenly feeling ill this evening with pain in her chest, pain in her back, and pain in her abdomen. Patient comes by EMS and was found to have a fever of 100.7, patient is postoperative ventral hernia repair and duodenal switch on 06/27/2020 at [facility] in [place]. Patient states that she had a bowel movement this evening that when she wiped she saw some bright red blood, however she denies large amount of blood in the toilet. Patient has a history of morbid obesity, DVT, asthma, GERD, denies medical history otherwise. She is currently on a blood thinner. TRAVEL OUTSIDE OF THE [place] IN LAST 30 DAYS: No - Related Data Allergies/Adverse Reactions: apixaban [From Eliquis] Allergy (Verified 03/14/20 15:11) doxycycline Allergy (Verified 03/14/20 15:11) sumatriptan [From Imitrex] Allergy (Verified 03/14/20 15:11) Past Medical History - General Information source: Patient - Social History Smoking Status: Current Every Day Smoker Frequency of alcohol use: None Drug Abuse: None Lives with: Family Family History: CAD, Hypertension, Malignancy, Other - Past Medical History Cardiac Medical History: Reports: Hx DVT, Hx Hypertension Denies: Hx Coronary Artery Disease, Hx Heart Attack Pulmonary Medical History: Reports: Hx Asthma, Hx Pneumonia Denies: Hx Bronchitis, Hx COPD, Hx Respiratory Failure Neurological Medical History: Reports: Hx Migraine. Denies: Hx Cerebrovascular Accident, Hx Seizures Endocrine Medical History: Reports: Hx Hypothyroidism - s/p partial thyroidectomy. Denies: Hx Diabetes Mellitus Type 1, Hx Diabetes Mellitus Type 2, Hx Hyperthyroidism Renal/ Medical History: Reports: Hx Kidney Stones. Denies: Hx Peritoneal Dialysis GI Medical History: Reports: Hx Gastroesophageal Reflux Disease. 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 Denies: Hx Hepatitis Past Surgical History: Reports: Hx Abdominal Surgery - gastric sleeve, Hx Bowel Surgery, Hx Cholecystectomy, Hx Gastric Bypass Surgery - Gastric sleeve, Hx Gynecologic Surgery, Hx Hysterectomy, Hx Thyroid Surgery, Other - Removal of the benign bowel tumor - Immunizations Hx Diphtheria, Pertussis, Tetanus Vaccination: Yes Hx Pneumococcal Vaccination: 10/05/18 Review of Systems - Review of Systems Constitutional: See HPI EENT: No symptoms reported Cardiovascular: See HPI Respiratory: See HPI Gastrointestinal: See HPI Genitourinary: No symptoms reported Female Genitourinary: No symptoms reported Musculoskeletal: No symptoms reported Skin: No symptoms reported Hematologic/Lymphatic: No symptoms reported Neurological/Psychological: No symptoms reported Physical Exam - Vital signs Vitals: Resp Pulse Ox 31 H 96 07/02/20 22:54 07/02/20 22:54 - Notes Notes: GENERAL: Patient is ill-appearing and appears uncomfortable, she is leaning forward and occasionally grunting HEAD: Normocephalic, atraumatic. EYES: Pupils equal, round, and reactive to light. Extraocular movements intact. ENT: Oral mucosa moist, tongue midline. Oropharynx unremarkable. Airway patent. NECK: Full range of motion. Supple. Trachea midline. No lymphadenopathy. LUNGS: Clear to auscultation bilaterally, no wheezes, rales, or rhonchi. No respiratory distress. Non-tender chest wall. HEART: Tachycardic, normal rhythm, no murmur ABDOMEN: Generalized abdominal tenderness throughout the abdomen although there is no particular area of guarding. No rigidity. Horizontal surgical wounds appear to be healed without secondary signs of infection. Bowel sounds are present. EXTREMITIES: Moves all 4 extremities spontaneously. No edema, normal radial and dorsalis pedis pulses bilaterally. No cyanosis. BACK: No signs of trauma. No cervical, thoracic, lumbar midline tenderness. No saddle anesthesia, normal distal neurovascular exam. Moves all extremities in full range of motion. NEUROLOGICAL: Alert and oriented x3. Normal speech. Cranial nerves II through XII grossly intact. Strength 5/5 in all extremities. PSYCH: Somewhat agitated SKIN: Warm, dry, normal turgor. No rashes or lesions noted. Course - Re-evaluation Re-evalutation: Patient is tachycardic, ill-appearing, has a low-grade fever, has diffuse abdominal tenderness, is complaining of back and chest pain. Septic work-up pending, patient will be closely reevaluated. Initiating IV fluid resuscitation. Patient treated with fentanyl for pain. On reevaluation patient is calmer, heart rate is in the 120s, she appears more comfortable. Blood pressure briefly in the 90s but this was rechecked and normal. No persistent hypotension or maps less than 65. Chest x-ray unremarkab le. CBC shows leukocytosis at 10.6 with elevation of neutrophils but no bandemia. Chemistry nonspecific with elevated LFTs and alk phos. lactic acid, troponin, and lipase are not elevated. Urine is still pending. Because of patient's postoperative state, significant tachycardia, chest pain, abdominal pain, CTA will be performed. CTA showing mild pneumomediastinum, some pneumoperitoneum and diffuse air in the abdominal wall which could be postoperative. Urine shows infection. Patient has been covered with Zosyn already because of her concerning presentation. I discussed with Dr. Ryan, he recommends consultation with patient surgeon and potential transfer. 07/03/[address] Eastman, surgeon on-call for Dr. Vitaliy Alford who performed the surgery. He recommends patient be transferred to their hospital for admission and observation. I discussed this with patient and she states understanding and agreement. 07/03/20 06:30 Patient does have an assigned bed but we are still pending transport. - Vital Signs Vital signs: Temp Pulse Resp BP Pulse Ox 30 H 103/65 96 07/02/20 23:51 07/02/20 23:51 07/02/20 23:20 - Laboratory Results Result Diagrams: 07/02/20 22:55 07/02/20 22:55 Laboratory Results Interpreted: 07/02/20 07/02/20 07/02/20 22:55 22:55 22:55 WBC 10.6 H MCH 25.7 L MCHC 31.3 L RDW 17.9 H Seg Neuts % (Manual) 85 H Lymphocytes % (Manual) 12 L Abs Neuts (Manual) 9.0 H PT 19.9 H Est GFR ( Amer) 57 L Est GFR (MDRD) Non-Af 47 L Glucose 122 H Lactic Acid Direct Bilirubin 0.5 H AST 188 H ALT 79 H Alkaline Phosphatase 227 H Urine Protein Urine Blood Urine Urobilinogen Ur Leukocyte Esterase 07/03/20 07/03/20 01:37 05:40 WBC MCH MCHC RDW Seg Neuts % (Manual) Lymphocytes % (Manual) Abs Neuts (Manual) PT Est GFR ( Amer) Est GFR (MDRD) Non-Af Glucose Lactic Acid 0.6 L Direct Bilirubin AST ALT Alkaline Phosphatase Urine Protein 100 H Urine Blood SMALL H Urine Urobilinogen 4.0 H Ur Leukocyte Esterase SMALL H Critical Laboratory Results Reviewed: No Critical Results - Radiology Results Critical Radiology Results Reviewed: No Critical Results - EKG Interpretation by Me Additional EKG results interpreted by me: EKG shows sinus tachycardia at a rate of 146, QTc 455, left axis deviation, no T wave inversions or ST segment changes in consecutive leads Discharge - Discharge Clinical Impression: Postoperative fever, Pneumomediastinum Chest pain Qualifiers: Chest pain type: unspecified Qualified Code(s): R07.9 - Chest pain, unspecified Abdominal pain Qualifiers: Abdominal location: unspecified location Qualified Code(s): R10.9 - Unspecified abdominal pain Condition: Stable Disposition: [facility] Referrals: CHRISTY HERNANDEZ MD [COMMUNITY BASED STAFF] - Follow up as needed
[2020-07-02 23:32] LABS: ALBUMIN 3.7 g/dL (3.5-5.0); ALKALINE PHOSPHATASE 227 U/L (38-126); ANION GAP 9 (5-19); ASPARTATE AMINO TRANSFERASE 188 U/L (14-36); BILIRUBIN,DIRECT 0.5 mg/dL (0.0-0.4); BILIRUBIN,TOTAL 0.8 mg/dL (0.2-1.3); BLOOD UREA NITROGEN 13 mg/dL (7-20); CALCIUM 9.5 mg/dL (8.4-10.2); CARBON DIOXIDE 23 mmol/L (22-30); CHLORIDE 107 mmol/L (98-107); GLUCOSE 122 mg/dL (75-110); POTASSIUM 3.9 mmol/L (3.6-5.0); TOTAL PROTEIN 7.1 g/dL (6.3-8.2)
[2020-07-02 23:35] LABS: HEMATOCRIT 39.5 % (36.0-47.0); HEMOGLOBIN 12.4 g/dL (12.0-15.5); MEAN CORPUSCULAR HEMOGLOBIN 25.7 pg (27.0-33.4); MEAN CORPUSCULAR HGB CONC 31.3 g/dL (32.0-36.0); MEAN CORPUSCULAR VOLUME 82 fl (80-97); RED BLOOD COUNT 4.82 10^6/uL (3.72-5.28); RED CELL DISTRIBUTION WIDTH 17.9 % (11.5-14.0); WHITE BLOOD COUNT 10.6 10^3/uL (4.0-10.5)
[2020-07-02 23:38] LABS: INTERNATIONAL RATION (INR) 1.68; PROTHROMBIN TIME 19.9 SEC (11.4-15.4)
[2020-07-02 23:53] LABS: ABSOLUTE LYMPHOCYTES# (MANUAL) 1.3 10^3/uL (0.5-4.7); ABSOLUTE MONOCYTES # (MANUAL) 0.3 10^3/uL (0.1-1.4); BASOPHILS % (MANUAL) 0 % (0-2); EOSINOPHILS % (MANUAL) 0 % (0-6); LYMPHOCYTES % (MANUAL) 12 % (13-45); MONOCYTES % (MANUAL) 3 % (3-13); SEGMENTED NEUTROPHILS % (MAN) 85 % (42-78); TOTAL CELLS COUNTED 100
--- NOTE | 2020-07-02 23:54 | RADIOLOGY REPORT (SQ) ---
EXAM DESCRIPTION: Site: CHEST SINGLE VIEW RP: XR CHEST 1 VIEW CLINICAL HISTORY: 44 years Female; CP; COMPARISON: 05/28/2020 FINDINGS: Lungs: Lungs are clear, with no focal infiltrate, pneumothorax, or pleural effusion. Mediastinum: Mediastinum is within normal limits for this positioning. Bones: Bony structures are unremarkable. IMPRESSION: 1. No acute pulmonary findings.
[2020-07-02 23:57] LABS: ANISOCYTOSIS 1+; BURR CELLS SLIGHT; OVALOCYTES 1+; POIKILOCYTOSIS 1+; TOXIC GRANULATION SLIGHT; TOXIC VACUOLATION PRESENT
[2020-07-02 23:58] LABS: PLATELET CLUMPS PRESENT; PLATELET COMMENT ADEQUATE; PLATELET COUNT 231 10^3/uL (150-450)
[2020-07-03] MEDS ORDERED: FENTANYL CITRATE INJ/PF 100 MCG/2 ML AMPUL IV ONE (01:05)
--- NOTE | 2020-07-03 01:19 | RADIOLOGY REPORT (SQ) ---
CLINICAL HISTORY: Postop, chest pain, fever COMPARISON: None. TECHNIQUE: CT CHEST ANGIOGRAPHY WITHOUT THEN WITH IV CONTRAST on 07/03/2020 12:30 AM SUBWAREHOUSE SUPERVISOR. MIPS reconstructions were generated. This exam was performed according to our departmental dose-optimization program, which includes automated exposure control, adjustment of the mA and/or kV according to patient size and/or use of iterative reconstruction technique. MIP images were generated. FINDINGS: Thoracic aorta is normal in course and caliber without aneurysm or dissection. Pulmonary arteries are poorly opacified. There are no large central filling defects. There is an anterior pneumomediastinum. The heart is normal in size. There is no pericardial effusion. Intrathoracic lymph nodes are not enlarged. There is no pleural effusion, pleural thickening or pneumothorax. Central airways are patent. Lungs are clear with no consolidation, mass or interstitial lung disease. Liver is fatty in attenuation. There are no acute osseous findings. No suspicious bony lesions. IMPRESSION: Mild anterior pneumomediastinum. No acute inflammatory process.
--- NOTE | 2020-07-03 02:16 | RADIOLOGY REPORT (SQ) ---
CLINICAL HISTORY: post op pain, abd pain, fever COMPARISON: None. TECHNIQUE: CT ABDOMEN PELVIS ANGIOGRAPHY WITHOUT THEN WITH IV CONTRAST on 07/03/2020 12:30 AM NURSING CLINICAL DIRECTOR This exam was performed according to our departmental dose-optimization program, which includes automated exposure control, adjustment of the mA and/or kV according to patient size and/or use of iterative reconstruction technique. FINDINGS: Lower lungs are clear. Abdomen: The liver is normal in appearance. There is no biliary dilatation. Cholecystectomy was performed. Possible gastric bypass was performed. The pancreas and spleen are normal in appearance. There is lower pole calculus in the right kidney measuring 8 mm. Left kidney and adrenal glands are normal. Abdominal aorta is normal in course and caliber without aneurysm. There is small amount of upper abdominal free air. There is no retroperitoneal adenopathy. There is extensive subcutaneous air throughout the anterior abdominal wall. IVC filter is in place. Pelvis: There is no bowel obstruction. Urinary bladder is unremarkable. There is no free fluid. Hysterectomy was performed. Appendix is not clearly seen. Skeleton: There are no acute osseous findings. No suspicious bony lesions. IMPRESSION: Extensive subcutaneous air within the abdominal wall as well as mild pneumoperitoneum. This is presumably postoperative.
[2020-07-03 02:47] LABS: APPEARANCE,URINE CLOUDY; BILIRUBIN,URINE NEGATIVE (NEGATIVE); GLUCOSE, URINE NEGATIVE (NEGATIVE); KETONES,URINE NEGATIVE (NEGATIVE); LEUKOCYTE ESTERASE,URINE SMALL (NEGATIVE); NITRITE,URINE NEGATIVE (NEGATIVE); PROTEIN,URINE 100 mg/dL (NEGATIVE); URINE SPECIFIC GRAVITY 1.045
[2020-07-03 02:48] LABS: COLOR,URINE YELLOW
[2020-07-03] MEDS ORDERED: PIPERACILLIN/TAZOBACTAM 3.375 GM VIAL IV ONE (02:56)
[2020-07-03] MEDS ORDERED: MORPHINE SULFATE 10 MG/ML INJ IV ONE (07:53)
--- NOTE | 2020-07-03 09:40 | ER Document Report ---
Doctor's Note Notes: 07/03/20 09:37 Assumed care of patient in signout at 8 AM. Briefly, patient is into the ER with abdominal pain, chest pain, and fever. She is 6 days postop from a ventral hernia repair and duodenal switch. She was diagnosed with a mild pneumomediastinum/pneumoperitoneum. She was given Zosyn out of concern for sepsis/postop infection though her lactate was negative. She is being transferred to [facility] and being admitted by her surgeon. This morning she is alert and oriented and laying in exam bed. She appears ill. She request something to drink, regretfully I declined due to concern that her surgeon likely will keep her n.p.o. in case she needs to return to the OR. Patient is agreeable to this. She declines any other pain control or antiemetics. No other complaints at this time. She will likely be transferred around 10:30 AM. I did review her labs and imaging. mild leukocytosis w/o bandemia. transam initis- prior cholecystectomy and no dilated ducts per CT. normal lipase. lacate negative. CT notes mild pneumoperitoneum/pneumomediastinum. no evidence of PE. Tachycardia has resolved, pulse 91. BP remains stable at 103/81. respirations 15. 07/03/20 09:42
[2020-07-03 10:33] VITALS: BP 113/63
--- NOTE | 2020-07-03 19:13 | EKG REPORT ---
SEVERITY:- OTHERWISE NORMAL ECG - SINUS TACHYCARDIA : Confirmed by: Fabiana Morris MD 03-Jul-2020 19:12:55
== END 2020-07-03 10:39 | disposition short-term general hospital (02) ==
LOC: ER 22:52
DX: J98.2 Interstitial emphysema (principal); N39.0 Urinary tract infection, site not specified; R50.82 Postprocedural fever; R07.9 Chest pain, unspecified; R74.01 Elevation of levels of liver transaminase levels; M54.9 Dorsalgia, unspecified; R10.9 Unspecified abdominal pain; R10.817 Generalized abdominal tenderness; R00.0 Tachycardia, unspecified; J45.909 Unspecified asthma, uncomplicated; I10 Essential (primary) hypertension; F17.200 Nicotine dependence, unspecified, uncomplicated; Z79.899 Other long term (current) drug therapy; Z90.49 Acquired absence of other specified parts of digestive tract; Z98.84 Bariatric surgery status; Z88.8 Allergy status to other drugs, medicaments and biological substances; Z88.1 Allergy status to other antibiotic agents; Z88.6 Allergy status to analgesic agent; Z20.828 Contact with and (suspected) exposure to other viral communicable diseases
CPT/HCPCS: 93005; 96376; 99285; 96361 ×2; 51702; 96375; 96365; 36415; 87040; 87086; 83605; 83690; 85025; 85610; 0241U ×4; 80053; 81001; 84484; 71045; 71275; 74174; 93010; J3010 ×2; J2270; J2405; J7030; J2543; C9803; 82803

== ENCOUNTER 2020-08-11 17:34 | Emergency (ER) | payer BC ==
--- NOTE | 2020-08-11 18:10 | ER Document Report ---
ED Medical Screen (RME) - General Chief Complaint: Arm Pain Stated Complaint: ARM PAIN Time Seen by Provider: 08/11/20 17:59 Primary Care Provider: HERBIE CONN MD [Primary Care Provider] - Follow up as needed Notes: Patient is a 44 year old female who presents to the ED with pain at her PICC line site. [facility] She had a PICC line placed and is still currently on TPN. She is tolerating PO food/fluids. She started to have the pain today. Denies any fever. Had the home health nurse evaluated and her doctor. EXAM: Tenderness at PICC line site TRAVEL OUTSIDE OF THE [place] IN LAST 30 DAYS: No - Related Data Allergies/Adverse Reactions: apixaban [From Eliquis] Allergy (Verified 08/11/20 18:04) doxycycline Allergy (Verified 08/11/20 18:04) sumatriptan [From Imitrex] Allergy (Verified 08/11/20 18:04) Past Medical History - Past Medical History Cardiac Medical History: Reports: Hx DVT, Hx Hypertension Denies: Hx Coronary Artery Disease, Hx Heart Attack Pulmonary Medical History: Reports: Hx Asthma, Hx Pneumonia Denies: Hx Bronchitis, Hx COPD, Hx Respiratory Failure Neurological Medical History: Reports: Hx Migraine. Denies: Hx Cerebrovascular Accident, Hx Seizures Endocrine Medical History: Reports: Hx Hypothyroidism - s/p partial thyroidectomy. Denies: Hx Diabetes Mellitus Type 1, Hx Diabetes Mellitus Type 2, Hx Hyperthyroidism Renal/ Medical History: Reports: Hx Kidney Stones. Denies: Hx Peritoneal Dialysis GI Medical History: Reports: Hx Gastroesophageal Reflux Disease. 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 Denies: Hx Hepatitis Past Surgical History: Reports: Hx Abdominal Surgery - gastric sleeve, Hx Bowel Surgery, Hx Cholecystectomy, Hx Gastric Bypass Surgery - Gastric sleeve, Hx Gynecologic Surgery, Hx Hysterectomy, Hx Thyroid Surgery, Other - Removal of the benign bowel tumor - Immunizations Hx Diphtheria, Pertussis, Tetanus Vaccination: Yes Physical Exam - Vital signs Vitals: Temp Pulse Resp BP Pulse Ox 98.8 F 100 20 139/92 H 99 08/11/20 17:40 08/11/20 17:40 08/11/20 17:40 08/11/20 17:40 08/11/20 17:40 Course - Vital Signs Vital signs: Temp Pulse Resp BP Pulse Ox 98.8 F 100 20 139/92 H 99 08/11/20 17:40 08/11/20 17:40 08/11/20 17:40 08/11/20 17:40 08/11/20 17:40 Doctor's Discharge - Discharge Referrals: HERBIE CONN MD [Primary Care Provider] - Follow up as needed
[2020-08-11 18:34] LABS: ABSOLUTE BASOPHILS # (AUTO) 0.1 10^3/uL (0.0-0.2); ABSOLUTE EOSINOPHILS # (AUTO) 0.1 10^3/uL (0.0-0.6); ABSOLUTE LYMPHOCYTES (AUTO) 1.1 10^3/uL (0.5-4.7); ABSOLUTE MONOCYTES (AUTO) 0.6 10^3/uL (0.1-1.4); ABSOLUTE NEUT (AUTO) 5.9 10^3/uL (1.7-8.2); EOSINOPHILS % (AUTO) 1.5 % (0-6); HEMATOCRIT 41.9 % (36.0-47.0); HEMOGLOBIN 13.3 g/dL (12.0-15.5); LYMPHOCYTES % (AUTO) 14.1 % (13-45); MEAN CORPUSCULAR HEMOGLOBIN 25.7 pg (27.0-33.4); MEAN CORPUSCULAR HGB CONC 31.8 g/dL (32.0-36.0); MEAN CORPUSCULAR VOLUME 81 fl (80-97); RED BLOOD COUNT 5.19 10^6/uL (3.72-5.28); RED CELL DISTRIBUTION WIDTH 18.7 % (11.5-14.0); SEGMENTED NEUTROPHILS % (AUTO) 75.4 % (42-78); TOTAL CELLS COUNTED % (AUTO) 100 %; WHITE BLOOD COUNT 7.9 10^3/uL (4.0-10.5)
[2020-08-11 18:41] LABS: INTERNATIONAL RATION (INR) 1.27; PROTHROMBIN TIME 16.1 SEC (11.4-15.4)
[2020-08-11 18:43] LABS: ANION GAP 7 (5-19); BLOOD UREA NITROGEN 20 mg/dL (7-20); CARBON DIOXIDE 24 mmol/L (22-30); CHLORIDE 112 mmol/L (98-107); GLUCOSE 109 mg/dL (75-110)
[2020-08-11 18:51] LABS: PLATELET COUNT 198 10^3/uL (150-450)
--- NOTE | 2020-08-11 20:57 | ER Document Report ---
ED Extremity Problem, Upper - General Chief Complaint: Arm Problem Stated Complaint: ARM PAIN Time Seen by Provider: 08/11/20 17:59 Primary Care Provider: HERBIE CONN MD [NO LOCAL MD] - Follow up as needed Mode of Arrival: Ambulatory Information source: Patient Notes: 44-year-old female presented to ED for complaint of pain to the right arm from the site of the client up to the shoulder. She states she had a PICC line placed on June 27, 2020 at [facility] for nutrition. She had a duodenal switch which is post to be reversed in August and she was not keeping down the food and fluid after the switch so they gave her the TPN. She states she is now eating enough food and fluids but she supposed to still use the TPN. She denies any fevers chills just discomfort from the end of the PICC line to the shoulder. She has no chest pain at this time. She is alert oriented respirations regular nonlabored speaking in full sentences. She states she did call the on-call doctor who did her procedure and they told her to come to the emergency room and they were going order a venous Doppler of the line. She does have a history of blood clots. She is on Xarelto. Constitutional: Negative for fever. HENT: Negative for sore throat. Eyes: Negative for visual changes. Cardiovascular: Negative for chest pain. Respiratory: Negative for shortness of breath. Gastrointestinal: Negative for abdominal pain, vomiting or diarrhea. Genitourinary: Negative for dysuria. Musculoskeletal: Negative for back pain. Skin: There is bruising at the site of the PICC line there is also tenderness up the right arm from the PICC line to the shoulder Neurological: Negative for headaches, weakness or numbness. 10 point ROS negative except as marked above and in HPI. VITAL SIGNS: Within normal limits. GENERAL: No acute distress, non-toxic appearance. HEAD: Normal with no signs of head trauma. EYES: PERRLA, EOMI, conjunctiva normal, no discharge. EARS: Hearing grossly intact. NOSE: Normal. THROAT: Oropharynx is normal. NECK: Normal range of motion, no tenderness, supple, no lymphadenopathy, No adenopathy, no JVD. CHEST: Clear breath sounds bilaterally. No wheezes, rales, or rhonchi. CARDIAC: Regular rate and rhythm. S1 and S2, without murmurs, gallops, or rubs. VASCULAR: No Edema. Peripheral pulses normal and equal in all extremities. ABDOMEN: Normal and soft with no tenderness, no masses or pulsatile masses. GASTROINTESTINAL: Bowel sounds normal GENITOURINARY: Normal, No tenderness LYMPATHTIC: No lymphadenopathy noted. MUSCULOSKELETAL: Good range of motion of all major joints. Extremities without clubbing, cyanosis or edema. NEUROLOGICAL: Alert and oriented x 3. No focal sensory or strength deficits. Speech normal. Follows commands appropriately. PSYCHIATRIC: Normal Affect, judgement and mood. SKIN: Tenderness from the site of the PICC line up to the shoulder there is bruising at the site of the PICC line but no other bruising noted TRAVEL OUTSIDE OF THE [place] IN LAST 30 DAYS: No - HPI Patient complains to provider of: Pain, Right, Arm Onset: Yesterday Recent injury: No Quality of pain: Sharp Severity of pain: Moderate Pain Level: 3 Context: Other - PICC line tenderness bruising at site Associated symptoms: None Exacerbated by: Movement Relieved by: Rest, Positioning Similar symptoms previously: Yes Recently seen / treated by doctor: Yes - Related Data Allergies/Adverse Reactions: apixaban [From Eliquis] Allergy (Verified 08/11/20 18:04) doxycycline Allergy (Verified 08/11/20 18:04) sumatriptan [From Imitrex] Allergy (Verified 08/11/20 18:04) Home Medications: TPN.... Past Medical History - General Information source: Patient - Social History Smoking Status: Never Smoker Chew tobacco use (# tins/day): No Frequency of alcohol use: None Drug Abuse: None Lives with: Family Family History: CAD, Hypertension, Malignancy, Other Patient has homicidal ideation: No - Past Medical History Cardiac Medical History: Reports: Hx DVT, Hx Hypertension Pulmonary Medical History: Reports: Hx Asthma, Hx Pneumonia EENT Medical History: Reports: None Neurological Medical History: Reports: Hx Migraine Endocrine Medical History: Reports: Hx Hypothyroidism - s/p partial thyroidectomy Renal/ Medical History: Reports: Hx Ectopic Malignancy Medical History: Reports: None GI Medical History: Reports: Hx Gastroesophageal Reflux Disease Musculoskeletal Medical History: Reports None Skin Medical History: Reports None Psychiatric Medical History: Reports: None Traumatic Medical History: Reports: None Infectious Medical History: 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 is related to this admission as described in Past Surgical History: Reports: Hx Abdominal Surgery - gastric sleeve, Hx Bowel Surgery, Hx Cholecystectomy, Hx Gastric Bypass Surgery - Gastric sleeve, Hx Gynecologic Surgery, Hx Hysterectomy, Hx Thyroid Surgery, Other - Removal of the benign bowel tumor - Immunizations Hx Diphtheria, Pertussis, Tetanus Vaccination: Yes Hx Pneumococcal Vaccination: 10/05/18 Physical Exam - Vital signs Vitals: Temp Pulse Resp BP Pulse Ox 98.8 F 100 20 139/92 H 99 08/11/20 17:40 08/11/20 17:40 08/11/20 17:40 08/11/20 17:40 08/11/20 17:40 Course - Re-evaluation Re-evalutation: 08/12/20 03:51 Discussed venous Doppler and labs with patient by report of venous Doppler and labs given to patient. Patient did have tenderness to palpation to the right arm above the PICC line. There was no redness no inflammation no swelling and no bruising. There was a very small bruise at the site of insertion of the PICC line. Doppler was negative for any DVT. She was given written report of labs and Doppler and discharged home. - Vital Signs Vital signs: Temp Pulse Resp BP Pulse Ox 98.5 F 98 20 138/85 H 100 08/11/20 22:18 08/11/20 22:18 08/11/20 22:18 08/11/20 22:18 08/11/20 22:18 - Laboratory Results Result Diagrams: 08/11/20 18:17 08/11/20 18:17 Laboratory Results Interpreted: 08/11/20 08/11/20 08/11/20 18:17 18:17 18:17 MCH 25.7 L MCHC 31.8 L RDW 18.7 H PT 16.1 H APTT 36.0 H Chloride 112 H Critical Laboratory Results Reviewed: No Critical Results - Radiology Results Critical Radiology Results Reviewed: No Critical Results Discharge - Discharge Clinical Impression: Painful PICC line site Condition: Stable Disposition: HOME, SELF-CARE Additional Instructions: I discussed your blood work with you and given you written report of your CBC and chemistry to take to your primary care doctor. I also given you a copy of the Doppler that showed no DVTs to the PICC line site. There is a superficial clot at the site of the PICC line but this is a bruise it is nothing that is concerning. There is no signs of infection there is no warmth or redness or cellulitis. We have discussed the site and the blood work with you and given you the reports to take to the primary doctor. We do not change picklines in the emergency room at [facility]. You can return to the surgeon who placed the PICC line and have them reevaluate this. If you are able to eat and drink without the PICC line. Acetaminophen Acetaminophen may be taken for pain relief or fever control. It's much safer than aspirin, offering a wider range of "safe" dosages. It is safe during . Some brand names are Tylenol, Panadol, Datril, Anacin 3, Tempra, and Liquiprin. Acetaminophen can be repeated every four hours. The following are maximum recommended dosages: WEIGHT Dose Drops Elixir Chewable(80mg) (LBS.) drprs=droppers tsp=teaspoon 6 40 mg .4 ml (1/2) 6-11 80 mg .8 ml (full) 1/2 tsp 1 tab 12-16 120 mg 1 1/2 drprs 3/4 tsp 1 1/2 tabs 17-23 160 mg 2 drprs 1 tsp 2 tabs 24-30 240 mg 3 drprs 1 1/2 tsp 3 tabs 30-35 320 mg 2 tsp 4 tabs 36-41 360 mg 2 1/4 tsp 4 1/2 tabs 42-47 400 mg 2 1/2 tsp 5 tabs 48-53 480 mg 3 tsp 6 tabs 54-59 520 mg 3 1/4 tsp 6 1/2 tabs 60-64 560 mg 3 1/2 tsp 7 tabs 65-70 600 mg 3 3/4 tsp 7 1/2 tabs 71-76 640 mg 4 tsp 8 tabs 77-82 720 mg 4 1/2 tsp 9 tabs 83-88 800 mg 5 tsp 10 tabs >89 pounds or adults 650 mg to 900 mg Acetaminophen can be repeated every four hours. Maximum daily dose not to exceed 4000 mg. These maximum recommended dosages are slightly higher than the dosages written on the product container, but these dosages are very safe and well below the toxic dosage for acetaminophen. Warm Packs After approximately two days, apply gentle heat (such as a heating pad or hot water bottle) for about 20 to 30 minutes about every two hours -- at least four times daily. Warmth and elevation will help you make a more rapid recovery, and will ease the pain considerably. Do not use HOT heat, and never apply heat for longer than 30 minutes. The continuous heat can invisibly damage skin and muscles -- even when no burn is seen on the surface. Damaged muscles can make you MORE sore. FOLLOW-UP CARE: If you have been referred to a physician for follow-up care, call the physicians office for an appointment as you were instructed or within the next two days. If you experience worsening or a significant change in your symptoms, notify the physician immediately or return to the Emergency Department at any time for re-evaluation. Forms: Elevated Blood Pressure Referrals: EHRBIE CONN MD [NO LOCAL MD] - Follow up as needed
--- NOTE | 2020-08-11 21:15 | RADIOLOGY REPORT (SQ) ---
EXAM DESCRIPTION: US EXTREMITY VEINS UNILATERAL COMPLETED DATE/TME: 08/11/2020 20:09 CLINICAL HISTORY: 44 years Female RUE pain; hx of DVTs COMPARISON: None. TECHNIQUE: Duplex imaging performed to evaluate the right upper extremity venous structures. Compression imaging and augmentation imaging performed. FINDINGS: No thrombus is identified in the right upper extremity venous structures. There is normal compression and augmentation in the deep venous structures. PICC line in the cephalic vein with probable superficial thrombosis in the cephalic. IMPRESSION: No DVT is identified in the right upper extremity. PICC line in place in the cephalic vein with superficial thrombus suspected adjacent to the PICC line
[2020-08-11 22:24] VITALS: BP 138/85
--- NOTE | 2020-08-11 22:34 | ER Document Report ---
Doctor's Note Notes: 08/11/20 22:34 I was asked see the patient by the XU. Patient is a 44-year-old female who presents with pain to her PICC line in her right upper extremity. Patient states that she has been using it for TPN. [place] [facility] Last week, she began tolerating foods by mouth. She states that she had pain when the PICC line was initially placed. She is concerned because she has pain at her PICC line today. She denies any redness or swelling. No fevers or chills. She tried to call her PICC line coordinator but was told to go to the ED. Exam, patient is awake and alert. She is in no acute distress. Her PICC line site is not erythemic or swollen. Her compartments in the upper arm are soft. There is no streaking. I do not believe there is a sign of infection. Ultrasound showed a superficial thrombus and no DVT. Patient is already on blood thinners. We attempted to have her call the PICC line coordinator so we could speak to them but she was unable to get a hold of them. I recommended that patient call them tomorrow and let them know the ED work-up. She is taking p.o. Patient is agreeable to this. She was given strict return precautions including redness, worsening pain, fevers, chills. 08/11/20 22:35
== END 2020-08-11 22:24 | disposition home or self-care (01) ==
LOC: ER 17:34
DX: T82.848A Pain due to vascular prosthetic devices, implants and grafts, initial encounter (principal); Y82.8 Other medical devices associated with adverse incidents; I82.90 Acute embolism and thrombosis of unspecified vein; I10 Essential (primary) hypertension; J45.909 Unspecified asthma, uncomplicated; Z79.01 Long term (current) use of anticoagulants; Z98.84 Bariatric surgery status; Z88.8 Allergy status to other drugs, medicaments and biological substances; Z88.1 Allergy status to other antibiotic agents; Z88.6 Allergy status to analgesic agent
CPT/HCPCS: 36415; 80048; 85025; 85610; 85730; 93971; 99284